=== PATIENT | male | born 1940 | race Caucasian/White ===

== ENCOUNTER → 2017-01-16 | Day surgery (SDC) | payer OTHER ==
[~2017-01-16] VITALS: Ht 165.1 cm; Wt 81.8 kg
[~2017-01-16] MED LIST: AMX500 PO; ATOR10TA82 PO; ATROPINE SULFATE 0.1 MG/ML 5ML SYR IV PRN; BELLADONNA/OPIUM SUPP 60 MG SUPP PR ONE; CIPROFLOXACIN 500 MG TAB PO SCH; DEXA1TAB16 PO; EpHEDrine SULFATE INJ 50 MG/ML AMP IV PRN; FENTANYL CITRATE INJ 50 MCG/1 ML 2 ML VIAL IV PRN; FENTANYL CITRATE INJ 50 MCG/1 ML 2 ML VIAL ONE; FINA5TAB PO; FRCT/ PO; GABA-113 PO; HYDROmorphone INJ 1 MG/ML SYR ONE; LACTATED RINGER'S 1000ML 1,000 ML IV SCH; LANS15CA6 PO; LEVO112T4 PO; LIDOCAINE HCL 2% 2 ML VIAL (20MG/ML) ONE; LORA-741 PO; METF500T5 PO; NTRGSL/4 UT; PHEN-775 PO; PHENYLEPHRINE 100MCG/ML 5ML SYR ONE; PROPOFOL IV EMULSION 10 MG/ML 20 ML VIAL IV ONE; TRAM-10 PO; TRAZ50TA35 PO; WARF5TAB90 PO
[2017-01-16 06:26] VITALS: BP 143/71; PULSE 64; TEMP 36.6; O2SAT 97; Ht 165.1 cm; Wt 81.8 kg
[2017-01-16 06:32] LABS: INR 1.1 (0.9-1.1); PARTIAL THROMBOPLASTIN RATIO 1.1; PROTHROMBIN TIME (PATIENT) 11.2 SECONDS (9.0-12.0)
--- NOTE | 2017-01-16 07:04 | History & Physical Bridge Note ---
H&P Re-Evaluation Bridge Note: I have examined the patient, reviewed the History & Physical and in the interval since the performance of the History & Physical I have noted the following changes of clinical significance: No changes noted
--- NOTE | 2017-01-16 08:23 | Anesthesiology Progress Note ---
Anesthesia Post Op Note Date & Time Jan 16, 2017 at 08:23 Vital Signs Pain Intensity: 0 Vital Signs Past 12 Hours Date Time Temp Pulse Resp B/P (MAP) Pulse Ox O2 Delivery O2 Flow Rate FiO2 01/16/17 06:26 36.6 64 18 143/71 (95) 97 Room Air Notes Mental Status: alert / awake / arousable, participated in evaluation Pt Amnestic to Procedure: Yes Nausea / Vomiting: adequately controlled Pain: adequately controlled Airway Patency, RR, SpO2: stable & adequate BP & HR: stable & adequate Hydration State: stable & adequate Anesthetic Complications: no major complications apparent
--- NOTE | 2017-01-16 08:27 | [facility] Operative Report ---
Operative Report Operative Date Jan 16, 2017. Pre-Operative Diagnosis Benign Prostatic Hyperplasia, Hematuria Post-Operative Diagnosis Benign Prostatic Hyperplasia, Hematuria Procedure(s) Performed Transurethral Resection Prostate Surgeon Dr. Rodriguez Inward Toll Operator Surgeon(s) none Estimated Blood Loss 100 ML Findings trilobar enlargement large middle lobe Fluids 750mL Specimens A:Prostate Chips Drains 20 fr coude greer Anesthesia LMA Complication(s) None Disposition Recovery Room / PACU Indications hematuria and urinary symptoms due to obstructive prostate Description of Procedure Patient was given general LMA anesthesia and placed in lithotomy position. His genitals were prepped and draped in sterile fashion. Time out held with team. I placed a 26 fr resectoscope to the bladder. The urethra is unremarkable. The prostate is trilobar hyperplasia with a large middle lobe. The UOs are well away from bladder neck. The bladder is moderately trabeculated but there are no diverticula. I used the band to resect middle lobe then lateral lobes and some anterior tissue falling down. I kept resection proximal to veru but did resect apical tips of lateral lobes as they were very large and met in the middle. I rinsed prostate chips out of bladder. I left bladder full and placed a 20 fr coude greer. I then concluded case. I placed a belladonna and opium suppository for post-op pain. He transferred to recovery under my escort, in stable condition. 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 Any exceptions are noted below.
--- NOTE | 2017-01-16 08:30 | Discharge Instructions ---
Discharge Instructions Date of Service Jan 16, 2017. Admission Reason for Admission: Benign Prostatic Hyperplasia, Gross Hematuria Discharge Discharge Diagnosis / Problem: BPH Discharge Goals Goal(s): Improve function, Improve disease control Activity Recommendations Activity Limitations: as noted below Lifting Limitations: no more than 25 pounds Exercise/Sports Limitations: until after follow-up appointment Shower/Bathe: no limitations Driving or Machine Use: resume 1 day after discharge . Instructions / Follow-Up Instructions / Follow-Up remove greer at home saturday morning when urine is bloody drink extra fluids Current Hospital Diet Patient's current hospital diet: Discharge Diet Recommended Diet: AHA Diet (Heart Healthy), Diabetes Type 2 Diet Procedures Procedures Performed: Transurethral Resection Prostate Pending Studies Studies pending at discharge: yes List of pending studies: pathology Medical Emergencies . Who to Call and When: Medical Emergencies: If at any time you feel your situation is an emergency, please call 911 immediately. . Non-Emergent Contact Non-Emergency issues call your: Urologist ([phone]) Call Non-Emergent contact if: temperature is above 100.5 . . "Provider Documentation" section prepared by Deborah Rodriguez. . VTE Core Measure Inpt VTE Proph given/why not?: SCD's
[2017-01-16 09:15] VITALS: BP 115/52; PULSE 59; TEMP 36.6; O2SAT 96
[2017-01-16 09:45] VITALS: BP 116/46; PULSE 58; TEMP 36.6; O2SAT 97
[2017-01-16 10:15] VITALS: BP 123/62; PULSE 56; TEMP 36.5; O2SAT 98
== END | disposition home or self-care (01) ==
LOC: C.ACU 05:47
PROVIDERS: ATTEND Urology
DX: N40.1 Benign prostatic hyperplasia with lower urinary tract symptoms (principal); N41.1 Chronic prostatitis; R31.9 Hematuria, unspecified; I10 Essential (primary) hypertension; Z79.01 Long term (current) use of anticoagulants; K21.0 Gastro-esophageal reflux disease with esophagitis; E78.5 Hyperlipidemia, unspecified; E03.8 Other specified hypothyroidism; Z96.619 Presence of unspecified artificial shoulder joint; I48.2 Chronic atrial fibrillation; Z86.73 Personal history of transient ischemic attack (TIA), and cerebral infarction without residual deficits; Z87.891 Personal history of nicotine dependence; E78.00 Pure hypercholesterolemia, unspecified; G47.30 Sleep apnea, unspecified; E11.9 Type 2 diabetes mellitus without complications; G62.9 Polyneuropathy, unspecified; Z92.241 Personal history of systemic steroid therapy; Z79.84 Long term (current) use of oral hypoglycemic drugs

== ENCOUNTER 2023-04-25 14:21 | Inpatient (IN) ==
--- NOTE | 2023-04-25 14:51 | ED Triage Note ---
Date of Service April 25, 2023 Provider in Triage Author: Jimbo Devlin History of Present Illness This patient was briefly evaluated while in triage. An abbreviated physical exam was performed. This patient is a 82-year-old Male who presents to the ED for evaluation of reported hypoxia at physical therapy. was noted to be in the low 80's, placed on O2. Was reportedly having a hard time at PT which is why his vitals were checked. Pt denies any CP or dyspnea. No new swelling in legs. Does not take any diuretics. Has ongoing R hip pain over past 2 days. Fell out of bed yesterday. Physical Exam CONSTITUTIONAL: in no acute pain or distress, resting comfortably SKIN: pink, warm, dry CARDIAC: tachycardic rate and regular rhythm RESPIRATORY: lungs clear ABDOMEN: normal MSK: R hip tender, severe pain on movement. B/l lower pitting edema Initial orders for labs and / or imaging were placed and patient was placed in the waiting area until a bed is available. Please see further documentation for the full ED course.
[2023-04-25 16:02] LABS: Basophils # (auto) 0.03 K/uL (0.00-0.20); Basophils % (auto) 0.4 %; Eosinophils # (auto) 0.12 K/uL (0.00-0.50); Eosinophils % (auto) 1.8 %; Hematocrit (blood only) 30.3 % (42.0-52.0); Immature Granulocytes # (auto) 0.02 K/uL (0.01-0.20); Immature Granulocytes % (auto) 0.3 %; Lymphocytes % (auto) 11.7 %; Mean Corpuscular Hemoglobin 33.8 pg (25.0-34.0); Mean Corpuscular Volume 102.4 fL (80.0-100.0); Mean Platelet Volume 10.1 fL (9.4-12.4); Monocytes # (auto) 0.59 K/uL (0.11-0.59); Monocytes % (auto) 8.6 %; Neutrophils # (auto) 5.29 K/uL (1.40-6.50); Neutrophils % (auto) 77.2 %; Platelet Count 137 K/uL (130-400); RDW Coefficient of Variation 14.5 % (11.5-14.5); Red Blood Count 2.96 M/uL (4.70-6.10); White Blood Count 6.85 K/ul (4.8-10.8)
[2023-04-25 16:23] LABS: Albumin Level 2.8 gm/dl (3.4-5.0); Anion Gap 9 (3-11); Bilirubin,Total 2.6 mg/dl (0.2-1.0); Carbon Dioxide 31 mmol/L (21-32); Chloride 98 mmol/L (98-107); Potassium 2.9 mmol/L (3.5-5.1); Sodium 138 mmol/L (136-145)
[2023-04-25 16:30] LABS: Alanine Aminotransferase 8 U/L (7-52); Albumin Globulin Ratio 0.8 (0.9-2); Alkaline Phosphatase 105 U/L (34-104); Aspartate Aminotransferase 19 U/L (13-39); BUN Creatinine Ratio 20.6 (10-20); Blood Urea Nitrogen 29 mg/dl (6-23); Est GFR (African American) 53.8 ml/min; Est GFR (Non-African American) 46.4 ml/min; Globulin 3.4 gm/dl (2.5-4.0); Glucose 126 mg/dl (70-99(Fasting)); Lipase 7 U/L (11-82); Total Protein 6.2 gm/dl (6.0-8.3)
[2023-04-25 16:33] LABS: Troponin I High Sensitivity 10.6 pg/ml (0-20)
--- NOTE | 2023-04-25 16:56 | XRay Report ---
XR hip RT 2V w pelvis CLINICAL HISTORY: 2 days R hip pain COMPARISON: None FINDINGS: Sacroiliac joints and symphysis pubis are intact. There is no acute fracture within the pe lvis or hips. No osseous lesions are present. There is no evidence for avascular necrosis of the femo ral heads. There is moderate joint space narrowing and osteophytosis of the right hip. There is mild left hip osteophytosis. Right lower quadrant surgical staple line is incidentally noted. There is a m oderate amount of stool within the rectum. IMPRESSION: 1. Moderate right hip osteoarthritis. 2. No fractures within the pelvis or hips. ACT 112: Negative or not required by law. Electronically signed by: Manuel Jefferson M.D. 04/25/2023 4:55 PM
--- NOTE | 2023-04-25 16:57 | XRay Report ---
XR chest 1V not portable HISTORY: 82 years-old Male hypoxia, history CHF acute hypoxia COMPARISON: None TECHNIQUE: AP view of the chest FINDINGS: Cardiac mediastinal and hilar silhouettes are within normal limits. Pulmonary vascular congestion. No nspecific interstitial coarsening of the lungs with linear left basilar and right midlung opacities. No pneumothorax, large pleural effusion or overt pulmonary edema. Degenerative changes of the spine a nd left shoulder. Right shoulder arthroplasty. IMPRESSION: 1. Cardiomegaly with pulmonary vascular congestion. 2. Mild nonspecific interstitial coarsening, possibly chronic. 3. Linear right midlung and left basilar densities favor atelectasis versus scarring. ACT 112: Negative or not required by law. The above report was generated using voice recognition software. It may contain grammatical, syntax o r spelling errors. Electronically signed by: Earl Oliveira M.D. 04/25/2023 4:55 PM
--- NOTE | 2023-04-25 18:24 | Emergency Department Note ---
Impression & Plan Right hip pain, Acute hyperkalemia, Anemia, Hypoxia, Fall ED Provider Note NAME: CARLOS WOOD AGE: 82 SEX: M : 1940 ARRIVES VIA: Ambulance INFORMANT: Patient, ED PROVIDER(S): Da Guzman DO CHIEF COMPLAINT: Hip pain HPI: The patient is an 82-year-old male who presented to the emergency department with multiple complaints. Mostly the patient is complaining of right hip pain. He states he cannot put any weight on his right hip. He feels that it is weak but also painful when he tries to ambulate. The patient did admit that he did fall and hit his anterior right hip. He did try to get out of bed and his leg gave way. He denies having any chest pain or difficulty breathing but he was found to be hypoxic when he [facility] He was sent to the emergency department for further evaluation. The patient states has been compliant with his outpatient medications. ROS: See above HPI for pertinent positives & negatives. A total of 10 systems reviewed and were otherwise negative. PAST MEDICAL HISTORY: See Below PAST SURGICAL HISTORY: See Below FAMILY HISTORY: See Below SOCIAL HISTORY: See Below HOME MEDICATIONS: See Below ALLERGIES: See Below VITALS: See Below PHYSICAL EXAMINATION: GENERAL: Patient is awake alert in no acute distress patient is resting comfortably and showing no signs of anxiety EYES: The conjunctivae are clear. The pupils are round and reactive. EARS, NOSE, MOUTH AND THROAT: The nose is without any evidence of any deformity. NECK: The neck is nontender and supple. RESPIRATORY: Diminished breath sounds are noted throughout. There is no tachypnea or conversational dyspnea. CARDIOVASCULAR: Regular rate and rhythm noted there no murmurs rubs or gallops normal S1 normal S2. GASTROINTESTINAL: The abdomen is soft. Abdomen is nontender. MUSCULOSKELETAL/EXTREMITIES: There is pain with range of motion testing of the right hip. There is no deformity or shortening. SKIN: Chronic venous stasis changes were noted. Skin is warm and dry. NEUROLOGIC: Patient is awake alert and oriented x3. The patient is unable to lift the right leg off the bed. There is no facial droop. Speech was clear MEDICAL DECISION MAKING: The patient is an 82-year-old male who presented to the emergency department for an evaluation of right leg pain. The patient states his leg was weak but also he had severe pain with any ambulation. The patient did have a fall but he did not consider very traumatic. Radiographic studies did not reveal any signs of fracture. I discussed the patient's laboratory and radiographic studies with him. He did have further testing such as a CAT scan of the brain as well as CAT scan of the hip to ensure this was no occult fracture but also to ensure there is no neurologic cause for his symptoms. He was found to have anemia as well as hypokalemia. He was treated with potassium replacement. The patient was treated with pain medication in the emergency department. I discussed the patient's condition with the on-call [facility]ist. They have agreed to evaluate the patient in the emergency department for further management and disposition. Triage Nursing notes reviewed. Prior medical records reviewed Vital Signs: reviewed and remarkable for no significant abnormalities Differential diagnosis: Infection, dehydration, metabolic abnormality, hypo/hyperglycemia, electrolyte disturbance, anemia, hypoxia, cardiac sources, intracerebral event, toxicologic, neurologic, as well as other pathologies. ER treatment provided: See below Diagnostics interpreted by me: ECG: EKG was obtained in the emergency department. My interpretation is normal sinus rhythm at 99 bpm. PVCs were noted. Right bundle-branch block pattern was noted. No previous tracing was available. Cardiac Monitoring: An order was placed for continuous cardiac monitoring. The monitor shows a rate of 82 bpm with sinus rhythm. Laboratory studies: As stated above and show below. Imaging studies: See below. Radiographic imaging was reviewed by myself Consultation(s): I discussed this case with Dr. Delgado who is on-call for the [facility] group. 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 Verified 04/25/23 21:04 cefuroxime Allergy Unknown FLUSHING, Verified 04/25/23 21:04 HIVES, ITCHING [id number] Reductase Allergy Unknown MUSCLE Verified 04/25/23 21:04 Inhibitor [Qundnlo-Lpc-Ryk Reductase Inhibitor] zolpidem Allergy Unknown "MADE ME A Verified 04/25/23 21:04 DIFFERENT PERSON" Home Meds Home Medications Medication Instructions Recorded Confirmed cholecalciferol (vitamin D3) 50 50 mcg PO DAILY 04/25/23 04/25/23 mcg (2,000 unit) tablet (Vitamin D3) docusate sodium 100 mg capsule 100 mg PO BID 04/25/23 04/25/23 fluticasone 250 mcg-salmeterol 50 1 inh inhalation Q12 04/25/23 04/25/23 mcg/dose blistr powdr for inhalation lansoprazole 15 mg capsule,delayed 15 mg PO QAM 04/25/23 04/25/23 release levothyroxine 112 mcg tablet 112 mcg PO DAILY 04/25/23 04/25/23 lorazepam 0.5 mg tablet 0.5 mg PO DAILY PRN Anxiety 04/25/23 04/25/23 meclizine 25 mg tablet 25 mg PO TID PRN .dizzyness 04/25/23 04/25/23 metoprolol succinate 25 mg 25 mg PO QAM 04/25/23 04/25/23 tablet,extended release 24 hr nitroglycerin 0.4 mg sublingual 0.4 mg sublingual DIRECTED PRN 04/25/23 04/25/23 tablet ..chest pain potassium chloride 20 mEq 20 meq PO TID 04/25/23 04/25/23 tablet,extended release tadalafil 20 mg tablet 20 mg PO DAILY PRN .erectile 04/25/23 04/25/23 dysfunction thiamine HCl (vitamin B1) 100 mg 100 mg PO QAM 04/25/23 04/25/23 tablet (Vitamin B-1) tramadol 50 mg tablet 50 mg PO TID 04/25/23 04/25/23 trazodone 50 mg tablet 50 mg PO HS 04/25/23 04/25/23 zinc sulfate 50 mg zinc (220 mg) 50 mg PO QAM 04/25/23 04/25/23 tablet Results & Data (ED) Vital Signs Vital Signs - 24 hr 04/25/23 14:48 04/25/23 18:22 04/25/23 18:29 Temperature 36.5 C Temperature Source Temporal Artery Scan Pulse Rate 105 H 81 83 Pulse Rate [Apical] Pulse Rate from SpO2 Sensor Pulse Rhythm Regular Respiratory Rate 18 Respiratory Effort / Characteristics Non-Labored Spontaneous Respiratory Depth Normal Respiratory Pattern Regular Blood Pressure 128/67 Blood Pressure [Left Arm] Blood Pressure Mean 87 Blood Pressure Mean [Left Arm] Blood Pressure Position Sitting Pulse Oximetry 97 100 Oxygen Delivery Method Room Air Nasal Cannula Oxygen Flow Rate 2 Sepsis Recent Fever Within 48 Hours No Sepsis New/Unexplained Change in Mental Status No Sepsis Action Taken by Nursing No Action Required 04/25/23 18:31 04/25/23 18:31 04/25/23 18:33 Temperature Temperature Source Pulse Rate Pulse Rate [Apical] 84 Pulse Rate from SpO2 Sensor Pulse Rhythm Respiratory Rate 16 Respiratory Effort / Characteristics Non-Labored Respiratory Depth Respiratory Pattern Regular Blood Pressure Blood Pressure [Left Arm] 135/61 Blood Pressure Mean Blood Pressure Mean [Left Arm] 85 Blood Pressure Position Pulse Oximetry 94 94 Oxygen Delivery Method Nasal Cannula Nasal Cannula Oxygen Flow Rate 2 2 Sepsis Recent Fever Within 48 Hours Sepsis New/Unexplained Change in Mental Status Sepsis Action Taken by Nursing 04/25/23 19:00 04/25/23 20:00 04/25/23 21:30 Temperature Temperature Source Pulse Rate 82 86 82 Pulse Rate [Apical] Pulse Rate from SpO2 Sensor 82 85 Pulse Rhythm Respiratory Rate 14 15 15 Respiratory Effort / Characteristics Respiratory Depth Respiratory Pattern Blood Pressure 130/75 141/67 H 122/46 L Blood Pressure [Left Arm] Blood Pressure Mean 93 91 71 Blood Pressure Mean [Left Arm] Blood Pressure Position Pulse Oximetry 99 99 98 Oxygen Delivery Method Nasal Cannula Nasal Cannula Nasal Cannula Oxygen Flow Rate 2 2 2 Sepsis Recent Fever Within 48 Hours Sepsis New/Unexplained Change in Mental Status Sepsis Action Taken by Retirement Medications Current Medication List: was personally reviewed by me Laboratory Data Attestation: I reviewed the patient's lab results. 04/25/23 15:23 04/25/23 15:23 Lab Results 04/25/23 04/25/23 04/25/23 Range/Units 15:23 15:27 18:35 WBC 6.85 (4.8-10.8) K/ul RBC 2.96 L (4.70-6.10) M/uL Hgb 10.0 L (14.0-18.0) g/dl Hct 30.3 L (42.0-52.0) % MCV 102.4 H (80.0-100.0) fL MCH 33.8 (25.0-34.0) pg MCHC 33.0 (32.0-36.0) g/dL RDW Std Deviation 54.0 H (36.4-46.3) fL RDW Coeff of Jennifer 14.5 (11.5-14.5) % Plt Count 137 (130-400) K/uL MPV 10.1 (9.4-12.4) fL Immature Gran % (Auto) 0.3 % Neut % (Auto) 77.2 % Lymph % (Auto) 11.7 % Greenlee % (Auto) 8.6 % Eos % (Auto) 1.8 % Baso % (Auto) 0.4 % Neut # (Auto) 5.29 (1.40-6.50) K/uL Lymph # (Auto) 0.80 L (1.20-3.40) K/uL Greenlee # (Auto) 0.59 (0.11-0.59) K/uL Eos # (Auto) 0.12 (0.00-0.50) K/uL Baso # (Auto) 0.03 (0.00-0.20) K/uL Immature Gran # (Auto) 0.02 (0.01-0.20) K/uL PT 12.4 H (9.0-12.0) Seconds INR 1.1 (0.9-1.1) APTT 30 (21-31) Seconds PTT Ratio 1.1 Sodium 138 (136-145) mmol/L Potassium 2.9 L (3.5-5.1) mmol/L Chloride 98 (98-107) mmol/L Carbon Dioxide 31 (21-32) mmol/L Anion Gap 9 (3-11) BUN 29 H (6-23) mg/dl Creatinine 1.41 H (0.6-1.4) mg/dl Est Cr Clr Drug Dosing Not Reportable Est GFR ( Amer) 53.8 ml/min Est GFR (Non-Af Amer) 46.4 ml/min BUN/Creatinine Ratio 20.6 H (10-20) Glucose 126 H (70-99(Fasting)) mg/dl Calcium 8.0 L (8.6-10.3) mg/dl Total Bilirubin 2.6 H (0.2-1.0) mg/dl AST 19 (13-39) U/L ALT 8 (7-52) U/L Alkaline Phosphatase 105 H (34-104) U/L Troponin I High Sens 10.6 (0-20) pg/ml Total Protein 6.2 (6.0-8.3) gm/dl Albumin 2.8 L (3.4-5.0) gm/dl Globulin 3.4 (2.5-4.0) gm/dl Albumin/Globulin Ratio 0.8 L (0.9-2) Lipase 7 L (11-82) U/L Adenovirus (PCR) Not Detected (NotDetected) B. pertussis DNA (PCR) Not Detected (NotDetected) B.parapertussis DNA PCR Not Detected (NotDetected) C. pneumoniae DNA (PCR) Not Detected (NotDetected) Coronavirus OC43 (PCR) Not Detected (NotDetected) Coronavirus HKU1 (PCR) Not Detected (NotDetected) Coronavirus 229E (PCR) Not Detected (NotDetected) SARS-CoV-2 (PCR) Not Detected (NotDetected) Coronavirus NL63 (PCR) Not Detected (NotDetected) Human Metapneumovir PCR Not Detected (NotDetected) Influenza Type A (PCR) Not Detected (NotDetected) Influenza Type B (PCR) Not Detected (NotDetected) M. pneumoniae (PCR) Not Detected (NotDetected) Parainfluenza 1 (PCR) Not Detected (NotDetected) Parainfluenza 2 (PCR) Not Detected (NotDetected) Parainfluenza 3 (PCR) Not Detected (NotDetected) Parainfluenza 4 (PCR) Not Detected (NotDetected) RSV (PCR) Not Detected (NotDetected) Entero/Rhino (PCR) Not Detected (NotDetected) Administered Medications Discontinued Medications Morphine Sulfate (Morphine Sulfate 4 Mg/Ml 1 Ml Carp\\Vial) 4 mg IV NOW STA Stop: 04/25/23 20:49 Last Admin: 04/25/23 20:54 Dose: 4 mg Documented By: [facility] Ondansetron HCl (Ondansetron Inj 2 Mg/Ml 2 Ml Vial) 4 mg IV NOW STA Stop: 04/25/23 20:49 Last Admin: 04/25/23 20:54 Dose: 4 mg Documented By: [facility] Potassium Chloride (Potassium Chloride 10 Meq Tabcr) 20 meq PO NOW STA Stop: 04/25/23 19:39 Last Admin: 04/25/23 20:42 Dose: 20 meq Documented By: [facility] Imaging Data My Impression: 1 view chest x-ray was obtained in the emergency department. My interpretation is cardiomegaly, final report below. X-ray of the right hip was obtained in the emergency department. My interpretation is no definite fracture, final report below. CT of the head was obtained in the emergency department. My interpretation is no intracranial hemorrhage or mass effect, final report below. Radiologist's Impression: Chest X-Ray 04/25/23 14:53 XR chest 1V not portable HISTORY: 82 years-old Male hypoxia, history CHF acute hypoxia COMPARISON: None TECHNIQUE: AP view of the chest FINDINGS: Cardiac mediastinal and hilar silhouettes are within normal limits. Pulmonary vascular congestion. Nonspecific interstitial coarsening of the lungs with linear left basilar and right midlung opacities. No pneumothorax, large pleural effusion or overt pulmonary edema. Degenerative changes of the spine and left shoulder. Right shoulder arthroplasty. IMPRESSION: 1. Cardiomegaly with pulmonary vascular congestion. 2. Mild nonspecific interstitial coarsening, possibly chronic. 3. Linear right midlung and left basilar densities favor atelectasis versus scarring. ACT 112: Negative or not required by law. The above report was generated using voice recognition software. It may contain grammatical, syntax or spelling errors. Electronically signed by: Earl Oliveira M.D. 04/25/2023 4:55 PM Hip/Pelvis X-Ray 04/25/23 14:53 XR hip RT 2V w pelvis CLINICAL HISTORY: 2 days R hip pain COMPARISON: None FINDINGS: Sacroiliac joints and symphysis pubis are intact. There is no acute fracture within the pelvis or hips. No osseous lesions are present. There is no evidence for avascular necrosis of the femoral heads. There is moderate joint space narrowing and osteophytosis of the right hip. There is mild left hip osteophytosis. Right lower quadrant surgical staple line is incidentally noted. There is a moderate amount of stool within the rectum. IMPRESSION: 1. Moderate right hip osteoarthritis. 2. No fractures within the pelvis or hips. ACT 112: Negative or not required by law. Electronically signed by: Manuel Jefferson M.D. 04/25/2023 4:[address] 04/25/23 18:22 Exam(s): CT HEAD Without Contrast EXAM: CT Head Without Intravenous Contrast CLINICAL HISTORY: Reason for exam: RLE weakness. TECHNIQUE: Axial computed tomography images of the head/brain without intravenous contrast. CTDI is 37.69 mGy and DLP is 546.36 mGy-cm. Automated exposure control was utilized for the study. A dose lowering technique was utilized adhering to the principles of ALARA. COMPARISON: 02/17/18 FINDINGS: Brain: Generalized parenchymal volume loss. Chronic small vessel ischemic changes. Champion-white matter differentiation maintained. No hemorrhage, mass-effect, or edema. Ventricles: Unremarkable. No hydrocephalus. Bones/joints: Unremarkable. No acute fracture. Soft tissues: Unremarkable. Vasculature: Intracranial atherosclerosis. Sinuses: Unremarkable as visualized. No acute sinusitis. Mastoid air cells: Unremarkable as visualized. No mastoid effusion. Orbits: Bilateral lens replacements. IMPRESSION: No acute intracranial process. Electronically signed by: Rupa Calixto M.D. 04/25/23 19:[address] 04/25/23 18:22 Exam(s): CT RIGHT HIP Without Contrast EXAM: CT Right Lower Extremity Without Intravenous Contrast, Hip CLINICAL HISTORY: Reason for exam: pain. TECHNIQUE: Axial computed tomography images of the right hip without intravenous contrast. CTDI is 32.59 mGy and DLP is 555.22 mGy-cm. Automated exposure control was utilized for the study. A dose lowering technique was utilized adhering to the principles of ALARA. COMPARISON: Right hip radiographs 04/25/23 FINDINGS: Bones are osteopenic. There is no acute fracture or dislocation. There is osteoarthritis of the right hip with superior joint space narrowing. Visualized portions of the bony right hemipelvis appear intact. There is subcutaneous edema lateral to the right hip. IMPRESSION: 1. No acute osseous findings. 2. Subcutaneous edema lateral to the right hip, possibly soft tissue contusion. Electronically signed by: Rupa Calixto M.D. 04/25/23 19:36 PM Discharge Plan Visit Data Chief Complaint: Shortness of Breath/Dyspnea Stated Complaint: SOB ED Provider: Da Guzman Discharge Problem: Right hip pain, Acute hyperkalemia, Anemia, Hypoxia, Fall Patient Disposition: Being Evaluated by Hospitalist Forms Stand Alone Forms: My [facility] Prescriptions Prescriptions: No Action fluticasone propion-salmeterol 250-50 mcg/dose blister with device 1 inh INHALATION Q12 trazodone 50 mg tablet 50 mg PO HS thiamine HCl (vitamin B1) [Vitamin B-1] 100 mg tablet 100 mg PO QAM tramadol 50 mg Tablet 50 mg PO TID Rx Instructions: Take with 650mg tylenol zinc sulfate 50 mg zinc (220 mg) tablet 50 mg PO QAM lorazepam 0.5 mg tablet 0.5 mg PO DAILY PRN (Reason: Anxiety) meclizine 25 mg Tablet 25 mg PO TID PRN (Reason: .dizzyness) lansoprazole 15 mg capsule,delayed release(DR/EC) 15 mg PO QAM nitroglycerin 0.4 mg tablet, sublingual 0.4 mg sublingual DIRECTED PRN (Reason: ..chest pain) docusate sodium 100 mg capsule 100 mg PO BID metoprolol succinate 25 mg Tablet Extended Release 24 Hr 25 mg PO QAM levothyroxine 112 mcg Tablet 112 mcg PO DAILY Rx Instructions: this was not seen on pharmacy list tadalafil 20 mg tablet 20 mg PO DAILY PRN (Reason: .erectile dysfunction) cholecalciferol (vitamin D3) [Vitamin D3] 50 mcg (2,000 unit) Tablet 50 mcg PO DAILY potassium chloride 20 mEq Tablet Extended Release 20 meq PO TID Rx Instructions: Take am,noon & hs Referrals Referrals: Juan Luis Hope MD [Primary Care Provider] - Discharge Problem: Anemia Qualifiers: Anemia type: unspecified type Qualified Code(s): D64.9 - Anemia, unspecified Fall Qualifiers: Encounter type: initial encounter Qualified Code(s): W19.XXXA - Unspecified fall, initial encounter
--- NOTE | 2023-04-25 19:33 | CT Scan Report ---
Exam(s): CT HEAD Without Contrast EXAM: CT Head Without Intravenous Contrast CLINICAL HISTORY: Reason for exam: RLE weakness. TECHNIQUE: Axial computed tomography images of the head/brain without intravenous contrast. CTDI is 37.69 mGy and DLP is 546.36 mGy-cm. Automated exposure control was utilized for the study. A dose lowering technique was utilized adhering to the principles of ALARA. COMPARISON: 02/17/18 FINDINGS: Brain: Generalized parenchymal volume loss. Chronic small vessel ischemic changes. Champion-white matter differentiation maintained. No hemorrhage, mass-effect, or edema. Ventricles: Unremarkable. No hydrocephalus. Bones/joints: Unremarkable. No acute fracture. Soft tissues: Unremarkable. Vasculature: Intracranial atherosclerosis. Sinuses: Unremarkable as visualized. No acute sinusitis. Mastoid air cells: Unremarkable as visualized. No mastoid effusion. Orbits: Bilateral lens replacements. IMPRESSION: No acute intracranial process. Electronically signed by: Rupa Calixto M.D. 04/25/23 19:33 PM
--- NOTE | 2023-04-25 19:36 | CT Scan Report ---
Exam(s): CT RIGHT HIP Without Contrast EXAM: CT Right Lower Extremity Without Intravenous Contrast, Hip CLINICAL HISTORY: Reason for exam: pain. TECHNIQUE: Axial computed tomography images of the right hip without intravenous contrast. CTDI is 32.59 mGy and DLP is 555.22 mGy-cm. Automated exposure control was utilized for the study. A dose lowering technique was utilized adhering to the principles of ALARA. COMPARISON: Right hip radiographs 04/25/23 FINDINGS: Bones are osteopenic. There is no acute fracture or dislocation. There is osteoarthritis of the right hip with superior joint space narrowing. Visualized portions of the bony right hemipelvis appear intact. There is subcutaneous edema lateral to the right hip. IMPRESSION: 1. No acute osseous findings. 2. Subcutaneous edema lateral to the right hip, possibly soft tissue contusion. Electronically signed by: Rupa Calixto M.D. 04/25/23 19:36 PM
[2023-04-25 19:38] LABS: Adenovirus PCR Not Detected (NotDetected); Bordetella parapertussis PCR Not Detected (NotDetected); Bordetella pertussis PCR Not Detected (NotDetected); Chlamydia pneumoniae PCR Not Detected (NotDetected); Coronavirus 229E PCR Not Detected (NotDetected); Coronavirus CoV-2 (COVID19)PCR Not Detected (NotDetected); Coronavirus HKU1 PCR Not Detected (NotDetected); Coronavirus NL63 PCR Not Detected (NotDetected); Coronavirus OC43PCR Not Detected (NotDetected); Human Metapneumovirus PCR Not Detected (NotDetected); Influenza A PCR Not Detected (NotDetected); Influenza B PCR Not Detected (NotDetected); Mycoplasma pneumoniae PCR Not Detected (NotDetected); Parainfluenza Virus 1 PCR Not Detected (NotDetected); Parainfluenza Virus 2 PCR Not Detected (NotDetected); Parainfluenza Virus 3 PCR Not Detected (NotDetected); Parainfluenza Virus 4 PCR Not Detected (NotDetected); Respiratory Syncytial VirusPCR Not Detected (NotDetected); Rhinovirus/Enterovirus PCR Not Detected (NotDetected)
[2023-04-25 19:45] LABS: INR 1.1 (0.9-1.1); Partial Thromboplastin Ratio 1.1; Partial Thromboplastin Time 30 Seconds (21-31); Prothrombin Time 12.4 Seconds (9.0-12.0)
[2023-04-25] MEDS: POTASSIUM CHLORIDE 10 MEQ TABCR PO STA (20:42)
[2023-04-25] MEDS: MoRPHine SULFATE 4 MG/ML 1 ML CARP\\VIAL IV STA (20:54)
[2023-04-25] MEDS: ONDANSETRON INJ 2 MG/ML 2 ML VIAL IV STA (20:54)
--- NOTE | 2023-04-25 22:08 | History & Physical Report ---
Date of Service April 25, 2023 Assessment & Plan (1) Right hip pain: Plan: 82-year-old male with past medical history significant for type 2 diabetes currently not on medications, hyperlipidemia, hypertension, hypothyroidism, COPD, history of CVA, Polyp of vocal cord, paroxysmal atrial fibrillation not on anticoagulation secondary to fall risk, peripheral vascular disease, irritable bowel syndrome, stage III chronic kidney disease, BPH ,normocytic anemia, history of alcoholism, comes because of fall and ambulatory dysfunction and also found to be hypoxic. Patient states he fell from his bed in the morning on the right side. Able to get up. But since then having difficulty ambulation. A lot of pain in the right hip region. [facility] because of pain in the hip and also his oxygen saturations in the 80s he was sent in here. Patient states usually short of breath in the nighttime and use oxygen 2 L nightly. Currently on 2 L saturating fine. Currently denies any shortness of breath. Denies any chest pain. No headache. Vision is okay. No runny nose or sore throat. No cough. No fevers. No nausea. No abdominal pain. Usually constipated. Denies any blood in the stools. Normal micturition. Has chronic swelling in the legs. Ambulates with rollator walker. Hemodynamically stable. Right hip pain S/p fall Ambulatory dysfunction CT scan showing possible contusion of the right hip Pain control Ortho consult in a.m. PT OT Hypoxia Chest x-ray possible congestion Will do a dose of IV Lasix 20 mg Will follow echo Possible CHF Consult cardiology in a.m. Lower EXTR edema Will check Dopplers Checking echo given dose of Lasix Will monitor History of COPD No obvious wheezing Continue home inhalers DuoNebs as needed Nocturnal hypoxia Uses 2 L oxygen at nighttime Alcoholism States drinks 2 mixed drinks daily Does not think will go through withdrawal Continue home thiamine Close monitor for withdrawal Hypokalemia Replacing potassium Continue home potassium supplements Close follow the labs History of A-fib Continue metoprolol succinate Not on anticoagulation secondary to fall risk Chronic anemia Hemoglobin 10 We will follow Hemoccults CKD stage 3 baseline cr around 1.3 cr 1.4 today close to baseline follow labs Hypothyroidism On Synthyroid History of CVA Diabetes Not on meds Sliding scale Follow HbA1c levels DVT prophylaxis heparin Disposition Med/tele Full code Addendum: Lower ext dopper showing bilateral lower extremity DVT. Starting on iv heparin.Will follow echo. Will order v/q scan. History of Present Illness Chief Complaint: Fall and right hip pain Primary Care Provider: Juan Luis Hope MD 82-year-old male with past medical history significant for type 2 diabetes currently not on medications, hyperlipidemia, hypertension, hypothyroidism, COPD, history of CVA, Polyp of vocal cord, paroxysmal atrial fibrillation not on anticoagulation secondary to fall risk, peripheral vascular disease, irritable bowel syndrome, stage III chronic kidney disease, BPH ,normocytic ane jake, history of alcoholism, comes because of fall and ambulatory dysfunction and also found to be hypoxic. Patient states he fell from his bed in the morning on the right side. Able to get up. But since then having difficulty ambulation. A lot of pain in the right hip region. [facility] When he went [facility] because of pain in the hip and also his oxygen saturations in the 80s he was sent in here. Patient states usually short of breath in the nighttime and use oxygen 2 L nightly. Currently on 2 L saturating fine. Currently denies any shortness of breath. Denies any chest pain. No headache. Vision is okay. No runny nose or sore throat. No cough. No fevers. No nausea. No abdominal pain. Usually constipated. Denies any blood in the stools. Normal micturition. Has chronic swelling in the legs. Ambulates with rollator walker. Hemodynamically stable. Past medical history. As mentioned above Past surgical history. Colonoscopy. Hemorrhoidectomy. Laparoscopic appendectomy. Cataracts. Revision of left ankle joint in 1982. Social history. Smoked 2 packs a day for 35 years quit smoking 1989. Alcohol 2 drinks daily. No drug use. Family history. Brother had cancer. Father had stroke. Mother had lung cancer. Sister has osteoporosis Allergies Allergy/AdvReac Type Severity Reaction Status Date / Time adhesive Allergy Unknown RASH Verified 04/25/23 21:04 ceftriaxone Allergy Unknown . Verified 04/25/23 21:04 cefuroxime Allergy Unknown FLUSHING, Verified 04/25/23 21:04 HIVES, ITCHING Ghjmrug-NPD-CxS Reductase Allergy Unknown MUSCLE Verified 04/25/23 21:04 Inhibitor [Hvfztsj-Tjt-Tit Reductase Inhibitor] zolpidem Allergy Unknown "MADE ME A Verified 04/25/23 21:04 DIFFERENT PERSON" Home Medications Medication Instructions Recorded Confirmed Type cholecalciferol (vitamin D3) 50 50 mcg PO DAILY 04/25/23 04/25/23 History mcg (2,000 unit) tablet (Vitamin D3) docusate sodium 100 mg capsule 100 mg PO BID 04/25/23 04/25/23 History fluticasone 250 mcg-salmeterol 50 1 inh inhalation Q12 04/25/23 04/25/23 History mcg/dose blistr powdr for inhalation lansoprazole 15 mg capsule,delayed 15 mg PO QAM 04/25/23 04/25/23 History release levothyroxine 112 mcg tablet 112 mcg PO DAILY 04/25/23 04/25/23 History lorazepam 0.5 mg tablet 0.5 mg PO DAILY PRN Anxiety 04/25/23 04/25/23 History meclizine 25 mg tablet 25 mg PO TID PRN .dizzyness 04/25/23 04/25/23 History metoprolol succinate 25 mg 25 mg PO QAM 04/25/23 04/25/23 History tablet,extended release 24 hr nitroglycerin 0.4 mg sublingual 0.4 mg sublingual DIRECTED PRN 04/25/23 04/25/23 History tablet ..chest pain potassium chloride 20 mEq 20 meq PO TID 04/25/23 04/25/23 History tablet,extended release tadalafil 20 mg tablet 20 mg PO DAILY PRN .erectile 04/25/23 04/25/23 History dysfunction thiamine HCl (vitamin B1) 100 mg 100 mg PO QAM 04/25/23 04/25/23 History tablet (Vitamin B-1) tramadol 50 mg tablet 50 mg PO TID 04/25/23 04/25/23 History trazodone 50 mg tablet 50 mg PO HS 04/25/23 04/25/23 History zinc sulfate 50 mg zinc (220 mg) 50 mg PO QAM 04/25/23 04/25/23 History tablet Past Med/Surg History Medical History Hx of fall A-fib GERD (gastroesophageal reflux disease) Hypertension Hypothyroidism Hyperlipidemia Diabetes CVA (cerebral vascular accident) Surgical History S/P shoulder surgery S/P appendectomy Social History Smoking Status: Never smoker Hx Alcohol Use: Yes Alcohol type: hard liquor Hx Substance Use: No Preferred Language: Indonesian Communication Ability: Effective Visual Impairment: Limited Hearing Ability: Normal 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 ENT- oropharynx clear Neck- supple, no JVD. Lungs- clear to auscultation no wheezing or crackles. Heart- regular rhythm; no murmur, no gallop. Abdomen- normal bowel sounds, soft, nontender, no distension. Extremities- b/l lower extremity edema. chronic skin changes seen.Painful right lower extremity movements. Neuro- alert, oriented PERRL, no facial palsy; no dysarthria Skin- warm & dry Results & Data Results & Data Vital Signs (Past 12 Hours) Vital Signs Temp Pulse Pulse Resp BP BP Pulse Ox 04/25/23 21:30 82 15 122/46 L 98 04/25/23 20:00 86 15 141/67 H 99 04/25/23 19:00 82 14 130/75 99 04/25/23 18:33 84 16 135/61 94 04/25/23 18:31 94 04/25/23 18:29 83 100 04/25/23 18:22 81 04/25/23 14:48 36.5 C 105 H 18 128/67 97 O2 Del Method O2 Flow Rate 04/25/23 21:30 Nasal Cannula 2 04/25/23 20:00 Nasal Cannula 2 04/25/23 19:00 Nasal Cannula 2 04/25/23 18:33 Nasal Cannula 2 04/25/23 18:31 Nasal Cannula 2 04/25/23 18:29 Nasal Cannula 2 04/25/23 18:22 04/25/23 14:48 Room Air Diagnostic Findings Laboratory Results WBC 6.85 K/ul (4.8-10.8) 04/25/23 15: RBC 2.96 M/uL (4.70-6.10) L 04/25/23 15: Hgb 10.0 g/dl (14.0-18.0) L 04/25/23 15: Hct 30.3 % (42.0-52.0) L 04/25/23 15: MCV 102.4 fL (80.0-100.0) H 04/25/23 15: MCH 33.8 pg (25.0-34.0) 04/25/23 15: MCHC 33.0 g/dL (32.0-36.0) 04/25/23 15: RDW Std Deviation 54.0 fL (36.4-46.3) H 04/25/23: RDW Coeff of Jennifer 14.5 % (11.5-14.5) 04/25/23 15: Plt Count 137 K/uL (130-400) 04/25/23: MPV 10.1 fL (9.4-12.4) 04/25/23 15: Immature Gran % (Auto) 0.3 % 04/25/23 15: Neut % (Auto) 77.2 % 04/25/23 15: Lymph % (Auto) 11.7 % 04/25/23 15: Dale % (Auto) 8.6 % 04/25/23 15: Eos % (Auto) 1.8 % 04/25/23: Baso % (Auto) 0.4 % 04/25/23 15: Neut # (Auto) 5.29 K/uL (1.40-6.50) 04/25/23 15: Lymph # (Auto) 0.80 K/uL (1.20-3.40) L 04/25/23 15: Dale # (Auto) 0.59 K/uL (0.11-0.59) 04/25/23 15: Eos # (Auto) 0.12 K/uL (0.00-0.50) 04/25/23 15:23 Baso # (Auto) 0.03 K/uL (0.00-0.20) 04/25/23 15:23 Immature Gran # (Auto) 0.02 K/uL (0.01-0.20) 04/25/23 15:23 PT 12.4 Seconds (9.0-12.0) H 04/25/23 15:27 INR 1.1 (0.9-1.1) 04/25/23 15:27 APTT 30 Seconds (21-31) 04/25/23 15: PTT Ratio 1.1 04/25/23 15:27 Sodium 138 mmol/L (136-145) 04/25/23 15:23 Potassium 2.9 mmol/L (3.5-5.1) L 04/25/23 15:23 Chloride 98 mmol/L (98-107) 04/25/23 15:23 Carbon Dioxide 31 mmol/L (21-32) 04/25/23 15:23 Anion Gap 9 (3-11) 04/25/23 15:23 BUN 29 mg/dl (6-23) H 04/25/23 15:23 Creatinine 1.41 mg/dl (0.6-1.4) H 04/25/23 15:23 Est Cr Clr Drug Dosing Not Reportable 04/25/23 15:23 Est GFR ( Amer) 53.8 ml/min 04/25/23 15:23 Est GFR (Non-Af Amer) 46.4 ml/min 04/25/23 15:23 BUN/Creatinine Ratio 20.6 (10-20) H 04/25/23 15:23 Glucose 126 mg/dl (70-99(Fasting)) H 04/25/23 15:23 Calcium 8.0 mg/dl (8.6-10.3) L 04/25/23 15:23 Total Bilirubin 2.6 mg/dl (0.2-1.0) H 04/25/23 15:23 AST 19 U/L (13-39) 04/25/23 15:23 ALT 8 U/L (7-52) 04/25/23 15:23 Alkaline Phosphatase 105 U/L (34-104) H 04/25/23 15:23 Troponin I High Sens 10.6 pg/ml (0-20) 04/25/23 15:23 Total Protein 6.2 gm/dl (6.0-8.3) 04/25/23 15:23 Albumin 2.8 gm/dl (3.4-5.0) L 04/25/23 15:23 Globulin 3.4 gm/dl (2.5-4.0) 04/25/23 15:23 Albumin/Globulin Ratio 0.8 (0.9-2) L 04/25/23 15:23 Lipase 7 U/L (11-82) L 04/25/23 15:23 Adenovirus (PCR) Not Detected (NotDetected) 04/25/23 18:35 B. pertussis DNA (PCR) Not Detected (NotDetected) 04/25/23 18:35 B.parapertussis DNA PCR Not Detected (NotDetected) 04/25/23 18:35 C. pneumoniae DNA (PCR) Not Detected (NotDetected) 04/25/23 18:35 Coronavirus OC43 (PCR) Not Detected (NotDetected) 04/25/23 18:35 Coronavirus HKU1 (PCR) Not Detected (NotDetected) 04/25/23 18:35 Coronavirus 229E (PCR) Not Detected (NotDetected) 04/25/23 18:35 SARS-CoV-2 (PCR) Not Detected (NotDetected) 04/25/23 18:35 Coronavirus NL63 (PCR) Not Detected (NotDetected) 04/25/23 18:35 Human Metapneumovir PCR Not Detected (NotDetected) 04/25/23 18:35 Influenza Type A (PCR) Not Detected (NotDetected) 04/25/23 18:35 Influenza Type B (PCR) Not Detected (NotDetected) 04/25/23 18:35 M. pneumoniae (PCR) Not Detected (NotDetected) 04/25/23 18:35 Parainfluenza 1 (PCR) Not Detected (NotDetected) 04/25/23 18:35 Parainfluenza 2 (PCR) Not Detected (NotDetected) 04/25/23 18:35 Parainfluenza 3 (PCR) Not Detected (NotDetected) 04/25/23 18:35 Parainfluenza 4 (PCR) Not Detected (NotDetected) 04/25/23 18:35 RSV (PCR) Not Detected (NotDetected) 04/25/23 18:35 Entero/Rhino (PCR) Not Detected (NotDetected) 04/25/23 18:35 Impressions Chest X-Ray 04/25/23 14:53 XR chest 1V not portable HISTORY: 82 years-old Male hypoxia, history CHF acute hypoxia COMPARISON: None TECHNIQUE: AP view of the chest FINDINGS: Cardiac mediastinal and hilar silhouettes are within normal limits. Pulmonary vascular congestion. Nonspecific interstitial coarsening of the lungs with linear left basilar and right midlung opacities. No pneumothorax, large pleural effusion or overt pulmonary edema. Degenerative changes of the spine and left shoulder. Right shoulder arthroplasty. IMPRESSION: 1. Cardiomegaly with pulmonary vascular congestion. 2. Mild nonspecific interstitial coarsening, possibly chronic. 3. Linear right midlung and left basilar densities favor atelectasis versus scarring. ACT 112: Negative or not required by law. The above report was generated using voice recognition software. It may contain grammatical, syntax or spelling errors. Electronically signed by: Earl Oliveira M.D. 04/25/2023 4:55 PM Hip/Pelvis X-Ray 04/25/23 14:53 XR hip RT 2V w pelvis CLINICAL HISTORY: 2 days R hip pain COMPARISON: None FINDINGS: Sacroiliac joints and symphysis pubis are intact. There is no acute fracture within the pelvis or hips. No osseous lesions are present. There is no evidence for avascular necrosis of the femoral heads. There is moderate joint space narrowing and osteophytosis of the right hip. There is mild left hip osteophytosis. Right lower quadrant surgical staple line is incidentally noted. There is a moderate amount of stool within the rectum. IMPRESSION: 1. Moderate right hip osteoarthritis. 2. No fractures within the pelvis or hips. ACT 112: Negative or not required by law. Electronically signed by: Manuel Jefferson M.D. 04/25/2023 4:[address] 04/25/23 18:22 Exam(s): CT HEAD Without Contrast EXAM: CT Head Without Intravenous Contrast CLINICAL HISTORY: Reason for exam: RLE weakness. TECHNIQUE: Axial computed tomography images of the head/brain without intravenous contrast. CTDI is 37.69 mGy and DLP is 546.36 mGy-cm. Automated exposure control was utilized for the study. A dose lowering technique was utilized adhering to the principles of ALARA. COMPARISON: 02/17/18 FINDINGS: Brain: Generalized parenchymal volume loss. Chronic small vessel ischemic changes. Champion-white matter differentiation maintained. No hemorrhage, mass-effect, or edema. Ventricles: Unremarkable. No hydrocephalus. Bones/joints: Unremarkable. No acute fracture. Soft tissues: Unremarkable. Vasculature: Intracranial atherosclerosis. Sinuses: Unremarkable as visualized. No acute sinusitis. Mastoid air cells: Unremarkable as visualized. No mastoid effusion. Orbits: Bilateral lens replacements. IMPRESSION: No acute intracranial process. Electronically signed by: Rupa Calixto M.D. 04/25/23 19:[address] 04/25/23 18:22 Exam(s): CT RIGHT HIP Without Contrast EXAM: CT Right Lower Extremity Without Intravenous Contrast, Hip CLINICAL HISTORY: Reason for exam: pain. TECHNIQUE: Axial computed tomography images of the right hip without intravenous contrast. CTDI is 32.59 mGy and DLP is 555.22 mGy-cm. Automated exposure control was utilized for the study. A dose lowering technique was utilized adhering to the principles of ALARA. COMPARISON: Right hip radiographs 04/25/23 FINDINGS: Bones are osteopenic. There is no acute fracture or dislocation. There is osteoarthritis of the right hip with superior joint space narrowing. Visualized portions of the bony right hemipelvis appear intact. There is subcutaneous edema lateral to the right hip. IMPRESSION: 1. No acute osseous findings. 2. Subcutaneous edema lateral to the right hip, possibly soft tissue contusion. Electronically signed by: Rupa Calixto M.D. 04/25/23 19:36 PM ECG Additional Comments: ECG. Sinus rhythm with PACs with aberration conduction at rate of 99. Left axis deviation. Right bundle branch block. Code Status & VTE Plan VTE Prophylaxis Plan VTE Prophylaxis will be ordered: Yes
[2023-04-25] MEDS ORDERED: NITROGLYCERIN SL 0.4 MG/TAB TAB SL PRN ×2 (23:45)
[2023-04-25] MEDS ORDERED: GLUCOSE 10 TAB/TUBE PO PRN (23:45)
[2023-04-25] MEDS ORDERED: GLUCOSE 40% GEL 15 GM TUBE PO PRN (23:45)
[2023-04-25] MEDS ORDERED: DEXTROSE 50% 50 ML SYRINGE IV PRN (23:45)
[2023-04-25] MEDS ORDERED: GLUCAGON FOR INJ 1 MG VIAL SQ PRN (23:45)
[2023-04-25] MEDS ORDERED: ACETAMINOPHEN 325 MG TAB PO PRN (23:45)
[2023-04-25] MEDS ORDERED: MECLIZINE HCL 25 MG TAB PO PRN (23:45)
[2023-04-25] MEDS ORDERED: POLYETHYLENE (MIRALAX) 17 GM PACK PO PRN (23:45)
[2023-04-25] MEDS ORDERED: CARBOHYDRATES FOR HYPOGLYCEMIA PO PRN (23:45)
[2023-04-26] MEDS: FUROSEMIDE INJ 20 MG/2 ML VIAL IV ONE (00:29)
[2023-04-26] MEDS: ENOXAPARIN INJ 40 MG/0.4 ML SYR SQ SCH (00:29)
[2023-04-26] MEDS: LORazepam 0.5 MG TAB PO PRN (00:29)
[2023-04-26] MEDS: POTASSIUM CHLORIDE CRTAB 20 MEQ TABCR PO STA ×2 (00:34→08:36)
[2023-04-26] MEDS: MoRPHine SULFATE 4 MG/ML 1 ML CARP\\VIAL IV PRN (03:04)
--- NOTE | 2023-04-26 05:49 | Ultrasound Report ---
Exam(s): US VENOUS BILATERAL LOWER EXTREMITIES EXAM: US Duplex Bilateral Lower Extremities Veins CLINICAL HISTORY: Reason for exam: b/l loweer ext edema. dvt?. TECHNIQUE: Real-time duplex ultrasound scan of the bilateral lower extremity veins integrating B-mode two-dimensional vascular structure, Doppler spectral analysis, color flow Doppler imaging and compression. COMPARISON: No relevant prior studies available. FINDINGS: Right deep veins: There is deep venous thrombosis extending from the common femoral vein to the the proximal superficial femoral vein. There is nonocclusive thrombus also identified in the mid superficial femoral vein. Right superficial veins: Unremarkable. No thrombus in the visualized right great saphenous vein. Left deep veins: There is nonocclusive thrombus identified mid to distal superficial femoral vein. The left common femoral vein is unremarkable. Left superficial veins: Unremarkable. No thrombus in the visualized left great saphenous vein. Soft tissues: There is soft tissue edema seen in the popliteal fossa and calf. No popliteal cyst. Lymph nodes: Right inguinal lymphadenopathy measuring 4.2 x 1 cm. IMPRESSION: Deep venous thrombosis in the right and left lower extremity Electronically signed by: Sanjiv Borja MD 04/26/23 05:47 AM
[2023-04-26] MEDS: LEVOTHYROXINE SODIUM 112 MCG TABLET PO SCH (06:29)
[2023-04-26] MEDS ORDERED: HEPARIN SOD (PORCINE) 1000 UNIT/ML IV ONE (07:31)
[2023-04-26] MEDS ORDERED: HEPARIN SODIUM/DEXTROSE 25,000 UNITS/500 ML BAG IV SCH (07:45)
[2023-04-26 07:59] LABS: Basophils # (auto) 0.03 K/uL (0.00-0.20); Basophils % (auto) 0.6 %; Eosinophils # (auto) 0.33 K/uL (0.00-0.50); Eosinophils % (auto) 7.1 %; Hematocrit (blood only) 24.7 % (42.0-52.0); Hemoglobin 8.2 g/dl (14.0-18.0); Immature Granulocytes # (auto) 0.01 K/uL (0.01-0.20); Immature Granulocytes % (auto) 0.2 %; Lymphocytes # (auto) 1.36 K/uL (1.20-3.40); Lymphocytes % (auto) 29.3 %; Mean Corpuscular Hemoglobin 33.6 pg (25.0-34.0); Mean Corpuscular Hgb Conc 33.2 g/dL (32.0-36.0); Mean Corpuscular Volume 101.2 fL (80.0-100.0); Mean Platelet Volume 9.8 fL (9.4-12.4); Monocytes # (auto) 0.53 K/uL (0.11-0.59); Monocytes % (auto) 11.4 %; Neutrophils # (auto) 2.38 K/uL (1.40-6.50); Neutrophils % (auto) 51.4 %; Platelet Count 114 K/uL (130-400); RDW Coefficient of Variation 14.5 % (11.5-14.5); RDW Standard Deviation 53.1 fL (36.4-46.3); Red Blood Count 2.44 M/uL (4.70-6.10); White Blood Count 4.64 K/ul (4.8-10.8)
[2023-04-26 08:07] LABS: Calcium 7.7 mg/dl (8.6-10.3); Magnesium 1.6 mg/dl (1.7-2.4); Potassium 3.2 mmol/L (3.5-5.1)
[2023-04-26 08:13] LABS: BUN Creatinine Ratio 21.3 (10-20); Creatinine Clr Calc Pharmacy 46.3 ml/min; Est GFR (Non-African American) 55.3 ml/min
[2023-04-26] MEDS: HEPARIN SODIUM/DEXTROSE 25,000 UNITS/500 ML BAG IV SCH (08:28)
[2023-04-26] MEDS: POTASSIUM CHLORIDE CRTAB 20 MEQ TABCR PO SCH (08:30)
[2023-04-26] MEDS: ZINC SULFATE 220 MG CAPSULE PO SCH (08:31)
[2023-04-26] MEDS: THIAMINE HCL 100 MG TAB PO SCH (08:31)
[2023-04-26] MEDS: METOPROLOL SUCC 25MG EXT REL TAB PO SCH (08:31)
[2023-04-26] MEDS: CHOLECALCIFEROL 25 MCG (1000 UNITS) TAB PO SCH (08:31)
[2023-04-26] MEDS: PANTOprazole 40 MG TAB PO SCH (08:31)
[2023-04-26] MEDS: DOCUSATE SODIUM 100 MG CAP PO SCH (08:31)
[2023-04-26] MEDS: FLUTICASONE/VILANTEROL 200/25MCG 14 PUFFS/INHALER INH SCH (08:31)
[2023-04-26] MEDS: Heparin IV Adult Wt-Based Standard *NO* INITIAL Bolus Protocol IV STA (08:32)
[2023-04-26] MEDS: INSULIN ASPART PER UNIT CHARGE SC SCH (08:32)
[2023-04-26] MEDS: traMADol HCL 50 MG TABLET PO SCH (08:33)
--- NOTE | 2023-04-26 08:35 | Hospitalist Progress Note ---
Date of Service April 26, 2023 Assessment & Plan (1) Right hip pain: Plan: 82-yo M with type 2 diabetes currently not on medications, hyperlipidemia, hypertension, hypothyroidism, COPD, history of CVA, Polyp of vocal cord, paroxysmal atrial fibrillation not on anticoagulation secondary to fall risk, peripheral vascular disease, irritable bowel syndrome, stage III chronic kidney disease, BPH ,normocytic anemia, history of alcoholism, comes because of fall a nd ambulatory dysfunction and also found to be hypoxic. Patient states he fell from his bed in the morning on the right side. Able to get up. But since then having difficulty ambulation. A lot of pain in the right hip region. [facility] he [facility] because of pain in the hip and also his oxygen saturations in the 80s he was sent in here. Patient states usually short of breath in the nighttime and use oxygen 2 L nightly. Currently on 2 L. Currently denies any shortness of breath. Denies any chest pain. Right hip pain S/p fall Ambulatory dysfunction CT scan showing possible contusion of the right hip Pain control Orthopedics consulted - 82-year-old male with right hip contusion/osteoarthritis -Weightbearing tolerated right lower extremity -PT/OT -Pain control -Medical management -Imaging demonstrates a severe osteoarthritis involving the right hip there is no evidence of fracture on plain paragraphs or CT scan. I suspect that he is most likely suffering from a osteoarthritis that was consistent with. He may follow-up as an outpatient upon discharge for as needed Hypoxia, ? PE , ? CHF , ? pna Chest x-ray possible congestion Received IV Lasix 20 mg Biofire - negative Echo -mild concentric LVH. No regional wall motion abnormalities noted. LV systolic function is normal. LVEF 60 to 65%. RV is normal in size and function. LA is mildly dilated. Grade 1 diastolic dysfunction. Possible CHF Consulted cardiology - appreciate their input Obtain CT PE if Cr stable Lower EXTR edema, LE DVT b/l Dopplers positive for DVT - IV heparin started Checking echo given dose of Lasix Will monitor History of COPD No obvious wheezing Continue home inhalers DuoNebs as needed Nocturnal hypoxia Uses 2 L oxygen at nighttime Alcoholism States drinks 2 mixed drinks daily Does not think will go through withdrawal Continue thiamine, folic acic gabapentin Close monitor for withdrawal Hypokalemia Replacing potassium Continue home potassium supplements Close follow the labs History of A-fib Continue metoprolol succinate Not on anticoagulation secondary to fall risk, now on iv heprin Chronic anemia Hemoglobin 10 -> 8 We will follow Hemoccults monitor H&H CKD stage 3 baseline cr around 1.3 cr 1.4 on admission close to baseline follow labs Hypothyroidism On Synthyroid History of CVA Diabetes Not on meds Sliding scale Current HbA1c 4.7% DVT prophylaxis heparin Disposition - Med/tele Full code Admission and Anticipated Discharge Date Admission Date: April 25, 2023 Subjective Pt seen in follow up of fall, hypoxia, b/l LE dvt, hip contusion - poss. PE? IV heparin started Pt is sitting up in bed in NAD No chest pain , shortness of breath, no abd. pain, n/v On suppl. O2 -> says he is using O2 only at night at home Review of Systems Review of Systems: All systems reviewed & are unremarkable except as noted in Subjective Physical Exam Physical Exam: General- WD/WN elderly M in NAD Head- atraumatic Eyes- PERRL. ENT- oropharynx clear Neck- supple, no JVD. Lungs- mild rhonchi, no wheezing Heart- regular rhythm; no murmur, no gallop. Abdomen- normal bowel sounds, soft, nontender, no distension. Extremities- b/l lower extremity edema. chronic skin changes seen. Neuro- alert, oriented PERRL, no facial palsy; no dysarthria Skin- warm & dry Results & Data Results & Data Vital Signs (Past 12 Hours) Vital Signs Temp Pulse Pulse Resp BP BP Pulse Ox 04/26/23 07:39 36.6 C 76 18 124/72 93 04/26/23 06:19 36.8 C 80 18 109/64 99 04/26/23 06:08 79 04/26/23 05:56 04/26/23 04:21 04/26/23 03:55 37.1 C 82 18 100/51 L 98 04/26/23 03:44 04/26/23 03:00 72 100/51 L 97 04/26/23 02:00 77 15 109/55 L 95 04/26/23 01:00 74 13 105/52 L 100 04/26/23 00:00 74 23 126/52 L 97 04/25/23 23:00 75 14 108/51 L 98 04/25/23 22:36 78 04/25/23 22:00 84 19 106/82 98 04/25/23 21:50 77 15 04/25/23 21:30 82 15 122/46 L 98 Pulse Ox O2 Del Method O2 Del Method O2 Flow Rate O2 Flow Rate 04/26/23 07:39 Nasal Cannula 5 04/26/23 06:19 High Flow Nasal Cannula 4 04/26/23 06:08 04/26/23 05:56 High Flow Nasal Cannula 4 04/26/23 04:21 Nasal Cannula 2 04/26/23 03:55 Nasal Cannula 2 04/26/23 03:44 98 Nasal Cannula 2 04/26/23 03:00 Nasal Cannula 2 04/26/23 02:00 Nasal Cannula 2 04/26/23 01:00 Nasal Cannula 2 04/26/23 00:00 Nasal Cannula 2 04/25/23 23:00 Nasal Cannula 2 04/25/23 22:36 04/25/23 22:00 Nasal Cannula 2 04/25/23 21:50 04/25/23 21:30 Nasal Cannula 2 Laboratory Results 04/26/23 04/26/23 04/26/23 Range/Units 08:09 07:18 07:10 WBC 4.64 L (4.8-10.8) K/ul RBC 2.44 L (4.70-6.10) M/uL Hgb 8.2 L (14.0-18.0) g/dl Hct 24.7 L (42.0-52.0) % MCV 101.2 H (80.0-100.0) fL MCH 33.6 (25.0-34.0) pg MCHC 33.2 (32.0-36.0) g/dL RDW Std Deviation 53.1 H (36.4-46.3) fL RDW Coeff of Jennifer 14.5 (11.5-14.5) % Plt Count 114 L (130-400) K/uL MPV 9.8 (9.4-12.4) fL Immature Gran % (Auto) 0.2 % Neut % (Auto) 51.4 % Lymph % (Auto) 29.3 % Tyrrell % (Auto) 11.4 % Eos % (Auto) 7.1 % Baso % (Auto) 0.6 % Neut # (Auto) 2.38 (1.40-6.50) K/uL Lymph # (Auto) 1.36 (1.20-3.40) K/uL Tyrrell # (Auto) 0.53 (0.11-0.59) K/uL Eos # (Auto) 0.33 (0.00-0.50) K/uL Baso # (Auto) 0.03 (0.00-0.20) K/uL Immature Gran # (Auto) 0.01 (0.01-0.20) K/uL PT (9.0-12.0) Seconds INR (0.9-1.1) APTT (21-31) Seconds PTT Ratio Heparin Anti-Xa, Unfract Pending Sodium 139 (136-145) mmol/L Potassium 3.2 L (3.5-5.1) mmol/L Chloride 100 (98-107) mmol/L Carbon Dioxide 35 H (21-32) mmol/L Anion Gap 4 (3-11) BUN 26 H (6-23) mg/dl Creatinine 1.22 (0.6-1.4) mg/dl Est Cr Clr Drug Dosing 46.3 Est GFR ( Amer) 64.0 ml/min Est GFR (Non-Af Amer) 55.3 ml/min BUN/Creatinine Ratio 21.3 H (10-20) Glucose 79 (70-99(Fasting)) mg/dl POC Glucose 72 (70-99) mg/dl Estimat Average Glucose Pending Hemoglobin A1c Pending Calcium 7.7 L (8.6-10.3) mg/dl Magnesium 1.6 L (1.7-2.4) mg/dl Total Bilirubin (0.2-1.0) mg/dl AST (13-39) U/L ALT (7-52) U/L Alkaline Phosphatase (34-104) U/L Troponin I High Sens (0-20) pg/ml Total Protein (6.0-8.3) gm/dl Albumin (3.4-5.0) gm/dl Globulin (2.5-4.0) gm/dl Albumin/Globulin Ratio (0.9-2) Lipase (11-82) U/L Adenovirus (PCR) (NotDetected) B. pertussis DNA (PCR) (NotDetected) B.parapertussis DNA PCR (NotDetected) C. pneumoniae DNA (PCR) (NotDetected) Coronavirus OC43 (PCR) (NotDetected) Coronavirus HKU1 (PCR) (NotDetected) Coronavirus 229E (PCR) (NotDetected) SARS-CoV-2 (PCR) (NotDetected) Coronavirus NL63 (PCR) (NotDetected) Human Metapneumovir PCR (NotDetected) Influenza Type A (PCR) (NotDetected) Influenza Type B (PCR) (NotDetected) M. pneumoniae (PCR) (NotDetected) Parainfluenza 1 (PCR) (NotDetected) Parainfluenza 2 (PCR) (NotDetected) Parainfluenza 3 (PCR) (NotDetected) Parainfluenza 4 (PCR) (NotDetected) RSV (PCR) (NotDetected) Entero/Rhino (PCR) (NotDetected) 04/25/23 04/25/23 04/25/23 Range/Units 18:35 15:27 15:23 WBC 6.85 (4.8-10.8) K/ul RBC 2.96 L (4.70-6.10) M/uL Hgb 10.0 L (14.0-18.0) g/dl Hct 30.3 L (42.0-52.0) % MCV 102.4 H (80.0-100.0) fL MCH 33.8 (25.0-34.0) pg MCHC 33.0 (32.0-36.0) g/dL RDW Std Deviation 54.0 H (36.4-46.3) fL RDW Coeff of Jennifer 14.5 (11.5-14.5) % Plt Count 137 (130-400) K/uL MPV 10.1 (9.4-12.4) fL Immature Gran % (Auto) 0.3 % Neut % (Auto) 77.2 % Lymph % (Auto) 11.7 % Tyrrell % (Auto) 8.6 % Eos % (Auto) 1.8 % Baso % (Auto) 0.4 % Neut # (Auto) 5.29 (1.40-6.50) K/uL Lymph # (Auto) 0.80 L (1.20-3.40) K/uL Tyrrell # (Auto) 0.59 (0.11-0.59) K/uL Eos # (Auto) 0.12 (0.00-0.50) K/uL Baso # (Auto) 0.03 (0.00-0.20) K/uL Immature Gran # (Auto) 0.02 (0.01-0.20) K/uL PT 12.4 H (9.0-12.0) Seconds INR 1.1 (0.9-1.1) APTT 30 (21-31) Seconds PTT Ratio 1.1 Heparin Anti-Xa, Unfract Sodium 138 (136-145) mmol/L Potassium 2.9 L (3.5-5.1) mmol/L Chloride 98 (98-107) mmol/L Carbon Dioxide 31 (21-32) mmol/L Anion Gap 9 (3-11) BUN 29 H (6-23) mg/dl Creatinine 1.41 H (0.6-1.4) mg/dl Est Cr Clr Drug Dosing Not Reportable Est GFR ( Amer) 53.8 ml/min Est GFR (Non-Af Amer) 46.4 ml/min BUN/Creatinine Ratio 20.6 H (10-20) Glucose 126 H (70-99(Fasting)) mg/dl POC Glucose (70-99) mg/dl Estimat Average Glucose Hemoglobin A1c Calcium 8.0 L (8.6-10.3) mg/dl Magnesium (1.7-2.4) mg/dl Total Bilirubin 2.6 H (0.2-1.0) mg/dl AST 19 (13-39) U/L ALT 8 (7-52) U/L Alkaline Phosphatase 105 H (34-104) U/L Troponin I High Sens 10.6 (0-20) pg/ml Total Protein 6.2 (6.0-8.3) gm/dl Albumin 2.8 L (3.4-5.0) gm/dl Globulin 3.4 (2.5-4.0) gm/dl Albumin/Globulin Ratio 0.8 L (0.9-2) Lipase 7 L (11-82) U/L Adenovirus (PCR) Not Detected (NotDetected) B. pertussis DNA (PCR) Not Detected (NotDetected) B.parapertussis DNA PCR Not Detected (NotDetected) C. pneumoniae DNA (PCR) Not Detected (NotDetected) Coronavirus OC43 (PCR) Not Detected (NotDetected) Coronavirus HKU1 (PCR) Not Detected (NotDetected) Coronavirus 229E (PCR) Not Detected (NotDetected) SARS-CoV-2 (PCR) Not Detected (NotDetected) Coronavirus NL63 (PCR) Not Detected (NotDetected) Human Metapneumovir PCR Not Detected (NotDetected) Influenza Type A (PCR) Not Detected (NotDetected) Influenza Type B (PCR) Not Detected (NotDetected) M. pneumoniae (PCR) Not Detected (NotDetected) Parainfluenza 1 (PCR) Not Detected (NotDetected) Parainfluenza 2 (PCR) Not Detected (NotDetected) Parainfluenza 3 (PCR) Not Detected (NotDetected) Parainfluenza 4 (PCR) Not Detected (NotDetected) RSV (PCR) Not Detected (NotDetected) Entero/Rhino (PCR) Not Detected (NotDetected) Medications Administered Current Inpatient Medications Acetaminophen (Acetaminophen 325 Mg Tab) 650 mg PO Q4H PRN PRN Reason: Pain or Fever Stop: 05/25/23 23:44 Albuterol (Albut/Ipratrop 3mg/0.5mg Neb 3 Ml Vial) 3 ml NEB Q4R PRN; Protocol PRN Reason: Shortness Of Breath Or Wheezing Stop: 05/25/23 23:44 Dextrose (Dextrose 50% 50 Ml Syringe) 25 - 50 ml IV UD PRN; Protocol PRN Reason: Hypoglycemia Protocol Stop: 05/25/23 23:44 Docusate Sodium (Docusate Sodium 100 Mg Cap) 100 mg PO BID [place]AL[place] Stop: 05/26/23 08:59 Last Admin: 04/26/23 08:31 Dose: 100 mg Fluticasone/Vilanterol (Fluticasone/Vilanterol 200/25mcg 14 Puffs/Inhaler) 1 puffs INH DAILY [place]ELAL[place] Stop: 05/26/23 08:59 Last Admin: 04/26/23 08:31 Dose: 1 puffs Glucagon (Glucagon For Inj 1 Mg Vial) 1 mg SQ UD PRN; Protocol PRN Reason: Hypoglycemia Protocol Stop: 05/25/23 23:44 Glucose (Glucose 40% Gel 15 Gm Tube) 15 - 30 gm PO UD PRN; Protocol PRN Reason: Hypoglycemia Protocol Stop: 05/25/23 23:44 Glucose (Glucose 10 Tab/Tube) 4 - 8 tab PO UD PRN; Protocol PRN Reason: Hypoglycemia Treatment Stop: 05/25/23 23:44 Heparin Sodium/Dextrose (Heparin Sodium/Dextrose) 25,000 units in 500 mls @ 25 mls/hr IV .Q20H [facility]; Protocol Stop: 05/26/23 07:44 Last Admin: 04/26/23 08:28 Dose: 1,250 units/hr, 25 mls/hr Insulin Aspart (Insulin Aspart Per Unit Charge) 0 units SC ACHS [facility] Stop: 05/26/23 07:29 Last Admin: 04/26/23 08:32 Dose: Not Given Levothyroxine Sodium (Levothyroxine Sodium 112 Mcg Tablet) 112 mcg PO DAILYBB [facility] Stop: 05/26/23 06:29 Last Admin: 04/26/23 06:29 Dose: 112 mcg Lorazepam (Lorazepam 0.5 Mg Tab) 0.5 mg PO DAILY PRN PRN Reason: Anxiety Stop: 05/25/23 23:44 Last Admin: 04/26/23 00:29 Dose: 0.5 mg Magnesium Oxide (Magnesium Oxide 400 Mg Tab) 400 mg PO BID [facility] Stop: 05/26/23 08:59 Meclizine HCl (Meclizine Hcl 25 Mg Tab) 25 mg PO TID PRN PRN Reason: .dizzyness Stop: 05/25/23 23:44 Metoprolol Succinate (Metoprolol Succ 25mg Ext Rel Tab) 25 mg PO QAM [facility] Stop: 05/26/23 08:59 Last Admin: 04/26/23 08:31 Dose: 25 mg Miscellaneous (Carbohydrates For Hypoglycemia ) 15 - 30 gm PO UD PRN PRN Reason: Hypoglycemia Protocol Stop: 05/25/23 23:44 Morphine Sulfate (Morphine Sulfate 4 Mg/Ml 1 Ml Carp\Vial) 3 mg IV Q4H PRN PRN Reason: Severe Pain (Scale 7, 8, 9,10) Stop: 05/09/23 23:44 Last Admin: 04/26/23 03:04 Dose: 3 mg Nitroglycerin (Nitroglycerin Sl 0.4 Mg/Tab Tab) 0.4 mg SL Q5M PRN PRN Reason: Chest Pain Stop: 05/25/23 23:44 Pantoprazole Sodium (Pantoprazole 40 Mg Tab) 40 mg PO QAM [place] Stop: 05/26/23 08:59 Last Admin: 04/26/23 08:31 Dose: 40 mg Polyethylene Glycol (Polyethylene (Miralax) 17 Gm Pack) 17 gm PO DAILY PRN PRN Reason: Constipation Stop: 05/25/23 23:44 Potassium Chloride (Potassium Chloride Crtab 20 Meq Tabcr) 20 meq PO TID@0900,1200,2100 [place] Stop: 05/26/23 08:59 Last Admin: 04/26/23 08:30 Dose: 20 meq Thiamine HCl (Thiamine Hcl 100 Mg Tab) 100 mg PO QAM [place] Stop: 05/26/23 08:59 Last Admin: 04/26/23 08:31 Dose: 100 mg Tramadol HCl (Tramadol Hcl 50 Mg Tablet) 50 mg PO TID [place] Stop: 05/26/23 08:59 Last Admin: 04/26/23 08:33 Dose: 50 mg Trazodone HCl (Trazodone Hcl 50 Mg Tab) 50 mg PO HS [facility] Stop: 05/26/23 20:59 Vitamin D (Cholecalciferol 25 Mcg (1000 Units) Tab) 50 mcg PO DAILY [place] Stop: 05/26/23 08:59 Last Admin: 04/26/23 08:31 Dose: 50 mcg Zinc Sulfate (Zinc Sulfate 220 Mg Capsule) 220 mg PO QAM [place] Stop: 05/26/23 08:59 Last Admin: 04/26/23 08:31 Dose: 220 mg
[2023-04-26] MEDS: Heparin IV Adult Wt-Based Standard w/ INITIAL Bolus Protocol IV STA (08:40)
[2023-04-26 08:47] LABS: ANTI-Xa, UFH(UnfractionatedHep 0.15 IU/ml (0.3-0.7)
[2023-04-26] MEDS: ALBUT/IPRATROP 3MG/0.5MG NEB 3 ML VIAL NEB PRN (09:34)
[2023-04-26 09:36] LABS: Hematocrit (blood only) 24.2 % (42.0-52.0)
[2023-04-26 09:43] LABS: Estimated Average Glucose 88 mg/dl; Hemoglobin A1C 4.7 % (4.5-5.6)
[2023-04-26] MEDS: MAGNESIUM OXIDE 400 MG TAB PO SCH (11:02)
[2023-04-26 14:48] LABS: ANTI-Xa, UFH(UnfractionatedHep 0.37 IU/ml (0.3-0.7)
--- NOTE | 2023-04-26 14:54 | Cardiology Consultation ---
Date of Consultation April 26, 2023 Assessment & Plan (1) Hypoxia: EKG performed 04/25/2023 at 1525 and interpreted independently: Sinus rhythm at 99 bpm with right bundle branch block and occasional PACs. Telemetry revealing ongoing sinus rhythm. Echocardiogram performed today and interpreted personally: Mild concentric left ventricular hypertrophy, no regional wall motion abnormalities observed,, LVEF normal 60-65%, the right ventricular chamber size and systolic function are normal. Left atrium is mildly dilated, grade 1 diastolic dysfunction noted. No evidence of right ventricular strain. The patient has a longstanding history of cigarette smoking but quit many years ago. He utilizes supplemental oxygen, 2 L/min at baseline. The patient describes most significant subjective complaint of debilitating right hip pain. Although he has been found to have low pulse oximetry, he does not endorse subjective complaints of worsening shortness of breath, although his nurse certainly notes that with minimal movement he seems to have clear shortness of breath. He had undergone a lower extremity venous duplex that reveals right greater than left DVT. Extensive imaging of his pelvis and hip reveals right hip osteoarthritis and a superficial contusion adjacent to the right hip was noted on a CT without fracture. Hold the radiology interpretation of his chest x-ray suggests CHF, my personal interpretation is that the x-rays not overwhelmingly impressive with regards to CHF. He did receive a single dose of 20 mg of furosemide overnight. I question if his dyspnea may be related to pulmonary embolism. CT angiogram not performed on presentation due to increased creatinine which was 1.41 on admission and is down to 1.22 mg/dL today. Ventilation/perfusion scan not performed as the ventilation portion is not being completed due to COVID protocol and was felt that the test would not be helpful. Patient warrants anticoagulation related to the DVT. Per review of chart, it is noted that his hemorrhagic stroke was documented to have taken place prior to 2016 and he was on ongoing Coumadin therapy for a number of years after that with Coumadin ultimately having been discontinued in 2019 in the setting of recurrent falls. He is not on unfractioned heparin infusion. Is noted that his hemoglobin had declined from his usual baseline of 10 g/dL to 8 g/dL overnight, and will need to be monitored closely. At this time, benefits of anticoagulation seem to outweigh the risks especially if administered in a supervised setting. If creatinine remains stable, would have low threshold for CT angiogram of the chest for further assessment of hypoxia with clinical suspicion of underlying pulmonary embolism. Echocardiogram does not reveal any evidence of right heart strain which is reassuring. Would hold off on further doses of diuretic at present. Patient was hypokalemic on arrival and again this morning and has received multiple doses of potassium supplementation with plans for repeat chemistry panel in the morning of 04/27/2023. Case discussed by phone with Dr. Camarena. History of Present Illness Attending Physician: Martinez Camraena MD History of Present Illness Mr Ramos is an 82 year old male seen in cardiology consultation per the request of Dr Delgado and Dr Camarena for the evaluation of hypoxia with concern for congestive heart failure. Patient presented to the emergency department due to worsening right hip pain and inability to walk. He describes having two recent falls to ut. He grimaces with minimal movement in the bed due to hip pain. He had a routine visit with the [facility] yesterday was apparently noted to be hypoxic with pulse oximetry in the 80s and was referred to the emergency department. Pulse oximetry currently 92% on 2 L/min nasal cannula oxygen. Patient denies any subjective chest discomfort. Lower extremity venous duplex has revealed bilateral DVTs as outlined below. Most recent outpatient cardiology visit with our group in 2021 was in December,. Patient has a history of chronic right bundle branch block. Zio patch monitor in 2019 revealed frequent brief episodes of supraventricular tachycardia. Nuclear stress test performed September, revealed normal perfusion and LVEF of 66% at that time. Progress note in 2019 describes history of paroxysmal atrial fibrillation. He was not on anticoagulation due to concerns of recurrent falls, past concern of alcohol dependence, with prior hemorrhagic brainstem stroke and prior extensive right thigh/leg hematoma. Allergies Allergy/AdvReac Type Severity Reaction Status Date / Time adhesive Allergy Unknown RASH Verified 04/25/23 21:04 ceftriaxone Allergy Unknown . Verified 04/25/23 21:04 cefuroxime Allergy Unknown FLUSHING, Verified 04/25/23 21:04 HIVES, ITCHING Nhtquqo-XEU-CqO Reductase Allergy Unknown MUSCLE Verified 04/25/23 21:04 Inhibitor [Ojxjrnm-Bpo-Vns Reductase Inhibitor] zolpidem Allergy Unknown "MADE ME A Verified 04/25/23 21:04 DIFFERENT PERSON" Home Medications Medication Instructions Recorded Confirmed Type cholecalciferol (vitamin D3) 50 50 mcg PO DAILY 04/25/23 04/25/23 History mcg (2,000 unit) tablet (Vitamin D3) docusate sodium 100 mg capsule 100 mg PO BID 04/25/23 04/25/23 History fluticasone 250 mcg-salmeterol 50 1 inh inhalation Q12 04/25/23 04/25/23 History mcg/dose blistr powdr for inhalation lansoprazole 15 mg capsule,delayed 15 mg PO QAM 04/25/23 04/25/23 History release levothyroxine 112 mcg tablet 112 mcg PO DAILY 04/25/23 04/25/23 History lorazepam 0.5 mg tablet 0.5 mg PO DAILY PRN Anxiety 04/25/23 04/25/23 History meclizine 25 mg tablet 25 mg PO TID PRN .dizzyness 04/25/23 04/25/23 History metoprolol succinate 25 mg 25 mg PO QAM 04/25/23 04/25/23 History tablet,extended release 24 hr nitroglycerin 0.4 mg sublingual 0.4 mg sublingual DIRECTED PRN 04/25/23 04/25/23 History tablet ..chest pain potassium chloride 20 mEq 20 meq PO TID 04/25/23 04/25/23 History tablet,extended release tadalafil 20 mg tablet 20 mg PO DAILY PRN .erectile 04/25/23 04/25/23 History dysfunction thiamine HCl (vitamin B1) 100 mg 100 mg PO QAM 04/25/23 04/25/23 History tablet (Vitamin B-1) tramadol 50 mg tablet 50 mg PO TID 04/25/23 04/25/23 History trazodone 50 mg tablet 50 mg PO HS 04/25/23 04/25/23 History zinc sulfate 50 mg zinc (220 mg) 50 mg PO QAM 04/25/23 04/25/23 History tablet Patient History Medical History Hx of fall A-fib GERD (gastroesophageal reflux disease) Hypertension Hypothyroidism Hyperlipidemia Diabetes CVA (cerebral vascular accident) Surgical History S/P shoulder surgery S/P appendectomy Social History Smoking Status: Never smoker Hx Alcohol Use: Yes Alcohol type: hard liquor Hx Substance Use: No Preferred Language: [place] Communication Ability: Effective Visual Impairment: Limited Hearing Ability: Normal [place] Required: No Beliefs That Will Affect Care: None marital status: seperated Current Living Situation: Alone current occupational status: employed current 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: home Feels Safe at Home: Yes Safety Concerns: Feels Safe At This Time Assistive Devices: Walker Review of Systems Review of Systems: All systems reviewed & are unremarkable except as noted in HPI & below Physical Exam Constitutional: + ill appearing Respiratory: normal respiratory effort, lungs clear to auscultation Cardiovascular: RRR, no murmur, no edema Gastrointestinal (Abdomen): normal bowel sounds, soft, nontender, no hepatosplenomegaly Neurologic: PERRL, EOMI, accommodation nl, no face palsy, no dysarthria Results & Data Vital Signs (Past 12 Hours) Vital Signs Temp Pulse Pulse Pulse Resp BP BP 04/26/23 10:59 36.5 C 77 18 102/58 L 04/26/23 09:34 71 14 04/26/23 08:00 73 04/26/23 08:00 04/26/23 07:39 36.6 C 76 18 124/72 04/26/23 06:19 36.8 C 80 18 109/64 04/26/23 06:08 79 04/26/23 05:56 04/26/23 04:21 04/26/23 03:55 37.1 C 82 18 100/51 L 04/26/23 03:44 04/26/23 03:00 72 100/51 L Pulse Ox Pulse Ox O2 Del Method O2 Del Method O2 Flow Rate O2 Flow Rate 04/26/23 10:59 92 Nasal Cannula 2 04/26/23 09:34 91 Nasal Cannula 2 04/26/23 08:00 04/26/23 08:00 Nasal Cannula 3 04/26/23 07:39 93 Nasal Cannula 5 04/26/23 06:19 99 High Flow Nasal Cannula 4 04/26/23 06:08 04/26/23 05:56 High Flow Nasal Cannula 4 04/26/23 04:21 Nasal Cannula 2 04/26/23 03:55 98 Nasal Cannula 2 04/26/23 03:44 98 Nasal Cannula 2 04/26/23 03:00 97 Nasal Cannula 2 Diagnostic Findings Lower extremity venous duplex 04/26/2023: Right deep veins: There is deep venous thrombosis extending from the common femoral vein to the the proximal superficial femoral vein. There is nonocclusive thrombus also identified in the mid superficial femoral vein. Right superficial veins: Unremarkable. No thrombus in the visualized right great saphenous vein. Left deep veins: There is nonocclusive thrombus identified mid to distal superficial femoral vein. The left common femoral vein is unremarkable. Left superficial veins: Unremarkable. No thrombus in the visualized left great saphenous vein. Soft tissues: There is soft tissue edema seen in the popliteal fossa and calf. No popliteal cyst. Lymph nodes: Right inguinal lymphadenopathy measuring 4.2 x 1 cm. IMPRESSION: Deep venous thrombosis in the right and left lower extremity
[2023-04-26 17:17] LABS: Hematocrit (blood only) 25.5 % (42.0-52.0); Hemoglobin 8.5 g/dl (14.0-18.0)
[2023-04-26 17:46] LABS: INR 1.2 (0.9-1.1); Prothrombin Time 13.2 Seconds (9.0-12.0)
--- NOTE | 2023-04-26 18:46 | Orthopedic Consultation ---
Date of Consultation April 26, 2023 Assessment & Plan (1) Primary osteoarthritis of right hip: 82-year-old male with right hip contusion/osteoarthritis -Weightbearing tolerated right lower extremity -PT/OT -Pain control -Medical management -Imaging demonstrates a severe osteoarthritis involving the right hip there is no evidence of fracture on plain paragraphs or CT scan. I suspect that he is most likely suffering from a osteoarthritis that was consistent with. He may follow-up as an outpatient upon discharge for as needed History of Present Illness Reason for Consultation: Right hip pain Attending Physician: Martinez Camarena MD History of Present Illness 82-year-old male presenting with chief complaint of right hip pain after bed. Notes history of multiple falls. Denies any previous treatments for his hip. Radiographs as well as CT scan were obtained which demonstrate no evidence of fracture. Patient was admitted to medical service orthopedics was consulted. Allergies Allergy/AdvReac Type Severity Reaction Status Date / Time adhesive Allergy Unknown RASH Verified 04/25/23 21:04 ceftriaxone Allergy Unknown . Verified 04/25/23 21:04 cefuroxime Allergy Unknown FLUSHING, Verified 04/25/23 21:04 HIVES, ITCHING Wvnhuof-OKA-WeP Reductase Allergy Unknown MUSCLE Verified 04/25/23 21:04 Inhibitor [Roslhsr-Dee-Vvf Reductase Inhibitor] zolpidem Allergy Unknown "MADE ME A Verified 04/25/23 21:04 DIFFERENT PERSON" Home Medications Medication Instructions Recorded Confirmed Type cholecalciferol (vitamin D3) 50 50 mcg PO DAILY 04/25/23 04/25/23 History mcg (2,000 unit) tablet (Vitamin D3) docusate sodium 100 mg capsule 100 mg PO BID 04/25/23 04/25/23 History fluticasone 250 mcg-salmeterol 50 1 inh inhalation Q12 04/25/23 04/25/23 History mcg/dose blistr powdr for inhalation lansoprazole 15 mg capsule,delayed 15 mg PO QAM 04/25/23 04/25/23 History release levothyroxine 112 mcg tablet 112 mcg PO DAILY 04/25/23 04/25/23 History lorazepam 0.5 mg tablet 0.5 mg PO DAILY PRN Anxiety 04/25/23 04/25/23 History meclizine 25 mg tablet 25 mg PO TID PRN .dizzyness 04/25/23 04/25/23 History metoprolol succinate 25 mg 25 mg PO QAM 04/25/23 04/25/23 History tablet,extended release 24 hr nitroglycerin 0.4 mg sublingual 0.4 mg sublingual DIRECTED PRN 04/25/23 04/25/23 History tablet ..chest pain potassium chloride 20 mEq 20 meq PO TID 04/25/23 04/25/23 History tablet,extended release tadalafil 20 mg tablet 20 mg PO DAILY PRN .erectile 04/25/23 04/25/23 History dysfunction thiamine HCl (vitamin B1) 100 mg 100 mg PO QAM 04/25/23 04/25/23 History tablet (Vitamin B-1) tramadol 50 mg tablet 50 mg PO TID 04/25/23 04/25/23 History trazodone 50 mg tablet 50 mg PO HS 04/25/23 04/25/23 History zinc sulfate 50 mg zinc (220 mg) 50 mg PO QAM 04/25/23 04/25/23 History tablet Patient History Medical History Hx of fall A-fib GERD (gastroesophageal reflux disease) Hypertension Hypothyroidism Hyperlipidemia Diabetes CVA (cerebral vascular accident) Surgical History S/P shoulder surgery S/P appendectomy Social History Smoking Status: Never smoker Hx Alcohol Use: Yes Alcohol type: hard liquor Hx Substance Use: No Preferred Language: [place]olese Communication Ability: Effective Visual Impairment: Limited Hearing Ability: Normal 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 Assistant Required: No Beliefs That Will Affect Care: None marital status: seperated Current Living Situation: Alone current occupational status: employed current occupation: home Feels Safe at Home: Yes Safety Concerns: Feels Safe At This Time Assistive Devices: Walker Physical Exam Constitutional: No acute distress, resting in bed Musculoskeletal: Right lower extremity -No pain with gentle logroll -There is crepitation with hip flexion a nd rotation - silt s/spn/dpn/t/s - fires ta/ehl/gsc + dp/pt Results & Data Vital Signs (Past 12 Hours) Vital Signs Temp Pulse Pulse Pulse Resp BP Pulse Ox 04/26/23 15:00 36.7 C 70 18 94/50 L 98 03/15/24 10:59 36.5 C 77 18 102/58 L 92 04/26/23 09:34 71 14 91 04/26/23 08:00 73 04/26/23 08:00 04/26/23 07:39 36.6 C 76 18 124/72 93 O2 Del Method O2 Flow Rate 04/26/23 15:00 Nasal Cannula 2 04/26/23 10:59 Nasal Cannula 2 04/26/23 09:34 Nasal Cannula 2 04/26/23 08:00 04/26/23 08:00 Nasal Cannula 3 04/26/23 07:39 Nasal Cannula 5
[2023-04-26] MEDS ORDERED: LORazepam 3 MG in SYRINGE 1.5 ML IV PRN (19:22)
[2023-04-26] MEDS ORDERED: Ativan IV Alcohol Withdrawal--Active Protocol IV PRN (19:22)
[2023-04-26] MEDS ORDERED: GABAPENTIN 1200MG ALCOHOL WITHDRAWAL LOAD PO STA (19:22)
[2023-04-26] MEDS ORDERED: LORazepam 2 MG in SYRINGE 1 ML IV PRN (19:22)
[2023-04-26] MEDS ORDERED: LORazepam 1 MG in SYRINGE 0.5 ML IV PRN (19:22)
--- OUTSIDE RECORDS SUMMARY | 2023-04-26 20:38 | External Medical Summary | Summary of Care ---
Author Name Unknown Organization [facility] Address [address] [facility] [place] [address] Phone [phone] Care Team Providers Care Manager Front Name Role Phone Juan Luis Lewis DO Primary Care Provid er Reason for Visit * Reason Onset Date Comments Medication Refill 04/12/2023 Encounter Details Date Type Department Care Team ([facility] st Contact Info) Description 04/12/2023 Refill [facility] [address] [place] [address] Juan Luis Lewis DO [address] [place] [id number] Anxiety state Allergies Active Allergy Reactions Criticality Noted Date Comments Adhesive Tape Rash 09/12/2000 Cefuroxime Axetil Flushing,Hives,Itching 2011 Ceftriaxone Sodium In Dextrose 01/08/2015 Hives Statins Muscle pain Low 09/01/2013 Zolpidem Neuro complications (Please comment) Low 05/18/2010 ambien documented as of this encounter (statuses as of 04/15/2023) Medications Medication Sig Dispensed Refills Start Date End Date Status gabapentin (NEURONTIN) 300 MG Capsule Take 1 Capsule by mouth in the morning and 1 Capsule before bedtime. 0 Active levothyroxine sodium (LEVOXYL) 112 MCG Tablet Take 1 Tablet by mouth daily first thing in the morning. (at least 30 min prior to breakfast or other meds) 30 Tab 5 09/10/2018 Active Vitamin D 50 MCG (2000 UT) Oral Tablet Take 2,000 Units by mouth daily. 0 Active Metoprolol Succinate ER 25 MG Oral Tablet Extended Release 24 Hour (toPROL XL) Take 1 Tablet by mouth in the morning. 0 Active Nitroglycerin 0.4 MG Sublingual Tablet Sublingual (Nitrostat)Indicati ons:Other chest pain DISSOLVE 1 TAB UNDER TONGUE EVERY 5 MINUTES NEEDED FOR CHEST PAIN. MAX 3 DOSES. NO RELIEF CALL 911 25 Tablet 5 06/11/2022 Active Tadalafil 20 MG Oral TabletIndications:E rectile dysfunction due to diseases classified elsewhere TAKE 1 TABLET BY MOUTH ONCE DAILY NEEDED FOR ERECTILE DYSFUNCTION 10 Tablet 3 06/18/2022 Active Meclizine HCl 25 MG Oral Tablet (Antivert) Take 1 Tablet by mouth 3 times a day as needed for Dizziness. 30 Tablet 1 08/05/2022 Active traZODone HCl 50 MG Oral Tablet (Desyrel)Indication s:Persistent insomnia TAKE 1 TABLET BY MOUTH ONCE DAILY AT BEDTIME 90 Tablet 2 09/12/2022 Active Lansoprazole 15 MG Oral Capsule Delayed Release (Prevacid)Indicatio ns:Gastroesophageal reflux disease with esophagitis without hemorrhage Take 1 Capsule by mouth in the morning. 90 Capsule 3 11/02/2022 Active Thiamine HCl 100 MG Oral Tablet (vitamin B-1)Indications:Mac rocytic anemia,Personal history of alcoholism (HCC) Take 1 Tablet by mouth in the morning. 90 Tablet 1 01/04/2023 Active Zinc 50 MG Oral TabletIndications:M acrocytic anemia,Personal history of alcoholism (HCC) Take 1 Tablet by mouth in the morning. 90 Tablet 1 01/04/2023 Active traMADol HCl 50 MG Oral Tablet (Ultram)Indications :Spondylosis of lumbosacral region without myelopathy or radiculopathy Take 1 Tablet by mouth every 6 hours as needed for Pain, Moderate. 30 Tablet 0 02/18/2023 Active traMADol HCl 50 MG Oral Tablet (Ultram) Take 1 tablet by mouth 3 times a day with tylenol 650mg for pain. 10 Tablet 0 03/25/2023 Active Potassium Chloride ER 20 MEQ Oral Tablet Extended ReleaseIndications: Hypokalemia,Stage 3b chronic kidney disease (HCC) Take 1 Tablet by mouth in the morning and 1 Tablet at noon and 1 Tablet before bedtime. 0 03/26/2023 Active Fluticasone-Salmete rol 250-50 MCG/ACT Inhalation Aerosol Powder Breath Activated (Advair Diskus)Indications: Hyperlipidemia associated with type 2 diabetes mellitus (HCC),Hypertension associated with type 2 diabetes mellitus (HCC),Type 2 diabetes mellitus with diabetic neuropathy, without long-term current use of insulin (HCC),Other specified hypothyroidism,Cent rilobular emphysema (HCC),COPD, group B, by GOLD 2017 classification (HCC) INHALE 1 PUFF BY MOUTH EVERY 12 HOURS. RINSE MOUTH AFTER USING 60 Each 5 04/04/2023 Active LORazepam 0.5 MG Oral Tablet (Ativan)Indications :Anxiety state Take 1 Tablet by mouth 2 times a day as needed for Anxiety. 60 Tablet 0 04/15/2023 Active LORazepam 0.5 MG Oral Tablet (Ativan)Indications :Anxiety state Take 1 Tablet by mouth 2 times a day as needed for Anxiety. 60 Tablet 0 02/07/2023 4 Discontinu ed(Refill) documented as of this encounter (statuses as of 04/15/2023) Active Problems Problem Noted Date Diagnosed Date Normocytic anemia 11/02/2022 Stage 3b chronic kidney disease 11/02/2022 Centrilobular emphysema 05/02/2022 COPD, group B, by GOLD 2017 classification 01/23 Overview: Per COPD GOLD Classification MEDICATION USE AGREEMENT 05/19/2020 PVD (peripheral vascular disease) 03/24/2019 Hypertension associated with type 2 diabetes iván litus 06/30/2018 Polyp of vocal cord 06/24/2018 Type 2 diabetes mellitus wit h diabetic neuropathy, without long-term current use of insulin 12/26/2017 BPH without obstruction/lower urinary tract symp toms 08/05/2017 Personal history of alcoholism 08/05/2017 Other specified hypothyroidism 09/01/2014 Hyperlipidemia associated with type 2 diabetes m kvng 01/26/2009 Overview: Per Lipid Taxonomy. PAF (paroxysmal atrial fibrillation) 05/11/2003 Irritable bowel syndrome documented as of this encounter (statuses as of 04/15/2023) Resolved Problems Problem Noted Date Diagnosed Date Resolved Date Benign paroxysmal positional vertigo 06/30/2018 04/25/2021 Positive D dimer 06/24/2018 06/30/2018 Syncope and collapse 06/24/2018 019 Fall at home 06/24/2018 06/30/2018 Vertigo 06/24/2018 06/30/2018 Cellulitis of left lower extremity 06/24/2018 04/25/2021 Tinnitus of both ears 06/24/20182021 Diabetes mellitus without complication 12/26/2017 06/29/2018 Edema of right lower extremity 08/06/2017 04/25/2021 Achilles tendon sprain, righ t, subsequent encounter 08/06/2017 04/25/2021 Venous stasis dermatitis of right lower extremity 08/06/2017 04/25/2021 Hematoma of right thigh 08/05/201706/12 Iron deficiency anemia due t o chronic blood loss 08/05/2017 04/25/2021 Supratherapeutic INR 08/05/2017 018 Generalized weakness 08/05/2017 018 Gait abnormality 08/05/2017 09/17/2019 Impaired mobility and ADLs 08/05/2017 0 08/15/2017 RBBB (right bundle branch block) 08/05/2017 04/25/2021 Gastroesophageal reflux disease 08/05/2017 06/29/2018 Sciatica 08/05/2017 08/13/2017 Diverticulosis of large inte madeleine without hemorrhage 08/05/2017 08/13/2017 Internal hemorrhoids 08/05/2017 018 Anxiety state 08/05/2017 09/17/2019 Mild emphysema 08/05/2017 05/02/2022 Chronic multifocal demyelinating neuropathy 08/05/2017 04/25/2021 Varicose vein of leg 08/05/2017 018 History of vertebral compression fracture 08/05/2017 04/25/2021 Ankle joint replacement status, left 08/05/2017 04/25/2021 History of appendectomy 08/05/2017 0704/2017 History of bilateral cataract extraction 08/05/2017 08/13/2017 Personal history of tobacco use 08/05/2017 08/13/2017 History of transurethral res ection of prostate 08/05/2017 06/30/2018 long-term resident 08/05/20172017 DNR (do not resuscitate) 08/05/201706/2017 Thigh hematoma, right, initial encounter 07/26/2017 08/05/2017 Impaired fasting blood sugar 05/30/2016 08/13/2017 S/p reverse total shoulder arthroplasty 04/06/2015 04/25/2021 Sinus bradycardia 08/05/2014 04/25/2021 Brainstem stroke 12/11/2013 03/06/2017 Right hemiparesis 12/10/2013 11/14/2016 Intracranial hemorrhage 08/22/201002/12 Cerebrovascular event, ill-d efined, within last 8 weeks 03/29/2010 01/24/2015 INTRACEREBRAL HEMORRHAGE - o n left basal ganglia/internal capsule 03/29/2010 08/13/2017 Obesity, Class II, BMI 35-39 .9, isolated (see actual BMI) 07/25/2009 11/15/2016 Overview: Per Obesity Protocol, #19 ADVANCE DIRECTIVE INFORMATION 12/06/2004 08/13/2017 Overview: pt states received one on prior visit. 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 Acute appendicitis 8 documented as of this encounter (statuses as of 04/15/2023) Immunizations Name Administration Dates Next Due COVID-19, mRNA, LNP-s, PF, B ooster, 100mcg/0.5mg (Moderna) 02/08/2021 Covid-19 Ad26, Single Dose (Kelton/J&J) 08/01/2020 HEP A - Hepatitis A (Adult > 18 yrs) 10/18/2016 Pneumococcal Conjugate Vacc, 13 Valent (Prevnar) 01/30/2017 Pneumococcal Polysaccharide PPV23 (Pneumovax) 02/10/2018 Season Influenza, Quad, PF, Adjuvanted, 65+ Yrs, IM (FLUAD) 03/04/2020 Seasonal Influenza, PF, 6 M & above, IM , (FluLaval or Fluzone) 10/17/2017 Seasonal Influenza, Quadriva lent Hd (Fluzone Hd) 10/23/2022,04/26/2021 Seasonal Influenza, Quadriva lent, No Preserve, IM 12/06/2015,11/11/2014 Seasonal Influenza, Split, I IV3, With Preserve, Inj 01/30/2017,11/27/2013,11/07/2011,11/25,12/23/2009 TD, Preservative Free 04/19/2011 Typhoid VICPs Parenteral, 2 years and above (Typhim ) 10/18/2016 documented as of this encounter Social History Tobacco Use Types Packs/Day Years Used Date Smoking Tobacco: Former Cigarettes 2 35 0 02/11/1954 - 02/11/1989 Cigars Smokeless Tobacco: Never Alcohol Use Standard Drinks/Week Comments Yes 0 (1 standard drink = 0.6 oz pur e alcohol) 1-2 Mix drinks daily PHQ-2 Answer Date Recorded PHQ Adult Total Score 0 11/02/2022 Hunger Vital Sign Answer Date Recorded Within the past 12 months, y ou worried that your food would run out before you got the money to buy more. Never true 10/04/19 23 Within the past 12 months, t he food you bought just didn't last and you didn't have money to get more. Never true 10/03/2022 Sex and Gender Information Value Date Recorded Sex Assigned at Male 07/21/2018 5:02 PM EDT Gender Identity Male 07/21/2018 5:02 PM EDT Sexual Orientation Straight 10/03/2022 9: 11 AM EDT Job Start Date Occupation Industry Not on file Not on file Not on file documented as of this encounter Functional Status Functional Status Response Date of Assess ment Are you deaf or do you have serious difficulty h earing? No 06/24/2018 Are you blind or do you have serious difficulty seeing, even when wearing glasses? No 06/24/2018 Do you have serious difficul ty walking or climbing stairs? (5 years old or older) No 06/24/2018 Do you have difficulty dress ing or bathing? (5 years old or older) No 06/24/2018 Because of a physical, menta l, or emotional condition, do you have difficulty doing errands alone such as visiting a doctor s office or shopping? (15 years old or older) No 06/25/19 19 Cognitive Status Response Date of Assessm ent Because of a physical, menta l, or emotional condition, do you have serious difficulty concentrating, remembering, or making decisions? (5 years old or older) No 06/24/2018 documented as of this encounter Miscellaneous Notes * Telephone Encounter - Juan Luis Lewis DO - 04/15/2023 1:05 PM EST Signed Prescriptions: Disp Refills LORazepam 0.5 MG Oral Tablet (Ativan) 60 Tab*0 Sig: Take 1 Tablet by mouth 2 times a day as needed for Anxiety. Authorizing Provider: JUAN LUIS LEWIS * Telephone Encounter - Rebecca Bella commercial credit reviewer - 04/15/2023 10:36 AM EST pt calling to check on status of rx.advised in process . Thank you, [facility] Professor Of Physical Education II [facility] ([facility]) (formerly Telepharmacy) 04/15/2023,10:36 AM * Telephone Encounter - Liza Jorge [facility] - 04/14/2023 9:37 AM ESTPending Prescriptions: Disp Refills LORazepam 0.5 MG Oral Tablet (Ativan) 60 Tab*0 Sig: Take 1 Tablet by mouth 2 times a day as needed for Anxiety. * Telephone Encounter - Liza Jorge RPh - 04/14/2023 9:35 AM EST I have reviewed the patients controlled substance dispensing history in the Prescription Drug Monitoring Program in compliance with the [facility] regulations before prescribing a controlled substance. PDMP checked on 04/14/2023. Pending Prescriptions: Disp Refills LORazepam 0.5 MG Oral Tablet (Ativan) 60 Tab*0 Sig: Take 1 Tablet by mouth 2 times a day as needed for Anxiety. Last Visit: 02/20/2023 (in office), Visit date not found (telemedicine) Next Visit: Visit date not found Date medication was last filled: 02/12/2023 Date medication is due for refill: 03/13/2023 Pharmacy: [facility] [address] Is this request for a controlled substance? Yes and Urine Drug Screen Not completed Toxicology results: No results found. However, due to the size of the patient record, not all encounters were searched.Please check Results Review for a complete set of results. Please approve if appropriate. Thank you, Liza Jorge [facility] Clinical Pharmacist Centralized Clinical Pharmacy Services ([facility]PS) (formerly Telepharmacy) 04/14/23 9:36 AM [phone] * Telephone Encounter - Swati Jordan PHARM Tech - 04/12/2023 3:21 PM EST Did you pend patient's preferred pharmacy and medication before forwarding?yes Pharmacy: [facility] [address] Pending Prescriptions: Disp Refills LORazepam 0.5 MG Oral Tablet (Ativan) 60 Tab*0 Sig: Take 1 Tablet by mouth 2 times a day as needed for Anxiety. Last Visit: 02/20/2023 (in office), Visit date not found (telemedicine) Next Visit: Visit date not found If no future appointments scheduled, and last appointment is greater than a year ago, please schedule patient for a follow-up appointment Last date the medication was ordered: 02/07/2023 Is this request for a controlled substance?Yes, What was the last refill date 02/07/2023 w/ quantity 60 and dosage 0.5mg and Urine Drug Screen Not completed Urine Drug Screen:No results found. However, due to the size of the patient record, not all encounters were searched. Please check Results Review for a complete set of results. Patient Phone Numbers Labs: Lab Results Component Value Date/Time CREAT 1.3 (H) 03/25/2023 11:22 AM CREAT 0.8 12/29/2019 09:19 AM POTASSIUM 2.7 (L) 03/25/2023 11:22 AM POTASSIUM 4.1 12/29/2019 09:19 AM TSH 0.39 07/30/2022 10:10 AM TSH 2.95 12/29/2019 09:19 AM LDLCALC 56 07/30/2022 10:10 AM LDLCALC 66 12/29/2019 09:19 AM LDLCALC 128. 04/15/1996 08:00 AM LDLDIRECT NOT APPLICABLE 12/29/2019 09:19 AM LDLDIRECT 98 05/05/2015 01:54 PM ALT 14 02/18/2023 10:39 AM ALT 14 04/20/2022 09:51 AM ALT 16 12/29/2019 09:19 AM HGBA1C 4.6 02/18/2023 10:39 AM HGBA1C 5.0 07/01/2021 07:19 AM HGBA1C 5.2 12/29/2019 09:19 AM documented in this encounter Plan of Treatment Upcoming Encounters Date Type Department Care Team (Late st Contact Info) Description 04/16/2023 11:30 AM EST Laboratory Laboratory Patient Service [address] [phone] [place] [address] [place] [address] 05/03/2023 2:30 PM EDT Office Visit Hematology/Oncology [facility] [address] [place] [phone] Noemi Donaldson CRNP [address] [place] [address] Health Maintenance Due Date Last Done Comments Zoster Vaccines (1 of 2) 11/30/1991 DTaP,Tdap,and Td Vaccines (1 - Tdap) 04/20/2011 04/19/2011, 06/07/1999 *COPD SEVERITY VERIFIED BY PFT 08/24/2017 COLONOSCOPY-EVERY 2 YRS AGES 18-100 02/13/2018 02/14/2016, 02/14/2016, 11/16/2005 Albumin/Creatinine Ratio 09/03/2019 09/02/2018, 11/11 COVID-19 Vaccine ( - 2022- season) 2022 02/08/2021, 08/01/2020 Diabetic Eye Exam 03/19/2023 03/19/2022, , 03/19/2022, Additional history exists TSH 07/31/2023 07/30/2022, 01/11, 07/31/2021, Additional history exists HbA1c 08/19/2023 02/18/2023, 07/12, 01/24/2022, Additional history exists GFR 09/23/2023 03/25/2023, 02/11, 02/18/2023, Additional history exists Depression Screening 11/03/2023 11/02/2022 Diabetic Foot Exam 12/28/2023 12/27/2022, 0 07/14/2021, 08/19/2019, Additional history exists O2 ASSESSMENT COMPLETED IN PAST YEAR FOR COPD 02/21/2024 02/20/2023 CKD HGB USE SMARTSET 97465 03/25/202403/25, 03/25/2023, 02/20/2023, Additional history exists CKD PHOS USE SMARTSET 27267 03/25/202403/14, 02/18/2023, 01/09/2023, Additional history exists Pneumococcal Vaccine: 65+ Years Completed 02/10/2018, 01/30/2017 Alpha-1 Antitrypsin Completed 07/30/2022 Influenza Vaccine (FLU shot) Completed 01/2023, 04/26/2021, 03/04/2020, Additional history exists GARDASIL-HPV IMMUNIZATION SERIES Aged Out No longer eligible based on patient's age to complete this topic Hepatitis B Aged Out No longer eligi ble based on patient's age to complete this topic MENINGOCOCCAL (MENACTRA/MENVEO) Aged Out No longer eligible based on patient's age to complete this topic documented as of this encounter Medical Devices Implanted Type Area Materials Manager Device Identifier Shelf Expiration Date Model / Serial / Lot Rsp Glenoid Baseplate 30mm Screw Length P2 Porous Coated Implanted:Qty: 1 on 02/24/2015 by Aníbal Frankel MD [place] [facility] [place]: Shoulder [employer] 01/13/2021 [id number] / / [id number] Screw Bone Nonlck 3.5x14mm - [id number] Implanted:Qty: 1 on 02/24/2015 by Aníbal Frankel MD at [place] [facility] [place]: Shoulder [employer] 01/22/2021 506-02-114 / / [id number] Screw Bone Nonlck 3.5x26mm - [id number] Implanted:Qty: 1 on 02/24/2015 by Aníbal Frankel MD at [place] [facility] [place]: Shoulder [employer] 10/10/2020 [id number] / / [id number] Screw Bone Nonlck 3.5x14mm - [id number] Implanted:Qty: 1 on 02/24/2015 by Aníbal Frankel MD at [place] [facility] [place]: Shoulder [employer] 01/13/2021 506-02-114 / / [id number] Head Glenoid/Screw5 08-006 - [id number] Implanted:Qty: 1 on 02/24/2015 by Aníbal Frankel MD at [place] [facility] [place]: Shoulder [employer] 01/05/2021 [id number] / / [id number] Rsp Humeral Socket Insert Sz 32 Mm Standard Implanted:Qty: 1 on 02/24/2015 by Aníbal Frankel MD at [place] [facility] [place]: Shoulder [employer] 01/13/2020 [id number] / / [id number] Humeral Stem, Reverse Size 10mm X 108mm Reverse P2 Porous Coated Implanted:Qty: 1 on 02/24/2015 by Aníbal Frankel MD at [place] [facility] [place]: Shoulder [employer] 12/04/2020 530-10-108 / / [id number] Rsp Bone Screw-Locking Sz 5.0 Mm 26mm Long Implanted:Qty: 1 on 02/24/2015 by Aníbal Frankel MD at [place] [facility] [place]: Shoulder [employer] 01/22/2021 [id number] / / [id number] documented as of this encounter Visit Diagnoses Diagnosis Anxiety state Anxiety state, unspecified documented in this encounter Advance Directives Latest Code Status on File Code Status Date Activated Date Inactivated Comments No Code 06/24/2018 3:07 PM 06/26/2018 3:54 PM This order reflects the patients wishes and were consensually agreed upon. Question Answer Comments Discussion of Advance Directives occurred with: Patient Does the patient have a Living Will? Yes, not currently available Does the patient have Health Care Power of Inserting Press Operator? Yes, not currently available Code Status History Code Status Date Activated Date Inactivated Comments Full Code 06/24/2018 1:38 PM 06/24/2018 3:07 PM This order reflects the patients wishes and were consensually agreed upon. Question Answer Comments Discussion of Advance Directives occurred with: Patient Does the patient have a Living Will? No Does the patient have Health Care Power of Inserting Press Operator? No Full Code 07/26/2017 7:36 PM 08/01/2017 4:46 PM This order reflects the patients wishes and were consensually agreed upon. Question Answer Comments Discussion of Advance Directives occurred with: Patient Does the patient have a Living Will? No Does the patient have Health Care Power of Inserting Press Operator? No Full Code 02/24/2015 10:33 AM 02/25/2015 6:10 PM . Question Answer Comments Discussion of Advance Directives occurred with: Not Discussed Full Code 01/07/2015 4:20 PM 01/08/2015 5:32 PM Question Answer Comments Discussion of Advance Directives occurred with: Not Discussed Does the patient have a Living Will? No Does the patient have Health Care Power of Inserting Press Operator? No Care Teams Manager Front Relationship Specialty Start Date End Date Juan Luis Lewis DO [address] [place] [id number] PCP - General Internal Medicine 05/15/21 documented as of this encounter
--- OUTSIDE RECORDS SUMMARY | 2023-04-26 20:39 | External Medical Summary | Summary of Care ---
Author Name Unknown Organization [facility] Address [address] [facility] [place] [address] Phone [phone] Care Team Providers Care Bulk Sausage Casing Tier Off Name Role Phone Juan Luis Hope DO Primary Care Provid er Reason for Visit * Reason Onset Date Comments Medication Refill 04/04/2023 Encounter Details Date Type Department Care Team ([facility] st Contact Info) Description 04/04/2023 Refill [facility] [address] [place] [address] Juan Luis Hope DO [address] [place] [phone] Allergies Active Allergy Reactions Criticality Noted Date Comments Adhesive Tape Rash 09/12/2000 Cefuroxime Axetil Flushing,Hives,Itching 2011 Ceftriaxone Sodium In Dextrose 01/08/2015 Hives Statins Muscle pain Low 09/01/2013 Zolpidem Neuro complications (Please comment) Low 05/18/2010 ambien documented as of this encounter (statuses as of 04/04/2023) Medications Medication Sig Dispensed Refills Start Date [...] Active Nitroglycerin 0.4 MG Sublingual Tablet Sublingual (Nitrostat)Indicatio ns:Other chest pain DISSOLVE 1 TAB UNDER TONGUE EVERY 5 MINUTES NEEDED FOR CHEST PAIN. MAX 3 DOSES. 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 30 Tablet 1 08/05/2022 Active traZODone HCl 50 MG Oral Tablet (Desyrel)Indications :Persistent insomnia TAKE 1 TABLET BY MOUTH ONCE DAILY AT BEDTIME 90 Tablet 2 09/12/2022 Active Lansoprazole 15 MG Oral Capsule Delayed Release (Prevacid)Indication s:Gastroesophageal reflux disease with esophagitis without hemorrhage Take 1 Capsule by mouth in the morning. 90 Capsule 3 11/02/2022 Active Thiamine HCl 100 MG Oral Tablet (vitamin B-1)Indications:Macr ocytic anemia,Personal history of alcoholism (HCC) Take 1 Tablet by mouth in the morning. 90 Tablet 1 01/04/2023 Active Zinc 50 MG Oral TabletIndications:Ma crocytic anemia,Personal history of alcoholism (HCC) Take 1 Tablet by mouth in the morning. 90 Tablet 1 01/04/2023 Active LORazepam 0.5 MG Oral Tablet (Ativan)Indications: Anxiety state Take 1 Tablet by mouth 2 times a day as needed for Anxiety. 60 Tablet 0 02/07/2023 Active traMADol HCl 50 MG Oral Tablet (Ultram)Indications: Spondylosis of lumbosacral region without myelopathy or radiculopathy Take 1 Tablet by mouth every 6 hours as needed for Pain, Moderate. 30 Tablet 0 02/18/2023 Active traMADol HCl 50 MG Oral Tablet (Ultram) Take 1 tablet by mouth 3 times a day with tylenol 650mg for pain. 10 Tablet 0 03/25/2023 Active Potassium Chloride ER 20 MEQ Oral Tablet Extended ReleaseIndications:H ypokalemia,Stage 3b chronic kidney disease (HCC) Take 1 Tablet by mouth in the morning and 1 Tablet at noon and 1 Tablet before bedtime. 0 03/26/2023 Active Fluticasone-Salmeter ol 250-50 MCG/ACT Inhalation Aerosol Powder Breath Activated (Advair Diskus)Indications:H yperlipidemia associated with type 2 diabetes mellitus (HCC),Hypertension associated with type 2 diabetes mellitus (HCC),Type 2 diabetes mellitus with diabetic neuropathy, without long-term current use of insulin (HCC),Other specified hypothyroidism,Centr ilobular emphysema ([facility]),COPD, group B, by GOLD 2017 classification ([facility]) INHALE 1 PUFF BY MOUTH EVERY 12 HOURS. RINSE MOUTH AFTER USING 60 Each 5 04/04/2023 Active documented as of this encounter (statuses as of 04/04/2023) Active Problems Problem Noted Date Diagnosed Date [...] Hyperlipidemia associated with type 2 diabetes m jenifferitus 01/26/2009 Overview: Per Lipid Taxonomy. PAF (paroxysmal atrial fibrillation) 05/11/2003 Irritable bowel syndrome documented as of this encounter (statuses as of 04/04/2023) Resolved Problems Problem Noted Date Diagnosed Date [...] left 08/05/2017 04/25/2021 History of appendectomy 08/05/2017 07/04/2017 History of bilateral cataract extraction 08/05/2017 08/13/2017 Personal history of tobacco use 08/05/2017 08/13/2017 History of transurethral res ection of prostate 08/05/2017 06/30/2018 custodial resident 08/05/20172017 DNR (do not resuscitate) 08/05/201706/2017 [...] pt states received one on prior visit. 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 Acute appendicitis 8 documented as of this encounter (statuses as of 04/04/2023) Immunizations Name Administration Dates Next Due COVID-19, [...] encounter Miscellaneous Notes * Telephone Encounter - Ashley Boyd CPhT - 04/04/2023 3:55 PM EST Pt calling to request traZODone HCl 50 MG Oral Tablet (Desyrel) . Informed pt that RX is available at their pharmacy. Pt verbalized understanding and stated they will check with their pharmacy regarding this medication. Thank you, Mayelin Boyd CPhT Controller Mechanic II [facility] ([facility] (Formerly [facility]) 04/04/2023,3:55 PM documented in this encounter Plan of Treatment Upcoming Encounters Date Type Department Care Team (Late st Contact Info) Description 04/18/2023 2:30 PM EST Laboratory Laboratory Patient Service [address] [phone] [address] 05/03/2023 2:30 PM EDT Office Visit Hematology/Oncology [facility] [address] [place] [address] Noemi Donaldson CRNP [address] [place] [address] Health Maintenance Due Date Last Done Comments Zoster Vaccines (1 of 2) 11/30/1991 DTaP,Tdap,and Td Vaccines (1 - Tdap) 04/20/2011 04/19/2011, 06/07/1999 *COPD SEVERITY VERIFIED BY PFT 08/24/2017 COLONOSCOPY-EVERY 2 YRS AGES 18-100 02/13/2018 02/14/2016, 02/14/2016, 11/16/2005 Albumin/Creatinine Ratio 09/03/2019 09/02/2018, 11/11 COVID-19 Vaccine (2022- season) 2022 02/08/2021, 08/01/2020 Diabetic Eye Exam [...] COPD 02/21/2024 02/20/2023 CKD HGB USE SMARTSET 66911 03/25/202403/25, 03/25/2023, 02/20/2023, Additional history exists CKD PHOS USE SMARTSET 51502 03/25/202403/14, 02/18/2023, 01/09/2023, Additional history exists Pneumococcal [...] this encounter Medical Devices Implanted Type Area Viticulture Teacher Device Identifier Shelf Expiration Date Model / Serial / Lot Rsp Glenoid Baseplate 30mm Screw Length P2 Porous Coated Implanted:Qty: 1 on 02/24/2015 [place] Aníbal [place] [facility] [place] Shoulder [employer] 01/13/2021 [id number] / / [id number] Screw Bone Nonlck 3.5x14mm - [id number] Implanted:Qty: 1 on 02/24/2015 by Aníbal Frankel [place] [facility] [place]: Shoulder [employer] 01/22/2021 506-02-114 / / [id number] Screw Bone Nonlck 3.5x26mm - [id number] Implanted:Qty: 1 on 02/24/2015 by Aníbal Frankel [place] [facility] [place]: Shoulder [employer] 10/10/2020 506-02-126 / / [id number] Screw Bone Nonlck 3.5x14mm - [id number] Implanted:Qty: 1 on 02/24/2015 by Aníbal Frank[place] [facility] [place]: Shoulder [employer] 01/13/2021 506-02-114 / / [id number] Head Glenoid/Screw5 08-00-006 - [id number] Implanted:Qty: 1 on 02/24/2015 by Aníbal Frankel [place] [facility] [place]: Shoulder [employer] 01/05/2021 [id number] / / [id number] Rsp Humeral Socket Insert Sz 32 Mm Standard Implanted:Qty: 1 on 02/24/2015 by Aníbal Frankel [place] [facility] [place]: Shoulder [employer] 01/13/2020 [id number] / / [id number] Humeral Stem, Reverse Size 10mm X 108mm Reverse P2 Porous Coated Implanted:Qty: 1 on 02/24/2015 by Aníbal Frankel [place] [facility] [place]: Shoulder [employer] 12/04/2020 530-10-108 / / [id number] Rsp Bone Screw-Locking Sz 5.0 Mm 26mm Long Implanted:Qty: 1 on 02/24/2015 by Aníbal Frankel [place] [facility] [place]: Shoulder [employer] 01/22/2021 [id number] / / [id number] documented as of this encounter Advance Directives Latest Code Status [...] the patient have Health Care Power of Proof Inspector? Yes, not currently available Code Status History Code Status Date Activated Date Inactivated Comments Full Code 06/24/2018 1:38 PM 06/24/2018 3:07 PM This order reflects the patients wishes and were consensually agreed upon. Question Answer Comments Discussion of Advance Directives occurred with: Patient Does the patient have a Living Will? No Does the patient have Health Care Power of Proof Inspector? No Full Code 07/26/2017 7:36 PM 08/01/2017 4:46 PM This order reflects the patients wishes and were consensually agreed upon. Question Answer Comments Discussion of Advance Directives occurred with: Patient Does the patient have a Living Will? No Does the patient have Health Care Power of Proof Inspector? No Full Code 02/24/2015 10:33 AM 02/25/2015 6:10 PM . Question Answer Comments Discussion of Advance Directives occurred with: Not Discussed Full Code 01/07/2015 4:20 PM 01/08/2015 5:32 PM Question Answer Comments Discussion of Advance Directives occurred with: Not Discussed Does the patient have a Living Will? No Does the patient have Health Care Power of Proof Inspector? No Care Teams Bulk Sausage Casing Tier Off Relationship Specialty Start Date End Date Juan Luis Hope DO [address] [place] [id number] PCP - General Internal Medicine 05/15/21 documented as of this encounter
--- OUTSIDE RECORDS SUMMARY | 2023-04-26 20:39 | External Medical Summary | Summary of Care ---
Author Name Unknown Organization [facility] Address [address] [facility] [place] [address] Phone [phone] Care Team Providers Care Spanish Translator Name Role Phone [place] Juan Luis Mejias Primary Care Provid er Reason for Visit * Reason Onset Date Comments Test Results 03/26/2023 Encounter Details Date Type Department Care Team (Late st Contact Info) Description 03/26/2023 Telephone NephrologyMic [address] [facility] [place] [address] Horacio Hernandez MD [address] [facility] [place] [address] Test Results Allergies Active Allergy Reactions Criticality Noted Date Comments Adhesive Tape Rash 09/12/2000 Cefuroxime Axetil Flushing,Hives,Itching 2011 Ceftriaxone Sodium In Dextrose 01/08/2015 Hives Statins Muscle pain Low 09/01/2013 Zolpidem Neuro complications (Please comment) Low 05/18/2010 ambien documented as of this encounter (statuses as of 03/26/2023) Medications Medication Sig Dispensed Refills Start Date [...] 2,000 Units by mouth daily. 0 Active Fluticasone-Salmete rol 250-50 MCG/ACT Inhalation Aerosol Powder Breath Activated (Advair Diskus)Indications: Hyperlipidemia associated with type 2 diabetes mellitus ([facility]),Hypertension associated with type 2 diabetes mellitus ([facility]),Type 2 diabetes mellitus with diabetic neuropathy, without long-term current use of insulin ([facility]),Other specified hypothyroidism,Cent rilobular emphysema ([facility]),COPD, group B, by GOLD 2017 classification ([facility]) Inhale 1 Puff by mouth in the morning and 1 Puff before bedtime. 60 Each 5 05/02/2022 Active Metoprolol Succinate ER 25 MG Oral [...] (vitamin B-1)Indications:Mac rocytic anemia,Personal history of alcoholism ([facility]) Take 1 Tablet by mouth in the morning. 90 Tablet 1 01/04/2023 Active Zinc 50 MG Oral TabletIndications:M acrocytic anemia,Personal history of alcoholism ([facility]) Take 1 Tablet by mouth in the morning. 90 Tablet 1 01/04/2023 Active LORazepam 0.5 MG Oral Tablet (Ativan)Indications [...] 1 Tablet before bedtime. 0 03/26/2023 Active Potassium Chloride ER 20 MEQ Oral Tablet Extended ReleaseIndications: Stage 3b chronic kidney disease (HCC),Hypokalemia Take 1 Tablet by mouth in the morning. 02/19/2023-Take 100meq (5 tablets) today-Then 1 daily after this.. 90 Tablet 3 02/19/2023 4 Discontinu ed(Refill) documented as of this encounter (statuses as of 03/26/2023) Active Problems Problem Noted Date Diagnosed Date [...] as of this encounter (statuses as of 03/26/2023) Resolved Problems Problem Noted Date Diagnosed Date [...] left 08/05/2017 04/25/2021 History of appendectomy 08/05/2017 07/0 04/2017 History of bilateral cataract extraction 08/05/2017 08/13/2017 Personal history of tobacco use 08/05/2017 08/13/2017 History of transurethral res ection of prostate 08/05/2017 06/30/2018 penitentiary resident 08/05/20172017 DNR (do not resuscitate) 08/05/201706/2017 [...] pt states received one on prior visit. prison current use of ant icoagulant therapy 05/17/2003 01/19/2019 Anticoagulation management encounter 05/11/2003 08/13/2017 HTN, goal below 140/90 06/30 Hypothyroidism 09/01/2014 Reflux esophagitis 0 Mixed dyslipidemia 9 Overview: Per Lipid Taxonomy. 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 (5 years old or older) No 06/24/2018 documented as of this encounter Miscellaneous Notes * Addendum Note - Lucy Daniel RN - 03/26/2023 12:19 PM ESTAddended by: LUCY DANIEL on: 03/26/2023 12:19 PM Modules accepted: Orders * Telephone Encounter - Lucy Daniel RN - 03/26/2023 12:14 PM EST Pt instructed to take 5 additional tablets today for additional 100meq. He states he is eating and drinking well and has had no diarrhea. He is not on any diuretic medications. Med list updated and labs ordered. * Telephone Encounter - Horacio Hernandez MD - 03/26/2023 11:17 AM EST Take 100 meq extra potassium today. Raise the daily dose to 20 meq tid. Is he having Diarrhea/PO intake ? Does not look like he is on any diuretics ? Repeat renal panel, urine creat and urine Potassium in about 1 week. * Telephone Encounter - Lucy Daniel RN - 03/26/2023 11:12 AM EST TE with pt regarding lab results. He states that he is taking 20meq of potassium daily. Please advise. * Telephone Encounter - Lucy Daniel RN - 03/26/2023 11:12 AM EST ----- Message from Horacio Hernandez MD sent at 03/26/2023 11:06 AM EST ----- Potassium very low. Did he take Potassium as Advised last time ? Is she taking Some Potassium now--how much ? Further advice after that * Telephone Encounter - Lucy Daniel RN - 03/26/2023 11:10 AM EST ----- Message from Horacio Hernandez MD sent at 03/26/2023 11:06 AM EST ----- Potassium very low. Did he take Potassium as Advised last time ? Is she taking Some Potassium now--how much ? Further advice after that documented in this encounter Plan of Treatment Upcoming Encounters Date Type Department Care Team (Late st Contact Info) Description 04/18/2023 2:30 PM EST Laboratory Laboratory Patient Service [address] [phone] [address] 05/03/2023 2:30 PM EDT Office Visit Hematology/Oncology [facility] [address] [place] [address] Noemi Donaldson CRNP [address] [place] [address] [place] [address] Scheduled Orders Name Type Priority Associated Diagnoses Orde r Schedule RENAL FUNCTION PANEL Lab Routine Hypokalemia Expected: 04/01/2023 (Approximate), Expires: 03/26/2024 CREATININE, RANDOM URINE Lab Routine Hypokalemia Expected: 04/01/2023 (Approximate), Expires: 03/26/2024 POTASSIUM, RANDOM URINE Lab Routine Hypokalemia Expected: 04/01/2023 (Approximate), Expires: 03/26/2024 Health Maintenance Due Date Last Done Comments Zoster Vaccines (1 of 2) 11/30/1991 Hepatitis B (1 of 3 - Risk 3-dose series) 2001 DTaP,Tdap,and Td Vaccines (1 - Tdap) 04/20/2011 04/19/2011, 06/07/1999 *COPD SEVERITY VERIFIED BY PFT 08/24/2017 COLONOSCOPY-EVERY 2 YRS AGES 18-100 02/13/2018 02/14/2016, 02/14/2016, 11/16/2005 Albumin/Creatinine Ratio 09/03/2019 09/02/2018, 11/11 COVID-19 Vaccine (3 - 2022- season) 2022 02/08/2021, 08/01/2020 Diabetic [...] COPD 02/21/2024 02/20/2023 CKD HGB USE SMARTSET 83747 03/25/202403/25, 03/25/2023, 02/20/2023, Additional history exists CKD PHOS USE SMARTSET 29582 03/25/202403/14, 02/18/2023, 01/09/2023, Additional history exists Pneumococcal [...] this encounter Medical Devices Implanted Type Area Hand Endband Cutter Device Identifier Shelf Expiration Date Model / Serial / Lot Rsp Bone Screw-Locking Sz 5.0 Mm 26mm Long Implanted:Qty: 1 on 02/24/2015 by Aníbal Frankel MD at [facility] Right: Shoulder [employer] 01/22/2021 506-03-126 / / [id number] documented as of this encounter Visit Diagnoses Diagnosis Hypokalemia- Primary Hypopotassemia Stage 3b chronic kidney disease (HCC) documented in this encounter Advance Directives Latest [...] the patient have Health Care Power of Investigation Officer? Yes, not currently available Code Status History Code Status Date Activated Date Inactivated Comments Full Code 06/24/2018 1:38 PM 06/24/2018 3:07 PM This order reflects the patients wishes and were consensually agreed upon. Question Answer Comments Discussion of Advance Directives occurred with: Patient Does the patient have a Living Will? No Does the patient have Health Care Power of Investigation Officer? No Full Code 07/26/2017 7:36 PM 08/01/2017 4:46 PM This order reflects the patients wishes and were consensually agreed upon. Question Answer Comments Discussion of Advance Directives occurred with: Patient Does the patient have a Living Will? No Does the patient have Health Care Power of Investigation Officer? No Full Code 02/24/2015 10:33 AM 02/25/2015 6:10 PM . Question Answer Comments Discussion of Advance Directives occurred with: Not Discussed Full Code 01/07/2015 4:20 PM 01/08/2015 5:32 PM Question Answer Comments Discussion of Advance Directives occurred with: Not Discussed Does the patient have a Living Will? No Does the patient have Health Care Power of Investigation Officer? No Care Teams Spanish Translator Relationship Specialty Start Date End Date Juan Luis Hope DO [address] [place] [phone] PCP - General Internal Medicine 05/15/21 documented as of this encounter
--- OUTSIDE RECORDS SUMMARY | 2023-04-26 20:39 | External Medical Summary | Summary of Care ---
Author Name Unknown Organization [facility] Address [address] [facility] [place] [address] Phone [phone] Care Team Providers Care Clipper Machine Operator Name Role Phone [place] Juan Luis Mejias Primary Care Provid er Reason for Visit * Reason Onset Date Comments Test Results 03/26/2023 Encounter Details Date Type Department Care Team (Late st Contact Info) Description 03/26/2023 Telephone [facility] [place] [address] Horacio Hernandez MD [facility] [place] [address] Test Results Allergies Active Allergy Reactions Criticality [...] 2,000 Units by mouth daily. 0 Active Fluticasone-Salmeter ol 250-50 MCG/ACT Inhalation Aerosol Powder Breath Activated (Advair Diskus)Indications:H yperlipidemia associated with type 2 diabetes mellitus ([facility]),Hypertension associated with type 2 diabetes mellitus ([facility]),Type 2 diabetes mellitus with diabetic neuropathy, without long-term current use of insulin ([facility]),Other specified hypothyroidism,Centr ilobular emphysema ([facility]),COPD, group B, by GOLD 2017 classification ([facility]) Inhale 1 Puff by mouth in the [...] (vitamin B-1)Indications:Macr ocytic anemia,Personal history of alcoholism ([facility]) Take 1 Tablet by mouth in the morning. 90 Tablet 1 01/04/2023 Active Zinc 50 MG Oral TabletIndications:Ma crocytic anemia,Personal history of alcoholism ([facility]) Take 1 Tablet by mouth in the [...] Pain, Moderate. 30 Tablet 0 02/18/2023 Active Potassium Chloride ER 20 MEQ Oral Tablet Extended ReleaseIndications:S tage 3b chronic kidney disease (HCC),Hypokalemia Take 1 Tablet by mouth in the morning. 02/19/2023-Take 100meq (5 tablets) today-Then 1 daily after this.. 90 Tablet 3 02/19/2023 Active traMADol HCl 50 MG Oral Tablet (Ultram) Take 1 tablet by mouth 3 times a day with tylenol 650mg for pain. 10 Tablet 0 03/25/2023 Active documented as of this encounter (statuses [...] transurethral res ection of prostate 08/05/2017 06/30/2018 longterm resident 08/05/20172017 DNR (do not resuscitate) 08/05/201706/2017 [...] received one on prior visit. 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 Raise the daily dose to 20 meq tid. Is he having Diarrhea/PO intake ? Does not look like he is on any diuretics ? Repeat renal panel, urine creat and urine Potassium in about 1 week. * Telephone Encounter - Lucy Fraire RN - 03/26/2023 11:12 AM EST TE with pt regarding lab results. He states that he is taking 20meq of potassium daily. Please advise. * Telephone Encounter - Lucy Fraire RN - 03/26/2023 11:12 AM EST ----- Message from Horacio Hernandez MD sent at 03/26/2023 11:06 AM EST ----- Potassium very low. Did he take Potassium as Advised last time ? Is she taking Some Potassium now--how much ? Further advice after that * Telephone Encounter - Lucy Fraire RN - 03/26/2023 11:10 AM EST ----- [...] 2:30 PM EST Laboratory Laboratory Patient Service [address] [place] [address] [place] [address] [place] [address] 05/03/2023 2:30 PM EDT [facility] [place] [facility] [address] Noemi Donaldson CRNP 400 [facility] [place] [address] Health Maintenance Due Date Last Done [...] COPD 02/21/2024 02/20/2023 CKD HGB USE SMARTSET 74210 03/25/202403/25, 03/25/2023, 02/20/2023, Additional history exists CKD PHOS USE SMARTSET 56585 03/25/202403/14, 02/18/2023, 01/09/2023, Additional history exists Pneumococcal [...] this encounter Medical Devices Implanted Type Area Lead Engineer Device Identifier Shelf Expiration Date Model / Serial / Lot Rsp Bone Screw-Locking Sz 5.0 Mm 26mm Long Implanted:Qty: 1 on 02/24/2015 by Aníbal Frankel MD at [facility] Right: Shoulder [employer] 01/22/2021 [id number] / / [id number] documented as of this encounter Advance Directives [...] the patient have Health Care Power of Concrete Buildings Assembler? Yes, not currently available Code Status History Code Status Date Activated Date Inactivated Comments Full Code 06/24/2018 1:38 PM 06/24/2018 3:07 PM This order reflects the patients wishes and were consensually agreed upon. Question Answer Comments Discussion of Advance Directives occurred with: Patient Does the patient have a Living Will? No Does the patient have Health Care Power of Concrete Buildings Assembler? No Full Code 07/26/2017 7:36 PM 08/01/2017 4:46 PM This order reflects the patients wishes and were consensually agreed upon. Question Answer Comments Discussion of Advance Directives occurred with: Patient Does the patient have a Living Will? No Does the patient have Health Care Power of Concrete Buildings Assembler? No Full Code 02/24/2015 10:33 AM 02/25/2015 6:10 PM . Question Answer Comments Discussion of Advance Directives occurred with: Not Discussed Full Code 01/07/2015 4:20 PM 01/08/2015 5:32 PM Question Answer Comments Discussion of Advance Directives occurred with: Not Discussed Does the patient have a Living Will? No Does the patient have Health Care Power of Concrete Buildings Assembler? No Care Teams Clipper Machine Operator Relationship Specialty Start Date End Date Juan Luis Hope DO [address] [place] [id number] PCP - General Internal Medicine 05/15/21 documented as of this encounter
--- OUTSIDE RECORDS SUMMARY | 2023-04-26 20:39 | External Medical Summary | Summary of Care ---
Author Name Unknown Organization [facility] Address [address] [place] [address] Phone [phone] Care Team Providers Care Fig Washer Name Role Phone LuhgloriaJuan Luis Randell Primary Care Provid er Reason for Visit * Reason Comments Outpatient Testing Encounter Details Date Type Department Care Team (Late st Contact Info) Description 03/25/2023 11:30 AM [facility] Laboratory Laboratory [facility] Service [address] [phone] [address] Wound of left lower extremity, initial encounter; Lower extremity edema; Macrocytic anemia; Personal history of alcoholism (HCC); Stage 3b chronic kidney disease (HCC); Thrombocytopenia ([facility]); Hypokalemia; Screening for nephropathy Allergies Active Allergy Reactions Criticality Noted Date Comments Adhesive Tape Rash 09/12/2000 Cefuroxime Axetil Flushing,Hives,Itching 2011 Ceftriaxone Sodium In Dextrose 01/08/2015 Hives Statins Muscle pain Low 09/01/2013 Zolpidem Neuro complications (Please comment) Low 05/18/2010 ambien documented as of this encounter (statuses as of 03/25/2023) Medications Medication Sig Dispensed Refills Start Date [...] yperlipidemia associated with type 2 diabetes mellitus ([facility]),Hypertension associated with type 2 diabetes mellitus ([facility]),Type 2 diabetes mellitus with diabetic neuropathy, without long-term current use of insulin ([facility]),Other specified hypothyroidism,Centr ilobular emphysema ([facility]),COPD, group B, by GOLD 2017 classification ([facility]) Inhale 1 Puff by mouth in the [...] (vitamin B-1)Indications:Macr ocytic anemia,Personal history of alcoholism ([facility]) Take 1 Tablet by mouth in the [...] after this.. 90 Tablet 3 02/19/2023 Active documented as of this encounter (statuses as of 03/25/2023) Active Problems Problem Noted Date Diagnosed Date [...] Hyperlipidemia associated with type 2 diabetes m ellitus 01/26/2009 Overview: Per Lipid Taxonomy. PAF (paroxysmal atrial fibrillation) 05/11/2003 Irritable bowel syndrome documented as of this encounter (statuses as of 03/25/2023) Resolved Problems Problem Noted Date Diagnosed Date [...] pt states received one on prior visit. 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 Acute appendicitis 8 documented as of this encounter (statuses as of 03/25/2023) Immunizations Name Administration Dates Next Due COVID-19, [...] No 06/24/2018 documented as of this encounter Plan of Treatment Upcoming Encounters Date Type Department Care Team (Late st Contact Info) Description 04/18/2023 2:30 PM EST Laboratory Laboratory Patient Service [facility] [address] [place] [phone] [place], Lab [address] [address] 05/03/2023 2:30 PM EDT Office Visit Hematology/Oncology [facility] [place] [address] [place] [address] Noemi Donaldson CRNP 400 [facility] [place] [address] Pending Results Name Type Priority Associated Diagnoses Date /Time CBC WITH WBC DIFFERENTIAL Lab STAT Macrocytic anemia Personal history of alcoholism (HCC) Stage 3b chronic kidney disease (HCC) Thrombocytopenia (HCC) 03/25/2023 11:22 AM EST RENAL FUNCTION PANEL Lab Routine Stage 3b chronic kidney disease (HCC) Hypokalemia 03/25/2023 11:22 AM EST MAGNESIUM Lab Routine Stage 3b chronic kidney disease (HCC) Hypokalemia 03/25/2023 11:22 AM EST CBC Lab STAT Macrocytic anemia Personal history of alcoholism (HCC) Stage 3b chronic kidney disease (HCC) Thrombocytopenia (HCC) 03/25/2023 11:22 AM EST DIFFERENTIAL, AUTOMATED Lab STAT Macrocytic anemia Personal history of alcoholism (HCC) Stage 3b chronic kidney disease (HCC) Thrombocytopenia (HCC) 03/25/2023 11:22 AM EST Health Maintenance Due Date Last Done Comments Zoster Vaccines (1 of 2) 11/30/1991 Hepatitis B (1 of 3 - Risk 3-dose series) 2001 DTaP,Tdap,and Td Vaccines (1 - Tdap) 04/20/2011 04/19/2011, 06/07/1999 *COPD SEVERITY VERIFIED BY PFT 08/24/2017 COLONOSCOPY-EVERY 2 YRS AGES 18-100 02/13/2018 02/14/2016, 02/14/2016, 11/16/2005 Albumin/Creatinine Ratio 09/03/2019 09/02/2018, 11/11 COVID-19 Vaccine ( season) 2022 02/08/2021, 08/01/2020 Diabetic Eye Exam 03/19/2023 03/19/2022, , 03/19/2022, Additional history exists TSH 07/31/2023 07/30/2022, 01/11, 07/31/2021, Additional history exists HbA1c 08/19/2023 02/18/2023, 07/12, 01/24/2022, Additional history exists GFR 08/21/2023 02/20/2023, 09/2023, 01/09/2023, Additional history exists Depression Screening 11/03/2023 11/02/2022 Diabetic Foot Exam 12/28/2023 12/27/2022, 0 07/14/2021, 08/19/2019, Additional history exists CKD PHOS USE SMARTSET 49455 02/19/202409/2023, 01/09/2023, 06/28/2021, Additional history exists CKD HGB USE SMARTSET 53277 02/21/202402/20, 02/18/2023, 02/18/2023, Additional history exists O2 ASSESSMENT COMPLETED IN PAST YEAR FOR COPD 02/21/2024 02/20/2023 Pneumococcal Vaccine: 65+ Years Completed 02/10/2018, 01/30/2017 Alpha-1 Antitrypsin Completed 07/30/2022 Influenza Vaccine (FLU shot) Completed 01/2023, 04/26/2021, 03/04/2020, Additional history exists GARDASIL-HPV IMMUNIZATION SERIES Aged Out No longer eligible based on patient's age to complete this topic MENINGOCOCCAL (MENACTRA/MENVEO) Aged Out No longer eligible based on patient's age to complete this topic documented as of this encounter Medical Devices Implanted Type Area Laundry Machine Mechanic Device Identifier Shelf Expiration Date Model / Serial / Lot Rsp Bone Screw-Locking Sz 5.0 Mm 26mm Long Implanted:Qty: 1 on 02/24/2015 by Aníbal Frankel MD at [facility] Right: Shoulder [employer] 01/22/2021 [id number] / / [id number] documented as of this encounter Visit Diagnoses Diagnosis Wound of left lower extremity, initial encounter Lower extremity edema Edema Macrocytic anemia Unspecified deficiency anemia Personal history of alcoholism (HCC) Personal history of alcoholism Stage 3b chronic kidney disease (HCC) Thrombocytopenia (HCC) Thrombocytopenia, unspecified Hypokalemia Hypopotassemia Screening for nephropathy documented in this encounter Advance Directives Latest [...] the patient have Health Care Power of Washcoat Wiper? Yes, not currently available Code Status History Code Status Date Activated Date Inactivated Comments Full Code 06/24/2018 1:38 PM 06/24/2018 3:07 PM This order reflects the patients wishes and were consensually agreed upon. Question Answer Comments Discussion of Advance Directives occurred with: Patient Does the patient have a Living Will? No Does the patient have Health Care Power of Washcoat Wiper? No Full Code 07/26/2017 7:36 PM 08/01/2017 4:46 PM This order reflects the patients wishes and were consensually agreed upon. Question Answer Comments Discussion of Advance Directives occurred with: Patient Does the patient have a Living Will? No Does the patient have Health Care Power of Washcoat Wiper? No Full Code 02/24/2015 10:33 AM 02/25/2015 6:10 PM . Question Answer Comments Discussion of Advance Directives occurred with: Not Discussed Full Code 01/07/2015 4:20 PM 01/08/2015 5:32 PM Question Answer Comments Discussion of Advance Directives occurred with: Not Discussed Does the patient have a Living Will? No Does the patient have Health Care Power of Washcoat Wiper? No Care Teams Fig Washer Relationship Specialty Start Date End Date Juan Luis Hope DO [address] [place] [address] PCP - General Internal Medicine 05/15/21 documented as of this encounter
--- OUTSIDE RECORDS SUMMARY | 2023-04-26 20:39 | External Medical Summary | Summary of Care ---
Author Name Unknown Organization [facility] Address [address] [facility] [place] [address] Phone [phone] Care Team Providers Care Reel Blade Bender Furnace Tender Name Role Phone [place] Juan Luis Mejias Primary Care Provid er Reason for Visit * Reason Onset Date Comments Test Results 03/26/2023 Encounter Details Date Type Department Care Team (Late st Contact Info) Description 03/26/2023 Telephone NephrologyMic 200 [facility] [place] [address] Horacio Hernandez MD 200 [facility] [place] [address] Test Results Allergies Active Allergy Reactions Criticality [...] yperlipidemia associated with type 2 diabetes mellitus ([facility]),Hypertension associated with type 2 diabetes mellitus ([facility]),Type 2 diabetes mellitus with diabetic neuropathy, without long-term current use of insulin ([facility]),Other specified hypothyroidism,Centr ilobular emphysema ([facility]),COPD, group B, by GOLD 2017 classification ([facility]) Inhale 1 Puff by mouth in the [...] (vitamin B-1)Indications:Macr ocytic anemia,Personal history of alcoholism ([facility]) Take 1 Tablet by mouth in the morning. 90 Tablet 1 01/04/2023 Active Zinc 50 MG Oral TabletIndications:Ma crocytic anemia,Personal history of alcoholism ([facility]) Take 1 Tablet by mouth in the [...] transurethral res ection of prostate 08/05/2017 06/30/2018 jail resident 08/05/20172017 DNR (do not resuscitate) 08/05/201706/2017 [...] pt states received one on prior visit. 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 [address] Noemi Donaldson CRNP 400 [facility] [place] [address] Health Maintenance Due [...] COPD 02/21/2024 02/20/2023 CKD HGB USE SMARTSET 27677 03/25/202403/25, 03/25/2023, 02/20/2023, Additional history exists CKD PHOS USE SMARTSET 68697 03/25/202403/14, 02/18/2023, 01/09/2023, Additional history exists Pneumococcal [...] this encounter Medical Devices Implanted Type Area Manager Technology Device Identifier Shelf Expiration Date Model / Serial / Lot Rsp Bone Screw-Locking Sz 5.0 Mm 26mm Long Implanted:Qty: 1 on 02/24/2015 by Aníbal Frankel MD at [facility] Right: Shoulder [employer] 01/22/2021 [id number] / / [id number] documented as of this encounter Advance Directives [...] the patient have Health Care Power of Toy Painter? Yes, not currently available Code Status History Code Status Date Activated Date Inactivated Comments Full Code 06/24/2018 1:38 PM 06/24/2018 3:07 PM This order reflects the patients wishes and were consensually agreed upon. Question Answer Comments Discussion of Advance Directives occurred with: Patient Does the patient have a Living Will? No Does the patient have Health Care Power of Toy Painter? No Full Code 07/26/2017 7:36 PM 08/01/2017 4:46 PM This order reflects the patients wishes and were consensually agreed upon. Question Answer Comments Discussion of Advance Directives occurred with: Patient Does the patient have a Living Will? No Does the patient have Health Care Power of Toy Painter? No Full Code 02/24/2015 10:33 AM 02/25/2015 6:10 PM . Question Answer Comments Discussion of Advance Directives occurred with: Not Discussed Full Code 01/07/2015 4:20 PM 01/08/2015 5:32 PM Question Answer Comments Discussion of Advance Directives occurred with: Not Discussed Does the patient have a Living Will? No Does the patient have Health Care Power of Toy Painter? No Care Teams Reel Blade Bender Furnace Tender Relationship Specialty Start Date End Date Juan Luis Hope DO [address] [place] [id number] PCP - General Internal Medicine 05/15/21 documented as of this encounter
--- OUTSIDE RECORDS SUMMARY | 2023-04-26 20:39 | External Medical Summary | Summary of Care ---
Author Name Unknown Organization [facility] Address [address] [facility] [place] [address] Phone [phone] Care Team Providers Care Television Installer Helper Name Role Phone Juan Luis Lewis DO Primary Care Provid er Reason for Visit * Reason Comments eRx-Medication Refill Encounter Details Date Type Department Care Team ([facility] st Contact Info) Description 04/04/2023 Refill [facility] [address] [place] [address] Juan Luis Lewis DO [address] [place] [address] Hyperlipidemia associated with type 2 diabetes mellitus ([facility]); Hypertension associated with type 2 diabetes mellitus ([facility]); Type 2 diabetes mellitus with diabetic neuropathy, without long-term current use of insulin ([facility]); Other specified hypothyroidism; Centrilobular emphysema ([facility]); COPD, group B, by GOLD 2017 classification ([facility]) Allergies Active Allergy Reactions Criticality Noted Date [...] breakfast or other meds) 30 Tab 5 9 Active Vitamin D 50 MCG (1999 UT) Oral Tablet Take 2,000 Units by [...] NO RELIEF CALL 911 25 Tablet 5 3 Active Tadalafil 20 MG Oral TabletIndications: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 30 Tablet 1 3 Active traZODone HCl 50 MG Oral Tablet (Desyrel)Indication s:Persistent insomnia TAKE 1 TABLET BY MOUTH ONCE DAILY AT BEDTIME 90 Tablet 2 3 Active Lansoprazole 15 MG Oral Capsule Delayed Release (Prevacid)Indicatio ns:Gastroesophageal reflux disease with esophagitis without hemorrhage Take 1 Capsule by mouth in the morning. 90 Capsule 3 3 Active Thiamine HCl 100 MG Oral Tablet (vitamin B-1)Indications:Mac rocytic anemia,Personal history of alcoholism (HCC) Take 1 Tablet by mouth in the morning. 90 Tablet 1 3 Active Zinc 50 MG Oral TabletIndications:M acrocytic anemia,Personal history of alcoholism (HCC) Take 1 Tablet by mouth in the morning. 90 Tablet 1 3 Active LORazepam 0.5 MG Oral Tablet (Ativan)Indications :Anxiety state Take 1 Tablet by mouth 2 times a day as needed for Anxiety. 60 Tablet 0 3 Active traMADol HCl 50 MG Oral Tablet (Ultram)Indications :Spondylosis of lumbosacral region without myelopathy or radiculopathy Take 1 Tablet by mouth every 6 hours as needed for Pain, Moderate. 30 Tablet 0 4 Active traMADol HCl 50 MG Oral Tablet (Ultram) Take 1 tablet by mouth 3 times a day with tylenol 650mg for pain. 10 Tablet 0 4 Active Potassium Chloride ER 20 MEQ Oral Tablet Extended ReleaseIndications: Hypokalemia,Stage 3b chronic kidney disease (HCC) Take 1 Tablet by mouth in the morning and 1 Tablet at noon and 1 Tablet before bedtime. 0 4 Active Fluticasone-Salmete rol 250-50 MCG/ACT Inhalation Aerosol Powder Breath Activated (Advair Diskus)Indications: Hyperlipidemia associated with type 2 diabetes mellitus (HCC),Hypertension associated with type 2 diabetes mellitus (HCC),Type 2 diabetes mellitus with diabetic neuropathy, without long-term current use of insulin (HCC),Other specified hypothyroidism,Cent rilobular emphysema (HCC),COPD, group B, by GOLD 2017 classification ([facility]) INHALE 1 PUFF BY MOUTH EVERY 12 HOURS. RINSE MOUTH AFTER USING 60 Each 5 4 Active Fluticasone-Salmete rol 250-50 MCG/ACT Inhalation Aerosol Powder Breath Activated (Advair Diskus)Indications: Hyperlipidemia associated with type 2 diabetes mellitus (HCC),Hypertension associated with type 2 diabetes mellitus (HCC),Type 2 diabetes mellitus with diabetic neuropathy, without long-term current use of insulin (HCC),Other specified hypothyroidism,Cent rilobular emphysema (HCC),COPD, group B, by GOLD 2017 classification ([facility]) Inhale 1 Puff by mouth in the morning and 1 Puff before bedtime. 60 Each 5 3 04/04/19 24 Discontinued documented as of this encounter (statuses as [...] blood loss 08/05/2017 04/25/2021 Supratherapeutic INR 08/05/2017 0705 018 Generalized weakness 08/05/2017 018 Gait abnormality [...] transurethral res ection of prostate 08/05/2017 06/30/2018 [facility] resident 08/05/20172017 DNR (do not resuscitate) 08/05/201706/2017 [...] pt states received one on prior visit. 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 RINSE MOUTH AFTER USINGAuthorizing Provider: JUAN LUIS LEWIS User: GAGAN KIMBALL ------ documented in this encounter Plan of Treatment Upcoming Encounters Date Type Department Care Team (Late st Contact Info) Description 04/18/2023 2:30 PM EST Laboratory Laboratory Patient Service [address] [id number] [address] [address] 05/03/2023 2:30 PM EDT Office Visit Hematology/Oncology [facility] [place] [address] [facility] [place], [place] [address] Noemi Donaldson CRNP [address] [place] [address] Health Maintenance Due Date Last Done Comments [...] COPD 02/21/2024 02/20/2023 CKD HGB USE SMARTSET 08282 03/25/202403/25, 03/25/2023, 02/20/2023, Additional history exists CKD PHOS USE SMARTSET 34399 03/25/202403/14, 02/18/2023, 01/09/2023, Additional history exists Pneumococcal [...] this encounter Medical Devices Implanted Type Area Plunger Shovel Operator Device Identifier Shelf Expiration Date Model / Serial / Lot Rsp Glenoid Baseplate 30mm Screw Length P2 Porous Coated Implanted:Qty: 1 on 02/24/2015 by Aníbal Frankel MD [place] [facility] Right: Shoulder [employer] 01/13/2021 [id number] / / [id number] Screw Bone Nonlck 3.5x14mm - [id number] Implanted:Qty: 1 on 02/24/2015 by Aníbal Frankel MD at [place] [facility] Right: Shoulder [employer] 01/22/2021 [id number] / / [id number] Screw Bone Nonlck 3.5x26mm - [id number] Implanted:Qty: 1 on 02/24/2015 by Aníbal Frankel MD at [place] [facility] Right: Shoulder [employer] 10/10/2020 [id number] / / [id number] Screw Bone Nonlck 3.5x14mm - [id number] Implanted:Qty: 1 on 02/24/2015 by Aníbal Frankel MD at [place] [facility] Right: Shoulder [employer] 01/13/2021 506-02-114 / / [id number] Head Glenoid/Screw5 - [id number] Implanted:Qty: 1 on 02/24/2015 by Aníbal Frankel MD at [place] [facility] Right: Shoulder [employer] 01/05/2021 [id number] / / [id number] Rsp Humeral Socket Insert Sz 32 Mm Standard Implanted:Qty: 1 on 02/24/2015 by Aníbal Frankel MD at [place] [facility] Right: Shoulder [employer] 01/13/2020 [id number] / / [id number] Humeral Stem, Reverse Size 10mm X 108mm Reverse P2 Porous Coated Implanted:Qty: 1 on 02/24/2015 by Aníbal Frankel MD at [place] [facility] Right: Shoulder [employer] 12/04/2020 [id number] / / [id number] Rsp Bone Screw-Locking Sz 5.0 Mm 26mm Long Implanted:Qty: 1 on 02/24/2015 by Aníbal Frankel MD at [place] [facility] Right: Shoulder [employer] 01/22/2021 [id number] / / [id number] documented as of this encounter Visit Diagnoses Diagnosis Hyperlipidemia associated with type 2 diabetes mellitus (HCC) Hypertension associated with type 2 diabetes mellitus (HCC) Type 2 diabetes mellitus with diabetic neuropathy, without long-term current use of insulin (HCC) Other specified hypothyroidism Centrilobular emphysema (HCC) Other emphysema COPD, group B, by GOLD 2017 classification (HCC) documented in this encounter Advance Directives [...] the patient have Health Care Power of School Age Program Associate? Yes, not currently available Code Status History Code Status Date Activated Date Inactivated Comments Full Code 06/24/2018 1:38 PM 06/24/2018 3:07 PM This order reflects the patients wishes and were consensually agreed upon. Question Answer Comments Discussion of Advance Directives occurred with: Patient Does the patient have a Living Will? No Does the patient have Health Care Power of School Age Program Associate? No Full Code 07/26/2017 7:36 PM 08/01/2017 4:46 PM This order reflects the patients wishes and were consensually agreed upon. Question Answer Comments Discussion of Advance Directives occurred with: Patient Does the patient have a Living Will? No Does the patient have Health Care Power of School Age Program Associate? No Full Code 02/24/2015 10:33 AM 02/25/2015 6:10 PM . Question Answer Comments Discussion of Advance Directives occurred with: Not Discussed Full Code 01/07/2015 4:20 PM 01/08/2015 5:32 PM Question Answer Comments Discussion of Advance Directives occurred with: Not Discussed Does the patient have a Living Will? No Does the patient have Health Care Power of School Age Program Associate? No Care Teams Television Installer Helper Relationship Specialty Start Date End Date Juan Luis Lewis DO [address] [place] [address] PCP - General Internal Medicine 05/15/21 documented as of this encounter
--- OUTSIDE RECORDS SUMMARY | 2023-04-26 20:40 | External Medical Summary | Summary of Care ---
Author Name Unknown Organization [facility] Address [address] [place] [address] Phone [phone] Care Team Providers Care Citrus Peeler Name Role Phone Juan Luis Hope DO Primary Care Provid er Reason for Visit * Reason Onset Date Comments Advice 12/06/2022 [place] lab results Encounter Details Date Type Department Care Team ([facility] st Contact Info) Description 12/06/2022 Telephone Family [facility] [address] [place] [address] Juan Luis Hope DO [address] [place] [address] Advice ([place] lab results) Allergies Active Allergy Reactions Criticality Noted Date Comments Adhesive Tape Rash 09/12/2000 Cefuroxime Axetil Flushing,Hives,Itching 2011 Ceftriaxone Sodium In Dextrose 01/08/2015 Hives Statins Muscle pain Low 09/01/2013 Zolpidem Neuro complications (Please comment) Low 05/18/2010 ambien documented as of this encounter (statuses as of 03/07/2023) Medications Medication Sig Dispensed Refills Start Date [...] 5 9 Active Vitamin D 50 MCG (2000 UT) Oral Tablet Take 2,000 Units by mouth daily. 0 Active Fluticasone-Salmet john 250-50 MCG/ACT Inhalation Aerosol Powder Breath Activated (Advair Diskus)Indications :Hyperlipidemia associated with type 2 diabetes mellitus ([facility]),Hypertension associated with type 2 diabetes mellitus ([facility]),Type 2 diabetes mellitus with diabetic neuropathy, without long-term current use of insulin ([facility]),Other specified hypothyroidism,Osman trilobular emphysema ([facility]),COPD, group B, by GOLD 2017 classification ([facility]) Inhale 1 Puff by mouth in the morning and 1 Puff before bedtime. 60 Each 5 3 Active Metoprolol Succinate ER 25 MG Oral Tablet Extended Release 24 Hour (toPROL XL) Take 1 Tablet by mouth in the morning. 0 Active Nitroglycerin 0.4 MG Sublingual Tablet Sublingual (Nitrostat)Indicat ions:Other chest pain DISSOLVE 1 TAB UNDER TONGUE EVERY 5 MINUTES NEEDED FOR CHEST PAIN. MAX 3 DOSES. NO RELIEF CALL 911 25 Tablet 5 3 Active Tadalafil 20 MG Oral TabletIndications: Erectile dysfunction due to diseases classified elsewhere TAKE 1 TABLET BY MOUTH ONCE DAILY NEEDED FOR ERECTILE DYSFUNCTION 10 Tablet 3 3 Active Meclizine HCl 25 MG Oral Tablet (Antivert) Take 1 Tablet by mouth 3 times a day as needed for Dizziness. 30 Tablet 1 3 Active traZODone HCl 50 MG Oral Tablet (Desyrel)Indicatio ns:Persistent insomnia TAKE 1 TABLET BY MOUTH ONCE DAILY AT BEDTIME 90 Tablet 2 3 Active Lansoprazole 15 MG Oral Capsule Delayed Release (Prevacid)Indicati ons:Gastroesophage al reflux disease with esophagitis without hemorrhage Take 1 Capsule by mouth in the morning. 90 Capsule 3 3 Active Folic Acid 1 MG Oral Tablet Take 1 Tablet by mouth in the morning. 0 024 Discontinued Vitamin B-1 50 MG Oral Tablet (vitamin B-1) 1 Tablet. 0 2 023 Discontinued(Me dication/Dose Changed) Losartan Potassium 50 MG Oral Tablet (Cozaar)Indication s:Hypertension associated with type 2 diabetes mellitus ([facility]) Take 1 Tablet by mouth in the morning. 90 Tablet 1 3 023 Discontinued traMADol HCl 50 MG Oral Tablet (Ultram)Indication s:Spondylosis of lumbosacral region without myelopathy or radiculopathy Take 1 Tablet by mouth every 6 hours as needed for Pain, Moderate. 30 Tablet 0 3 023 Discontinued(Re fill) Furosemide 20 MG Oral Tablet (Lasix)Indications :Lower extremity edema Take 1 Tablet by mouth in the morning. 30 Tablet 11 3 023 Discontinued(Di scharged) Potassium Chloride Kary ER 20 MEQ Oral Tablet Extended ReleaseIndications :Lower extremity edema Take 1 Tablet by mouth in the morning and 1 Tablet before bedtime. 60 Tablet 11 3 023 Discontinued(Di scharged) Docusate Sodium 100 MG Oral Capsule (Colace)Indication s:Constipation, unspecified constipation type Take 1 Capsule by mouth in the morning and 1 Capsule before bedtime. 60 Capsule 5 3 024 Discontinued LORazepam 0.5 MG Oral Tablet (Ativan)Indication s:Anxiety state Take 1 Tablet by mouth 2 times a day as needed for Anxiety. 60 Tablet 0 3 023 Discontinued(Re fill) documented as of this encounter (statuses as of 03/07/2023) Active Problems Problem Noted Date Diagnosed Date [...] 09/01/2014 Hyperlipidemia associated with type 2 diabetes allen calderon 01/26/2009 Overview: Per Lipid Taxonomy. PAF (paroxysmal atrial fibrillation) 05/11/2003 Irritable bowel syndrome documented as of this encounter (statuses as of 03/07/2023) Resolved Problems Problem Noted Date Diagnosed Date [...] chronic blood loss 08/05/2017 04/25/2021 Supratherapeutic INR 08/05/201705 018 Generalized weakness 08/05/2017 018 Gait abnormality [...] transurethral res ection of prostate 08/05/2017 06/30/2018 [facility] resident 08/05/20172017 DNR (do not resuscitate) 08/05/201706/2017 [...] pt states received one on prior visit. senior living current use of ant icoagulant therapy 05/17/2003 01/19/2019 Anticoagulation management encounter 05/11/2003 08/13/2017 HTN, goal below 140/90 06/30 Hypothyroidism 09/01/2014 Reflux esophagitis 0 Mixed dyslipidemia 9 Overview: Per Lipid Taxonomy. Acute appendicitis 8 documented as of this encounter (statuses as of 03/07/2023) Immunizations Name Administration Dates Next Due COVID-19, [...] drink = 0.6 oz pur e alcohol) occ PHQ-2 Answer Date Recorded PHQ Adult Total [...] Notes * Telephone Encounter - Juan Luis Hope DO - 12/07/2022 10:35 AM EDT [facility] on [facility] 10 * Telephone Encounter - Juan Luis Hope DO - 12/07/2022 7:08 AM EDT I do agree with evaluation for any GI blood loss. Hemoglobin of 9.2 is decreased from previous. Hislast known hemoglobin in our system was 10.3 in July * Telephone Encounter - Antoinette Olvera LPN - 12/06/2022 4:38 PM EDT Pt is calling to reports that the [facility] told him he had a lab level of 9.2 and that it needs addressedurgently. Pt does not know what the lab is. States that the [facility]: BP Hayley told him this. Pt also states that he is half afraid to go to sleep tonight. Pt provided # [phone]. Called number and received a busy signal. Called [phone]- [facility]- phone call continuously rang. Called [phone]- [facility], spoke with Mara whom states that the pt's hematoglobin is 9.2 and that the pt would be reevaluated at his next [facility] appt next week 12/10/22. Referrals for FIT testing and hematology were placed by Curtis Orellana NP. Pt was agreed to go ER for black tarry stools, leanne blood, confusion, chest pain, SOB or other sx of anemia other than tiredness. Called pt and made him aware. NORMAI. * Telephone Encounter - Idalia Jolley OSA - 12/06/2022 4:36 PM EDT Reason for patient's call: pt calling to speak to a nurse regarding lab results of blood level of 9.2 provided by [facility] Caller was transferred to Antoinette at the nurse line. documented in this encounter Plan of Treatment Upcoming Encounters Date Type Department Care Team (Late st Contact Info) Description 03/21/2023 10:30 AM EST Laboratory Laboratory Patient Service [address] [address] [place], [facility] [address] [place] [address] 04/18/2023 2:30 PM EST Laboratory Laboratory Patient Service [address] [phone] [place], [facility] [address] [place] [address] 05/03/2023 2:30 PM EDT Office Visit Hematology/Oncology Mic Cates [place] [address] [place] [address] Noemi Donaldson CRNP [address] [place] [address] Health Maintenance Due Date Last Done Comments Zoster Vaccines (1 of 2) 11/30/1991 Hepatitis B (1 of 3 - Risk 3-dose series) 2001 DTaP,Tdap,and Td Vaccines (1 - Tdap) 04/20/2011 04/19/2011, 06/07/1999 *COPD SEVERITY VERIFIED BY PFT 08/24/2017 COLONOSCOPY-EVERY 2 YRS AGES 18-100 02/13/2018 02/14/2016, 02/14/2016, 11/16/2005 Albumin/Creatinine Ratio 09/03/2019 09/02/2018, 11/11 COVID-19 Vaccine ( - season) 2022 02/08/2021, 08/01/2020 Diabetic Eye Exam 03/19/2023 03/19/2022, , 03/19/2022, Additional history exists TSH 07/31/2023 07/30/2022, 01/11, 07/31/2021, Additional history exists GFR 08/19/2023 02/18/2023, 12/13, 12/18/2022, Additional history exists HbA1c 08/19/2023 02/18/2023, 07/12, 01/24/2022, Additional history exists Depression Screening 11/03/2023 11/02/2022 Diabetic Foot Exam 12/28/2023 12/27/2022, 0 07/14/2021, 08/19/2019, Additional history exists CKD HGB USE SMARTSET 40659 02/19/202402/18, 02/18/2023, 01/09/2023, Additional history exists CKD PHOS USE SMARTSET 60472 02/19/202409/2023, 01/09/2023, 06/28/2021, Additional history exists O2 ASSESSMENT COMPLETED IN [...] this encounter Medical Devices Implanted Type Area Leveler Device Identifier Shelf Expiration Date Model / Serial / Lot Rsp Bone Screw-Locking Sz 5.0 Mm 26mm Long Implanted:Qty: 1 on 02/24/2015 by Aníbal Frankel MD at [facility] Right: Shoulder [employer] 01/22/2021 [id number] / / [id number] documented as of this encounter Advance Directives [...] the patient have Health Care Power of Dental Professional? Yes, not currently available Code Status History Code Status Date Activated Date Inactivated Comments Full Code 06/24/2018 1:38 PM 06/24/2018 3:07 PM This order reflects the patients wishes and were consensually agreed upon. Question Answer Comments Discussion of Advance Directives occurred with: Patient Does the patient have a Living Will? No Does the patient have Health Care Power of Dental Professional? No Full Code 07/26/2017 7:36 PM 08/01/2017 4:46 PM This order reflects the patients wishes and were consensually agreed upon. Question Answer Comments Discussion of Advance Directives occurred with: Patient Does the patient have a Living Will? No Does the patient have Health Care Power of Dental Professional? No Full Code 02/24/2015 10:33 AM 02/25/2015 6:10 PM . Question Answer Comments Discussion of Advance Directives occurred with: Not Discussed Full Code 01/07/2015 4:20 PM 01/08/2015 5:32 PM Question Answer Comments Discussion of Advance Directives occurred with: Not Discussed Does the patient have a Living Will? No Does the patient have Health Care Power of Dental Professional? No Care Teams Citrus Peeler Relationship Specialty Start Date End Date Juan Luis Hope DO [address] [place] [address] PCP - General Internal Medicine 05/15/21 documented as of this encounter
--- OUTSIDE RECORDS SUMMARY | 2023-04-26 20:40 | External Medical Summary ---
Author Name Unknown Address Unknown Organization K01:LABORATORY [facility] - [address] [place] [address] Laboratory Report Ordering Provider Test Date Status ZHOU GRECO 03/25/2023 11:22:42 Final Observation Date Value Abnormality Reference (Units ) Status SYNC LEUKOCYTES IN BLOOD BY AUTOMATED COUNT 03/25/2023 11:22:42 4.85 4.00-10.80 (K/uL) Final Segs 03/25/2023 11:22:42 63.4 40.0-75.0 (%) Final Lymphs % 03/25/2023 11:22:42 21.2 18.0-42.0 (%) Final Monos 03/25/2023 11:22:42 10.7 1.0-11.0 (%) Final Eosinophils 03/25/2023 11:22:42 3.3 0.0-6.0 (%) Final Basos 03/25/2023 11:22:42 1.0 0.0-2.0 (%) Final Immature Granulocyte, Percent 03/25/2023 11:22:42 0.4 0.0-2.0 (%) Final Absolute Segs 03/25/2023 11:22:42 3.07 1.80-7.70 (K/uL) Final Lymphs, absolute 03/25/2023 11:22:42 1.03 1.00-4.80 (K/ul) Final Monos, Abs 03/25/2023 11:22:42 0.52 0.00-1.10 (K/uL) Final Eos, Abs 03/25/2023 11:22:42 0.16 0.00-0.70 (K/uL) Final Basos, Abs 03/25/2023 11:22:42 0.05 0.00-0.20 (K/uL) Final Immature Granulocytes, Number 03/25/2023 11:22:42 0.02 0.00-0.20 (K/uL) Final Performing Location [facility]ORY [facility] [place] - [address] [facility] [address]
--- OUTSIDE RECORDS SUMMARY | 2023-04-26 20:40 | External Medical Summary | Summary of Care ---
Author Name Unknown Organization [facility] Address [address] [facility] [place] [address] Phone [phone] Care Team Providers Care Cafeteria Director Name Role Phone Juan Luis Lewis DO Primary Care Provid er Reason for Visit * Reason Onset Date Comments Medication Refill 02/18/2023 Encounter Details Date Type Department Care Team ([facility] st Contact Info) Description 02/18/2023 Refill [facility] [address] [place] [address] Juan Luis Lewis DO [address] [place] [id number] Spondylosis of lumbosacral region without myelopathy or radiculopathy Allergies Active Allergy Reactions Criticality Noted Date Comments Adhesive Tape Rash 09/12/2000 Cefuroxime Axetil Flushing,Hives,Itching 2011 Ceftriaxone Sodium In Dextrose 01/08/2015 Hives Statins Muscle pain Low 09/01/2013 Zolpidem Neuro complications (Please comment) Low 05/18/2010 ambien documented as of this encounter (statuses as of 02/18/2023) Medications Medication Sig Dispensed Refills Start Date [...] 2,000 Units by mouth daily. 0 Active Folic Acid 1 MG Oral Tablet Take 1 Tablet by mouth in the morning. 0 Active Fluticasone-Salmete rol 250-50 MCG/ACT Inhalation Aerosol Powder Breath Activated (Advair Diskus)Indications: Hyperlipidemia associated with type 2 diabetes mellitus,Hypertensi on associated with type 2 diabetes mellitus,Type 2 diabetes mellitus with diabetic neuropathy, without long-term current use of insulin (HCC),Other specified hypothyroidism,Cent rilobular emphysema ([facility]),COPD, group B, by GOLD 2017 classification ([facility]) Inhale 1 Puff by mouth in the [...] the morning. 90 Capsule 3 11/02/2022 Active Docusate Sodium 100 MG Oral Capsule (Colace)Indications :Constipation, unspecified constipation type Take 1 Capsule by mouth in the morning and 1 Capsule before bedtime. 60 Capsule 5 11/21/2022 Active Additional Information Patient not taking.Reported on 12/27/2022 Thiamine HCl 100 MG Oral Tablet (vitamin [...] needed for Pain, Moderate. 30 Tablet 0 12/21/2022 Discontinu ed(Refill) documented as of this encounter (statuses as of 02/18/2023) Active Problems Problem Noted Date Diagnosed Date [...] as of this encounter (statuses as of 02/18/2023) Resolved Problems Problem Noted Date Diagnosed Date [...] transurethral res ection of prostate 08/05/2017 06/30/2018 shelter resident 08/05/20172017 DNR (do not resuscitate) 08/05/201706/2017 [...] pt states received one on prior visit. [facility] current use of ant icoagulant therapy 05/17/2003 01/19/2019 Anticoagulation management encounter 05/11/2003 08/13/2017 HTN, goal below 140/90 06/30 Hypothyroidism 09/01/2014 Reflux esophagitis 0 Mixed dyslipidemia 9 Overview: Per Lipid Taxonomy. Acute appendicitis 8 documented as of this encounter (statuses as of 02/18/2023) Immunizations Name Administration Dates Next Due COVID-19, [...] Encounter - Juan Luis Lewis DO - 02/18/2023 4:48 PM EST Signed Prescriptions: Disp Refills traMADol HCl 50 MG Oral Tablet (Ultram) 30 Tab*0 Sig: Take 1 Tablet by mouth every 6 hours as needed for Pain, Moderate. Authorizing Provider: JUAN LUIS LEWIS * Telephone Encounter - Arabella Small [facility] - 02/18/2023 4:20 PM EST Pending Prescriptions: Disp Refills traMADol HCl 50 MG Oral Tablet (Ultram) 30 Tab*0 Sig: Take 1 Tablet by mouth every 6 hours as needed for Pain, Moderate. * Telephone Encounter - Arabella Small [facility] - 02/18/2023 4:20 PM EST I have reviewed the patients controlled substance dispensing history in the Prescription Drug Monitoring Program in compliance with the [facility] regulations before prescribing a controlled substance. PDMP checked on 02/18/2023. Pending Prescriptions: Disp Refills traMADol HCl 50 MG Oral Tablet (Ultram) 30 Tab*0 Sig: Take 1 Tablet by mouth every 6 hours as needed for Pain, Moderate. Last Visit: 12/27/2022 (in office), Visit date not found (telemedicine) Next Visit: Visit date not found Date medication was last filled: 12/21/22 Date medication is due for refill: 12/27/22 Pharmacy: [facility] Is this request for a controlled substance? Yes and Urine Drug Screen Not completed Toxicology results: No results found. However, due to the size of the patient record, not all encounters were searched.Please check Results Review for a complete set of results. Please approve if appropriate. Thanks, Arabella Small [facility] Clinical Pharmacist [facility] (Formerly [facility]) [phone] * Telephone Encounter - Nuha Lerma CPhT - 02/18/2023 4:15 PM EST Patient needs ordered today Did you pend patient's preferred pharmacy and medication before forwarding?yes Pharmacy: [facility] Pending Prescriptions: Disp Refills traMADol HCl 50 MG Oral Tablet (Ultram) 30 Tab*0 Sig: Take 1 Tablet by mouth every 6 hours as needed for Pain, Moderate. Last Visit: 12/27/2022 (in office), Visit date not found (telemedicine) Next Visit: Visit date not found If no future appointments scheduled, and last appointment is greater than a year ago, please schedule patient for a follow-up appointment Last date the medication was ordered: Is this request for a controlled substance?Yes, What was the last refill date w/ quantity 30 and dosage 50mg and Urine Drug Screen Not completed Urine Drug Screen:No results found. However, due to the size of the patient record, not all encounters were searched. Please check Results Review for a complete set of results. Patient Phone Numbers Labs: Lab Results Component Value Date/Time CREAT 1.3 (H) 01/09/2023 01:46 PM CREAT 0.8 12/29/2019 09:19 AM POTASSIUM 3.1 (L) 01/09/2023 01:46 PM POTASSIUM 4.1 12/29/2019 09:19 AM TSH 0.39 07/30/2022 10:10 AM TSH 2.95 12/29/2019 09:19 AM LDLCALC 56 07/30/2022 10:10 AM LDLCALC 66 12/29/2019 09:19 AM LDLCALC 128. 04/15/1996 08:00 AM LDLDIRECT NOT APPLICABLE 12/29/2019 09:19 AM LDLDIRECT 98 05/05/2015 01:54 PM ALT 8 (L) 01/09/2023 01:46 PM ALT 14 04/20/2022 09:51 AM ALT 16 12/29/2019 09:19 AM HGBA1C 5.0 07/30/2022 10:10 AM HGBA1C 5.0 07/01/2021 07:19 AM HGBA1C 5.2 12/29/2019 09:19 AM documented in this encounter Plan of Treatment Upcoming Encounters Date Type Department Care Team (Late st Contact Info) Description 03/21/2023 10:30 AM EST Laboratory Laboratory Patient Service [address] [phone] [address] 04/18/2023 2:30 PM EST Laboratory Laboratory Patient Service [address] [address] [address] 04/25/2023 2:30 PM EDT Office Visit Hematology/Oncology [facility] [place] [address] [facility] [phone] Noemi Donaldson CRNP [address] [place] [id number] Health Maintenance Due Date Last Done Comments Zoster Vaccines (1 of 2) 11/30/1991 Hepatitis B (1 of 3 - Risk 3-dose series) 2001 DTaP,Tdap,and Td Vaccines (1 - Tdap) 04/20/2011 04/19/2011, 06/07/1999 *COPD SEVERITY VERIFIED BY PFT 08/24/2017 COLONOSCOPY-EVERY 2 YRS AGES 18-100 02/13/2018 02/14/2016, 02/14/2016, 11/16/2005 Albumin/Creatinine Ratio 09/03/2019 09/02/2018, 11/11 COVID-19 Vaccine (3 - 2022- season) 2022 02/08/2021, 08/01/2020 HbA1c 01/29/2023 07/30/2022, 01/11, 07/31/2021, Additional history exists Diabetic Eye Exam 03/19/2023 03/19/2022, , 03/19/2022, Additional history exists GFR 07/10/2023 01/09/2023, 1108/2022, 11/09/2022, Additional history exists TSH 07/31/2023 07/30/2022, 01/11, 07/31/2021, Additional history exists Depression Screening 11/03/2023 11/02/2022 Diabetic Foot Exam 12/28/2023 12/27/2022, 0 07/14/2021, 08/19/2019, Additional history exists O2 ASSESSMENT COMPLETED IN PAST YEAR FOR COPD 12/28/2023 12/27/2022 CKD HGB USE SMARTSET 42456 01/10/202401/09, 01/09/2023, 12/18/2022, Additional history exists CKD PHOS USE SMARTSET 30345 01/10/202412/13, 06/28/2021, 06/24/2021, Additional history exists Pneumococcal Vaccine: 65+ Years [...] this encounter Medical Devices Implanted Type Area Mill Roll Rewinder Device Identifier Shelf Expiration Date Model / Serial / Lot Rsp Bone Screw-Locking Sz 5.0 Mm 26mm Long Implanted:Qty: 1 on 02/24/2015 by Aníbal Frankel MD at [facility] Right: Shoulder [employer] 01/22/2021 [id number] / / [id number] documented as of this encounter Visit Diagnoses Diagnosis Spondylosis of lumbosacral region without myelopathy or radiculopathy Lumbosacral spondylosis without myelopathy documented in this encounter Advance Directives Latest [...] the patient have Health Care Power of Structural Draftsman? Yes, not currently available Code Status History Code Status Date Activated Date Inactivated Comments Full Code 06/24/2018 1:38 PM 06/24/2018 3:07 PM This order reflects the patients wishes and were consensually agreed upon. Question Answer Comments Discussion of Advance Directives occurred with: Patient Does the patient have a Living Will? No Does the patient have Health Care Power of Structural Draftsman? No Full Code 07/26/2017 7:36 PM 08/01/2017 4:46 PM This order reflects the patients wishes and were consensually agreed upon. Question Answer Comments Discussion of Advance Directives occurred with: Patient Does the patient have a Living Will? No Does the patient have Health Care Power of Structural Draftsman? No Full Code 02/24/2015 10:33 AM 02/25/2015 6:10 PM . Question Answer Comments Discussion of Advance Directives occurred with: Not Discussed Full Code 01/07/2015 4:20 PM 01/08/2015 5:32 PM Question Answer Comments Discussion of Advance Directives occurred with: Not Discussed Does the patient have a Living Will? No Does the patient have Health Care Power of Structural Draftsman? No Care Teams Cafeteria Director Relationship Specialty Start Date End Date Juan Luis Lewis DO [address] [place] [phone] PCP - General Internal Medicine 05/15/21 documented as of this encounter
--- OUTSIDE RECORDS SUMMARY | 2023-04-26 20:40 | External Medical Summary | Summary of Care ---
Author Name Unknown Organization [facility] Address [address] [place] [facility] [place] [address] Phone [phone] Care Team Providers Care Garbage Person Name Role Phone Juan Luis Hopeothy Primary Care Provid er Reason for Visit * Reason Comments Acute C/o dysuria and incr ease in urgency but unable to empty bladder since yesterdayNo fever or chills Encounter Details Date Type Department Care Team ([facility] st Contact Info) Description 02/20/2023 11:40 AM EST Office Visit [address] [phone] Yaneth Higginbotham PA-C [address] [place] [id number] Urinary retention*; Constipation, unspecified constipation type Allergies Active Allergy Reactions Criticality Noted Date Comments Adhesive Tape Rash 09/12/2000 Cefuroxime Axetil Flushing,Hives,Itching 2011 Ceftriaxone Sodium In Dextrose 01/08/2015 Hives Statins Muscle pain Low 09/01/2013 Zolpidem Neuro complications (Please comment) Low 05/18/2010 ambien documented as of this encounter (statuses as of 02/20/2023) Medications Medication Sig Dispensed Refills Start Date [...] neuropathy, without long-term current use of insulin ([facility]),Other specified hypothyroidism,Cent rilobular emphysema ([facility]),COPD, group B, by GOLD 2017 classification ([facility]) Inhale 1 Puff by mouth [...] (vitamin B-1)Indications:Mac rocytic anemia,Personal history of alcoholism ([facility]) Take 1 Tablet by mouth in the morning. 90 Tablet 1 3 Active Zinc 50 MG Oral TabletIndications:M acrocytic anemia,Personal history of alcoholism ([facility]) Take 1 Tablet by mouth [...] Pain, Moderate. 30 Tablet 0 4 Active Potassium Chloride ER 20 MEQ Oral Tablet Extended ReleaseIndications: Stage 3b chronic kidney disease (HCC),Hypokalemia Take 1 Tablet by mouth in the morning. 02/19/2023-Take 100meq (5 tablets) today-Then 1 daily after this.. 90 Tablet 3 4 Active Folic Acid 1 MG Oral Tablet Take 1 Tablet by mouth in the morning. 0 02/20/19 24 Discontinued Docusate Sodium 100 MG Oral Capsule (Colace)Indications :Constipation, unspecified constipation type Take 1 Capsule by mouth in the morning and 1 Capsule before bedtime. 60 Capsule 5 3 02/20/19 24 Discontinued documented as of this encounter (statuses as of 02/20/2023) Active Problems Problem Noted Date Diagnosed Date [...] as of this encounter (statuses as of 02/20/2023) Resolved Problems Problem Noted Date Diagnosed Date [...] transurethral res ection of prostate 08/05/2017 06/30/2018 [facility] resident 08/05/20172017 DNR (do not resuscitate) 08/05/201706/2017 [...] pt states received one on prior visit. detention current use of ant icoagulant therapy 05/17/2003 01/19/2019 Anticoagulation management encounter 05/11/2003 08/13/2017 HTN, goal below 140/90 06/30 Hypothyroidism 09/01/2014 Reflux esophagitis 0 Mixed dyslipidemia 9 Overview: Per Lipid Taxonomy. Acute appendicitis 8 documented as of this encounter (statuses as of 02/20/2023) Immunizations Name Administration Dates Next Due COVID-19, [...] on file documented as of this encounter Last Filed Vital Signs Vital Sign Reading Time Taken Comments Blood Pressure 102/62 02/20/2023 12:12 PM EST Pulse 74 02/20/2023 12:12 PM EST Temperature 36.3 C (97.4 F) 02/20/2023 12:[address] Respiratory Rate 18 02/20/2023 12:12 PM EST Oxygen Saturation 98% 02/20/2023 12:12 PM EST Inhaled Oxygen Concentration - - Weight - - Height - - Body Mass Index - - documented in this encounter Functional Status Functional Status Response [...] No 06/24/2018 documented as of this encounter Progress Notes * Yaneth Higginbotham PA-C - 02/20/2023 12:23 PM EST Images from the original note were not included. History of Present Illness Neil Ramos Jr. is a 82 year old male that presents for Acute (C/o dysuria and increase in urgency but unable to empty bladder since yesterday/No fever or chills/) Pt states that he started with dysuria and frequency yesterday. Pt states that he was unable to urinate prior to coming to the appointment. Pt also states that he has had some constipation. He statesthat he has been unable to have a bowel movement in 3-4 days. He states that he is very uncomfortable. He has had no changes in medication and has not tried anything OTC. Potassium Chloride ER 20 MEQ Oral Tablet Extended Release Thiamine HCl 100 MG Oral Tablet (vitamin B-1) Zinc 50 MG Oral Tablet Lansoprazole 15 MG Oral Capsule Delayed Release (Prevacid) traZODone HCl 50 MG Oral Tablet (Desyrel) Fluticasone-Salmeterol 250-50 MCG/ACT Inhalation Aerosol Powder Breath Activated (Advair Diskus) Metoprolol Succinate ER 25 MG Oral Tablet Extended Release 24 Hour (toPROL XL) Vitamin D 50 MCG (2000 UT) Oral Tablet levothyroxine sodium (LEVOXYL) 112 MCG Tablet gabapentin (NEURONTIN) 300 MG Capsule traMADol HCl 50 MG Oral Tablet (Ultram) LORazepam 0.5 MG Oral Tablet (Ativan) Meclizine HCl 25 MG Oral Tablet (Antivert) Tadalafil 20 MG Oral Tablet Nitroglycerin 0.4 MG Sublingual Tablet Sublingual (Nitrostat) Review of patient's allergies indicates: Allergen Reactions Adhesive Tape Rash Cefuroxime Axetil Flushing, Hives and Itching Rocephin [Ceftriaxone Sodium In Dextrose] Hives Statins Muscle pain Zolpidem Neuro complications (Please comment) mary joien Patient Active Problem List Diagnosis Date Noted Normocytic anemia [D64.9] 11/02/2022 Stage 3b chronic kidney disease (HCC) [N18.32] 11/02/2022 Centrilobular emphysema ([facility]) [J43.2] 05/02/2022 COPD, group B, by GOLD 2017 classification ([facility]) [J44.9] 01/23/2021 Per COPD GOLD Classification MEDICATION USE AGREEMENT [RN7461] 05/19/2020 PVD (peripheral vascular disease) ([facility]) [I73.9] 03/24/2019 Hypertension associated with type 2 diabetes mellitus [E11.59, I15.2] 06/30/2018 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 PAF (paroxysmal atrial fibrillation) ([facility]) [I48.0] 05/11/2003 Irritable bowel syndrome [K58.9] Social History Socioeconomic History Marital status: Spouse name: Not on file Number of children: Not on file Years of education: Not on file Highest education level: Not on file Occupational History Not on file Tobacco Use Smoking status: Former Packs/day: 2.00 Years: 35.00 Additional pack years: 0.00 Total pack years: 70.00 Types: Cigarettes, Cigars Quit date: 02/11/1989 Years since quittin.0 Smokeless tobacco: Never Vaping Use Vaping Use: Never used Substance and Sexual Activity Alcohol use: Yes Comment: 1-2 Mix drinks daily Drug use: No Sexual activity: Not on file Other Topics Concern Not on file Social History Narrative Not on file Social Determinants of Health Financial Resource Strain: Not on file Food Insecurity: No Food Insecurity (10/03/2022) Hunger Vital Sign Worried About Running Out of Food in the Last Year: Never true Ran Out of Food in the Last Year: Never true Transportation Needs: Not on file Physical Activity: Not on file Stress: Not on file Social Connections: Not on file Intimate Partner Violence: Not on file Housing Stability: Not on file Past Surgical History: Procedure Laterality Date COLONOSCOPY 11/16/05 DR. CRESPO - INTERNAL HEMORRHOIDS , DIVERTICULOSIS, COLONOSCOPY, DIAGNOSTIC (RECTUM) 02/14/2016 adenomatous polyps, diverticulosis, fair prep, repeat 2 yrs/COLONOSCOPY FLEXIBLE PROXIMAL DIAGNOSTIC performed by Luis Khanna MD at [facility] HEMORRHOIDECTOMY,EXTERNAL, 2 + COLUMNS 1996 Hemorrhoidectomy,External LAPAROSCOPY;APPENDECTOMY N/A 01/07/2015 LAPAROSCOPIC APPENDECTOMY performed by Juan Luis Trinidad MD at [facility] REMOVE CATARACT, INSERT LENS PROSTH 09/11/05 10/09/05 Cataract Removal, Blateral REVERSE TOTAL SHOULDER ARTHROPLASTY Right 02/24/2015 REVERSE TOTAL SHOULDER ARTHROPLASTY performed by Aníbal Frankel MD at [facility] REVISION OF ANKLE JOINT 1982 Left Ankle Family History Problem Relation Age of Onset Other (lung cancer) Mother Stroke Father Osteoporosis Sister Cancer Brother cancer within colon polyp No Known Problems Brother No Known Problems Son No Known Problems Daughter Review of Systems Constitutional: Negative. Respiratory: Negative. Cardiovascular: Negative. Gastrointestinal: Positive for abdominal pain and constipation. Genitourinary: Positive for decreased urine volume, dysuria, frequency and urgency. Physical Exam BP 102/62 | Pulse 74 | Temp 36.3 C (97.4 F) (Tympanic) | Resp 18 | SpO2 98% Physical Exam Constitutional: Appearance: Normal appearance. Cardiovascular: Rate and Rhythm: Normal rate and regular rhythm. Pulmonary: Effort: Pulmonary effort is normal. Breath sounds: Normal breath sounds. Abdominal: General: There is distension. Tenderness: There is abdominal tenderness. Neurological: Mental Status: He is alert. I have reviewed most recent labs CMP Assessment and Plan Urinary retention Constipation, unspecified constipation type Due to the urinary retention, constipation and abdominal discomfort I have suggested that he go to the ER for evaluation. I discussed his case with Dr. Hope and he agreed with plan. Pt arranged taxi to pick him up here at office and take him to ER. Wrap-Up Time: I spent a total of 30-39 minutes (exact time 30 mins) on the date of service in preparation, delivery, and documentation of the care provided to Neil Elliott Frankolianne Rubio excluding any time spent in the performance of separately billed services. documented in this encounter Nursing Notes * Carlene Ayala LPN - 02/20/2023 12:14 PM EST The patient has been properly identified by confirmation of name and date of . Chief Complaint Patient presents with Acute C/o dysuria and increase in urgency but unable to empty bladder since yesterday No fever or chills Patient has been verbally educated on the need or importance of Diabetic Eye Exam and Immunizations: monse bedoya documented in this encounter Plan of Treatment Upcoming Encounters Date Type Department Care Team (Late st Contact Info) Description 03/21/2023 10:30 AM EST Laboratory Laboratory Patient Service [address] [address] [place] [address] [address] 04/18/2023 2:30 PM EST Laboratory Laboratory Patient Service [address] [address] [place] [address] [address] 04/25/2023 2:30 PM EDT Office Visit Hematology/Oncology [facility] [address] [facility] [place] [address] Noemi Donaldson CRNP [address] [place] [address] Health Maintenance Due Date [...] COMPLETED IN PAST YEAR FOR COPD 12/28/2023 02/20/2023 CKD HGB USE SMARTSET 44329 02/19/202402/18, 02/18/2023, 01/09/2023, Additional history exists CKD PHOS USE SMARTSET 22190 02/19/2024/09/2023, 01/09/2023, 06/28/2021, Additional history exists Pneumococcal Vaccine: 65+ Years [...] this encounter Medical Devices Implanted Type Area Injection Molding Operator Device Identifier Shelf Expiration Date Model / Serial / Lot Rsp Bone Screw-Locking Sz 5.0 Mm 26mm Long Implanted:Qty: 1 on 02/24/2015 by Aníbal Frankel MD at [facility] Right: Shoulder [employer] 01/22/2021 [id number] / / [id number] documented as of this encounter Visit Diagnoses Diagnosis Urinary retention- Primary Retention of urine, unspecified Constipation, unspecified constipation type documented in this encounter Advance Directives Latest [...] the patient have Health Care Power of Big Data Analytics Lead? Yes, not currently available Code Status History Code Status Date Activated Date Inactivated Comments Full Code 06/24/2018 1:38 PM 06/24/2018 3:07 PM This order reflects the patients wishes and were consensually agreed upon. Question Answer Comments Discussion of Advance Directives occurred with: Patient Does the patient have a Living Will? No Does the patient have Health Care Power of Big Data Analytics Lead? No Full Code 07/26/2017 7:36 PM 08/01/2017 4:46 PM This order reflects the patients wishes and were consensually agreed upon. Question Answer Comments Discussion of Advance Directives occurred with: Patient Does the patient have a Living Will? No Does the patient have Health Care Power of Big Data Analytics Lead? No Full Code 02/24/2015 10:33 AM 02/25/2015 6:10 PM . Question Answer Comments Discussion of Advance Directives occurred with: Not Discussed Full Code 01/07/2015 4:20 PM 01/08/2015 5:32 PM Question Answer Comments Discussion of Advance Directives occurred with: Not Discussed Does the patient have a Living Will? No Does the patient have Health Care Power of Big Data Analytics Lead? No Care Teams Garbage Person Relationship Specialty Start Date End Date Juan Luis Hope DO [address] [place] [id number] PCP - General Internal Medicine 05/15/21 documented as of this encounter"
--- OUTSIDE RECORDS SUMMARY | 2023-04-26 20:40 | External Medical Summary | Summary of Care ---
Author Name Unknown Organization [facility] Address [address] [place] [address] Phone [phone] Care Team Providers Care Blow Molding Machine Tender Name Role Phone LuhgloriaJuan Luis Randell Primary Care Provid er Reason for Visit * Reason Comments Outpatient Testing Encounter Details Date Type Department Care Team (Late st Contact Info) Description 03/25/2023 11:30 AM [facility] Laboratory [facility] [phone] [address] Wound of left lower extremity, initial encounter; Lower extremity edema; Macrocytic anemia; Personal history of alcoholism (HCC); Stage 3b chronic kidney disease (HCC); Thrombocytopenia ([facility]); Hypokalemia; Screening for nephropathy Allergies Active Allergy [...] yperlipidemia associated with type 2 diabetes mellitus ([facility]),Hypertension associated with type 2 diabetes mellitus ([facility]),Type 2 diabetes mellitus with diabetic neuropathy, without long-term current use of insulin ([facility]),Other specified hypothyroidism,Centr ilobular emphysema ([facility]),COPD, group B, by GOLD 2017 classification ([facility]) Inhale 1 Puff by mouth [...] (vitamin B-1)Indications:Macr ocytic anemia,Personal history of alcoholism ([facility]) Take 1 Tablet by mouth [...] pt states received one on prior visit. 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 05/17/2003 [...] 2:30 PM EST Laboratory Laboratory Patient Service [facility] [address] [place] [phone] [place], Lab [address] [address] 05/03/2023 2:30 PM EDT Office Visit Hematology/Oncology [facility] [place] [address] [place] [address] Noemi Donaldson CRNP [address] [facility] [place] [address] Pending Results Name Type Priority Associated Diagnoses [...] Additional history exists CKD PHOS USE SMARTSET 12166 02/19/202409/2023, 01/09/2023, 06/28/2021, Additional history exists CKD HGB USE SMARTSET 85486 02/21/202402/20, 02/18/2023, 02/18/2023, Additional history exists O2 [...] this encounter Medical Devices Implanted Type Area Wire Weaving Loom Setter Device Identifier Shelf Expiration Date Model / Serial / Lot Rsp Bone Screw-Locking Sz 5.0 Mm 26mm Long Implanted:Qty: 1 on 02/24/2015 by Aníbal Frankel MD at [facility] Right: Shoulder [employer]O SURGICAL 01/22/2021 506-03-126 / / [id number] documented as of this encounter Visit Diagnoses [...] the patient have Health Care Power of Heater Worker? Yes, not currently available Code Status History Code Status Date Activated Date Inactivated Comments Full Code 06/24/2018 1:38 PM 06/24/2018 3:07 PM This order reflects the patients wishes and were consensually agreed upon. Question Answer Comments Discussion of Advance Directives occurred with: Patient Does the patient have a Living Will? No Does the patient have Health Care Power of Heater Worker? No Full Code 07/26/2017 7:36 PM 08/01/2017 4:46 PM This order reflects the patients wishes and were consensually agreed upon. Question Answer Comments Discussion of Advance Directives occurred with: Patient Does the patient have a Living Will? No Does the patient have Health Care Power of Heater Worker? No Full Code 02/24/2015 10:33 AM 02/25/2015 6:10 PM . Question Answer Comments Discussion of Advance Directives occurred with: Not Discussed Full Code 01/07/2015 4:20 PM 01/08/2015 5:32 PM Question Answer Comments Discussion of Advance Directives occurred with: Not Discussed Does the patient have a Living Will? No Does the patient have Health Care Power of Heater Worker? No Care Teams Blow Molding Machine Tender Relationship Specialty Start Date End Date Juan Luis Hope DO [address] [place] [id number] PCP - General Internal Medicine 05/15/21 documented as of this encounter
--- OUTSIDE RECORDS SUMMARY | 2023-04-26 20:40 | External Medical Summary | Summary of Care ---
Author Name Unknown Organization [facility] Address [address] [facility] [place] [address] Phone [phone] Care Team Providers Care Truck Engine Technician Name Role Phone Luhgloria Juan Luis Mejias Primary Care Provid er Reason for Visit * Reason Onset Date Comments Test Results 02/19/2023 Encounter Details Date Type Department Care Team (Late st Contact Info) Description 02/19/2023 Refill [facility] [place] [address] Horacio Hernandez MD [address] [facility] [place] [address] Stage 3b chronic kidney disease (HCC)*; Hypokalemia Allergies Active Allergy Reactions Criticality Noted Date Comments Adhesive Tape Rash 09/12/2000 Cefuroxime Axetil Flushing,Hives,Itching 2011 Ceftriaxone Sodium In Dextrose 01/08/2015 Hives Statins Muscle pain Low 09/01/2013 Zolpidem Neuro complications (Please comment) Low 05/18/2010 ambien documented as of this encounter (statuses as of 02/19/2023) Medications Medication Sig Dispensed Refills Start Date [...] by mouth in the morning. 0 Active Fluticasone-Salmeter ol 250-50 MCG/ACT Inhalation Aerosol Powder Breath Activated (Advair Diskus)Indications:H yperlipidemia associated with type 2 diabetes mellitus,Hypertensio n associated with type 2 diabetes mellitus,Type 2 diabetes mellitus with diabetic neuropathy, without long-term current use of insulin ([facility]),Other specified hypothyroidism,Centr ilobular emphysema ([facility]),COPD, group B, by GOLD 2017 classification ([facility]) Inhale 1 Puff by [...] Active Docusate Sodium 100 MG Oral Capsule (Colace)Indications: Constipation, unspecified constipation type Take 1 Capsule by [...] Pain, Moderate. 30 Tablet 0 02/18/2023 Active documented as of this encounter (statuses as of 02/19/2023) Active Problems Problem Noted Date Diagnosed Date [...] as of this encounter (statuses as of 02/19/2023) Resolved Problems Problem Noted Date Diagnosed Date [...] transurethral res ection of prostate 08/05/2017 06/30/2018 half-way resident 08/05/20172017 DNR (do not resuscitate) 08/05/201706/2017 [...] pt states received one on prior visit. long-term current use of ant icoagulant therapy 05/17/2003 01/19/2019 Anticoagulation management encounter 05/11/2003 08/13/2017 HTN, goal below 140/90 06/30 Hypothyroidism 09/01/2014 Reflux esophagitis 0 Mixed dyslipidemia 9 Overview: Per Lipid Taxonomy. Acute appendicitis 8 documented as of this encounter (statuses as of 02/19/2023) Immunizations Name Administration Dates Next Due COVID-19, [...] Addendum Note - Lucy Daniel RN - 02/19/2023 1:57 PM ESTAddended by: LUCY DANIEL on: 02/19/2023 01:57 PM Modules accepted: Orders * Telephone Encounter - Lucy Daniel RN - 02/19/2023 1:53 PM EST TE with pt regarding medication needed to start today. He reports that he is unsure if he can get this medication today. We discussed the importance of this due to his low potassium level. He will call back to assure that he will be able to get medication today. * Telephone Encounter - Horacio Hernandez MD - 02/19/2023 1:30 PM EST Take 20 meq daily of Potassium but take 100 meq today to get the K up from super low and then 20 daily to keep it there. Repeat renal panel and Mag on Saturday to see if he needs more K. Also do ask about Po intake and any diarrhea. Also suggest food /drinks high in k. Also Add mag to the current sample. * Telephone Encounter - Lucy Daniel RN - 02/19/2023 1:07 PM EST TE with pt. No recent illness. No diuretics and no potassium supplements. Please advise. * Telephone Encounter - Lucy Daniel RN - 02/19/2023 1:06 PM EST ----- Message from Horacio Hernandez MD sent at 02/19/2023 1:01 PM EST ----- K is very low . Is he on any diuretics that is not being seen in Med list ? Also is he taking any Potassium ? Urgent update needed and will address after that documented in this encounter Plan of Treatment Upcoming Encounters Date Type Department Care Team (Late st Contact Info) Description 03/21/2023 10:30 AM EST Laboratory Laboratory Patient Service [place] [place] [address] [place] [phone] [place], [facility] [place] [address] [place] [address] 04/18/2023 2:30 PM EST Laboratory Laboratory Patient Service [place] [place] [address] [place] [phone] [place], [facility] [place] [address] [place] [address] 04/25/2023 2:30 PM EDT Office Visit Hematology/Oncology [facility] [address] [place] [address] Noemi Donaldson CRNP [address] [place] [address] Scheduled Orders Name Type Priority Associated Diagnoses Orde r Schedule RENAL FUNCTION PANEL Lab Routine Stage 3b chronic kidney disease (HCC) Hypokalemia Expected: 02/25/2023 (Approximate), Expires: 02/20/2024 MAGNESIUM Lab Routine Stage 3b chronic kidney disease (HCC) Hypokalemia Expected: 02/25/2023 (Approximate), Expires: 02/20/2024 Health Maintenance Due Date Last Done Comments Zoster Vaccines (1 of 2) 11/30/1991 Hepatitis B (1 of 3 - Risk 3-dose series) 2001 DTaP,Tdap,and Td Vaccines (1 - Tdap) 04/20/2011 04/19/2011, 06/07/1999 *COPD SEVERITY VERIFIED BY PFT 08/24/2017 COLONOSCOPY-EVERY 2 YRS AGES 18-100 02/13/2018 02/14/2016, 02/14/2016, 11/16/2005 Albumin/Creatinine Ratio 09/03/2019 09/02/2018, 11/11 COVID-19 Vaccine ( season) 2022 02/08/2021, 08/01/2020 HbA1c 01/29/2023 07/30/2022, 01/11, 07/31/2021, Additional history exists Diabetic Eye Exam 03/19/2023 03/19/2022, , 03/19/2022, Additional history exists TSH 07/31/2023 07/30/2022, 01/11, 07/31/2021, Additional history exists GFR 08/19/2023 02/18/2023, 12/13, 12/18/2022, Additional history exists Depression Screening 11/03/2023 11/02/2022 Diabetic Foot Exam 12/28/2023 12/27/2022, 0 07/14/2021, 08/19/2019, Additional history exists O2 ASSESSMENT COMPLETED IN PAST YEAR FOR COPD 12/28/2023 12/27/2022 CKD HGB USE SMARTSET 05392 02/19/202402/18, 02/18/2023, 01/09/2023, Additional history exists CKD PHOS USE SMARTSET 03200 02/19/202409/2023, 01/09/2023, 06/28/2021, Additional history exists Pneumococcal Vaccine: [...] this encounter Medical Devices Implanted Type Area Acid Tank Cleaner Device Identifier Shelf Expiration Date Model / Serial / Lot Rsp Bone Screw-Locking Sz 5.0 Mm 26mm Long Implanted:Qty: 1 on 02/24/2015 by Aníbal Frankel MD at [facility] Right: Shoulder [employer] SURGICAL 01/22/2021 [id number] / / [id number] documented as of this encounter Visit Diagnoses Diagnosis Stage 3b chronic kidney disease (HCC)- Primary Hypokalemia Hypopotassemia documented in this encounter Advance Directives Latest [...] the patient have Health Care Power of Cardiac Cath Lab Manager? Yes, not currently available Code Status History Code Status Date Activated Date Inactivated Comments Full Code 06/24/2018 1:38 PM 06/24/2018 3:07 PM This order reflects the patients wishes and were consensually agreed upon. Question Answer Comments Discussion of Advance Directives occurred with: Patient Does the patient have a Living Will? No Does the patient have Health Care Power of Cardiac Cath Lab Manager? No Full Code 07/26/2017 7:36 PM 08/01/2017 4:46 PM This order reflects the patients wishes and were consensually agreed upon. Question Answer Comments Discussion of Advance Directives occurred with: Patient Does the patient have a Living Will? No Does the patient have Health Care Power of Cardiac Cath Lab Manager? No Full Code 02/24/2015 10:33 AM 02/25/2015 6:10 PM . Question Answer Comments Discussion of Advance Directives occurred with: Not Discussed Full Code 01/07/2015 4:20 PM 01/08/2015 5:32 PM Question Answer Comments Discussion of Advance Directives occurred with: Not Discussed Does the patient have a Living Will? No Does the patient have Health Care Power of Cardiac Cath Lab Manager? No Care Teams Truck Engine Technician Relationship Specialty Start Date End Date Juan Luis Hope DO [address] [place] [address] PCP - General Internal Medicine 05/15/21 documented as of this encounter
--- OUTSIDE RECORDS SUMMARY | 2023-04-26 20:40 | External Medical Summary | Summary of Care ---
Author Name Unknown Organization [facility] Address [address] [facility] [address] Phone [phone] Care Team Providers Care Manager Organizational Name Role Phone Juan Luis Hope Randell Primary Care Provid er Encounter Details Date Type Department Care Team (Late st Contact Info) Description 02/19/2023 Telephone [facility] [address] Horacio Hernandez MD [address] [place] [address] Allergies Active Allergy Reactions Criticality Noted Date Comments Adhesive Tape Rash 09/12/2000 Cefuroxime Axetil Flushing,Hives,Itching 2011 Ceftriaxone Sodium In Dextrose 01/08/2015 Hives Statins Muscle pain Low 09/01/2013 Zolpidem Neuro complications (Please comment) Low 05/18/2010 mary joien documented as of this encounter (statuses as [...] 5 09/10/2018 Active Vitamin D 50 MCG (1999 [place]) [...] neuropathy, without long-term current use of insulin ([facility]),Other specified hypothyroidism,Centr ilobular emphysema ([facility]),COPD, group B, by GOLD 2017 classification ([facility]) Inhale 1 Puff by mouth in the [...] (vitamin B-1)Indications:Macr ocytic anemia,Personal history of alcoholism ([facility]) Take 1 Tablet by mouth in the [...] transurethral res ection of prostate 08/05/2017 06/30/2018 retirement resident 08/05/20172017 DNR (do not resuscitate) 08/05/201706/2017 [...] pt states received one on prior visit. care home current use of ant icoagulant therapy 05/17/2003 [...] current sample. * Telephone Encounter - Lucy Fraire RN - 02/19/2023 1:07 PM EST TE with pt. No recent illness. No diuretics and no potassium supplements. Please advise. * Telephone Encounter - Lucy Fraire RN - 02/19/2023 1:06 PM EST ----- [...] 10:30 AM EST Laboratory Laboratory Patient Service [address] [phone] [facility] [address] [address] 04/18/2023 2:30 PM EST Laboratory Laboratory Patient Service [address] [phone] [facility] [address] [address] 04/25/2023 2:30 PM EDT Office Visit Hematology/Oncology [place] [facility] [address] Noemi Donaldson CRNP [address] [place] [address] [place] [address] Health Maintenance Due Date Last Done Comments Zoster Vaccines (1 of 2) 11/30/1991 Hepatitis B (1 of 3 - Risk 3-dose series) 2001 DTaP,Tdap,and Td Vaccines (1 - Tdap) 04/20/2011 04/19/2011, 06/07/1999 *COPD SEVERITY VERIFIED BY PFT 08/24/2017 COLONOSCOPY-EVERY 2 YRS AGES 18-100 02/13/2018 02/14/2016, 02/14/2016, 11/16/2005 Albumin/Creatinine Ratio 09/03/2019 09/02/2018, 11/11 COVID-19 Vaccine (3 - season) 2022 02/08/2021, 08/01/2020 HbA1c 01/29/2023 07/30/2022, [...] COPD 12/28/2023 12/27/2022 CKD HGB USE SMARTSET 48633 02/19/202402/18, 02/18/2023, 01/09/2023, Additional history exists CKD PHOS USE SMARTSET 03914 02/19/2024/09/2023, 01/09/2023, 06/28/2021, Additional history exists Pneumococcal [...] this encounter Medical Devices Implanted Type Area Callisthenics Instructor Device Identifier Shelf Expiration Date Model / Serial / Lot Rsp Bone Screw-Locking Sz 5.0 Mm 26mm Long Implanted:Qty: 1 on 02/24/2015 by Aníbal Frankel MD at [facility] Right: Shoulder DJO SURGICAL 01/22/2021 [id number] / / [id number] documented as of this encounter Advance Directives [...] the patient have Health Care Power of Life Care Planner? Yes, not currently available Code Status History Code Status Date Activated Date Inactivated Comments Full Code 06/24/2018 1:38 PM 06/24/2018 3:07 PM This order reflects the patients wishes and were consensually agreed upon. Question Answer Comments Discussion of Advance Directives occurred with: Patient Does the patient have a Living Will? No Does the patient have Health Care Power of Life Care Planner? No Full Code 07/26/2017 7:36 PM 08/01/2017 4:46 PM This order reflects the patients wishes and were consensually agreed upon. Question Answer Comments Discussion of Advance Directives occurred with: Patient Does the patient have a Living Will? No Does the patient have Health Care Power of Life Care Planner? No Full Code 02/24/2015 10:33 AM 02/25/2015 6:10 PM . Question Answer Comments Discussion of Advance Directives occurred with: Not Discussed Full Code 01/07/2015 4:20 PM 01/08/2015 5:32 PM Question Answer Comments Discussion of Advance Directives occurred with: Not Discussed Does the patient have a Living Will? No Does the patient have Health Care Power of Life Care Planner? No Care Teams Manager Organizational Relationship Specialty Start Date End Date Juan Luis Hope DO [address] [place] [phone] PCP - General Internal Medicine 05/15/21 documented as of this encounter
--- OUTSIDE RECORDS SUMMARY | 2023-04-26 20:40 | External Medical Summary | Summary of Care ---
Author Name Unknown Organization [facility] Address [address] [place] [address] Phone [phone] Care Team Providers Care It Administrator Name Role Phone StephanieJuan Luis kingsley Primary Care Provid er Reason for Visit * Reason Onset Date Comments FYI 02/19/2023 Encounter Details Date Type Department Care Team (Late st Contact Info) Description 02/19/2023 Telephone Nephrology, [place] [address] [place] [address] Services, [facility] [address] [place] [address] Allergies Active Allergy Reactions Criticality Noted Date [...] 5 09/10/2018 Active Vitamin D 50 MCG (1999) Oral Tablet Take 2,000 Units by mouth [...] long-term current use of insulin ([facility]),Other specified hypothyroidism,Centr ilobular emphysema ([facility]),COPD, group B, by GOLD 2017 classification ([facility]) Inhale 1 Puff by mouth in the [...] ocytic anemia,Personal history of alcoholism ([facility]) Take 1 Tablet by mouth in the [...] transurethral res ection of prostate 08/05/2017 06/30/2018 assisted resident 08/05/20172017 DNR (do not resuscitate) 08/05/201706/2017 [...] pt states received one on prior visit. 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 * Telephone Encounter - Janeen Horvath OSA - 02/19/2023 1:57 PM EST LUCY Trejo called for you to call him back [phone] documented in this encounter Plan of Treatment Upcoming Encounters Date Type Department Care Team (Late st Contact Info) Description 03/21/2023 10:30 AM EST Laboratory Laboratory Patient Service [address] [phone] [address] [address] 04/18/2023 2:30 PM EST Laboratory Laboratory Patient Service [place], [address] [phone] [place], [facility] [place] [address] [place] [address] 04/25/2023 2:30 PM EDT Office Visit Hematology/Oncology [facility] [address] [place] [address] Noemi Donaldson CRNP 400 [facility] [place] [address] Health Maintenance Due Date [...] COPD 12/28/2023 12/27/2022 CKD HGB USE SMARTSET 86358 02/19/202402/18, 02/18/2023, 01/09/2023, Additional history exists CKD PHOS USE SMARTSET 90939 02/19/202409/2023, 01/09/2023, 06/28/2021, Additional history exists Pneumococcal [...] this encounter Medical Devices Implanted Type Area Cnc Technician Device Identifier Shelf Expiration Date Model / Serial / Lot Rsp Bone Screw-Locking Sz 5.0 Mm 26mm Long Implanted:Qty: 1 on 02/24/2015 [place] Aníbal Frankel [place] [facility]: Shoulder [employer]O SURGICAL 01/22/2021 [id number] / / [id number] documented as of this encounter Advance Directives [...] the patient have Health Care Power of Park Police? Yes, not currently available Code Status History Code Status Date Activated Date Inactivated Comments Full Code 06/24/2018 1:38 PM 06/24/2018 3:07 PM This order reflects the patients wishes and were consensually agreed upon. Question Answer Comments Discussion of Advance Directives occurred with: Patient Does the patient have a Living Will? No Does the patient have Health Care Power of Park Police? No Full Code 07/26/2017 7:36 PM 08/01/2017 4:46 PM This order reflects the patients wishes and were consensually agreed upon. Question Answer Comments Discussion of Advance Directives occurred with: Patient Does the patient have a Living Will? No Does the patient have Health Care Power of Park Police? No Full Code 02/24/2015 10:33 AM 02/25/2015 6:10 PM . Question Answer Comments Discussion of Advance Directives occurred with: Not Discussed Full Code 01/07/2015 4:20 PM 01/08/2015 5:32 PM Question Answer Comments Discussion of Advance Directives occurred with: Not Discussed Does the patient have a Living Will? No Does the patient have Health Care Power of Park Police? No Care Teams It Administrator Relationship Specialty Start Date End Date Juan Luis Hope DO [address] [place] [address] PCP - General Internal Medicine 05/15/21 documented as of this encounter
--- OUTSIDE RECORDS SUMMARY | 2023-04-26 20:40 | External Medical Summary | Summary of Care ---
Author Name Unknown Organization [facility] Address [address] [place] [address] Phone [phone] Care Team Providers Care Boat Rigger Name Role Phone StephanieJuan Luis kingsley Primary Care Provid er Reason for Visit * Reason Onset Date Comments FYI 02/19/2023 Encounter Details Date Type Department Care Team (Late st Contact Info) Description 02/19/2023 Telephone Nephrology, [place] [address] [place] [address] Services, [facility] [address] [place] [address] Allergies Active Allergy Reactions Criticality Noted Date [...] pt states received one on prior visit. 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 * Telephone Encounter - Janeen Horvath OSA - 02/19/2023 1:57 PM EST LUCY Trejo called for you to call him back [phone] documented in this encounter Plan of Treatment Upcoming Encounters Date Type Department Care Team (Late st Contact Info) Description 03/21/2023 10:30 AM EST Laboratory Laboratory Patient Service [address] [phone] [address] [address] 04/18/2023 2:30 PM EST Laboratory Laboratory Patient Service [place], [address] [phone] [place], [facility] [place] [address] [place] [address] 04/25/2023 2:30 PM EDT Office Visit Hematology/Oncology [facility] [address] [place] [address] Noemi Donaldson CRNP [address] [facility] [place] [address] Health Maintenance [...] COPD 12/28/2023 12/27/2022 CKD HGB USE SMARTSET 24099 02/19/202402/18, 02/18/2023, 01/09/2023, Additional history exists CKD PHOS USE SMARTSET 18497 02/19/202409/2023, 01/09/2023, 06/28/2021, Additional history exists Pneumococcal [...] this encounter Medical Devices Implanted Type Area Flour Broker Device Identifier Shelf Expiration Date Model / Serial / Lot Rsp Bone Screw-Locking Sz 5.0 Mm 26mm Long Implanted:Qty: 1 on 02/24/2015 by Aníbal Frankel [place] [facility] [place] Shoulder [employer]O SURGICAL 01/22/2021 506-03-126 / / [id number] documented as of this encounter Advance Directives [...] the patient have Health Care Power of Overlock Elastic Attacher? Yes, not currently available Code Status History Code Status Date Activated Date Inactivated Comments Full Code 06/24/2018 1:38 PM 06/24/2018 3:07 PM This order reflects the patients wishes and were consensually agreed upon. Question Answer Comments Discussion of Advance Directives occurred with: Patient Does the patient have a Living Will? No Does the patient have Health Care Power of Overlock Elastic Attacher? No Full Code 07/26/2017 7:36 PM 08/01/2017 4:46 PM This order reflects the patients wishes and were consensually agreed upon. Question Answer Comments Discussion of Advance Directives occurred with: Patient Does the patient have a Living Will? No Does the patient have Health Care Power of Overlock Elastic Attacher? No Full Code 02/24/2015 10:33 AM 02/25/2015 6:10 PM . Question Answer Comments Discussion of Advance Directives occurred with: Not Discussed Full Code 01/07/2015 4:20 PM 01/08/2015 5:32 PM Question Answer Comments Discussion of Advance Directives occurred with: Not Discussed Does the patient have a Living Will? No Does the patient have Health Care Power of Overlock Elastic Attacher? No Care Teams Boat Rigger Relationship Specialty Start Date End Date Juan Luis Hope DO [address] [place] [address] PCP - General Internal Medicine 05/15/21 documented as of this encounter
--- OUTSIDE RECORDS SUMMARY | 2023-04-26 20:40 | External Medical Summary | Summary of Care ---
Author Name Unknown Organization [facility] Address [address] [facility] [place] [address] Phone [phone] Care Team Providers Care Coconut Boiler Name Role Phone [place] Juan Luis Mejias Primary Care Provid er Reason for Visit * Reason Onset Date Comments Test Results 02/19/2023 Encounter Details Date Type Department Care Team (Late st Contact Info) Description 02/19/[address] [facility] [address] Horacio [facility] [address] Stage 3b chronic kidney disease (HCC)*; Hypokalemia [...] of insulin ([facility]),Other specified hypothyroidism,Centr ilobular emphysema ([facility]),COPD, group B, by GOLD 2017 classification ([facility] [...] pt states received one on prior visit. assisted current use of ant icoagulant therapy 05/17/2003 [...] 10:30 AM EST Laboratory Laboratory Patient Service [place], [place] [address] [place] [phone] [place], [facility] [place] [address] [place] [address] 04/18/2023 2:30 PM EST Laboratory Laboratory Patient Service [place], [place] [address] [place] [phone] [place], [facility] [address] [place] [address] 04/25/2023 2:30 PM EDT Office Visit Hematology/Oncology [facility] [address] [place] [address] Noemi Donaldson CRNP [address] [place] [address] Scheduled Orders Name Type Priority [...] COPD 12/28/2023 12/27/2022 CKD HGB USE SMARTSET 28309 02/19/202402/18, 02/18/2023, 01/09/2023, Additional history exists CKD PHOS USE SMARTSET 51703 02/19/202409/2023, 01/09/2023, 06/28/2021, Additional history exists Pneumococcal [...] this encounter Medical Devices Implanted Type Area Group Work Program Aide Device Identifier Shelf Expiration Date Model / Serial / Lot Rsp Bone Screw-Locking Sz 5.0 Mm 26mm Long Implanted:Qty: 1 on 02/24/2015 by Aníbal Frankel MD at [facility] Right: Shoulder DJO SURGICAL 01/22/2021 506-03-126 / / [id number] documented as of this encounter Visit Diagnoses [...] the patient have Health Care Power of Lawn Maintenance Worker? Yes, not currently available Code Status History Code Status Date Activated Date Inactivated Comments Full Code 06/24/2018 1:38 PM 06/24/2018 3:07 PM This order reflects the patients wishes and were consensually agreed upon. Question Answer Comments Discussion of Advance Directives occurred with: Patient Does the patient have a Living Will? No Does the patient have Health Care Power of Lawn Maintenance Worker? No Full Code 07/26/2017 7:36 PM 08/01/2017 4:46 PM This order reflects the patients wishes and were consensually agreed upon. Question Answer Comments Discussion of Advance Directives occurred with: Patient Does the patient have a Living Will? No Does the patient have Health Care Power of Lawn Maintenance Worker? No Full Code 02/24/2015 10:33 AM 02/25/2015 6:10 PM . Question Answer Comments Discussion of Advance Directives occurred with: Not Discussed Full Code 01/07/2015 4:20 PM 01/08/2015 5:32 PM Question Answer Comments Discussion of Advance Directives occurred with: Not Discussed Does the patient have a Living Will? No Does the patient have Health Care Power of Lawn Maintenance Worker? No Care Teams Coconut Boiler Relationship Specialty Start Date End Date Juan Luis Hope DO [address] [place] [address] PCP - General Internal Medicine 05/15/21 documented as of this encounter
--- OUTSIDE RECORDS SUMMARY | 2023-04-26 20:40 | External Medical Summary ---
Author Name Unknown Address Unknown Organization K01:LABORATORY C - [address] [place] [address] Laboratory Report Ordering Provider Test Date Status NOLVIA MENDIETA 03/25/2023 11:22:42 Final Observation Date Value Abnormality Reference (Units ) Status Magnesium 03/25/2023 11:22:42 1.8 1.5-2.6 (m g/dL) Final Performing Location [facility] - [address] [place] [address]
--- OUTSIDE RECORDS SUMMARY | 2023-04-26 20:40 | External Medical Summary ---
Author Name Unknown Address Unknown Organization K01[place] [facility] [place] [facility] [address] [facility] [address] [facility] [address] Laboratory Report Ordering Provider Test Date Status ZHOU GRECO 03/25/2023 11:22:42 Final Observation Date Value Abnormality Reference (Units ) Status WBC, Total 03/25/2023 11:22:42 4.85 4.00-10.80 (K/uL) Final RBC 03/25/2023 11:22:42 2.77 4.50-5.25 (M/uL) Final Hemoglobin 03/25/2023 11:22:42 9.5 Below low normal 14.0-16.8 (g/dL) Final HCT 03/25/2023 11:22:42 30.2 Below low normal 40.0-48.4 (%) Final MCV 03/25/2023 11:22:42 109.0 82.0-99.5 (fL) Final MCH 03/25/2023 11:22:42 34.3 27.0-34.0 (pg) Final MCHC 03/25/2023 11:22:42 31.5 32.0-36.0 (g/dL) Final RDW 03/25/2023 11:22:42 14.6 11.5-15.5 (%) Final Platelets 03/25/2023 11:22:42 150 140-400 (K/uL) Final MPV 03/25/2023 11:22:42 11.0 6.6-11.1 (fL) Final Nucleated erythrocytes/100 leukocytes [Ratio] in Blood by Automated count 03/25/2023 11:22:42 0 <=0 (/100 WBCs) Final Performing Location [place] [facility] [place] [address] [place] [address]
--- OUTSIDE RECORDS SUMMARY | 2023-04-26 20:40 | External Medical Summary | Summary of Care ---
Author Name Unknown Organization [facility] Address [address] [place] [address] Phone [phone] Care Team Providers Care Mangle Press Catcher Name Role Phone [place] Juan Luis Mejias Primary Care Provid er Reason for Visit * Reason Comments Outpatient Testing Encounter Details Date Type Department Care Team (Late st Contact Info) Description 02/18/2023 10:30 AM [facility] Laboratory Laboratory Patient Service [facility] [phone] [address] Stage 3b chronic kidney disease (HCC); Macrocytic anemia; Personal history of alcoholism (HCC); Thrombocytopenia (HCC) Allergies Active Allergy Reactions Criticality Noted Date [...] without long-term current use of insulin ([facility]),Other specified hypothyroidism,Centr ilobular emphysema ([facility]),COPD, group B, by GOLD 2017 classification ([facility]) Inhale 1 Puff by [...] Additional Information Patient not taking.Reported on 12/27/2022 traMADol HCl 50 MG Oral Tablet (Ultram)Indications: Spondylosis of lumbosacral region without myelopathy or radiculopathy Take 1 Tablet by mouth every 6 hours as needed for Pain, Moderate. 30 Tablet 0 12/21/2022 Active Thiamine HCl 100 MG Oral Tablet [...] for Anxiety. 60 Tablet 0 02/07/2023 Active documented as of this encounter (statuses [...] pt states received one on prior visit. halfway current use of ant icoagulant therapy 05/17/2003 [...] 10:30 AM EST Laboratory Laboratory [facility] Service [facility], [place] [address] [place] [phone] [place], [facility] [place] [address] [place] [address] 04/18/2023 2:30 PM EST Laboratory Laboratory Patient Service [facility], [place] [address] [place] [phone] [place], [facility] [place] [address] [place] [address] 04/25/2023 2:30 PM EDT Office Visit Hematology/Oncology [facility] [address] [place] [address] Noemi Donaldson CRNP [address] [place] [address] Pending Results Name Type Priority Associated Diagnoses Date /Time CBC WITH WBC DIFFERENTIAL Lab STAT Macrocytic anemia Personal history of alcoholism (HCC) Stage 3b chronic kidney disease (HCC) Thrombocytopenia (HCC) 02/18/2023 10:39 AM EST COMPREHENSIVE METABOLIC PANEL Lab STAT Macrocytic anemia Personal history of alcoholism (HCC) Stage 3b chronic kidney disease (HCC) Thrombocytopenia (HCC) 02/18/2023 10:39 AM EST VITAMIN B1 (THIAMINE), BLOOD, LC/MS/MS Lab STAT Macrocytic anemia Personal history of alcoholism (HCC) Stage 3b chronic kidney disease (HCC) Thrombocytopenia (HCC) 02/18/2023 10:39 AM EST ZINC Lab STAT Macrocytic anemia Personal history of alcoholism (HCC) Stage 3b chronic kidney disease (HCC) Thrombocytopenia (HCC) 02/18/2023 10:39 AM EST CBC Lab STAT Macrocytic anemia Personal history of alcoholism (HCC) Stage 3b chronic kidney disease (HCC) Thrombocytopenia (HCC) 02/18/2023 10:39 AM EST DIFFERENTIAL, AUTOMATED Lab STAT Macrocytic anemia Personal history of alcoholism (HCC) Stage 3b chronic kidney disease (HCC) Thrombocytopenia (HCC) 02/18/2023 10:39 AM EST PHOSPHORUS Lab Routine Stage 3b chronic kidney disease (HCC) 02/18/2023 10:39 AM EST Health Maintenance Due Date Last [...] COPD 12/28/2023 12/27/2022 CKD HGB USE SMARTSET 51626 01/10/202401/09, 01/09/2023, 12/18/2022, Additional history exists CKD PHOS USE SMARTSET 15343 01/10/202412/13, 06/28/2021, 06/24/2021, Additional history exists Pneumococcal [...] this encounter Medical Devices Implanted Type Area P D Driver Device Identifier Shelf Expiration Date Model / Serial / Lot Rsp Bone Screw-Locking Sz 5.0 Mm 26mm Long Implanted:Qty: 1 on 02/24/2015 by Aníbal Frankel MD [place] [facility] [place] Shoulder DJO SURGICAL 01/22/2021 506-03-126 / / [id number] documented as of this encounter Visit Diagnoses Diagnosis Stage 3b chronic kidney disease (HCC) Macrocytic anemia Unspecified deficiency anemia Personal history of alcoholism (HCC) Personal history of alcoholism Thrombocytopenia (HCC) Thrombocytopenia, unspecified documented in this encounter Advance Directives [...] the patient have Health Care Power of Rn Bsn? Yes, not currently available Code Status History Code Status Date Activated Date Inactivated Comments Full Code 06/24/2018 1:38 PM 06/24/2018 3:07 PM This order reflects the patients wishes and were consensually agreed upon. Question Answer Comments Discussion of Advance Directives occurred with: Patient Does the patient have a Living Will? No Does the patient have Health Care Power of Rn Bsn? No Full Code 07/26/2017 7:36 PM 08/01/2017 4:46 PM This order reflects the patients wishes and were consensually agreed upon. Question Answer Comments Discussion of Advance Directives occurred with: Patient Does the patient have a Living Will? No Does the patient have Health Care Power of Rn Bsn? No Full Code 02/24/2015 10:33 AM 02/25/2015 6:10 PM . Question Answer Comments Discussion of Advance Directives occurred with: Not Discussed Full Code 01/07/2015 4:20 PM 01/08/2015 5:32 PM Question Answer Comments Discussion of Advance Directives occurred with: Not Discussed Does the patient have a Living Will? No Does the patient have Health Care Power of Rn Bsn? No Care Teams Mangle Press Catcher Relationship Specialty Start Date End Date Juan Luis Hope DO [address] [place] [address] PCP - General Internal Medicine 05/15/21 documented as of this encounter
--- OUTSIDE RECORDS SUMMARY | 2023-04-26 20:40 | External Medical Summary | Summary of Care ---
Author Name Unknown Organization [facility] Address [address] [facility] [address] Phone [phone] Care Team Providers Care Senior Grant Writer Name Role Phone Juan Luis Hope DO Primary Care Provid er Reason for Visit * Reason Onset Date Comments Health Maintenance 02/19/2023 Encounter Details Date Type Department Care Team ([facility] st Contact Info) Description 02/19/2023 Telephone [facility] [address] [place] [address] Juan Luis Hope DO [address] [place] [address] Health Maintenance Allergies Active Allergy Reactions Criticality Noted Date [...] long-term current use of insulin ([facility]),Other specified hypothyroidism,Centr ilobular emphysema ([facility]),COPD, group B, by GOLD 2017 classification ([facility]) Inhale 1 Puff by mouth in [...] transurethral res ection of prostate 08/05/2017 06/30/2018 [facility] resident 08/05/20172017 DNR (do not resuscitate) 08/05/201706/2017 [...] pt states received one on prior visit. 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 05/17/2003 [...] encounter Miscellaneous Notes * Telephone Encounter - Lexy Adams LPN - 02/19/2023 3:40 PM EST Care Gaps Comprehensive Care Outreach Last Office/Telemedicine Visit: 12/27/2022 (in office), Visit date not found (telemedicine) Next Office Visit: Visit date not found Hemoglobin AIC Results: Lab Results Component Value Date/Time HEMOGLOBIN A1C - [facility] 5.0 07/30/2022 10:10 AM HEMOGLOBIN A1C - [facility] 4.9 01/24/2022 09:08 AM HEMOGLOBIN A1C - [facility] 5.0 07/31/2021 10:42 AM HEMOGLOBIN A1C - [facility] 5.2 12/29/2019 09:19 AM HEMOGLOBIN A1C - [facility] 6.4 (H) 09/09/2018 10:59 AM HEMOGLOBIN A1C - [facility] 5.5 02/27/2018 04:48 PM Reviewed Health Maintenance below: *COPD SEVERITY VERIFIED BY PFT Never done COLONOSCOPY-EVERY 2 YRS AGES 18-100 02/13/2018 Albumin/Creatinine Ratio 09/03/2019 HbA1c 01/29/2023 Diabetic Eye Exam 03/19/2023 Care Gap Outreach Action Taken: Spoke to patient Labs added. documented in this encounter Plan of Treatment Upcoming Encounters Date Type Department Care Team (Late st Contact Info) Description 03/21/2023 10:30 AM EST Laboratory Laboratory Patient Service [address] [phone] [facility] [address] [place] [address] 04/18/2023 2:30 PM EST Laboratory Laboratory Patient Service [address] [place] [address] [place] [address] [facility] [place] [address] 04/25/2023 2:30 PM EDT Office Visit Hematology/Oncology [employer] [address] [facility] [place] [address] Noemi Donaldson CRNP [address] [place] [address] Pending Results Name Type Priority Associated Diagnoses Date /Time HEMOGLOBIN A1C Lab Routine Type 2 diabetes mellitus with diabetic neuropathy, without long-term current use of insulin (HCC) 02/18/2023 10:39 AM EST Scheduled Orders Name Type Priority Associated Diagnoses Orde r Schedule HEMOGLOBIN A1C Lab Routine Type 2 diabetes mellitus with diabetic neuropathy, without long-term current use of insulin (HCC) Expected: 02/19/2023, Expires: 02/20/2024 ALBUMIN / CREATININE RATIO, URINE Lab Routine Screening for nephropathy Expected: 02/19/2023, Expires: 02/20/2024 Health Maintenance Due Date Last [...] COPD 12/28/2023 12/27/2022 CKD HGB USE SMARTSET 31688 02/19/202402/18, 02/18/2023, 01/09/2023, Additional history exists CKD PHOS USE SMARTSET 06293 02/19/2024/09/2023, 01/09/2023, 06/28/2021, Additional history exists Pneumococcal [...] this encounter Medical Devices Implanted Type Area School Psychology Professor Device Identifier Shelf Expiration Date Model / Serial / Lot Rsp Bone Screw-Locking Sz 5.0 Mm 26mm Long Implanted:Qty: 1 on 02/24/2015 by Aníbal Frankel MD at [facility] Right: Shoulder DJO SURGICAL 01/22/2021 [id number] / / [id number] documented as of this encounter Visit Diagnoses Diagnosis Type 2 diabetes mellitus with diabetic neuropathy, without long-term current use of insulin (HCC)- Primary Screening for nephropathy documented in this encounter [...] the patient have Health Care Power of Press Service Reader? Yes, not currently available Code Status History Code Status Date Activated Date Inactivated Comments Full Code 06/24/2018 1:38 PM 06/24/2018 3:07 PM This order reflects the patients wishes and were consensually agreed upon. Question Answer Comments Discussion of Advance Directives occurred with: Patient Does the patient have a Living Will? No Does the patient have Health Care Power of Press Service Reader? No Full Code 07/26/2017 7:36 PM 08/01/2017 4:46 PM This order reflects the patients wishes and were consensually agreed upon. Question Answer Comments Discussion of Advance Directives occurred with: Patient Does the patient have a Living Will? No Does the patient have Health Care Power of Press Service Reader? No Full Code 02/24/2015 10:33 AM 02/25/2015 6:10 PM . Question Answer Comments Discussion of Advance Directives occurred with: Not Discussed Full Code 01/07/2015 4:20 PM 01/08/2015 5:32 PM Question Answer Comments Discussion of Advance Directives occurred with: Not Discussed Does the patient have a Living Will? No Does the patient have Health Care Power of Press Service Reader? No Care Teams Senior Grant Writer Relationship Specialty Start Date End Date Juan Luis Hope DO [address] [place] [address] PCP - General Internal Medicine 05/15/21 documented as of this encounter
--- OUTSIDE RECORDS SUMMARY | 2023-04-26 20:40 | External Medical Summary ---
Author Name Unknown Address Unknown Organization K01:LABORATORY [facility] [place] - [facility] [address] [place] [address] Laboratory Report Ordering Provider Test Date Status NOLVIA MENDIETA 03/25/2023 11:22:42 Final Observation Date Value Abnormality Reference (Units ) Status BUN 03/25/2023 11:22:42 14 6-20 (mg/dL) Final Creatinine 03/25/2023 11:22:42 1.3 Above high normal 0.6-1.2 (mg/dL) Final Glomerular filtration rate/1.73 sq M.predicted [Volume Rate/Area] in Serum, Plasma or Blood by Creatinine-based formula (CKD-EPI) 03/25/2023 11:22:42 56 Below low normal >=60 (mL/min) Final eGFR is calculated based on the CKD-EPI 2020 equation SODIUM 03/25/2023 11:22:42 138 135-146 (m mol/L) Final Potassium 03/25/2023 11:22:42 2.7 Below low normal 3.5 -5.1 (mmol/L) Final Cl 03/25/2023 11:22:42 97 Below low normal 98- 107 (mmol/L) Final CO2 03/25/2023 11:22:42 28 22-32 (mmo l/L) Final Anion gap 03/25/2023 11:22:42 13 7-15 (mmol /L) Final Glucose 03/25/2023 11:22:42 92 70-120 (mg /dL) Final Calcium 03/25/2023 11:22:42 8.5 8.4-10.2 ( mg/dL) Final Albumin 03/25/2023 11:22:42 3.0 Below low normal 3.8 -5.0 (g/dL) Final Phosphate 03/25/2023 11:22:42 2.6 2.5-4.8 (m g/dL) Final Performing Location LABORATORY C - [address] [place] [address]
--- OUTSIDE RECORDS SUMMARY | 2023-04-26 20:41 | External Medical Summary | Summary of Care ---
Author Name Unknown Organization [facility] Address [address] [facility] [place] [address] Phone [phone] Care Team Providers Care Gear Technician Name Role Phone Juan Luis Lewis DO Primary Care Provid er Reason for Visit * Reason Onset Date Comments Medication Refill 02/07/2023 Encounter Details Date Type Department Care Team ([facility] st Contact Info) Description 02/07/2023 Refill [facility] [address] [place] [address] Juan Luis Lewis DO [address] [place] [address] Anxiety state Allergies Active Allergy Reactions Criticality Noted Date Comments Adhesive Tape Rash 09/12/2000 Cefuroxime Axetil Flushing,Hives,Itching 2011 Ceftriaxone Sodium In Dextrose 01/08/2015 Hives Statins Muscle pain Low 09/01/2013 Zolpidem Neuro complications (Please comment) Low 05/18/2010 ambien documented as of this encounter (statuses as of 02/07/2023) Medications Medication Sig Dispensed Refills Start Date [...] neuropathy, without long-term current use of insulin ([facility]),Other specified hypothyroidism,Cent rilobular emphysema ([facility]),COPD, group B, by GOLD 2017 classification ([facility]) Inhale 1 Puff by mouth in the [...] 12/27/2022 traMADol HCl 50 MG Oral Tablet (Ultram)Indications [...] for Anxiety. 60 Tablet 0 02/07/2023 Active LORazepam 0.5 MG Oral Tablet (Ativan)Indications :Anxiety state Take 1 Tablet by mouth 2 times a day as needed for Anxiety. 60 Tablet 0 12/04/2022 Discontinu ed(Refill) documented as of this encounter (statuses as of 02/07/2023) Active Problems Problem Noted Date Diagnosed Date [...] as of this encounter (statuses as of 02/07/2023) Resolved Problems Problem Noted Date Diagnosed Date [...] transurethral res ection of prostate 08/05/2017 06/30/2018 [facility] resident 08/05/20172017 DNR (do not resuscitate) 08/05/201706/2017 [...] states received one on prior visit. 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 Acute appendicitis 8 documented as of this encounter (statuses as of 02/07/2023) Immunizations Name Administration Dates Next Due COVID-19, [...] Encounter - Juan Luis Lewis DO - 02/07/2023 8:00 PM EST Signed Prescriptions: Disp Refills LORazepam 0.5 MG Oral Tablet (Ativan) 60 Tab*0 Sig: Take 1 Tablet by mouth 2 times a day as needed for Anxiety. Authorizing Provider: JUAN LUIS LEWIS * Telephone Encounter - Jd Hayes [facility] - 02/07/2023 2:34 PM ESTPending Prescriptions: Disp Refills LORazepam 0.5 MG Oral Tablet (Ativan) 60 Tab*0 Sig: Take 1 Tablet by mouth 2 times a day as needed for Anxiety. * Telephone Encounter - Jd Hayes [facility] - 02/07/2023 2:34 PM EST I have reviewed the patients controlled substance dispensing history in the Prescription Drug Monitoring Program in compliance with the [facility] regulations before prescribing a controlled substance. PDMP checked on 02/07/2023. Pending Prescriptions: Disp Refills LORazepam 0.5 MG Oral Tablet (Ativan) 60 Tab*0 Sig: Take 1 Tablet by mouth 2 times a day as needed for Anxiety. Last Visit: 12/27/2022 (in office), Visit date not found (telemedicine) Next Visit: Visit date not found Date medication was last filled: 12-04-22 Date medication is due for refill: 01-02-23 [address]acy: [facility] [address] Is this request for a controlled substance? and Urine Drug Screen Not completed Toxicology results: No results found. However, due to the size of the patient record, not all encounters were searched.Please check Results Review for a complete set of results. Please approve if appropriate. Thanks, Jd Hayes, Jenny.Ph. Clinical Pharmacist [facility] [phone] 02/07/2023,2:34 PM * Telephone Encounter - Eunice Jean-Baptiste, asw specialist - 02/07/2023 9:26 AM EST Did you pend patient's preferred pharmacy and medication before forwarding?yes Pharmacy: [facility] [address] Pending Prescriptions: Disp Refills LORazepam 0.5 MG Oral Tablet (Ativan) 60 Tab*0 Sig: Take 1 Tablet by mouth 2 times a day as needed for Anxiety. Last Visit: 12/27/2022 (in office), Visit date not found (telemedicine) Next Visit: Visit date not found If no future appointments scheduled, and last appointment is greater than a year ago, please schedule patient for a follow-up appointment Last date the medication was ordered: 12/04/2022 Is this request for a controlled substance?Yes, What was the last refill date 12/04/2022 w/ quantity 60 and dosage 0.5 mg and Urine Drug Screen Not completed Urine [...] PM EST Laboratory [facility], [address] [phone] [address] [address] 04/25/2023 2:30 PM EDT Office Visit Hematology/Oncology [facility] [address] [place] [address] Noemi Donaldson CRNP [address] [place] [address] [place] [address] Health Maintenance Due Date Last Done Comments [...] COPD 12/28/2023 12/27/2022 CKD HGB USE SMARTSET 93664 01/10/202401/09, 01/09/2023, 12/18/2022, Additional history exists CKD PHOS USE SMARTSET 63871 01/10/202412/13, 06/28/2021, 06/24/2021, Additional history exists Pneumococcal [...] this encounter Medical Devices Implanted Type Area Welfare Interviewer Device Identifier Shelf Expiration Date Model / Serial / Lot Rsp Bone Screw-Locking Sz 5.0 Mm 26mm Long Implanted:Qty: 1 on 02/24/2015 by Aníbal Frankel MD at [facility] Right: Shoulder [employer] 01/22/2021 506-03-126 / / [id number] documented as of this encounter Visit Diagnoses [...] the patient have Health Care Power of Plodding Machine Operator? Yes, not currently available Code Status History Code Status Date Activated Date Inactivated Comments Full Code 06/24/2018 1:38 PM 06/24/2018 3:07 PM This order reflects the patients wishes and were consensually agreed upon. Question Answer Comments Discussion of Advance Directives occurred with: Patient Does the patient have a Living Will? No Does the patient have Health Care Power of Plodding Machine Operator? No Full Code 07/26/2017 7:36 PM 08/01/2017 4:46 PM This order reflects the patients wishes and were consensually agreed upon. Question Answer Comments Discussion of Advance Directives occurred with: Patient Does the patient have a Living Will? No Does the patient have Health Care Power of Plodding Machine Operator? No Full Code 02/24/2015 10:33 AM 02/25/2015 6:10 PM . Question Answer Comments Discussion of Advance Directives occurred with: Not Discussed Full Code 01/07/2015 4:20 PM 01/08/2015 5:32 PM Question Answer Comments Discussion of Advance Directives occurred with: Not Discussed Does the patient have a Living Will? No Does the patient have Health Care Power of Plodding Machine Operator? No Care Teams Gear Technician Relationship Specialty Start Date End Date Juan Luis Lewis DO [address] [place] [address] PCP - General Internal Medicine 05/15/21 documented as of this encounter
--- OUTSIDE RECORDS SUMMARY | 2023-04-26 20:41 | External Medical Summary | Summary of Care ---
Author Name Unknown Organization [facility] Address [address] [place] [place] [facility] [place] [address] Phone [phone] Care Team Providers Care Suture Winder Hand Name Role Phone Juan Luis Lewis DO Primary Care Provid er Reason for Visit * Reason Onset Date Comments Medication Refill 02/07/2023 Encounter Details Date Type Department Care Team ([facility] st Contact Info) Description 02/07/2023 Refill [facility] [address] [place] [address] Juan Luis Lewis DO [address] [place] [address] Anxiety state Allergies Active Allergy Reactions Criticality Noted Date Comments Adhesive Tape Rash 09/12/2000 Cefuroxime Axetil Flushing,Hives,Itching 2011 Ceftriaxone Sodium In Dextrose 01/08/2015 Hives Statins Muscle pain Low 09/01/2013 Zolpidem Neuro complications (Please comment) Low 05/18/2010 ambien documented as of this encounter (statuses as of 02/12/2023) Medications Medication Sig Dispensed Refills Start Date [...] use of insulin ([facility]),Other specified hypothyroidism,Cent rilobular emphysema ([facility]),COPD, group B, by [...] needed for Anxiety. 60 Tablet 0 12/04/2022 3 Discontinu ed(Refill) documented as of this encounter (statuses as of 02/12/2023) Active Problems Problem Noted Date Diagnosed Date [...] as of this encounter (statuses as of 02/12/2023) Resolved Problems Problem Noted Date Diagnosed Date [...] pt states received one on prior visit. intermediate current use of ant icoagulant therapy 05/17/2003 01/19/2019 Anticoagulation management encounter 05/11/2003 08/13/2017 HTN, goal below 140/90 06/30 Hypothyroidism 09/01/2014 Reflux esophagitis 0 Mixed dyslipidemia 9 Overview: Per Lipid Taxonomy. Acute appendicitis 8 documented as of this encounter (statuses as of 02/12/2023) Immunizations Name Administration Dates Next Due COVID-19, [...] encounter Miscellaneous Notes * Telephone Encounter - Alesha Mack CPhT - 02/12/2023 9:46 AM EST Pt calling to request LORazepam 0.5 MG Oral Tablet (Ativan) . Informed pt that RX is available at their pharmacy. Pt verbalized understanding and stated they will check with their pharmacy regarding this medication. Thank you, Alesha Mack CPht Warehouse Supervisor 3Rd Shift II [facility] (formerly Telepharmacy) 02/12/2023, 9:46 AM * Telephone Encounter - Juan Luis Lewis DO - 02/07/2023 8:00 PM EST Signed Prescriptions: Disp Refills LORazepam 0.5 MG Oral Tablet (Ativan) 60 Tab*0 Sig: Take 1 Tablet by mouth 2 times a day as needed for Anxiety. Authorizing Provider: JUAN LUIS LEWIS * Telephone Encounter - Jd Hayes [facility] - 02/07/2023 2:34 PM ESTPending Prescriptions: Disp Refills LORazepam 0.5 MG Oral Tablet (Ativan) 60 Tab*0 Sig: Take 1 Tablet by mouth 2 times a day as needed for Anxiety. * Telephone Encounter - Jd Hayes [facility] - 02/07/2023 2:34 PM EST I have reviewed the patients controlled substance dispensing history in the Prescription Drug Monitoring Program in compliance with the [facility] regulations before prescribing a controlled substance. PDMP [...] medication is due for refill: 01-02-23 Pharmacy: [facility] [address] Is this request for a controlled substance? and Urine Drug Screen Not completed Toxicology results: No results found. However, due to the size of the patient record, not all encounters were searched.Please check Results Review for a complete set of results. Please approve if appropriate. Thanks, Jd Hayes, Jenny.Ph. Clinical Pharmacist [facility] [phone] 02/07/2023,2:34 PM * Telephone Encounter - Eunice Jean-Baptiste crowning inspector - 02/07/2023 9:26 AM EST Did you pend patient's preferred pharmacy and medication before forwarding?yes Pharmacy: [facility] [address] Pending Prescriptions: Disp Refills LORazepam 0.5 [...] 2:30 PM EST Laboratory Laboratory Patient [facility] [place], [address] [phone] [place], Lab Lock [address] [place] [address] 04/25/2023 2:30 PM EDT Office Visit Hematology/Oncology [facility] [place] [address] [facility] [place] [address] Noemi Donaldson CRNP [address] [place] [address] Health Maintenance Due Date Last Done Comments Zoster Vaccines (1 of 2) 11/30/1991 Hepatitis B (1 of 3 - Risk 3-dose series) 2001 DTaP,Tdap,and Td Vaccines (1 - Tdap) 04/20/2011 04/19/2011, 06/07/1999 *COPD SEVERITY VERIFIED BY PFT 08/24/2017 COLONOSCOPY-EVERY 2 YRS AGES 18-100 02/13/2018 02/14/2016, 02/14/2016, 11/16/2005 Albumin/Creatinine Ratio 09/03/2019 09/02/2018, 11/11 COVID-19 Vaccine ( - season) 2022 02/08/2021, 08/01/2020 HbA1c 01/29/2023 [...] COPD 12/28/2023 12/27/2022 CKD HGB USE SMARTSET 45088 01/10/202401/09, 01/09/2023, 12/18/2022, Additional history exists CKD PHOS USE SMARTSET 58229 01/10/2024 11/2 10/2022, 06/28/2021, 06/24/2021, Additional history exists Pneumococcal Vaccine: [...] this encounter Medical Devices Implanted Type Area Automobile Seat Cover Installer Device Identifier Shelf Expiration Date Model / Serial / Lot Rsp Bone Screw-Locking Sz 5.0 Mm 26mm Long Implanted:Qty: 1 on 02/24/2015 by Aníbal Frankel MD at [facility] Right: Shoulder [employer] 01/22/2021 [id number] / / [id number] documented as of this encounter Visit Diagnoses [...] the patient have Health Care Power of Sales Promotion Coordinator? Yes, not currently available Code Status History Code Status Date Activated Date Inactivated Comments Full Code 06/24/2018 1:38 PM 06/24/2018 3:07 PM This order reflects the patients wishes and were consensually agreed upon. Question Answer Comments Discussion of Advance Directives occurred with: Patient Does the patient have a Living Will? No Does the patient have Health Care Power of Sales Promotion Coordinator? No Full Code 07/26/2017 7:36 PM 08/01/2017 4:46 PM This order reflects the patients wishes and were consensually agreed upon. Question Answer Comments Discussion of Advance Directives occurred with: Patient Does the patient have a Living Will? No Does the patient have Health Care Power of Sales Promotion Coordinator? No Full Code 02/24/2015 10:33 AM 02/25/2015 6:10 PM . Question Answer Comments Discussion of Advance Directives occurred with: Not Discussed Full Code 01/07/2015 4:20 PM 01/08/2015 5:32 PM Question Answer Comments Discussion of Advance Directives occurred with: Not Discussed Does the patient have a Living Will? No Does the patient have Health Care Power of Sales Promotion Coordinator? No Care Teams Suture Winder Hand Relationship Specialty Start Date End Date Juan Luis Lewis DO [address] [place] [phone] PCP - General Internal Medicine 05/15/21 documented as of this encounter
--- OUTSIDE RECORDS SUMMARY | 2023-04-26 20:41 | External Medical Summary | Summary of Care ---
Author Name Unknown Organization [facility] [address] [facility] [address] Phone [phone] Care Team Providers Care School Occupational Therapist Name Role Phone [place] Juan Luis Mejias Primary Care Provid er Encounter Details Date Type Department Care Team (Late st Contact Info) Description 01/25/2023 Telephone Hematology/Oncology [facility] [place] [address] [facility] [phone] Noemi Donaldson CRNP [address] [facility] [place] [address] Allergies Active Allergy Reactions Criticality Noted Date [...] neuropathy, without long-term current use of insulin ([facility]),Other specified hypothyroidism,Cent rilobular emphysema ([facility]),COPD, [...] encounter Miscellaneous Notes * Telephone Encounter - Cata Denson OSA - 02/12/2023 3:21 PM EST Spoke to patient, scheduled labs as requested. * Telephone Encounter - Evangelist Dee RN - 02/12/2023 12:11 PM EST Called patient, he wasn't aware but willing to have the labs done. Scheduling- Please assist scheduling patient at [facility], "CBCd". He prefers anytime after 10am. He will need 2 apts a month apart- he has a 3rd apt already scheduled prior to his follow up. Thank you! * Telephone Encounter - Evangelist Dee RN - 01/25/2023 2:45 PM EST Pt to have labs done monthly, encounter created to check/follow. documented in this encounter Plan of Treatment Upcoming Encounters Date Type Department Care Team (Late st Contact Info) Description 02/18/2023 10:30 AM EST Laboratory Laboratory Patient Service [place], [address] [phone] [address] [address] 03/21/2023 10:30 AM EST Laboratory Laboratory Patient [facility] [place], [address] [phone] [address] [address] 04/18/2023 2:30 PM EST Laboratory Laboratory Patient [facility] [place], [address] [phone] [place] [address] [facility] [place] [address] 04/25/2023 2:30 PM EDT Office Visit Hematology/Oncology [facility] [place] [address] [facility] [place] [address] Noemi Donaldson CRNP [address] [place] [address] Health Maintenance Due Date Last Done Comments [...] COPD 12/28/2023 12/27/2022 CKD HGB USE SMARTSET 50812 01/10/202401/09, 01/09/2023, 12/18/2022, Additional history exists CKD PHOS USE SMARTSET 70750 01/10/202412/13, 06/28/2021, 06/24/2021, Additional history exists Pneumococcal [...] this encounter Medical Devices Implanted Type Area Funeral Sales Manager Device Identifier Shelf Expiration Date Model / Serial / Lot Rsp Bone Screw-Locking Sz 5.0 Mm 26mm Long Implanted:Qty: 1 on 02/24/2015 by Aníbal Frankel MD at [facility] Right: Shoulder [employer] 01/22/2021 [id number] / / [id number] documented as of this encounter Advance Directives [...] the patient have Health Care Power of Job Forwarder? Yes, not currently available Code Status History Code Status Date Activated Date Inactivated Comments Full Code 06/24/2018 1:38 PM 06/24/2018 3:07 PM This order reflects the patients wishes and were consensually agreed upon. Question Answer Comments Discussion of Advance Directives occurred with: Patient Does the patient have a Living Will? No Does the patient have Health Care Power of Job Forwarder? No Full Code 07/26/2017 7:36 PM 08/01/2017 4:46 PM This order reflects the patients wishes and were consensually agreed upon. Question Answer Comments Discussion of Advance Directives occurred with: Patient Does the patient have a Living Will? No Does the patient have Health Care Power of Job Forwarder? No Full Code 02/24/2015 10:33 AM 02/25/2015 6:10 PM . Question Answer Comments Discussion of Advance Directives occurred with: Not Discussed Full Code 01/07/2015 4:20 PM 01/08/2015 5:32 PM Question Answer Comments Discussion of Advance Directives occurred with: Not Discussed Does the patient have a Living Will? No Does the patient have Health Care Power of Job Forwarder? No Care Teams School Occupational Therapist Relationship Specialty Start Date End Date Juan Luis Hope DO [address] [place] [address] PCP - General Internal Medicine 05/15/21 documented as of this encounter
--- OUTSIDE RECORDS SUMMARY | 2023-04-26 20:41 | External Medical Summary ---
Author Name Unknown Address Unknown Organization K01:LABORATORY C - [address] [place] [address] Laboratory Report Ordering Provider Test Date Status VONNIE MENDIETACAIT 02/18/2023 10:39:22 Final Observation Date Value Abnormality Reference (Units ) Status Phosphate 02/18/2023 10:39:22 2.6 2.5-4.8 (m g/dL) Final Performing Location LABORATORY [facility] - [address] [place] [address]
--- OUTSIDE RECORDS SUMMARY | 2023-04-26 20:41 | External Medical Summary ---
Author Name Unknown Address Unknown Organization K01:LABORATORY [facility] - [address] [facility] [address] [facility] [address] Laboratory Report Ordering Provider Test Date Status DEBBIE JOHNSON 02/18/2023 10:39:22 Final Observation Date Value Abnormality Reference (Units ) Status HbA1C 02/18/2023 10:39:22 4.6 4.0-5.6 (% ) Final The use of HbA1c to monitor glycemic status is based on normal hemoglobin and HbA composition. This test should not be used in patients with abnormal hemoglobin that affects the half life of the red blood cell or the in vivo glycation rates. Glucose, estimated average 02/18/2023 10:39:22 85 <126 (mg/dL) Final Performing Location LABORATORY [facility] [address] [facility] [address]
--- OUTSIDE RECORDS SUMMARY | 2023-04-26 20:41 | External Medical Summary | Summary of Care ---
Author Name Unknown Organization [facility] Address [address] [facility] [place] [address] Phone [phone] Care Team Providers Care Automobile Mechanic Motor Name Role Phone [place] Juan Luis Mejias Primary Care Provid er Encounter Details Date Type Department Care Team (Late st Contact Info) Description 01/25/2023 Telephone Hematology/Oncology [facility] [place] [address] [facility] [phone] Noemi Donaldson CRNP [address] [facility] [place] [address] Allergies Active [...] neuropathy, without long-term current use of insulin ([facility]),Other specified hypothyroidism,Cent rilobular emphysema ([facility]),COPD, group B, by GOLD 2017 classification ([facility]) Inhale 1 Puff by mouth in the [...] encounter Miscellaneous Notes * Telephone Encounter - Evangelist Dee RN - 02/12/2023 12:11 PM EST Called patient, he wasn't aware but willing to have the labs done. Scheduling- Please assist scheduling patient at [facility], "CBCd". He prefers anytime after 10am. He [...] 2:30 PM EST Laboratory Laboratory Patient Service [address] [phone] [address] 04/25/2023 2:30 PM EDT Office Visit Hematology/Oncology [facility] [place] [address] [place] [address] Noemi [facility]onal[facility]on CR[facility] [address] [facility] [phone] Health Maintenance Due Date Last Done Comments [...] COPD 12/28/2023 12/27/2022 CKD HGB USE SMARTSET 54717 01/10/202401/09, 01/09/2023, 12/18/2022, Additional history exists CKD PHOS USE SMARTSET 93715 01/10/202412/13, 06/28/2021, 06/24/2021, Additional history exists Pneumococcal [...] this encounter Medical Devices Implanted Type Area Horticultural Specialty Grower Field Device Identifier Shelf Expiration Date Model / Serial / Lot Rsp Bone Screw-Locking Sz 5.0 Mm 26mm Long Implanted:Qty: 1 on 02/24/2015 by Aníbal Frankel MD at [facility] Right: Shoulder [employer] SURG[employer] 01/22/2021 [id number] / / [id number] documented as of this encounter Advance Directives [...] the patient have Health Care Power of Fiberglass Boat Maker? Yes, not currently available Code Status History Code Status Date Activated Date Inactivated Comments Full Code 06/24/2018 1:38 PM 06/24/2018 3:07 PM This order reflects the patients wishes and were consensually agreed upon. Question Answer Comments Discussion of Advance Directives occurred with: Patient Does the patient have a Living Will? No Does the patient have Health Care Power of Fiberglass Boat Maker? No Full Code 07/26/2017 7:36 PM 08/01/2017 4:46 PM This order reflects the patients wishes and were consensually agreed upon. Question Answer Comments Discussion of Advance Directives occurred with: Patient Does the patient have a Living Will? No Does the patient have Health Care Power of Fiberglass Boat Maker? No Full Code 02/24/2015 10:33 AM 02/25/2015 6:10 PM . Question Answer Comments Discussion of Advance Directives occurred with: Not Discussed Full Code 01/07/2015 4:20 PM 01/08/2015 5:32 PM Question Answer Comments Discussion of Advance Directives occurred with: Not Discussed Does the patient have a Living Will? No Does the patient have Health Care Power of Fiberglass Boat Maker? No Care Teams Automobile Mechanic Motor Relationship Specialty Start Date End Date Juan Luis Hope DO [address] [place] [address] PCP - General Internal Medicine 05/15/21 documented as of this encounter
--- OUTSIDE RECORDS SUMMARY | 2023-04-26 20:41 | External Medical Summary ---
Author Name Unknown Address Unknown Organization : Laboratory Report Ordering Provider Test Date Status ZHOU GRECO 02/18/2023 10:39:22 Final Observation Date Value Abnormality Reference (Units ) Status Zinc, level 02/18/2023 10:39:22 95 60-130 ( mcg/dL) Final This test was developed and its analytical performance
characteristics have been determined by [employer] [facility]
[place] It has
not been cleared or approved by the U.S. Food and Drug
Administration. This assay has been validated pursuant
to the CLIA regulations and is used for clinical
purposes.

Test Performed at:
[facility]
[address]
[place] [address]
Evangelist Lee M.D., Ph.D.,Director of Laboratories Performing Location
--- OUTSIDE RECORDS SUMMARY | 2023-04-26 20:41 | External Medical Summary ---
Author Name Unknown Address Unknown Organization : Laboratory Report Ordering Provider Test Date Status ZHOU GRECO 02/18/2023 10:39:22 Final Observation Date Value Abnormality Reference (Units ) Status Thiamine [Moles/volume] in Blood 02/18/2023 10:39:22 581 Above high normal 78-185 (nmol/L) Final Vitamin supplementation with in 24 hours prior to
blood draw may affect the accuracy of the results.
This test was developed and its analytical performance
characteristics have been determined by [facility] [place], [place]. It has
not been cleared or approved by the U.S. Food and Drug
Administration. This assay has been validated pursuant
to the CLIA regulations and is used for clinical
purposes.

Test Performed at:
[facility]
[address] [facility]
[place] [address]
Evangelist Lee M.D., Ph.D.,Director of Laboratories Performing Location
--- OUTSIDE RECORDS SUMMARY | 2023-04-26 20:41 | External Medical Summary ---
Author Name Unknown Address Unknown Organization K01:LABORATORY [facility] - [facility] [address] [facility] [address] Laboratory Report Ordering Provider Test Date Status ZHOU GRECO 02/18/2023 10:39:22 Final Observation Date Value Abnormality Reference (Units ) Status WBC, Total 02/18/2023 10:39:22 6.14 4.00-10.80 (K/uL) Final RBC 02/18/2023 10:39:22 2.60 4.50-5.25 (M/uL) Final Hemoglobin 02/18/2023 10:39:22 9.0 Below low normal 14.0-16.8 (g/dL) Final HCT 02/18/2023 10:39:22 28.7 Below low normal 40.0-48.4 (%) Final MCV 02/18/2023 10:39:22 110.4 82.0-99.5 (fL) Final MCH 02/18/2023 10:39:22 34.6 27.0-34.0 (pg) Final MCHC 02/18/2023 10:39:22 31.4 32.0-36.0 (g/dL) Final RDW 02/18/2023 10:39:22 15.3 11.5-15.5 (%) Final Platelets 02/18/2023 10:39:22 172 140-400 (K/uL) Final MPV 02/18/2023 10:39:22 11.0 6.6-11.1 (fL) Final Nucleated erythrocytes/100 leukocytes [Ratio] in Blood by Automated count 02/18/2023 10:39:22 0 <=0 (/100 WBCs) Final Performing Location LABORATORY [facility] - [address] [facility] [address]
--- OUTSIDE RECORDS SUMMARY | 2023-04-26 20:42 | External Medical Summary | Summary of Care ---
Author Name Unknown Organization [facility] Address [address] [place] [address] Phone [phone] Care Team Providers Care Case Management Manager Name Role Phone Juan Luis Hope DO Primary Care Provid er Reason for Visit * Reason Comments Outpatient Testing Encounter Details Date Type Department Care Team (Late st Contact Info) Description 01/09/2023 1:50 PM EST Laboratory [facility] [phone] [address] Hyperlipidemia associated with type 2 diabetes mellitus ; Hypertension associated with type 2 diabetes mellitus ; Type 2 diabetes mellitus with diabetic neuropathy, without long-term current use of insulin ([facility]); Other specified hypothyroidism; Centrilobular emphysema ([facility]); COPD, group B, by GOLD 2017 classification ([facility]); Wound of left lower extremity, initial encounter; Lower extremity edema; Spondylosis of lumbosacral region without myelopathy or radiculopathy; Mixed anxiety and depressive disorder; Stage 3b chronic kidney disease ([facility]); Hereditary and idiopathic neuropathy, unspecified; BANG (acute kidney injury) ([facility]); Other congestive heart failure ([facility]) Allergies Active Allergy Reactions Criticality Noted Date Comments Adhesive Tape Rash 09/12/2000 Cefuroxime Axetil Flushing,Hives,Itching 2011 Ceftriaxone Sodium In Dextrose 01/08/2015 Hives Statins Muscle pain Low 09/01/2013 Zolpidem Neuro complications (Please comment) Low 05/18/2010 harish documented as of this encounter (statuses as of 01/09/2023) Medications Medication Sig Dispensed Refills Start Date [...] of insulin (HCC),Other specified hypothyroidism,Centr ilobular emphysema ([facility]),COPD, group B, by GOLD 2017 classification ([facility]) Inhale 1 Puff by mouth in [...] Additional Information Patient not taking.Reported on 12/27/2022 LORazepam 0.5 MG Oral Tablet (Ativan)Indications: Anxiety state Take 1 Tablet by mouth 2 times a day as needed for Anxiety. 60 Tablet 0 12/04/2022 Active traMADol HCl 50 MG Oral Tablet [...] the morning. 90 Tablet 1 01/04/2023 Active documented as of this encounter (statuses as of 01/09/2023) Active Problems Problem Noted Date Diagnosed Date [...] as of this encounter (statuses as of 01/09/2023) Resolved Problems Problem Noted Date Diagnosed Date [...] pt states received one on prior visit. shelter current use of ant icoagulant therapy 05/17/2003 01/19/2019 Anticoagulation management encounter 05/11/2003 08/13/2017 HTN, goal below 140/90 06/30 Hypothyroidism 09/01/2014 Reflux esophagitis 0 Mixed dyslipidemia 9 Overview: Per Lipid Taxonomy. Acute appendicitis 8 documented as of this encounter (statuses as of 01/09/2023) Immunizations Name Administration Dates Next Due COVID-19, mRNA, LNP-s, PF, B ooster, 100mcg/0.5mg (Moderna) 02/08/2021 Covid-19 Ad26, Single Dose (Kelton/J&J) 08/01/2020 HEP A - Hepatitis A (Adult > 18 yrs) 10/18/2016 Pneumococcal Conjugate Vacc, 13 Valent (Prevnar) 01/30/2017 Pneumococcal Polysaccharide PPV23 (Pneumovax) 02/10/2018 SEASONAL INFLUENZA, PF, 6 M & Above, IM , (FLULAVAL or FLUZONE) 10/17/2017 Season Influenza, Quad, PF, Adjuvanted, 65+ Yrs, IM (FLUAD) 03/04/2020 Seasonal Influenza, Quadriva lent Hd (Fluzone Hd) [...] Upcoming Encounters Date Type Department Care Team ([facility] st Contact Info) Description 02/08/2023 10:30 AM EST Laboratory Laboratory Patient Service [address] [phone] [address] 02/13/2023 11:00 AM EST Office Visit [address] [phone] Juan Luis Hope, [address] [address] Pending Results Name Type Priority Associated Diagnoses Date /Time COMPREHENSIVE METABOLIC PANEL Lab Routine Stage 3b chronic kidney disease (HCC) 01/09/2023 1:46 PM EST CBC WITH WBC DIFFERENTIAL Lab Routine Stage 3b chronic kidney disease (HCC) 01/09/2023 1:46 PM EST IRON SCREEN, INCLUDING TIBC Lab Routine Stage 3b chronic kidney disease (HCC) 01/09/2023 1:46 PM EST VITAMIN B12 Lab Routine Stage 3b chronic kidney disease (HCC) Hereditary and idiopathic neuropathy, unspecified 01/09/2023 1:46 PM EST FERRITIN Lab Routine Stage 3b chronic kidney disease (HCC) 01/09/2023 1:46 PM EST PHOSPHORUS Lab Routine Type 2 diabetes mellitus with diabetic neuropathy, without long-term current use of insulin (HCC) 01/09/2023 1:46 PM EST DOUBLE STRANDED DNA (DSDNA) ANTIBODY, IFA Lab Routine BANG (acute kidney injury) (HCC) Stage 3b chronic kidney disease (HCC) 01/09/2023 1:46 PM EST ANCA REFLEX PANEL Lab Routine BANG (acute kidney injury) (HCC) Stage 3b chronic kidney disease (HCC) 01/09/2023 1:46 PM EST ANTINUCLEAR ANTIBODY (ANA ROSA) EIA SCREEN WITH REFLEX AB QUANT Lab Routine BANG (acute kidney injury) (HCC) Stage 3b chronic kidney disease (HCC) 01/09/2023 1:46 PM EST CRYOGLOBULIN REFLEX PROFILE Lab Routine BANG (acute kidney injury) (HCC) Stage 3b chronic kidney disease (HCC) 01/09/2023 1:46 PM EST COMPLEMENT C4 Lab Routine BANG (acute kidney injury) (HCC) Stage 3b chronic kidney disease (HCC) 01/09/2023 1:46 PM EST COMPLEMENT C3 Lab Routine BANG (acute kidney injury) (HCC) Stage 3b chronic kidney disease (HCC) 01/09/2023 1:46 PM EST BNP, NT-PRO Lab Routine Other congestive heart failure (HCC) 01/09/2023 1:46 PM EST SERUM IMMUNOFIXATION Lab Routine BANG (acute kidney injury) (HCC) Stage 3b chronic kidney disease (HCC) 01/09/2023 1:46 PM EST PTH Lab Routine BANG (acute kidney injury) (HCC) Stage 3b chronic kidney disease (HCC) 01/09/2023 1:46 PM EST 25-HYDROXY VITAMIN D Lab Routine BANG (acute kidney injury) (HCC) Stage 3b chronic kidney disease (HCC) 01/09/2023 1:46 PM EST GLOMERULAR BASEMENT MEMBRANE ANTIBODY (IGG) Lab Routine BANG (acute kidney injury) (HCC) Stage 3b chronic kidney disease (HCC) 01/09/2023 1:46 PM EST CBC Lab Routine Stage 3b chronic kidney disease (HCC) 01/09/2023 1:46 PM EST DIFFERENTIAL, AUTOMATED Lab Routine Stage 3b chronic kidney disease (HCC) 01/09/2023 1:46 PM EST ANCA, IFA Lab Routine BANG (acute kidney injury) (HCC) Stage 3b chronic kidney disease (HCC) 01/09/2023 1:46 PM EST ANTINUCLEAR ANTIBODY (ANA ROSA) SCREEN, SUSAN Lab Routine BANG (acute kidney injury) (HCC) Stage 3b chronic kidney disease (HCC) 01/09/2023 1:46 PM EST BILIRUBIN, DIRECT Lab Routine BANG (acute kidney injury) (HCC) Stage 3b chronic kidney disease (HCC) 01/09/2023 1:46 PM EST Health Maintenance Due Date Last Done Comments Zoster Vaccines (1 of 2) 11/30/1991 Hepatitis B (1 of 3 - Risk 3-dose series) 2001 DTaP,Tdap,and Td Vaccines (1 - Tdap) 04/20/2011 04/19/2011, 06/07/1999 *COPD SEVERITY VERIFIED BY PFT 08/24/2017 COLONOSCOPY-EVERY 2 YRS AGES 18-100 02/13/2018 02/14/2016, 02/14/2016, 11/16/2005 Albumin/Creatinine Ratio 09/03/2019 09/02/2018, 11/11 CKD PHOS USE SMARTSET 76102 06/28/202206/11, 06/24/2021, 06/23/2021, Additional history exists COVID-19 Vaccine ( - 2022- season) 2022 02/08/2021, 08/01/2020 HbA1c 01/29/2023 07/30/2022, 01/11, 07/31/2021, Additional history exists Diabetic Eye Exam 03/19/2023 03/19/2022, , 03/19/2022, Additional history exists GFR 06/18/2023 12/18/2022, 10/13, 10/23/2022, Additional history exists TSH 07/31/2023 07/30/2022, 01/11, 07/31/2021, Additional history exists Depression Screening 11/03/2023 11/02/2022 CKD HGB USE SMARTSET 99972 12/19/202312/18, 12/18/2022, 11/09/2022, Additional history exists Diabetic Foot Exam 12/28/2023 12/27/2022, 0 07/14/2021, 08/19/2019, Additional history exists O2 ASSESSMENT COMPLETED IN PAST YEAR FOR COPD 12/28/2023 12/27/2022 Pneumococcal Vaccine: 65+ Years Completed 02/10/2018, 01/30/2017 Alpha-1 Antitrypsin Completed 07/30/2022 Influenza Vaccine (FLU shot) Completed 01/2023, 04/26/2021, 03/04/2020, Additional history exists GARDASIL-HPV IMMUNIZATION SERIES Aged Out No longer eligible based on patient's age to complete this topic MENINGOCOCCAL (MENACTRA/MENVEO) Aged Out No longer eligible based on patient's age to complete this topic documented as of this encounter Medical Devices Implanted Type Area Trimmer Machine Operator Device Identifier Shelf Expiration Date Model / Serial / Lot Rsp Bone Screw-Locking Sz 5.0 Mm 26mm Long Implanted:Qty: 1 on 02/24/2015 by Aníbal Frankel MD at [facility] Right: Shoulder [employer] 01/22/2021 506-03-126 / / [id number] documented as of this encounter Visit Diagnoses Diagnosis Hyperlipidemia associated with type 2 diabetes mellitus Hypertension associated with type 2 diabetes mellitus Type 2 diabetes mellitus with diabetic neuropathy, without long-term current use of insulin (HCC) Other specified hypothyroidism Centrilobular emphysema (HCC) Other emphysema COPD, group B, by GOLD 2017 classification (HCC) Wound of left lower extremity, initial encounter Lower extremity edema Edema Spondylosis of lumbosacral region without myelopathy or radiculopathy Lumbosacral spondylosis without myelopathy Mixed anxiety and depressive disorder Dysthymic disorder Stage 3b chronic kidney disease (HCC) Hereditary and idiopathic neuropathy, unspecified BANG (acute kidney injury) (HCC) Acute kidney failure, unspecified Other congestive heart failure (HCC) Congestive heart failure, unspecified documented in this encounter Advance Directives [...] the patient have Health Care Power of Business System Consultant? Yes, not currently available Code Status History Code Status Date Activated Date Inactivated Comments Full Code 06/24/2018 1:38 PM 06/24/2018 3:07 PM This order reflects the patients wishes and were consensually agreed upon. Question Answer Comments Discussion of Advance Directives occurred with: Patient Does the patient have a Living Will? No Does the patient have Health Care Power of Business System Consultant? No Full Code 07/26/2017 7:36 PM 08/01/2017 4:46 PM This order reflects the patients wishes and were consensually agreed upon. Question Answer Comments Discussion of Advance Directives occurred with: Patient Does the patient have a Living Will? No Does the patient have Health Care Power of Business System Consultant? No Full Code 02/24/2015 10:33 AM 02/25/2015 6:10 PM . Question Answer Comments Discussion of Advance Directives occurred with: Not Discussed Full Code 01/07/2015 4:20 PM 01/08/2015 5:32 PM Question Answer Comments Discussion of Advance Directives occurred with: Not Discussed Does the patient have a Living Will? No Does the patient have Health Care Power of Business System Consultant? No Care Teams Case Management Manager Relationship Specialty Start Date End Date Juan Luis Hope DO [address] [place] [id number] PCP - General Internal Medicine 05/15/21 documented as of this encounter
--- OUTSIDE RECORDS SUMMARY | 2023-04-26 20:42 | External Medical Summary | Summary of Care ---
Author Name Unknown Organization [facility] Address [address] [place] [address] Phone [phone] Care Team Providers Care Product Advisor Name Role Phone Juan Luis Hope DO Primary Care Provid er Reason for Visit * Reason Comments Outpatient Testing Encounter Details Date Type Department Care Team (Late st Contact Info) Description 01/09/2023 1:50 PM EST Laboratory [facility] [phone] [address] Hyperlipidemia associated with type 2 diabetes mellitus ; Hypertension associated with type 2 diabetes mellitus ; Type 2 diabetes mellitus with diabetic neuropathy, without long-term current use of insulin ([facility]); Other specified hypothyroidism; Centrilobular emphysema ([facility]); COPD, group B, by GOLD 2017 classification ([facility]); Wound of left lower extremity, initial encounter; Lower extremity edema; Spondylosis of lumbosacral region without myelopathy or radiculopathy; Mixed anxiety and depressive disorder; Stage 3b chronic kidney disease ([facility]); Hereditary and idiopathic neuropathy, unspecified; BANG (acute kidney injury) ([facility]); Other congestive heart failure ([facility]) Allergies Active Allergy Reactions Criticality Noted Date [...] of insulin (HCC),Other specified hypothyroidism,Centr ilobular emphysema ([facility]),COPD, group B, by [...] Upcoming Encounters Date Type Department Care Team ([facility] st Contact Info) Description 02/08/2023 10:30 AM EST Laboratory Laboratory Patient Service [address] [phone] [address] 02/13/2023 11:00 AM EST Office Visit [address] [phone] Juan Luis Hope, [address] [address] Pending Results Name Type Priority Associated Diagnoses [...] 09/03/2019 09/02/2018, 11/11 CKD PHOS USE SMARTSET 24304 06/28/202206/11, 06/24/2021, 06/23/2021, Additional history exists COVID-19 Vaccine ( - 2022- season) 2022 02/08/2021, 08/01/2020 HbA1c 01/29/2023 07/30/2022, 01/11, 07/31/2021, Additional history exists Diabetic Eye Exam 03/19/2023 03/19/2022, , 03/19/2022, Additional history exists GFR 06/18/2023 12/18/2022, 10/13, 10/23/2022, Additional history exists TSH 07/31/2023 07/30/2022, 01/11, 07/31/2021, Additional history exists Depression Screening 11/03/2023 11/02/2022 CKD HGB USE SMARTSET 75181 12/19/202312/18, 12/18/2022, 11/09/2022, Additional history exists Diabetic [...] encounter Medical Devices Implanted Type Area Wire Spooler Device Identifier Shelf Expiration Date Model / Serial / Lot Rsp Bone Screw-Locking Sz 5.0 Mm 26mm Long Implanted:Qty: 1 on 02/24/2015 by Aníbal Frankel MD at [facility] Right: Shoulder [employer] 01/22/2021 [id number] / / [id number] documented as of this encounter Visit Diagnoses [...] the patient have Health Care Power of Wool Hat Hydraulicker? Yes, not currently available Code Status History Code Status Date Activated Date Inactivated Comments Full Code 06/24/2018 1:38 PM 06/24/2018 3:07 PM This order reflects the patients wishes and were consensually agreed upon. Question Answer Comments Discussion of Advance Directives occurred with: Patient Does the patient have a Living Will? No Does the patient have Health Care Power of Wool Hat Hydraulicker? No Full Code 07/26/2017 7:36 PM 08/01/2017 4:46 PM This order reflects the patients wishes and were consensually agreed upon. Question Answer Comments Discussion of Advance Directives occurred with: Patient Does the patient have a Living Will? No Does the patient have Health Care Power of Wool Hat Hydraulicker? No Full Code 02/24/2015 10:33 AM 02/25/2015 6:10 PM . Question Answer Comments Discussion of Advance Directives occurred with: Not Discussed Full Code 01/07/2015 4:20 PM 01/08/2015 5:32 PM Question Answer Comments Discussion of Advance Directives occurred with: Not Discussed Does the patient have a Living Will? No Does the patient have Health Care Power of Wool Hat Hydraulicker? No Care Teams Product Advisor Relationship Specialty Start Date End Date Juan Luis Hope DO [address] [place] [id number] PCP - General Internal Medicine 05/15/21 documented as of this encounter
--- OUTSIDE RECORDS SUMMARY | 2023-04-26 20:42 | External Medical Summary | Summary of Care ---
Author Name Unknown Organization [facility] Address [address] [place] [address] Phone [phone] Care Team Providers Care Type Proof Reproducer Name Role Phone Juan Luis Hope DO Primary Care Provid er Reason for Visit * Reason Comments Outpatient Testing Encounter Details Date Type Department Care Team (Late st Contact Info) Description 01/09/2023 1:50 PM EST Laboratory [facility] [phone] [address] Hyperlipidemia associated with type 2 diabetes mellitus ; Hypertension associated with type 2 diabetes mellitus ; Type 2 diabetes mellitus with diabetic neuropathy, without long-term current use of insulin ([facility]); Other specified hypothyroidism; Centrilobular emphysema ([facility]); COPD, group B, by GOLD 2017 classification ([facility]); Wound of left lower extremity, initial encounter; Lower extremity edema; Spondylosis of lumbosacral region without myelopathy or radiculopathy; Mixed anxiety and depressive disorder; Stage 3b chronic kidney disease ([facility]); Hereditary and idiopathic neuropathy, unspecified; BANG (acute kidney injury) ([facility]); Other congestive heart failure ([facility]) Allergies Active Allergy Reactions Criticality Noted [...] (HCC),Other specified hypothyroidism,Centr ilobular emphysema ([facility] [...] transurethral res ection of prostate 08/05/2017 06/30/2018 detention resident 08/05/20172017 DNR (do not resuscitate) 08/05/201706/2017 [...] Upcoming Encounters Date Type Department Care Team ([facility] st Contact Info) Description 02/08/2023 10:30 AM EST Laboratory Laboratory Patient Service [address] [phone] [address] 02/13/2023 11:00 AM EST Office Visit [address] [phone] Juan Luis Hope, [address] [address] Pending Results Name Type Priority Associated Diagnoses Date /Time ALBUMIN / CREATININE RATIO, URINE Lab Routine Hyperlipidemia associated with type 2 diabetes mellitus Hypertension associated with type 2 diabetes mellitus Type 2 diabetes mellitus with diabetic neuropathy, without long-term current use of insulin (HCC) Other specified hypothyroidism Centrilobular emphysema (HCC) COPD, group B, by GOLD 2017 classification ([facility]) 01/09/2023 1:46 PM EST PAIN MANAGEMENT DRUG PANEL, URINE Lab Routine Spondylosis of lumbosacral region without myelopathy or radiculopathy Mixed anxiety and depressive disorder 01/09/2023 1:46 PM EST COMPREHENSIVE METABOLIC PANEL Lab Routine Stage 3b [...] 09/03/2019 09/02/2018, 11/11 CKD PHOS USE SMARTSET 76044 06/28/202206/11, 06/24/2021, 06/23/2021, Additional history exists COVID-19 Vaccine ( season) 2022 02/08/2021, 08/01/2020 HbA1c 01/29/2023 07/30/2022, 01/11, 07/31/2021, Additional history exists Diabetic Eye Exam 03/19/2023 03/19/2022, , 03/19/2022, Additional history exists GFR 06/18/2023 12/18/2022, 10/13, 10/23/2022, Additional history exists TSH 07/31/2023 07/30/2022, 01/11, 07/31/2021, Additional history exists Depression Screening 11/03/2023 11/02/2022 CKD HGB USE SMARTSET 58577 12/19/202312/18, 12/18/2022, 11/09/2022, Additional history exists Diabetic [...] this encounter Medical Devices Implanted Type Area Printed Circuit Photographer Device Identifier Shelf Expiration Date Model / Serial / Lot Rsp Bone Screw-Locking Sz 5.0 Mm 26mm Long Implanted:Qty: 1 on 02/24/2015 by Aníbal Frankel MD at [facility] Right: Shoulder [employer] 01/22/2021 506-03-126 / / [id number] documented as of this encounter Visit Diagnoses [...] the patient have Health Care Power of Instructional Design Specialist? Yes, not currently available Code Status History Code Status Date Activated Date Inactivated Comments Full Code 06/24/2018 1:38 PM 06/24/2018 3:07 PM This order reflects the patients wishes and were consensually agreed upon. Question Answer Comments Discussion of Advance Directives occurred with: Patient Does the patient have a Living Will? No Does the patient have Health Care Power of Instructional Design Specialist? No Full Code 07/26/2017 7:36 PM 08/01/2017 4:46 PM This order reflects the patients wishes and were consensually agreed upon. Question Answer Comments Discussion of Advance Directives occurred with: Patient Does the patient have a Living Will? No Does the patient have Health Care Power of Instructional Design Specialist? No Full Code 02/24/2015 10:33 AM 02/25/2015 6:10 PM . Question Answer Comments Discussion of Advance Directives occurred with: Not Discussed Full Code 01/07/2015 4:20 PM 01/08/2015 5:32 PM Question Answer Comments Discussion of Advance Directives occurred with: Not Discussed Does the patient have a Living Will? No Does the patient have Health Care Power of Instructional Design Specialist? No Care Teams Type Proof Reproducer Relationship Specialty Start Date End Date Juan Luis Hope DO [address] [place] [address] PCP - General Internal Medicine 05/15/21 documented as of this encounter
--- OUTSIDE RECORDS SUMMARY | 2023-04-26 20:42 | External Medical Summary | Summary of Care ---
Author Name Unknown Organization [facility] Address [address] [place] [address] Phone [phone] Care Team Providers Care Pool Hand Name Role Phone Juan Luis Hopeothy Primary Care Provid er Reason for Visit * Reason Comments Chronic Kidney Disease (CKD) * Evaluate & Treat - Unlimited Visits (Within 10 days (routine)) - Authorized Specialty Diagnoses / Procedures Referred By Contanatoliy t Referred To Contact Nephrology Diagnoses Stage 3b chronic kidney disease (HCC) BANG (acute kidney injury) (HCC) Jaclyn Bucio PA-C [address] [place] [id number] Referral ID Status Reason Start Date Expiration Date Visits Requested Visits Authorized [id number] Authorized Specialty Services Required [phone] Encounter Details Date Type Department Care Team ([facility] Contact Info) Description 01/09/2023 1:00 PM EST Office Visit Nephrology [facility] [address] [facility] [address] [place] [phone] Horacio Hernandez MD [address] [place] [address] BANG (acute kidney injury) (HCC)*; Stage 3b chronic kidney disease (HCC); Other congestive heart failure (HCC) Allergies Active Allergy Reactions Criticality Noted [...] (HCC),COPD, group B, by GOLD 2017 classification ([place] [...] on 12/27/2022 LORazepam 0.5 MG Oral Tablet (Ativan)Indications :Anxiety [...] the morning. 90 Tablet 1 01/04/2023 Active Furosemide 20 MG Oral Tablet (Lasix)Indications: Lower extremity edema Take 1 Tablet by mouth in the morning. 30 Tablet 11 10/23/2022 3 Discontinu ed(Dischar ged) Potassium Chloride Kary ER 20 MEQ Oral Tablet Extended ReleaseIndications: Lower extremity edema Take 1 Tablet by mouth in the morning and 1 Tablet before bedtime. 60 Tablet 11 10/23/2022 3 Discontinu ed(Dischar ged) Losartan Potassium 25 MG Oral Tablet (Cozaar)Indications :HTN, goal below 140/90 Take 1 Tablet by mouth in the morning. 90 Tablet 3 12/27/2022 3 Discontinu ed(Dischar ged) documented as of this encounter (statuses as [...] status, left 08/05/2017 04/25/2021 History of appendectomy 08/05/201704/2017 History of bilateral cataract extraction 08/05/2017 08/13/2017 Personal history of tobacco use 08/05/2017 08/13/2017 History of transurethral res ection of prostate 08/05/2017 06/30/2018 alf resident 08/05/20172017 DNR (do not resuscitate) 08/05/201706/2017 [...] pt states received one on prior visit. manager intermediate current use of ant icoagulant therapy [...] Q uit: 02/11/1989 Cigars Smokeless Tobacco: Never Tobacco Cessation:Counseling Given: Not Answered Alcohol Use Standard Drinks/Week Comments Yes 0 [...] Sign Reading Time Taken Comments Blood Pressure 116/54 01/09/2023 1:04 PM EST Pulse 66 01/09/2023 1:04 PM EST Temperature 35.6 C (96.1 F) 01/09/2023 1:04 PM ES T Respiratory Rate - - Oxygen Saturation - - Inhaled Oxygen Concentration - - Weight 84.4 kg (186 lb) 01/09/2023 1:04 PM EST Height 158.8 cm (5' 2.5") 01/09/2023 1:04 PM EST Body Mass Index 33.48 01/09/2023 1:04 PM EST documented in this encounter Functional Status Functional [...] as of this encounter Progress Notes * Horacio Hernandez MD - 01/09/2023 1:40 PM EST Subjective: Neil Ramos Jr. is a 82 year old male. Chief Complaint Patient presents with Chronic Kidney Disease (CKD) HPI: 82/M here for Evaluation of worsening renal function. --Creat 0.7 GFR 90 Admitted In Hospital April 2022 for bronchitis/SOB--Started on Lasix and Losartan. takes lasix onlyonce every few weeks and same with Potassium. Takes losartan daily. --Creat 1.7 GFR 42 --Creat 1.8 GFR 37 Had fall and head laceration but not admission --Creat 2.3 GFR 27. ECHO done 2021 was fine. I did not see in 2022. NO urine test during this time. -Renal US ---The right kidney measures 9.7 x 4.9 x 5.3 cm. The left kidney measures 8.4 x 3.6 x 4.6 cm. No evidence of hydronephrosis or stones either kidney. Other medical problems are : COPD, h/o Afibb and CHF, Alcoholism, memory issues,Anxiety, Hypothyroidsim and BPH. Currently has Poor appetite. Does have lot of Swelling with Chronic Skin changes b/l. Not active. USes walker at home and wheelchair for Distance. Has severe b/l neuropathy. Does drink every day ( few shots of Vodka mixed drink). 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 His female four h agent is a RN NSAID No Renal Stone No Herbal Medication No Urinary Complaints Yes, BPH symptoms Current Outpatient Medications Medication Sig Dispense Refill gabapentin (NEURONTIN) 300 MG Capsule Take 1 Capsule by mouth in the morning and 1 Capsule before bedtime. levothyroxine sodium (LEVOXYL) 112 MCG Tablet Take 1 Tablet by mouth daily first thing in the morning. (at least 30 min prior to breakfast or other meds) 30 Tab 5 Vitamin D 50 MCG (2000 UT) Oral Tablet Take 2,000 Units by mouth daily. Fluticasone-Salmeterol 250-50 MCG/ACT Inhalation Aerosol Powder Breath Activated (Advair Diskus) Inhale 1 Puff by mouth in the morning and 1 Puff before bedtime. 60 Each 5 Metoprolol Succinate ER 25 MG Oral Tablet Extended Release 24 Hour (toPROL XL) Take 1 Tablet by mouth in the morning. Nitroglycerin 0.4 MG Sublingual Tablet Sublingual (Nitrostat) DISSOLVE 1 TAB UNDER TONGUE EVERY 5 MINUTES NEEDED FOR CHEST PAIN. MAX 3 DOSES. NO RELIEF CALL 911 25 Tablet 5 Tadalafil 20 MG Oral Tablet TAKE 1 TABLET BY MOUTH ONCE DAILY NEEDED FOR ERECTILE DYSFUNCTION 10Tablet 3 traZODone HCl 50 MG Oral Tablet (Desyrel) TAKE 1 TABLET BY MOUTH ONCE DAILY AT BEDTIME 90 Tablet 2 Lansoprazole 15 MG Oral Capsule Delayed Release (Prevacid) Take 1 Capsule by mouth in the morning. 90 Capsule 3 LORazepam 0.5 MG Oral Tablet (Ativan) Take 1 Tablet by mouth 2 times a day as needed for Anxiety. 60 Tablet 0 Thiamine HCl 100 MG Oral Tablet (vitamin B-1) Take 1 Tablet by mouth in the morning. 90 Tablet 1 Zinc 50 MG Oral Tablet Take 1 Tablet by mouth in the morning. 90 Tablet 1 Folic Acid 1 MG Oral Tablet Take 1 Tablet by mouth in the morning. (Patient not taking: Reported on01/09/2023) Meclizine HCl 25 MG Oral Tablet (Antivert) Take 1 Tablet by mouth 3 times a day as needed for Dizziness. 30 Tablet 1 Docusate Sodium 100 MG Oral Capsule (Colace) Take 1 Capsule by mouth in the morning and 1 Capsule before bedtime. (Patient not taking: Reported on 12/27/2022) 60 Capsule 5 traMADol HCl 50 MG Oral Tablet (Ultram) Take 1 Tablet by mouth every 6 hours as needed for Pain, Moderate. 30 Tablet 0 No current facility-administered medications for this visit. Past Medical History: Diagnosis Date ADVANCE DIRECTIVE INFORMATION 12/06/2004 pt states received one on prior visit. 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 CRESPO - INTERNAL HEMORRHOIDS , DIVERTICULOSIS, COLONOSCOPY, DIAGNOSTIC (RECTUM) 02/14/2016 adenomatous polyps, diverticulosis, fair prep, repeat 2 yrs/COLONOSCOPY FLEXIBLE PROXIMAL DIAGNOSTIC performed by Luis Khanna MD at [facility]COPY [facility] HEMORRHOIDECTOMY,EXTERNAL, 2 + COLUMNS 1996 Hemorrhoidectomy,External LAPAROSCOPY;APPENDECTOMY N/A 01/07/2015 LAPAROSCOPIC APPENDECTOMY performed by Juan Luis Trinidad MD at [facility] REMOVE CATARACT, INSERT LENS PROSTH 09/11/05 10/09/05 Cataract Removal, Blateral REVERSE TOTAL SHOULDER ARTHROPLASTY Right 02/24/2015 REVERSE TOTAL SHOULDER ARTHROPLASTY performed by Aníbal Frankel MD at OR [facility] REVISION OF ANKLE JOINT 1982 Left Ankle Review of patient's allergies indicates: Allergen Reactions Adhesive Tape Rash Cefuroxime Axetil Flushing, Hives and Itching Rocephin [Ceftriaxone Sodium In Dextrose] Hives Statins Muscle pain Zolpidem Neuro complications (Please comment) ambien Family History Problem Relation Age of Onset Other (lung cancer) Mother Stroke Father Osteoporosis Sister Cancer Brother cancer within colon polyp No Known Problems Brother No Known Problems Son No Known Problems Daughter Family History of Renal Disease No Social History Socioeconomic History Marital status: Spouse name: Not on file Number of children: Not on file Years of education: Not on file Highest education level: Not on file Occupational History Not on file Tobacco Use Smoking status: Former Packs/day: 2.00 Years: 35.00 Additional pack years: 0.00 Total pack years: 70.00 Types: Cigarettes, Cigars Quit date: 02/11/1989 Years since quittin.9 Smokeless tobacco: Never Vaping Use Vaping Use: [...] on file Housing Stability: Not on file Ambulation: Wheel Chair and Walker Review of Systems: See Above. 12 systems reviewed and negative OBJECTIVE: PHYSICAL EXAM: BP 116/54 (BP Site: Left Arm, BP Position: Sitting, BP Cuff Size: Regular) | Pulse 66 | Temp 35.6 C (96.1 F) (Tympanic) | Ht 1.588 m (5' 2.5") | Wt 84.4 kg (186 lb) | BMI 33.48 kg/m | BSA 1.93 m General: alert and no distress. Seems alert but had Serious memory issue and could not remember lotof recent health issues like Fall/head Injury/ED visits etc. Head: No masses, lesions, tenderness or abnormalities Neck: supple, no JVD Heart: regular rate & rhythm and no murmur Lungs: normal respiratory rate and rhythm, positive findings: none, prolonged expiration Abdomen: abdomen soft and non-tender Back: no costovertebral angle tenderness Extremities: edema b/l with Chronic Skin changes BP Readings from Last 4 Encounters: 01/09/23 116/54 12/27/22 108/56 12/18/22 107/67 11/21/22 104/60 Wt Readings from Last 4 Encounters: 01/09/23 84.4 kg (186 lb) 12/18/22 84.4 kg (186 lb 1.6 oz) 11/02/22 87.5 kg (193 lb) 08/22/22 87.5 kg (193 lb) Estimated body mass index is 33.48 kg/m as calculated from the following: Height as of this encounter: 1.588 m (5' 2.5"). Weight as of this encounter: 84.4 kg (186 lb). Recent Labs Units 12/18/22 1414 10/23/22 1146 07/30/22 1010 SODIUM - [facility] mmol/L 138 137 133* POTASSIUM - [facility] mmol/L 4.3 3.8 4.3 CHLORIDE - [facility] mmol/L 96* 98 96* CO2 - [facility] mmol/L 29 24 22 BUN - [facility] mg/dL 39* 18 23* CREATININE - [facility] mg/dL 2.3* 1.8* 1.7* ESTIMATED GLOMERULAR FILTRATION RATE - [facility] mL/min 27* 37* 42* Recent Labs Units 12/18/22 1414 11/09/22 1145 07/30/22 1010 HGB - [facility] g/dL 8.8* -- 10.8* HEMOGLOBIN-OUTSIDE LAB g/dL -- 8.9* -- FERRITIN - [facility] ng/mL 585* -- -- TRANSFERRIN SATURATION PERCENT - [facility] % 41 -- -- Recent Labs Units 12/18/22 1414 10/23/22 1146 07/30/22 1010 CALCIUM - [facility] mg/dL 9.0 8.5 9.0 Recent Labs Units 07/30/22 1010 01/24/22 0908 07/31/21 1042 HEMOGLOBIN A1C - [facility] % 5.0 4.9 5.0 No results for input(s): "ALBCREHIDE", "ALBCREURN", "MICROALBUMIN", "PROTCREATRAT" in the last [id number] hours. ASSESSMENT: BANG (acute kidney injury) (HCC) (Primary) Stage 3b chronic kidney disease (HCC) Given GFR dropped from 90 to 27 in less than a year. Especially Big drop in GFR from to noted. Reviewed Admission for Bronchitis/CHF . Started on Lasix and Losartan. takes lasix only once every few weeks and same with Potassium. Takes losartan daily. BP is running lowish which given his multiple recent falls means will stop Losartan as well as Lasix. Will evaluate as a case of BANG vs Sub acute renal failure. Explained how GFR has dropped a lot in 1 year. Has been on PPI for many years so not sure we can blame this. Memory is lot worse than it appears on general. Cannot remember any detailed health issues. Depending on lab results may need to see him again within weeks. Will also do serial renal panel to follow the renal function. - CBC WITH WBC DIFFERENTIAL; Future; Expected date: 01/09/2023 - HEPATIC FUNCTION PANEL; Future; Expected date: 01/09/2023 - URINE IMMUNOFIXATION, BENCE WARD PROTEIN, RANDOM URINE; Future; Expected date: 01/09/2023 - DOUBLE STRANDED DNA (DSDNA) ANTIBODY, IFA; Future; Expected date: 01/09/2023 - ANCA REFLEX PANEL; Future; Expected date: 01/09/2023 - ANTINUCLEAR ANTIBODY (ANA ROSA) EIA SCREEN WITH REFLEX AB QUANT; Future; Expected date: 01/09/2023 - CRYOGLOBULIN REFLEX PROFILE; Future; Expected date: 01/09/2023 - COMPLEMENT C4; Future; Expected date: 01/09/2023 - COMPLEMENT C3; Future; Expected date: 01/09/2023 - SERUM IMMUNOFIXATION; Future; Expected date: 01/09/2023 - PTH; Future; Expected date: 01/09/2023 - RENAL FUNCTION PANEL; Future; Expected date: 01/09/2023 - PROTEIN/ CREATININE RATIO, URINE; Future; Expected date: 01/09/2023 - URINALYSIS WITH MICROSCOPIC EXAM; Future; Expected date: 01/09/2023 - 25-HYDROXY VITAMIN D; Future; Expected date: 01/09/2023 - GLOMERULAR BASEMENT MEMBRANE ANTIBODY (IGG); Future; Expected date: 01/09/2023 Other congestive heart failure (HCC) H/o this needing Hospital admission in . May need another ECHO if renal function worse. - BNP, NT-PRO; Future; Expected date: 01/09/20[address] Thanks [address] the consult [address] Juan Luis Hope DO and Jaclyn Bucio PA-C Follow Up: Return for Clinic Visit. | For: Clinic Visit Horacio Hernandez MD documented in this encounter Plan of Treatment Upcoming Encounters Date Type Department Care Team ([facility] st Contact Info) Description 02/08/2023 10:30 AM EST Laboratory Laboratory Patient Service [address] [phone] Have, Lab Lock [address] [place] [address] 02/13/2023 11:00 AM EST Office Visit [address] [phone] Juan Luis Hope DO [address] [place] [address] [place] [address] (work) Pending Results Name Type Priority Associated Diagnoses Date /Time DOUBLE STRANDED DNA (DSDNA) ANTIBODY, IFA Lab [...] kidney disease (HCC) 01/09/2023 1:46 PM EST Scheduled Orders Name Type Priority Associated Diagnoses Orde r Schedule URINE IMMUNOFIXATION, BENCE WARD PROTEIN, RANDOM URINE Lab Routine BANG (acute kidney injury) (HCC) Stage 3b chronic kidney disease (HCC) Expected: 01/09/2023 (Approximate), Expires: 07/08/2023 DOUBLE STRANDED DNA (DSDNA) ANTIBODY, IFA Lab Routine BANG (acute kidney injury) (HCC) Stage 3b chronic kidney disease (HCC) Expected: 01/09/2023 (Approximate), Expires: 07/08/2023 ANCA REFLEX PANEL Lab Routine BANG (acute kidney injury) (HCC) Stage 3b chronic kidney disease (HCC) Expected: 01/09/2023 (Approximate), Expires: 07/08/2023 ANTINUCLEAR ANTIBODY (ANA ROSA) EIA SCREEN WITH REFLEX AB QUANT Lab Routine BANG (acute kidney injury) (HCC) Stage 3b chronic kidney disease (HCC) Expected: 01/09/2023 (Approximate), Expires: 07/08/2023 CRYOGLOBULIN REFLEX PROFILE Lab Routine BANG (acute kidney injury) (HCC) Stage 3b chronic kidney disease (HCC) Expected: 01/09/2023 (Approximate), Expires: 07/08/2023 COMPLEMENT C4 Lab Routine BANG (acute kidney injury) (HCC) Stage 3b chronic kidney disease (HCC) Expected: 01/09/2023 (Approximate), Expires: 07/08/2023 COMPLEMENT C3 Lab Routine BANG (acute kidney injury) (HCC) Stage 3b chronic kidney disease (HCC) Expected: 01/09/2023 (Approximate), Expires: 07/08/2023 BNP, NT-PRO Lab Routine Other congestive heart failure (HCC) Expected: 01/09/2023 (Approximate), Expires: 07/08/2023 SERUM IMMUNOFIXATION Lab Routine BANG (acute kidney injury) (HCC) Stage 3b chronic kidney disease (HCC) Expected: 01/09/2023 (Approximate), Expires: 07/08/2023 PTH Lab Routine BANG (acute kidney injury) (HCC) Stage 3b chronic kidney disease (HCC) Expected: 01/09/2023 (Approximate), Expires: 07/08/2023 PROTEIN/ CREATININE RATIO, URINE Lab Routine BANG (acute kidney injury) (HCC) Stage 3b chronic kidney disease (HCC) Expected: 01/09/2023 (Approximate), Expires: 07/08/2023 URINALYSIS WITH MICROSCOPIC EXAM Lab Routine BANG (acute kidney injury) (HCC) Stage 3b chronic kidney disease (HCC) Expected: 01/09/2023 (Approximate), Expires: 07/08/2023 25-HYDROXY VITAMIN D Lab Routine BANG (acute kidney injury) (HCC) Stage 3b chronic kidney disease (HCC) Expected: 01/09/2023 (Approximate), Expires: 07/08/2023 GLOMERULAR BASEMENT MEMBRANE ANTIBODY (IGG) Lab Routine BANG (acute kidney injury) (HCC) Stage 3b chronic kidney disease (HCC) Expected: 01/09/2023 (Approximate), Expires: 07/08/2023 Health Maintenance Due Date Last Done Comments Zoster Vaccines (1 of 2) 11/30/1991 Hepatitis B (1 of 3 - Risk 3-dose series) 2001 DTaP,Tdap,and Td Vaccines (1 - Tdap) 04/20/2011 04/19/2011, 06/07/1999 *COPD SEVERITY VERIFIED BY PFT 08/24/2017 COLONOSCOPY-EVERY 2 YRS AGES 18-100 02/13/2018 02/14/2016, 02/14/2016, 11/16/2005 Albumin/Creatinine Ratio 09/03/2019 09/02/2018, 11/11 CKD PHOS USE SMARTSET 57196 06/28/202206/11, 06/24/2021, 06/23/2021, Additional history exists COVID-19 Vaccine (3 - 2022- season) 2022 02/08/2021, 08/01/2020 HbA1c 01/29/2023 07/30/2022, 01/11, 07/31/2021, Additional history exists Diabetic Eye Exam 03/19/2023 03/19/2022, , 03/19/2022, Additional history exists GFR 06/18/2023 12/18/2022, 10/13, 10/23/2022, Additional history exists TSH 07/31/2023 07/30/2022, 01/11, 07/31/2021, Additional history exists Depression Screening 11/03/2023 11/02/2022 CKD HGB USE SMARTSET 56809 12/19/202312/18, 12/18/2022, 11/09/2022, Additional history exists Diabetic [...] this encounter Medical Devices Implanted Type Area Ammunition And Explosives Handler Device Identifier Shelf Expiration Date Model / Serial / Lot Rsp Bone Screw-Locking Sz 5.0 Mm 26mm Long Implanted:Qty: 1 on 02/24/2015 by Aníbal Frankel MD at OR [facility] Right: Shoulder [employer] 01/22/2021 [id number] / / [id number] documented as of this encounter Visit Diagnoses Diagnosis BANG (acute kidney injury) (HCC)- Primary Acute kidney failure, unspecified Stage 3b chronic kidney disease (HCC) Other congestive heart failure (HCC) Congestive heart [...] the patient have Health Care Power of Cranberry Grower? Yes, not currently available Code Status History Code Status Date Activated Date Inactivated Comments Full Code 06/24/2018 1:38 PM 06/24/2018 3:07 PM This order reflects the patients wishes and were consensually agreed upon. Question Answer Comments Discussion of Advance Directives occurred with: Patient Does the patient have a Living Will? No Does the patient have Health Care Power of Cranberry Grower? No Full Code 07/26/2017 7:36 PM 08/01/2017 4:46 PM This order reflects the patients wishes and were consensually agreed upon. Question Answer Comments Discussion of Advance Directives occurred with: Patient Does the patient have a Living Will? No Does the patient have Health Care Power of Cranberry Grower? No Full Code 02/24/2015 10:33 AM 02/25/2015 6:10 PM . Question Answer Comments Discussion of Advance Directives occurred with: Not Discussed Full Code 01/07/2015 4:20 PM 01/08/2015 5:32 PM Question Answer Comments Discussion of Advance Directives occurred with: Not Discussed Does the patient have a Living Will? No Does the patient have Health Care Power of Cranberry Grower? No Care Teams Pool Hand Relationship Specialty Start Date End Date Juan Luis Hope DO [address] [place] [address] PCP - General Internal Medicine 05/15/21 documented as of this encounter
--- OUTSIDE RECORDS SUMMARY | 2023-04-26 20:42 | External Medical Summary | Summary of Care ---
Author Name Unknown Organization [facility] Address [address] [facility] [address] Phone [phone] Care Team Providers Care Mechanical Research Engineer Name Role Phone [place] Juan Luis Mejias Primary Care Provid er Encounter Details Date Type Department Care Team (Late st Contact Info) Description 01/25/2023 Telephone Hematology/Oncology [facility] [place] [address] [facility] [place] [phone] Noemi Donaldson CRNP [address] [facility] [place] [address] Allergies Active Allergy Reactions Criticality Noted [...] long-term current use of insulin ([facility]),Other specified hypothyroidism,Centr ilobular emphysema ([facility]),COPD, group B, by GOLD 2017 classification ([facility]) Inhale 1 Puff by mouth in [...] transurethral res ection of prostate 08/05/2017 06/30/2018 intermediate resident 08/05/20172017 DNR (do not resuscitate) 08/05/201706/2017 [...] pt states received one on prior visit. alf current use of ant icoagulant therapy 05/17/2003 [...] 04/18/2023 2:30 PM EST Laboratory Laboratory Patient [address] [place] [phone] Have, Lab Lock [address] [place] [address] [place] [address] 04/25/2023 2:30 PM EDT Office Visit Hematology/Oncology [facility] [place] [address] [facility] [address] Noemi Donaldson CRNP [address] [facility] [place] [phone] Health Maintenance Due Date Last Done Comments [...] COPD 12/28/2023 12/27/2022 CKD HGB USE SMARTSET 93337 01/10/202401/09, 01/09/2023, 12/18/2022, Additional history exists CKD PHOS USE SMARTSET 55529 01/10/202412/13, 06/28/2021, 06/24/2021, Additional history exists Pneumococcal [...] this encounter Medical Devices Implanted Type Area Home Health Occupational Therapist Device Identifier Shelf Expiration Date Model / Serial / Lot Rsp Bone Screw-Locking Sz 5.0 Mm 26mm Long Implanted:Qty: 1 on 02/24/2015 by Aníbal Frankel MD at [facility] Right: Shoulder [employer] 01/22/2021 [id number] / / [id number] documented as of this encounter Advance Directives [...] the patient have Health Care Power of Director Of Enterprise Applications? Yes, not currently available Code Status History Code Status Date Activated Date Inactivated Comments Full Code 06/24/2018 1:38 PM 06/24/2018 3:07 PM This order reflects the patients wishes and were consensually agreed upon. Question Answer Comments Discussion of Advance Directives occurred with: Patient Does the patient have a Living Will? No Does the patient have Health Care Power of Director Of Enterprise Applications? No Full Code 07/26/2017 7:36 PM 08/01/2017 4:46 PM This order reflects the patients wishes and were consensually agreed upon. Question Answer Comments Discussion of Advance Directives occurred with: Patient Does the patient have a Living Will? No Does the patient have Health Care Power of Director Of Enterprise Applications? No Full Code 02/24/2015 10:33 AM 02/25/2015 6:10 PM . Question Answer Comments Discussion of Advance Directives occurred with: Not Discussed Full Code 01/07/2015 4:20 PM 01/08/2015 5:32 PM Question Answer Comments Discussion of Advance Directives occurred with: Not Discussed Does the patient have a Living Will? No Does the patient have Health Care Power of Director Of Enterprise Applications? No Care Teams Mechanical Research Engineer Relationship Specialty Start Date End Date Juan Luis Hope DO [address] [place] [address] PCP - General Internal Medicine 05/15/21 documented as of this encounter
--- OUTSIDE RECORDS SUMMARY | 2023-04-26 20:42 | External Medical Summary ---
Author Name Unknown Address Unknown Organization K01:[facility] [place] [address] [place] [id number] Laboratory Report Ordering Provider Test Date Status DEBBIE JOHNSON 01/09/2023 13:46:25 Final Observation Date Value Abnormality Reference (Units ) Status Iron 01/09/2023 13:46:25 45 45-176 (ug/dL) Final Iron-binding capacity 01/09/2023 13:46:25 142 Below low normal 250-425 (ug/dL) Final Transferrin Sat % 01/09/2023 13:46:25 32 15-55 (%) Final Performing Location [facility] [address] [place] [id number]
--- OUTSIDE RECORDS SUMMARY | 2023-04-26 20:42 | External Medical Summary ---
Author Name Unknown Address Unknown Organization K01:LABORATORY [address] [place] [address] Laboratory Report Ordering Provider Test Date Status DEBBIE JOHNSON 01/09/2023 13:46:25 Final Observation Date Value Abnormality Reference (Units ) Status WBC, Total 01/09/2023 13:46:25 3.72 Below low normal 4.00-10.80 (K/uL) Final RBC 01/09/2023 13:46:25 2.58 4.50-5.25 (M/uL) Final Hemoglobin 01/09/2023 13:46:25 8.7 Below low normal 14.0-16.8 (g/dL) Final HCT 01/09/2023 13:46:25 27.6 Below low normal 40.0-48.4 (%) Final MCV 01/09/2023 13:46:25 107.0 82.0-99.5 (fL) Final MCH 01/09/2023 13:46:25 33.7 27.0-34.0 (pg) Final MCHC 01/09/2023 13:46:25 31.5 32.0-36.0 (g/dL) Final RDW 01/09/2023 13:46:25 13.5 11.5-15.5 (%) Final Platelets 01/09/2023 13:46:25 85 Below low normal 140-400 (K/uL) Final MPV 01/09/2023 13:46:25 11.1 6.6-11.1 (fL) Final Nucleated erythrocytes/100 leukocytes [Ratio] in Blood by Automated count 01/09/2023 13:46:25 0 <=0 (/100 WBCs) Final Performing Location LAB[facility] [place] [facility] [place] [address] [address]
--- OUTSIDE RECORDS SUMMARY | 2023-04-26 20:42 | External Medical Summary ---
Author Name Unknown Address Unknown Organization K01:LABORATORY C - [address] [place] [address] Laboratory Report Ordering Provider Test Date Status ANAMVONNIECAIT 01/09/2023 13:46:25 Final Observation Date Value Abnormality Reference (Units ) Status C4 01/09/2023 13:46:25 32 10-40 (mg/ dL) Final Performing Location LABORATORY [facility] - [address] [place] [address]
--- OUTSIDE RECORDS SUMMARY | 2023-04-26 20:42 | External Medical Summary | Summary of Care ---
Author Name Unknown Organization [facility] Address [address] [facility] [place] [address] Phone [phone] Care Team Providers Care General Cargo Clerk Name Role Phone StephanieJuan Luis kingsley Primary Care Provid er Reason for Visit * Reason Comments Follow Up Encounter Details Date Type Department Care Team (Late st Contact Info) Description 01/04/2023 4:30 PM EST Telemedicine Hematology/Oncology [facility] [address] [place] [address] Noemi Donaldson CRNP [address] [facility] [place] [address] Macrocytic anemia*; Thrombocytopenia (HCC); Personal history of alcoholism (HCC); Stage 3b chronic kidney disease (HCC) Allergies Active Allergy Reactions Criticality Noted Date Comments Adhesive Tape Rash 09/12/2000 Cefuroxime Axetil Flushing,Hives,Itching 2011 Ceftriaxone Sodium In Dextrose 01/08/2015 Hives Statins Muscle pain Low 09/01/2013 Zolpidem Neuro complications (Please comment) Low 05/18/2010 ambien documented as of this encounter (statuses as of 01/22/2023) Medications Medication Sig Dispensed Refills Start Date [...] of insulin (HCC),Other specified hypothyroidism,Cent rilobular emphysema ([facility]),COPD, group B, [...] the morning. 90 Tablet 1 01/04/2023 Active Vitamin B-1 50 MG Oral Tablet (vitamin B-1) 1 Tablet. 0 07/07/2021 3 Discontinu ed(Medicat ion/Dose Changed) Furosemide 20 MG Oral Tablet (Lasix)Indications: Lower [...] as of this encounter (statuses as of 01/22/2023) Active Problems Problem Noted Date Diagnosed Date [...] as of this encounter (statuses as of 01/22/2023) Resolved Problems Problem Noted Date Diagnosed Date [...] states received one on prior visit. 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 Acute appendicitis 8 documented as of this encounter (statuses as of 01/22/2023) Immunizations Name Administration Dates Next Due COVID-19, [...] as of this encounter Progress Notes * Noemi Donaldson CRNP - 01/04/2023 4:30 PM EST Hematology/Oncology Telephone Note [facility] Name: Neil Elliott Terri Rubio Date: 01/04/2023 CHIEF COMPLAINT: Neil Ramos Jr. is a 82 year old male patient of Dr. Staples completing a telephone visit in lieu of scheduled follow-up visit due to Covid-19 pandemic. Oncology history from patient chart, confirmed with patient. HEMATOLOGY/ONCOLOGY DIAGNOSIS: Macrocytic anemia and Thrombocytopenia BANG CURRENT TREATMENT: Pending HISTORY OF PRESENT ILLNESS: PMH COPD, CHF, DM type II, fatty liver disease, HLD, atrial fibrillation, hypothyroidism on Synthroid, GERD on PPI and alcoholism. [facility] 12/05/22 Hgb 9.2 and platelet count 109K (12.6 and 174K on 06/04/22). Chronic macrocytosis noted. Decline in renal function noted over the last six months. 12/05/22 creatinine 1.8 (1.1 on 06/04/22). LFTs WNL. TSH 12/05/22 WNL. 12/05/22 Vitamin B12 and folic acid levels WNL; TSAT 48% and ferritin 606.8. Currently taking Folic acid 1 mg daily and Vitamin B12 1,000 mcg daily Declined hepatology evaluation previously for fatty liver disease. Patient denies melena or hematochezia. Sent in stool card on Saturday. Has noticed increased weakness over last few months. Generally ambulates with a walker, in wheelchair today. Having more trouble getting up from seated position. Denies dizziness or SOB. Denies increased fatigue. Uses oxygen at night. Patient has poor diet. Only eats approximately one meal a day at lunch. Generally consists of scrambled eggs, hamburgers or fish with rice. Does not eat fruit or vegetables. Was constipated for 8 days recently. Resolved itself this morning, did not take anything for this Otherwise GI ROS negative. [facility]. Unclear why. Does not take lasix at all though he is prescribed. Continues to drink alcohol daily, 2-3 glasses of Vodka. Former smoker, quit in 1989. Interval History: Abdominal U/S 12/24/22: IMPRESSION: Shadowing gallstones are present. No ultrasound evidence of acute cholecystitis. Coarsened liver echotexture suggestive of fatty infiltration/parenchymal liver disease. Nephrology consult pending. IMPRESSION/PLAN: Macrocytic anemia and Thrombocytopenia BANG Cause of macrocytosis and cytopenias likely multifactorial with possible etiologies including alcohol causing bone marrow suppression, nutritional deficiencies, liver disease, and/or renal insufficiency. Cannot rule out underlying bone marrow pathology. Lab results reviewed with patient: H/H has declined slightly further at 8.8/27.8, continues with macrocytic indices with MCV of 108.2 Platelet count stable at 119K Renal function continues to decline with creatinine of 2.3 LFTs WNL Ferritin elevated at 585, TSAT WNL at 41 - likely related to fatty liver disease Abs retic is not appropriately elevated. No signs of hemolysis No paraprotein detected. Vitamin B12 and folic acid WNL Zinc low at 47 Vitamin B1 low at 55 No splenomegaly noted on abdominal ultrasound Prescription sent for patient to start Thiamine 100 mg daily and Zinc 50 mg daily Continue supplementation with oral vitamin b12 and folic acid as currently taking. Recommending starting a nutritional supplement such as boost or ensure. Again recommended patient to abstain from alcohol Worsening of anemia likely at least partially related to renal insufficiency. Nephrology consult pending. Will continue to observe closely. Repeat cbc/diff monthly. After connecting to the patient via telephone, the patient was identified by name and date of . Patient was then informed that this was a telephone call only visit. The patient agreed to participate. Visit Disposition: Routine follow-up in three months with provider with cbc/diff, cmp, thiamine andzinc Total call duration was 8 minutes. INTERVAL HISTORY: Niel Gallagher Maria Estheryo is a 82 year old male with a history as outlined above. Being contacted for a telephone follow-up visit today. Patient denies taking an iron supplement. Is not currently taking a Vitamin B1 supplement either. Review of patient's allergies indicates: Allergen Reactions Adhesive Tape Rash Cefuroxime Axetil Flushing, Hives and Itching Rocephin [Ceftriaxone Sodium In Dextrose] Hives Statins Muscle pain Zolpidem Neuro complications (Please comment) ambien Current Outpatient Medications Medication Sig Dispense Refill [...] Tablet Take 2,000 Units by mouth daily. Folic Acid 1 MG Oral Tablet Take 1 Tablet by mouth in the morning. (Patient not taking: Reported on12/18/2022) Vitamin B-1 50 MG Oral Tablet (vitamin B-1) 1 Tablet. Fluticasone-Salmeterol 250-50 MCG/ACT Inhalation Aerosol Powder Breath [...] MAX 3 DOSES. NO RELIEF CALL 911 (Patient not taking: Reported on 12/27/2022) 25 Tablet 5 Tadalafil 20 MG Oral Tablet TAKE 1 TABLET BY MOUTH ONCE DAILY NEEDED FOR ERECTILE DYSFUNCTION 10Tablet 3 Meclizine HCl 25 MG Oral Tablet (Antivert) Take 1 Tablet by mouth 3 times a day as needed for Dizziness. 30 Tablet 1 traZODone HCl 50 MG Oral Tablet (Desyrel) TAKE 1 TABLET BY MOUTH ONCE DAILY AT BEDTIME 90 Tablet 2 Furosemide 20 MG Oral Tablet (Lasix) Take 1 Tablet by mouth in the morning. 30 Tablet 11 Potassium Chloride Kary ER 20 MEQ Oral Tablet Extended Release Take 1 Tablet by mouth in the morning and 1 Tablet before bedtime. 60 Tablet 11 Lansoprazole 15 MG Oral Capsule Delayed Release (Prevacid) Take 1 Capsule by mouth in the morning. 90 Capsule 3 Docusate Sodium 100 MG Oral Capsule (Colace) Take 1 Capsule by mouth in the morning and 1 Capsule before bedtime. (Patient not taking: Reported on 12/27/2022) 60 Capsule 5 LORazepam 0.5 MG Oral Tablet (Ativan) Take 1 Tablet by mouth 2 times a day as needed for Anxiety. 60 Tablet 0 traMADol HCl 50 MG Oral Tablet (Ultram) Take 1 Tablet by mouth every 6 hours as needed for Pain, Moderate. 30 Tablet 0 Losartan Potassium 25 MG Oral Tablet (Cozaar) Take 1 Tablet by mouth in the morning. 90 Tablet 3 No current facility-administered medications for this visit. 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 dimer 06/24/2018 RBBB Reflux esophagitis 1992 Sciatica 1999 >06/12:ED Block 09/08/01 Sinus bradycardia Tinnitus of both ears 06/24/2018 Varicose vein of leg Right leg REVIEW OF SYSTEMS: see interval history; otherwise WNL OBJECTIVE: Vital signs not available for review at time of call Wt Readings from Last 5 Encounters: 12/18/22 84.4 kg (186 lb 1.6 oz) 11/02/22 87.5 kg (193 lb) 08/22/22 87.5 kg (193 lb) 05/02/22 89.7 kg (197 lb 12.8 oz) 04/26/22 88.4 kg (194 lb 12.8 oz) PHYSICAL EXAM: N/A, telephone visit LABS: Results for orders placed or performed in visit on 12/18/22 COMPREHENSIVE METABOLIC PANEL Result Value Ref Range BUN 39 (H) 6 - 20 mg/dL Creatinine 2.3 (H) 0.6 - 1.2 mg/dL Estimated Glomerular Filtration Rate 27 (L) >=60 mL/min Sodium 138 135 - 146 mmol/L Potassium 4.3 3.5 - 5.1 mmol/L Chloride 96 (L) 98 - 107 mmol/L CO2 29 22 - 32 mmol/L Anion Gap 13 7 - 15 mmol/L Glucose 95 70 - 120 mg/dL Albumin 3.6 (L) 3.8 - 5.0 g/dL AST 18 10 - 50 U/L Alkaline Phosphatase 116 35 - 130 U/L Bilirubin, Total 1.0 <=1.2 mg/dL Calcium 9.0 8.4 - 10.2 mg/dL Protein 6.0 6.0 - 8.3 g/dL ALT 7 (L) 10 - 50 U/L IRON SCREEN, INCLUDING TIBC Result Value Ref Range Iron 68 45 - 176 ug/dL Iron Binding Capacity 164 (L) 250 - 425 ug/dL Transferrin Saturation Percent 41 15 - 55 % FERRITIN Result Value Ref Range Ferritin 585 (H) 30 - 400 ng/mL SOLUBLE TRANSFERRIN RECEPTOR Result Value Ref Range Soluble Tranferrin Receptor 0.54 (L) 0.76 - 1.76 mg/L RETICULOCYTE PANEL Result Value Ref Range Reticulocyte Percent 2.94 (H) 0.80 - 1.90 % Absolute Reticulocyte 75.6 31.3 - 100.1 K/uL Immature Reticuloctye Fraction 24.9 (H) 2.5 - 20.6 % Reticulocyte Hemoglobin 36.4 29.7 - 37.4 pg LD Result Value Ref Range LD 152 <=250 U/L SERUM PROTEIN ELECTROPHORESIS REFLEX PROFILE Result Value Ref Range Protein 6.0 6.0 - 8.3 g/dL Albumin 2.96 (L) 3.30 - 4.40 g/dL Alpha-1 Globulin 0.26 0.10 - 0.30 g/dL Alpha-2 Globulin 0.82 0.60 - 1.00 g/dL Beta-Globulin 0.65 (L) 0.80 - 1.30 g/dL Gamma-Globulin 1.31 0.70 - 1.70 g/dL Electrophoresis Interpretation No paraprotein detected. SERUM FREE LIGHT CHAINS Result Value Ref Range [place] Free Light Chains, Serum 53.30 (H) 3.30 - 19.40 mg/L Lambda Free Light Chains, Serum 83.09 (H) 5.71 - 26.30 mg/L [place] Lambda Free Light Chains Ratio 0.64 0.26 - 1.65 IMMUNOGLOBULIN QUANTITATIVE Result Value Ref Range IgG 1,083 700 - 1,600 mg/dL IgA 365 70 - 400 mg/dL IgM 174 40 - 230 mg/dL VITAMIN B12 Result Value Ref Range Vitamin B12 1,405 (H) 232 - 1,245 pg/mL FOLIC ACID Result Value Ref Range Folic Acid 19.7 >4.5 ng/mL COPPER, SERUM OR PLASMA Result Value Ref Range Copper 121 70 - 175 mcg/dL ZINC Result Value Ref Range Zinc 47 (L) 60 - 130 mcg/dL VITAMIN B1 (THIAMINE), BLOOD, LC/MS/MS Result Value Ref Range Vitamin B1 (Thiamine),B 55 (L) 78 - 185 nmol/L HAPTOGLOBIN Result Value Ref Range Haptoglobin 136 30 - 200 mg/dL CBC Result Value Ref Range WBC 4.38 4.00 - 10.80 K/uL RBC 2.57 4.50 - 5.25 M/uL HGB 8.8 (L) 14.0 - 16.8 g/dL HCT 27.8 (L) 40.0 - 48.4 % MCV 108.2 82.0 - 99.5 fL MCH 34.2 27.0 - 34.0 pg MCHC 31.7 32.0 - 36.0 g/dL RDW 14.4 11.5 - 15.5 % PLT 119 (L) 140 - 400 K/uL MPV 11.0 6.6 - 11.1 fL nRBCs 0 <=0 /100 WBCs DIFFERENTIAL, AUTOMATED Result Value Ref Range WBC 4.38 4.00 - 10.80 K/uL Neutrophils % 58.9 40.0 - 75.0 % Lymphocytes % 26.9 18.0 - 42.0 % Monocytes % 8.7 1.0 - 11.0 % Eosinophils % 4.8 0.0 - 6.0 % Basophils % 0.5 0.0 - 2.0 % Immature Granulocytes % 0.2 0.0 - 2.0 % Absolute Neutrophils 2.58 1.80 - 7.70 K/uL Absolute Lymphocytes 1.18 1.00 - 4.80 K/ul Absolute Monocytes 0.38 0.00 - 1.10 K/uL Absolute Eosinophils 0.21 0.00 - 0.70 K/uL Absolute Basophils 0.02 0.00 - 0.20 K/uL Absolute Immature Granulocytes 0.01 0.00 - 0.20 K/uL *Note: Due to a large number of results and/or encounters for the requested time period, some results have not been displayed. A complete set of results can be found in Results Review. Please, see top of note for IMPRESSION and PLAN. SUNITHA Zimmerman documented in this encounter Plan of Treatment Upcoming Encounters Date Type Department Care Team (Late st Contact Info) Description 02/08/2023 10:30 AM EST Laboratory Laboratory Patient Service [address] [address] [place], Lab [facility] [address] [facility] [place] [address] 02/13/2023 11:00 AM EST [facility] [address] [facility] [place] [phone] Herminia Juan Luis Mejias, DO [address] [facility] [place] [address] Scheduled Orders Name Type Priority Associated Diagnoses Orde r Schedule CBC WITH WBC DIFFERENTIAL Lab STAT Macrocytic anemia Personal history of alcoholism (HCC) Stage 3b chronic kidney disease (HCC) Thrombocytopenia (HCC) Every Month for 3 Occurrences starting 01/22/2023 until 07/24/2023 COMPREHENSIVE METABOLIC PANEL Lab STAT Macrocytic anemia Personal history of alcoholism (HCC) Stage 3b chronic kidney disease (HCC) Thrombocytopenia (HCC) Expected: 04/05/2023 (Approximate), Expires: 07/05/2023 VITAMIN B1 (THIAMINE), BLOOD, LC/MS/MS Lab STAT Macrocytic anemia Personal history of alcoholism (HCC) Stage 3b chronic kidney disease (HCC) Thrombocytopenia (HCC) Expected: 04/05/2023 (Approximate), Expires: 07/05/2023 ZINC Lab STAT Macrocytic anemia Personal history of alcoholism (HCC) Stage 3b chronic kidney disease (HCC) Thrombocytopenia (HCC) Expected: 04/05/2023 (Approximate), Expires: 07/05/2023 Health Maintenance Due Date Last Done Comments [...] COPD 12/28/2023 12/27/2022 CKD HGB USE SMARTSET 20897 01/10/202401/09, 01/09/2023, 12/18/2022, Additional history exists CKD PHOS USE SMARTSET 76936 01/10/202412/13, 06/28/2021, 06/24/2021, Additional history exists Pneumococcal [...] this encounter Medical Devices Implanted Type Area Anesthesiologist Attending Device Identifier Shelf Expiration Date Model / Serial / Lot Rsp Bone Screw-Locking Sz 5.0 Mm 26mm Long Implanted:Qty: 1 on 02/24/2015 by Aníbal Frankel MD at [facility] Right: Shoulder [employer] 01/22/2021 506-03-126 / / [id number] documented as of this encounter Visit Diagnoses Diagnosis Macrocytic anemia- Primary Unspecified deficiency anemia Thrombocytopenia (HCC) Thrombocytopenia, unspecified Personal history of alcoholism (HCC) Personal history of alcoholism Stage 3b chronic kidney disease (HCC) documented [...] the patient have Health Care Power of Entry Writer? Yes, not currently available Code Status History Code Status Date Activated Date Inactivated Comments Full Code 06/24/2018 1:38 PM 06/24/2018 3:07 PM This order reflects the patients wishes and were consensually agreed upon. Question Answer Comments Discussion of Advance Directives occurred with: Patient Does the patient have a Living Will? No Does the patient have Health Care Power of Entry Writer? No Full Code 07/26/2017 7:36 PM 08/01/2017 4:46 PM This order reflects the patients wishes and were consensually agreed upon. Question Answer Comments Discussion of Advance Directives occurred with: Patient Does the patient have a Living Will? No Does the patient have Health Care Power of Entry Writer? No Full Code 02/24/2015 10:33 AM 02/25/2015 6:10 PM . Question Answer Comments Discussion of Advance Directives occurred with: Not Discussed Full Code 01/07/2015 4:20 PM 01/08/2015 5:32 PM Question Answer Comments Discussion of Advance Directives occurred with: Not Discussed Does the patient have a Living Will? No Does the patient have Health Care Power of Entry Writer? No Care Teams General Cargo Clerk Relationship Specialty Start Date End Date Juan Luis Hope DO [address] [place] [id number] PCP - General Internal Medicine 05/15/21 documented as of this encounter
--- OUTSIDE RECORDS SUMMARY | 2023-04-26 20:42 | External Medical Summary | Summary of Care ---
Author Name Unknown Organization [facility] Address [address] [place] [address] Phone [phone] Care Team Providers Care Barbecue Cook Name Role Phone Juan Luis Hope DO Primary Care Provid er Reason for Visit * Reason Comments Outpatient Testing Encounter Details Date Type Department Care Team (Late st Contact Info) Description 01/09/2023 1:50 PM EST Laboratory Laboratory [facility] [phone] [address] Hyperlipidemia associated with type 2 diabetes mellitus ; Hypertension associated with type 2 diabetes mellitus ; Type 2 diabetes mellitus with diabetic neuropathy, without long-term current use of insulin ([facility]); Other specified hypothyroidism; Centrilobular emphysema ([facility]); COPD, group B, by GOLD 2017 classification ([facility]); Wound of left lower extremity, initial encounter; Lower extremity edema; Spondylosis of lumbosacral region without myelopathy or radiculopathy; Mixed anxiety and depressive disorder; Stage 3b chronic kidney disease ([facility]); Hereditary and idiopathic neuropathy, unspecified; BANG (acute kidney injury) ([facility]); Other congestive heart failure ([facility]) Allergies Active Allergy Reactions Criticality Noted Date [...] of insulin (HCC),Other specified hypothyroidism,Centr ilobular emphysema ([facility]),COPD, group B, by GOLD 2017 classification ([facility]) Inhale 1 Puff by mouth in the [...] pt states received one on prior visit. half-way current use of ant icoagulant therapy 05/17/2003 [...] Upcoming Encounters Date Type Department Care Team ([facility] st Contact Info) Description 02/08/2023 10:30 AM EST Laboratory Laboratory Patient Service [address] [phone] [address] 02/13/2023 11:00 AM EST Office Visit [address] [phone] Juan Luis Hope, [address] [address] Pending Results Name Type Priority Associated Diagnoses [...] 09/03/2019 09/02/2018, 11/11 CKD PHOS USE SMARTSET 63137 06/28/202206/11, 06/24/2021, 06/23/2021, Additional history exists COVID-19 Vaccine ( - 2022- season) 2022 02/08/2021, 08/01/2020 HbA1c 01/29/2023 07/30/2022, 01/11, 07/31/2021, Additional history exists Diabetic Eye Exam 03/19/2023 03/19/2022, , 03/19/2022, Additional history exists GFR 06/18/2023 12/18/2022, 10/13, 10/23/2022, Additional history exists TSH 07/31/2023 07/30/2022, 01/11, 07/31/2021, Additional history exists Depression Screening 11/03/2023 11/02/2022 CKD HGB USE SMARTSET 44053 12/19/202312/18, 12/18/2022, 11/09/2022, Additional history exists Diabetic [...] this encounter Medical Devices Implanted Type Area Practical Nursing Faculty Device Identifier Shelf Expiration Date Model / Serial / Lot Rsp Bone Screw-Locking Sz 5.0 Mm 26mm Long Implanted:Qty: 1 on 02/24/2015 by Aníbal Frankel MD at [facility] Right: Shoulder [employer] 01/22/2021 [id number] / / [id number] documented as of this encounter Visit Diagnoses [...] the patient have Health Care Power of Cleaning Staff Supervisor? Yes, not currently available Code Status History Code Status Date Activated Date Inactivated Comments Full Code 06/24/2018 1:38 PM 06/24/2018 3:07 PM This order reflects the patients wishes and were consensually agreed upon. Question Answer Comments Discussion of Advance Directives occurred with: Patient Does the patient have a Living Will? No Does the patient have Health Care Power of Cleaning Staff Supervisor? No Full Code 07/26/2017 7:36 PM 08/01/2017 4:46 PM This order reflects the patients wishes and were consensually agreed upon. Question Answer Comments Discussion of Advance Directives occurred with: Patient Does the patient have a Living Will? No Does the patient have Health Care Power of Cleaning Staff Supervisor? No Full Code 02/24/2015 10:33 AM 02/25/2015 6:10 PM . Question Answer Comments Discussion of Advance Directives occurred with: Not Discussed Full Code 01/07/2015 4:20 PM 01/08/2015 5:32 PM Question Answer Comments Discussion of Advance Directives occurred with: Not Discussed Does the patient have a Living Will? No Does the patient have Health Care Power of Cleaning Staff Supervisor? No Care Teams Barbecue Cook Relationship Specialty Start Date End Date Juan Luis Hope DO [address] [place] [phone] PCP - General Internal Medicine 05/15/21 documented as of this encounter
--- OUTSIDE RECORDS SUMMARY | 2023-04-26 20:42 | External Medical Summary ---
Author Name Unknown Address Unknown Organization K01:LABORATORY [facility] [place] [facility] [address] [address] Laboratory Report Ordering Provider Test Date Status NOLVIA MENDIETA 01/09/2023 13:46:25 Final Observation Date Value Abnormality Reference (Units ) Status Bilirubin, Direct 01/09/2023 13:46:25 1.0 Above high normal 0.0-0.3 (mg/dL) Final Performing Location LABORATORY [facility] [place] - [address] [place] [address]
--- OUTSIDE RECORDS SUMMARY | 2023-04-26 20:42 | External Medical Summary | Summary of Care ---
Author Name Unknown Organization [facility] Address [address] [facility] [address] Phone [phone] Care Team Providers Care Bag Sealer Name Role Phone [place]oria Juan Luis Mejias Primary Care Provid er Encounter Details Date Type Department Care Team (Late st Contact Info) Description 01/25/2023 Telephone Hematology/Oncology [facility] [place] [address] [id number] Noemi Donaldson CRNP [address] [facility] [place] [address] Allergies Active Allergy Reactions Criticality Noted Date Comments Adhesive Tape Rash 09/12/2000 Cefuroxime Axetil Flushing,Hives,Itching 2011 Ceftriaxone Sodium In Dextrose 01/08/2015 Hives Statins Muscle pain Low 09/01/2013 Zolpidem Neuro complications (Please comment) Low 05/18/2010 ambien documented as of this encounter (statuses as of 01/25/2023) Medications Medication Sig Dispensed Refills Start Date [...] neuropathy, without long-term current use of insulin ([facility]),Other specified hypothyroidism,Centr ilobular emphysema ([facility]),COPD, group B, by GOLD 2017 classification ([facility]) Inhale 1 Puff by mouth in [...] as of this encounter (statuses as of 01/25/2023) Active Problems Problem Noted Date Diagnosed Date [...] as of this encounter (statuses as of 01/25/2023) Resolved Problems Problem Noted Date Diagnosed Date [...] pt states received one on prior visit. skilled nursing current use of ant icoagulant therapy 05/17/2003 01/19/2019 Anticoagulation management encounter 05/11/2003 08/13/2017 HTN, goal below 140/90 06/30 Hypothyroidism 09/01/2014 Reflux esophagitis 0 Mixed dyslipidemia 9 Overview: Per Lipid Taxonomy. Acute appendicitis 8 documented as of this encounter (statuses as of 01/25/2023) Immunizations Name Administration Dates Next Due COVID-19, [...] Upcoming Encounters Date Type Department Care Team ([facility] st Contact Info) Description 02/08/2023 10:30 AM EST Laboratory [facility], [place] [address] [place] [address] [place], [facility] [place] [address] [place] [address] 02/13/2023 11:00 AM EST Office Visit [facility] [address] [place] [address] Juan Luis Hope DO [address] [place] [address] 04/18/2023 2:30 PM EST Laboratory Laboratory Patient Service [place], [place] [address] [place] [address] [place], [facility] [place] [address] [place] [address] 04/25/2023 2:30 PM EDT Office Visit Hematology/Oncology [facility] [address] [place] [address] Noemi Donaldson CRNP [address] [place] [address] Health Maintenance Due Date Last [...] COPD 12/28/2023 12/27/2022 CKD HGB USE SMARTSET 99497 01/10/202401/09, 01/09/2023, 12/18/2022, Additional history exists CKD PHOS USE SMARTSET 65198 01/10/202412/13, 06/28/2021, 06/24/2021, Additional history exists Pneumococcal [...] this encounter Medical Devices Implanted Type Area Rfid Analyst Device Identifier Shelf Expiration Date Model / Serial / Lot Rsp Bone Screw-Locking Sz 5.0 Mm 26mm Long Implanted:Qty: 1 on 02/24/2015 by Aníbal Frankel [place] [facility] [place]: Shoulder [employer] 01/22/2021 506-03-126 / / [id number] documented as of this encounter Advance Directives [...] the patient have Health Care Power of Wood Buffer? Yes, not currently available Code Status History Code Status Date Activated Date Inactivated Comments Full Code 06/24/2018 1:38 PM 06/24/2018 3:07 PM This order reflects the patients wishes and were consensually agreed upon. Question Answer Comments Discussion of Advance Directives occurred with: Patient Does the patient have a Living Will? No Does the patient have Health Care Power of Wood Buffer? No Full Code 07/26/2017 7:36 PM 08/01/2017 4:46 PM This order reflects the patients wishes and were consensually agreed upon. Question Answer Comments Discussion of Advance Directives occurred with: Patient Does the patient have a Living Will? No Does the patient have Health Care Power of Wood Buffer? No Full Code 02/24/2015 10:33 AM 02/25/2015 6:10 PM . Question Answer Comments Discussion of Advance Directives occurred with: Not Discussed Full Code 01/07/2015 4:20 PM 01/08/2015 5:32 PM Question Answer Comments Discussion of Advance Directives occurred with: Not Discussed Does the patient have a Living Will? No Does the patient have Health Care Power of Wood Buffer? No Care Teams Bag Sealer Relationship Specialty Start Date End Date Juan Luis Hope DO [address] [place] [phone] PCP - General Internal Medicine 05/15/21 documented as of this encounter
--- OUTSIDE RECORDS SUMMARY | 2023-04-26 20:42 | External Medical Summary | Summary of Care ---
Author Name Unknown Organization [facility] Address [address] [facility] [place] [address] Phone [phone] Care Team Providers Care Trawl Net Maker Name Role Phone Herminia Juan Luis Mejias Primary Care Provid er Encounter Details Date Type Department Care Team (Late st Contact Info) Description 01/14/2023 Orders Only Nephrology, [place] [address] [facility] [place] [address] Horacio Hernandez MD [address] [place] [address] Stage 3b chronic kidney disease (HCC)* Allergies Active Allergy Reactions Criticality Noted Date Comments Adhesive Tape Rash 09/12/2000 Cefuroxime Axetil Flushing,Hives,Itching 2011 Ceftriaxone Sodium In Dextrose 01/08/2015 Hives Statins Muscle pain Low 09/01/2013 Zolpidem Neuro complications (Please comment) Low 05/18/2010 ambien documented as of this encounter (statuses as of 01/14/2023) Medications Medication Sig Dispensed Refills Start Date [...] long-term current use of insulin ([facility]),Other specified hypothyroidism,Centr ilobular emphysema ([facility]),COPD, group B, by GOLD 2017 classification ([facility]) Inhale 1 Puff by mouth in the [...] as of this encounter (statuses as of 01/14/2023) Active Problems Problem Noted Date Diagnosed Date [...] as of this encounter (statuses as of 01/14/2023) Resolved Problems Problem Noted Date Diagnosed Date [...] transurethral res ection of prostate 08/05/2017 06/30/2018 skilled nursing resident 08/05/20172017 DNR (do not resuscitate) 08/05/201706/2017 [...] states received one on prior visit. senior care current use of ant icoagulant therapy 05/17/2003 01/19/2019 Anticoagulation management encounter 05/11/2003 08/13/2017 HTN, goal below 140/90 06/30 Hypothyroidism 09/01/2014 Reflux esophagitis 0 Mixed dyslipidemia 9 Overview: Per Lipid Taxonomy. Acute appendicitis 8 documented as of this encounter (statuses as of 01/14/2023) Immunizations Name Administration Dates Next Due COVID-19, [...] as of this encounter Progress Notes * Birgit Collier, FOLDING MACHINE OPERATOR - 01/14/2023 11:48 AM EST Pt aware of lab order. documented in this encounter Plan of Treatment Upcoming Encounters Date Type Department Care Team ([facility] st Contact Info) Description 02/08/2023 10:30 AM EST Laboratory Laboratory Patient Service [place], [place] [address] [place] [address] [place], [facility] [place] [address] [place], [place] [id number] 02/13/2023 11:00 AM EST Office Visit [facility] [address] [place] [address] Juan Luis Hope, [address] [place] [address] Scheduled Orders Name Type Priority Associated Diagnoses Orde r Schedule RENAL FUNCTION PANEL Lab Routine Stage 3b chronic kidney disease (HCC) Expected: 01/14/2023 (Approximate), Expires: 01/15/2024 Health Maintenance Due Date Last Done Comments [...] 03/19/2022, Additional history exists GFR 07/10/2023 01/09/2023, 08/2022, 11/09/2022, Additional history exists TSH 07/31/2023 07/30/2022, 01/11, 07/31/2021, Additional history exists Depression Screening 11/03/2023 11/02/2022 Diabetic Foot Exam 12/28/2023 12/27/2022, 0 07/14/2021, 08/19/2019, Additional history exists O2 ASSESSMENT COMPLETED IN PAST YEAR FOR COPD 12/28/2023 12/27/2022 CKD HGB USE SMARTSET 58070 01/10/202401/09, 01/09/2023, 12/18/2022, Additional history exists CKD PHOS USE SMARTSET 41107 01/10/202412/13, 06/28/2021, 06/24/2021, Additional history exists Pneumococcal [...] this encounter Medical Devices Implanted Type Area Natural Gas Trader Device Identifier Shelf Expiration Date Model / Serial / Lot Rsp Bone Screw-Locking Sz 5.0 Mm 26mm Long Implanted:Qty: 1 on 02/24/2015 by Aníbal Frankel MD at [facility] Right: Shoulder [employer] 01/22/2021 [id number] / / [id number] documented as of this encounter Visit Diagnoses Diagnosis Stage 3b chronic kidney disease (HCC)- Primary documented in this encounter Advance Directives Latest [...] the patient have Health Care Power of Chiller Operator? Yes, not currently available Code Status History Code Status Date Activated Date Inactivated Comments Full Code 06/24/2018 1:38 PM 06/24/2018 3:07 PM This order reflects the patients wishes and were consensually agreed upon. Question Answer Comments Discussion of Advance Directives occurred with: Patient Does the patient have a Living Will? No Does the patient have Health Care Power of Chiller Operator? No Full Code 07/26/2017 7:36 PM 08/01/2017 4:46 PM This order reflects the patients wishes and were consensually agreed upon. Question Answer Comments Discussion of Advance Directives occurred with: Patient Does the patient have a Living Will? No Does the patient have Health Care Power of Chiller Operator? No Full Code 02/24/2015 10:33 AM 02/25/2015 6:10 PM . Question Answer Comments Discussion of Advance Directives occurred with: Not Discussed Full Code 01/07/2015 4:20 PM 01/08/2015 5:32 PM Question Answer Comments Discussion of Advance Directives occurred with: Not Discussed Does the patient have a Living Will? No Does the patient have Health Care Power of Chiller Operator? No Care Teams Trawl Net Maker Relationship Specialty Start Date End Date Juan Luis Hope DO [address] [place] [address] PCP - General Internal Medicine 05/15/21 documented as of this encounter
--- OUTSIDE RECORDS SUMMARY | 2023-04-26 20:42 | External Medical Summary | Summary of Care ---
Author Name Unknown Organization [facility] Address [address] [facility] [place] [address] Phone [phone] Care Team Providers Care Range Conservationist Name Role Phone StephanieJuan Luis kingsley Primary Care Provid er Reason for Visit * Reason Comments Follow Up Encounter Details Date Type Department Care Team (Late st Contact Info) Description 01/04/2023 4:30 PM EST Telemedicine Hematology/Oncology [facility] [address] [place] [address] Noemi Donaldson CRNP [address] [facility] [place] [address] Macrocytic anemia*; Thrombocytopenia [...] of insulin (HCC),Other specified hypothyroidism,Cent rilobular emphysema ([facility]),COPD, [...] transurethral res ection of prostate 08/05/2017 06/30/2018 group home resident 08/05/20172017 DNR (do not resuscitate) 08/05/201706/2017 [...] received one on prior visit. 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 05/17/2003 Mixed [...] FREE LIGHT CHAINS Result Value Ref Range [place] Free Light Chains, Serum 53.30 (H) 3.30 - 19.40 mg/L Lambda Free Light Chains, Serum 83.09 (H) 5.71 - 26.30 mg/L [place] Lambda Free Light Chains Ratio 0.64 0.26 [...] 10:30 AM EST Laboratory Laboratory Patient Service [address] [address] [place], [facility] [place] [address] [facility] [place] [address] 02/13/2023 11:00 AM EST [facility] [place] [address] [place] Juan Luis Mejias, DO [address] [facility] [place] [address] Scheduled Orders Name Type Priority Associated Diagnoses [...] COPD 12/28/2023 12/27/2022 CKD HGB USE SMARTSET 73010 01/10/202401/09, 01/09/2023, 12/18/2022, Additional history exists CKD PHOS USE SMARTSET 62050 01/10/202412/13, 06/28/2021, 06/24/2021, Additional history exists Pneumococcal [...] this encounter Medical Devices Implanted Type Area Crew Clerk Device Identifier Shelf Expiration Date Model / Serial / Lot Rsp Bone Screw-Locking Sz 5.0 Mm 26mm Long Implanted:Qty: 1 on 02/24/2015 by Aníbal Frankel MD at [facility] Right: Shoulder [employer] 01/22/2021 [id number] / / [id number] documented as of this encounter Visit Diagnoses [...] the patient have Health Care Power of Correspondence Analyst? Yes, not currently available Code Status History Code Status Date Activated Date Inactivated Comments Full Code 06/24/2018 1:38 PM 06/24/2018 3:07 PM This order reflects the patients wishes and were consensually agreed upon. Question Answer Comments Discussion of Advance Directives occurred with: Patient Does the patient have a Living Will? No Does the patient have Health Care Power of Correspondence Analyst? No Full Code 07/26/2017 7:36 PM 08/01/2017 4:46 PM This order reflects the patients wishes and were consensually agreed upon. Question Answer Comments Discussion of Advance Directives occurred with: Patient Does the patient have a Living Will? No Does the patient have Health Care Power of Correspondence Analyst? No Full Code 02/24/2015 10:33 AM 02/25/2015 6:10 PM . Question Answer Comments Discussion of Advance Directives occurred with: Not Discussed Full Code 01/07/2015 4:20 PM 01/08/2015 5:32 PM Question Answer Comments Discussion of Advance Directives occurred with: Not Discussed Does the patient have a Living Will? No Does the patient have Health Care Power of Correspondence Analyst? No Care Teams Range Conservationist Relationship Specialty Start Date End Date Juan Luis Hope DO [address] [place] [phone] PCP - General Internal Medicine 05/15/21 documented as of this encounter
--- OUTSIDE RECORDS SUMMARY | 2023-04-26 20:42 | External Medical Summary ---
Author Name Unknown Address Unknown Organization K01:[facility] [address] [place] [address] Laboratory Report Ordering Provider Test Date Status NOLVIA MENDIETA 01/09/2023 13:46:25 Final Observation Date Value Abnormality Reference (Units ) Status Neutrophil cytoplasmic Ab [Presence] in Serum by Immunofluorescence 01/09/2023 13:46:25 Negative Negative Final Neutrophil cytoplasmic Ab [Presence] in Serum by Immunofluorescence 01/09/2023 13:46:25 Negative Negative Final Negative for ANCA. Performing Location [facility] - [address] [place] [address]
--- OUTSIDE RECORDS SUMMARY | 2023-04-26 20:43 | External Medical Summary | Summary of Care ---
Author Name Unknown Organization [facility] Address [address] [place] [address] Phone [phone] Care Team Providers Care Insurance Appraiser Name Role Phone [place] Juan Luis Mejias Primary Care Provid er Reason for Visit * Reason Comments Outpatient Testing Encounter Details Date Type Department Care Team (Late st Contact Info) Description 12/18/2022 2:20 PM EST Laboratory Laboratory Scenery [facility] [address] [place] [phone] [place], Lab Scenery [address] [place] [address] Macrocytic anemia; Stage 3b chronic kidney disease (HCC); Personal history of alcoholism ([facility]) Allergies Active Allergy Reactions Criticality Noted Date Comments Adhesive Tape Rash 09/12/2000 Cefuroxime Axetil Flushing,Hives,Itching 2011 Ceftriaxone Sodium In Dextrose 01/08/2015 Hives Statins Muscle pain Low 09/01/2013 Zolpidem Neuro complications (Please comment) Low 05/18/2010 ambien documented as of this encounter (statuses as of 12/18/2022) Medications Medication Sig Dispensed Refills Start Date [...] by mouth in the morning. 0 Active Vitamin B-1 50 MG Oral Tablet (vitamin B-1) 1 Tablet. 0 07/07/2021 Active Fluticasone-Salmeter ol 250-50 MCG/ACT Inhalation Aerosol Powder Breath Activated (Advair Diskus)Indications:H yperlipidemia associated with type 2 diabetes mellitus,Hypertensio n associated with type 2 diabetes mellitus,Type 2 diabetes mellitus with diabetic neuropathy, without long-term current use of insulin ([facility]),Other specified hypothyroidism,Centr ilobular emphysema ([facility]),COPD, group B, by GOLD 2017 classification ([facility]) Inhale 1 Puff by mouth in the morning and 1 Puff before bedtime. 60 Each 5 05/02/2022 Active Metoprolol Succinate ER 25 MG Oral Tablet Extended Release 24 Hour (toPROL XL) Take 1 Tablet by mouth in the morning. 0 Active traMADol HCl 50 MG Oral Tablet (Ultram)Indications: Spondylosis of lumbosacral region without myelopathy or radiculopathy Take 1 Tablet by mouth every 6 hours as needed for Pain, Moderate. 30 Tablet 0 06/08/2022 Active Nitroglycerin 0.4 MG Sublingual Tablet Sublingual [...] AT BEDTIME 90 Tablet 2 09/12/2022 Active Furosemide 20 MG Oral Tablet (Lasix)Indications:L ower extremity edema Take 1 Tablet by mouth in the morning. 30 Tablet 11 10/23/2022 Active Potassium Chloride Kary ER 20 MEQ Oral Tablet Extended ReleaseIndications:L ower extremity edema Take 1 Tablet by mouth in the morning and 1 Tablet before bedtime. 60 Tablet 11 10/23/2022 Active Lansoprazole 15 MG Oral Capsule Delayed [...] Active Additional Information Patient not taking.Reported on 12/18/2022 LORazepam 0.5 MG Oral Tablet (Ativan)Indications: Anxiety state Take 1 Tablet by mouth 2 times a day as needed for Anxiety. 60 Tablet 0 12/04/2022 Active Losartan Potassium 50 MG Oral Tablet (Cozaar)Indications: Hypertension associated with type 2 diabetes mellitus TAKE 1 TABLET BY MOUTH ONCE DAILY IN THE MORNING 90 Tablet 3 12/14/2022 Active documented as of this encounter (statuses as of 12/18/2022) Active Problems Problem Noted Date Diagnosed Date [...] as of this encounter (statuses as of 12/18/2022) Resolved Problems Problem Noted Date Diagnosed Date [...] states received one on prior visit. 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 Acute appendicitis 8 documented as of this encounter (statuses as of 12/18/2022) Immunizations Name Administration Dates Next Due COVID-19, [...] or making decisions? (5 years old or older No 06/24/2018 documented as of this encounter Plan of Treatment Upcoming Encounters Date Type Department Care Team ([facility] st Contact Info) Description 12/19/2022 11:20 AM EST Office Visit [facility] [address] [place] [phone] Jaclyn Bucio PA-C [address] [place] [address] 12/24/2022 10:30 AM EST Imaging Radiology [address] [place] [address] [place] [address] 01/04/2023 4:30 PM EST Telemedicine Hematology/Oncology [facility] [address] [facility], [place] [address] Noemi Donaldson CRNP [address] [facility] [place] [address] 02/08/2023 10:30 AM EST Laboratory [facility], [address] [phone] [facility] [address] [place] [address] 02/13/2023 11:00 AM EST Office Visit [facility] [address] [place] [phone] Juan Luis Hope DO [address] [place] [address] Pending Results Name Type Priority Associated Diagnoses Date /Time CBC WITH WBC DIFFERENTIAL Lab Routine Macrocytic anemia Stage 3b chronic kidney disease (HCC) Personal history of alcoholism (HCC) 12/18/2022 2:14 PM EST COMPREHENSIVE METABOLIC PANEL Lab Routine Macrocytic anemia Stage 3b chronic kidney disease (HCC) Personal history of alcoholism (HCC) 12/18/2022 2:14 PM EST IRON SCREEN, INCLUDING TIBC Lab Routine Macrocytic anemia Stage 3b chronic kidney disease (HCC) Personal history of alcoholism (HCC) 12/18/2022 2:14 PM EST FERRITIN Lab Routine Macrocytic anemia Stage 3b chronic kidney disease (HCC) Personal history of alcoholism (HCC) 12/18/2022 2:14 PM EST SOLUBLE TRANSFERRIN RECEPTOR Lab Routine Macrocytic anemia Stage 3b chronic kidney disease (HCC) Personal history of alcoholism (HCC) 12/18/2022 2:14 PM EST RETICULOCYTE PANEL Lab Routine Macrocytic anemia Stage 3b chronic kidney disease (HCC) Personal history of alcoholism (HCC) 12/18/2022 2:14 PM EST LD Lab Routine Macrocytic anemia Stage 3b chronic kidney disease (HCC) Personal history of alcoholism (HCC) 12/18/2022 2:14 PM EST SERUM PROTEIN ELECTROPHORESIS REFLEX PROFILE Lab Routine Macrocytic anemia Stage 3b chronic kidney disease (HCC) Personal history of alcoholism (HCC) 12/18/2022 2:14 PM EST SERUM FREE LIGHT CHAINS Lab Routine Macrocytic anemia Stage 3b chronic kidney disease (HCC) Personal history of alcoholism (HCC) 12/18/2022 2:14 PM EST IMMUNOGLOBULIN QUANTITATIVE Lab Routine Macrocytic anemia Stage 3b chronic kidney disease (HCC) Personal history of alcoholism (HCC) 12/18/2022 2:14 PM EST VITAMIN B12 Lab Routine Macrocytic anemia Stage 3b chronic kidney disease (HCC) Personal history of alcoholism (HCC) 12/18/2022 2:14 PM EST FOLIC ACID Lab Routine Macrocytic anemia Stage 3b chronic kidney disease (HCC) Personal history of alcoholism (HCC) 12/18/2022 2:14 PM EST COPPER, SERUM OR PLASMA Lab Routine Macrocytic anemia Stage 3b chronic kidney disease (HCC) Personal history of alcoholism (HCC) 12/18/2022 2:14 PM EST ZINC Lab Routine Macrocytic anemia Stage 3b chronic kidney disease (HCC) Personal history of alcoholism (HCC) 12/18/2022 2:14 PM EST VITAMIN B1 (THIAMINE), BLOOD, LC/MS/MS Lab Routine Macrocytic anemia Stage 3b chronic kidney disease (HCC) Personal history of alcoholism (HCC) 12/18/2022 2:14 PM EST HAPTOGLOBIN Lab STAT Macrocytic anemia Stage 3b chronic kidney disease (HCC) Personal history of alcoholism (HCC) 12/18/2022 2:14 PM EST CBC Lab Routine Macrocytic anemia Stage 3b chronic kidney disease (HCC) Personal history of alcoholism (HCC) 12/18/2022 2:14 PM EST DIFFERENTIAL, AUTOMATED Lab Routine Macrocytic anemia Stage 3b chronic kidney disease (HCC) Personal history of alcoholism (HCC) 12/18/2022 2:14 PM EST Health Maintenance Due Date Last Done Comments Zoster Vaccines (1 of 2) 11/30/1991 Hepatitis B (1 of 3 - Risk 3-dose series) 2001 DTaP,Tdap,and Td Vaccines (1 - Tdap) 04/20/2011 04/19/2011, 06/07/1999 *COPD SEVERITY VERIFIED BY PFT 08/24/2017 COLONOSCOPY-EVERY 2 YRS AGES 18-100 02/13/2018 02/14/2016, 02/14/2016, 11/16/2005 Albumin/Creatinine Ratio 09/03/2019 09/02/2018, 11/11 CKD PHOS USE SMARTSET 58514 06/28/202206/11, 06/24/2021, 06/23/2021, Additional history exists Diabetic Foot Exam 07/14/2022 07/14/2021, 0 08/19/2019, 06/30/2018 COVID-19 Vaccine ( season) 2022 02/08/2021, 08/01/2020 HbA1c 01/29/2023 07/30/2022, 01/11, 07/31/2021, Additional history exists Diabetic Eye Exam 03/19/2023 03/19/2022, , 03/17/2020, Additional history exists GFR 05/10/2023 11/09/2022, 10/12, 07/30/2022, Additional history exists TSH 07/31/2023 07/30/2022, 01/11, 07/31/2021, Additional history exists Depression Screening 11/03/2023 11/02/2022 CKD HGB USE SMARTSET 79223 11/10/202311/09, 07/30/2022, 07/30/2022, Additional history exists O2 ASSESSMENT COMPLETED IN PAST YEAR FOR COPD 11/22/2023 11/21/2022 Pneumococcal Vaccine: 65+ Years Completed 02/10/2018, 01/30/2017 Alpha-1 Antitrypsin Completed 07/30/2022 Influenza Vaccine (FLU shot) Completed 01/2023, 04/26/2021, 03/04/2020, Additional history exists GARDASIL-HPV IMMUNIZATION SERIES Aged Out No longer eligible based on patient's age to complete this topic MENINGOCOCCAL (MENACTRA/MENVEO) Aged Out No longer eligible based on patient's age to complete this topic documented as of this encounter Medical Devices Implanted Type Area Permit Review Assistant Device Identifier Shelf Expiration Date Model / Serial / Lot Rsp Bone Screw-Locking Sz 5.0 Mm 26mm Long Implanted:Qty: 1 on 02/24/2015 by Aníbal Frankel MD at [facility] Right: Shoulder [employer] 01/22/2021 506-03-126 / / [id number] documented as of this encounter Visit Diagnoses Diagnosis Macrocytic anemia Unspecified deficiency anemia Stage 3b chronic kidney disease (HCC) Personal history of alcoholism (HCC) Personal history of alcoholism documented in this encounter Advance Directives Latest [...] the patient have Health Care Power of Stoker Erector And Servicer? Yes, not currently available Code Status History Code Status Date Activated Date Inactivated Comments Full Code 06/24/2018 1:38 PM 06/24/2018 3:07 PM This order reflects the patients wishes and were consensually agreed upon. Question Answer Comments Discussion of Advance Directives occurred with: Patient Does the patient have a Living Will? No Does the patient have Health Care Power of Stoker Erector And Servicer? No Full Code 07/26/2017 7:36 PM 08/01/2017 4:46 PM This order reflects the patients wishes and were consensually agreed upon. Question Answer Comments Discussion of Advance Directives occurred with: Patient Does the patient have a Living Will? No Does the patient have Health Care Power of Stoker Erector And Servicer? No Full Code 02/24/2015 10:33 AM 02/25/2015 6:10 PM . Question Answer Comments Discussion of Advance Directives occurred with: Not Discussed Full Code 01/07/2015 4:20 PM 01/08/2015 5:32 PM Question Answer Comments Discussion of Advance Directives occurred with: Not Discussed Does the patient have a Living Will? No Does the patient have Health Care Power of Stoker Erector And Servicer? No Care Teams Insurance Appraiser Relationship Specialty Start Date End Date Juan Luis Hope DO [address] [place] [address] PCP - General Internal Medicine 05/15/21 documented as of this encounter
--- OUTSIDE RECORDS SUMMARY | 2023-04-26 20:43 | External Medical Summary | Summary of Care ---
Author Name Unknown Organization [facility] Address [address] [place] [address] Phone [phone] Care Team Providers Care Information Director Name Role Phone StephanieJuan Luis kingsley Primary Care Provid er Reason for Visit * Reason Onset Date Comments Advice 01/02/2023 01/02/23 Encounter Details Date Type Department Care Team (Late st Contact Info) Description 01/02/2023 Telephone Radiology [facility] [address] [facility] [place] [address] Jaclyn Bucio PA-C [address] [place] [address] [place] [address] Advice (01/02/23) Allergies Active Allergy Reactions Criticality Noted Date Comments Adhesive Tape Rash 09/12/2000 Cefuroxime Axetil Flushing,Hives,Itching 2011 Ceftriaxone Sodium In Dextrose 01/08/2015 Hives Statins Muscle pain Low 09/01/2013 Zolpidem Neuro complications (Please comment) Low 05/18/2010 ambien documented as of this encounter (statuses as of 01/04/2023) Medications Medication Sig Dispensed Refills Start Date [...] neuropathy, without long-term current use of insulin ([facility]),Other specified hypothyroidism,Centr ilobular emphysema ([facility]),COPD, group B, by GOLD 2017 classification ([facility]) Inhale 1 Puff by mouth in the [...] CALL 911 25 Tablet 5 06/11/2022 Active Additional Information Patient not taking.Reported on 12/27/2022 Tadalafil 20 MG Oral TabletIndications:Er ectile dysfunction [...] Pain, Moderate. 30 Tablet 0 12/21/2022 Active Losartan Potassium 25 MG Oral Tablet (Cozaar)Indications: HTN, goal below 140/90 Take 1 Tablet by mouth in the morning. 90 Tablet 3 12/27/2022 Active documented as of this encounter (statuses as of 01/04/2023) Active Problems Problem Noted Date Diagnosed Date [...] as of this encounter (statuses as of 01/04/2023) Resolved Problems Problem Noted Date Diagnosed Date [...] as of this encounter (statuses as of 01/04/2023) Immunizations Name Administration Dates Next Due COVID-19, [...] encounter Miscellaneous Notes * Telephone Encounter - Janine Feliciano RDMS - 01/02/2023 10:56 AM EST Scheduling - can you please inform patient that renal ultrasound is no longer needed per provider and cancel 01/04 appointment? Thank you! * Telephone Encounter - Jaclyn Bucio PA-C - 01/02/2023 10:50 AM EST Thank you for pointing this out. Renal ultrasound may be canceled. Thank you, Jaclyn Bucio PA-C 01/02/2023 10:50 AM * Telephone Encounter - Danielle Juan CCMA - 01/02/2023 9:58 AM EST Please advise. * Telephone Encounter - Janine Feliciano RDMS - 01/02/2023 9:03 AM EST Patient is scheduled 01/04/23 for a renal ultrasound which evaluates the aorta, kidneys and bladder. Patient had an Abdomen Complete ultrasound on 12/24/22 which included evaluation of the aorta and kidneys (report in chart). Please advise if this renal ultrasound is still needed. Thank you! [facility] documented in this encounter Plan of Treatment Upcoming Encounters Date Type Department Care Team (Late st Contact Info) Description 01/04/2023 4:30 PM EST Telemedicine Hematology/Oncology [facility] [place] [address] [place] [address] Noemi [facility]onalds[facility] [address] [facility] [place] [address] 01/09/2023 1:00 PM EST Office Visit Nephrology [facility] [address] [facility] [address] [place] [address] Horacio Hernandez MD [address] [facility] [place] [address] 02/08/2023 10:30 AM EST Laboratory [facility], [facility] [address] [place] [address] [place], Lab Lock [address] [place] [address] 02/13/2023 11:00 AM EST Office Visit Family Practice [facility] [address] [place] [address] Juan Luis Hope DO [address] [place] [address] Health Maintenance Due Date Last Done Comments Zoster Vaccines (1 of 2) 11/30/1991 Hepatitis B (1 of 3 - Risk 3-dose series) 2001 DTaP,Tdap,and Td Vaccines (1 - Tdap) 04/20/2011 04/19/2011, 06/07/1999 *COPD SEVERITY VERIFIED BY PFT 08/24/2017 COLONOSCOPY-EVERY 2 YRS AGES 18-100 02/13/2018 02/14/2016, 02/14/2016, 11/16/2005 Albumin/Creatinine Ratio 09/03/2019 09/02/2018, 11/11 CKD PHOS USE SMARTSET 27599 06/28/202206/11, 06/24/2021, 06/23/2021, Additional history exists COVID-19 Vaccine (3 - 2022- season) 2022 02/08/2021, 08/01/2020 HbA1c 01/29/2023 07/30/2022, 01/11, 07/31/2021, Additional history exists Diabetic Eye Exam 03/19/2023 03/19/2022, , 03/19/2022, Additional history exists GFR 06/18/2023 12/18/2022, 10/13, 10/23/2022, Additional history exists TSH 07/31/2023 07/30/2022, 01/11, 07/31/2021, Additional history exists Depression Screening 11/03/2023 11/02/2022 CKD HGB USE SMARTSET 98155 12/19/202312/18, 12/18/2022, 11/09/2022, Additional history exists Diabetic [...] this encounter Medical Devices Implanted Type Area Business Transformation Manager Device Identifier Shelf Expiration Date Model / Serial / Lot Rsp Bone Screw-Locking Sz 5.0 Mm 26mm Long Implanted:Qty: 1 on 02/24/2015 by Aníbal Frankel MD at [facility] Right: Shoulder [employer] 01/22/2021 [id number] / / [id number] documented as of this encounter Advance Directives [...] the patient have Health Care Power of Transfer Station Operator? Yes, not currently available Code Status History Code Status Date Activated Date Inactivated Comments Full Code 06/24/2018 1:38 PM 06/24/2018 3:07 PM This order reflects the patients wishes and were consensually agreed upon. Question Answer Comments Discussion of Advance Directives occurred with: Patient Does the patient have a Living Will? No Does the patient have Health Care Power of Transfer Station Operator? No Full Code 07/26/2017 7:36 PM 08/01/2017 4:46 PM This order reflects the patients wishes and were consensually agreed upon. Question Answer Comments Discussion of Advance Directives occurred with: Patient Does the patient have a Living Will? No Does the patient have Health Care Power of Transfer Station Operator? No Full Code 02/24/2015 10:33 AM 02/25/2015 6:10 PM . Question Answer Comments Discussion of Advance Directives occurred with: Not Discussed Full Code 01/07/2015 4:20 PM 01/08/2015 5:32 PM Question Answer Comments Discussion of Advance Directives occurred with: Not Discussed Does the patient have a Living Will? No Does the patient have Health Care Power of Transfer Station Operator? No Care Teams Information Director Relationship Specialty Start Date End Date Juan Luis Hope DO [address] [place] [address] PCP - General Internal Medicine 05/15/21 documented as of this encounter
--- OUTSIDE RECORDS SUMMARY | 2023-04-26 20:43 | External Medical Summary ---
Author Name Unknown Address Unknown Organization [id number]:LABORATORY [facility] - [facility] [address] [place] [address] Laboratory Report Ordering Provider Test Date Status NOLVIA MENDIETA 01/09/2023 13:46:25 Final Observation Date Value Abnormality Reference (Units ) Status DNA double strand Ab [Presence] in Serum 01/09/2023 13:46:25 Negative Negative Final DNA double strand Ab [Titer] in Serum by Immunofluorescence (IF) Dee Dee lawler 01/09/2023 13:46:25 <1:10 <1:10 (Titer) Final Performing Location LABORATORY [facility] - [address] [place] [address]
--- OUTSIDE RECORDS SUMMARY | 2023-04-26 20:43 | External Medical Summary ---
Author Name Unknown Address Unknown Organization [id number]:LABORATORY [facility] - [address] [place] [address] Laboratory Report Ordering Provider Test Date Status FANNIEZHOU 12/18/2022 14:14:12 Final Observation Date Value Abnormality Reference (Units ) Status Haptoglobin 12/18/2022 14:14:12 136 30-200 ( mg/dL) Final Performing Location LAB[facility]ATORY [facility] - [address] [place] [address]
--- OUTSIDE RECORDS SUMMARY | 2023-04-26 20:43 | External Medical Summary ---
Author Name Unknown Address Unknown Organization : Laboratory Report Ordering Provider Test Date Status ZHOU GRECO 12/18/2022 14:14:12 Final Observation Date Value Abnormality Reference (Units ) Status Thiamine [Moles/volume] in Blood 12/18/2022 14:14:12 55 Below low normal 78-185 (nmol/L) Final Vitamin supplementation with in 24 hours prior to
blood draw may affect the accuracy of the results.
This test was developed and its analytical performance
characteristics have been determined by [facility] [place], [place]. It has
not been cleared or approved by the U.S. Food and Drug
Administration. This assay has been validated pursuant
to the CLIA regulations and is used for clinical
purposes.

Test Performed at:
[facility]
[address] [facility] [place] [address]
Evangelist Lee M.D., Ph.D.,Director of Laboratories Performing Location
--- OUTSIDE RECORDS SUMMARY | 2023-04-26 20:43 | External Medical Summary ---
Author Name Unknown Address Unknown Organization [id number]:LABORATORY [facility] - [address] [place] [address] Laboratory Report Ordering Provider Test Date Status FANNIEZHOU 12/18/2022 14:14:12 Final Observation Date Value Abnormality Reference (Units ) Status Ferritin 12/18/2022 14:14:12 585 Above high normal 30 -400 (ng/mL) Final Performing Location LAB[facility]ATORY [facility] - [address] [place] [address]
--- OUTSIDE RECORDS SUMMARY | 2023-04-26 20:43 | External Medical Summary ---
Author Name Unknown Address Unknown Organization [id number]:[facility] [place] [address] [place] [address] Laboratory Report Ordering Provider Test Date Status ZHOU GRECO 12/18/2022 14:14:12 Final Observation Date Value Abnormality Reference (Units ) Status Iron 12/18/2022 14:14:12 68 45-176 (ug/dL) Final Iron-binding capacity 12/18/2022 14:14:12 164 Below low normal 250-425 (ug/dL) Final Transferrin Sat % 12/18/2022 14:14:12 41 15-55 (%) Final Performing Location LAB[facility]ORY [facility] - [address] [place] [address]
--- OUTSIDE RECORDS SUMMARY | 2023-04-26 20:43 | External Medical Summary ---
Author Name Unknown Address Unknown Organization [id number]:[facility] - [address] [place] [address] Laboratory Report Ordering Provider Test Date Status FANNIEZHOU 12/18/2022 14:14:12 Final Observation Date Value Abnormality Reference (Units ) Status Vitamin B12 12/18/2022 14:14:12 1405 Above high normal 232-1245 (pg/mL) Final Performing Location LAB[facility] - [address] [place] [address]
--- OUTSIDE RECORDS SUMMARY | 2023-04-26 20:43 | External Medical Summary ---
Author Name Unknown Address Unknown Organization [id number]:LABORATORY [facility] - [facility] [place] [address] Laboratory Report Ordering Provider Test Date Status NOLVIA MENDIETA 01/09/2023 13:46:25 Final Exclude Heart Failure: <300 pg/mL
Diagnose Heart Failure:
Age <50 yr: >450 pg/mL
50-75 yr: >900 pg/mL
>75 yr: >1800 pg/mL
GFR is 30-59 mL/min: >1200 pg/mL or Age- adjusted values
GFR <30 mL/min: do not use, not reliable

Prognostic threshold: 1000 pg/mL Observation Date Value Abnormality Reference (Units ) Status BNP, Pro-hormone 01/09/2023 13:46:25 3043 Above high no rmal <300 (pg/mL) Final Performing Location LABORATORY [facility] - [facility] [address] [place] [address]
--- OUTSIDE RECORDS SUMMARY | 2023-04-26 20:43 | External Medical Summary ---
Author Name Unknown Address Unknown Organization [id number]:LABORATORY [facility] - [address] [place] [address] Laboratory Report Ordering Provider Test Date Status DEBBIE JOHNSON 01/09/2023 13:46:25 Final Observation Date Value Abnormality Reference (Units ) Status Phosphate 01/09/2023 13:46:25 2.1 Below low normal 2.5 -4.8 (mg/dL) Final Performing Location LAB[facility]ORY [facility] - [address] [place] [address]
--- OUTSIDE RECORDS SUMMARY | 2023-04-26 20:43 | External Medical Summary ---
Author Name Unknown Address Unknown Organization [id number]:LABORATORY [facility] - [address] [facility] [place] [address] Laboratory Report Ordering Provider Test Date Status ZHOU GRECO 12/18/2022 14:14:12 Final Observation Date Value Abnormality Reference (Units ) Status IgG 12/18/2022 14:14:12 5299 749-6052 ( mg/dL) Final IgA 12/18/2022 14:14:12 365 70-400 (mg /dL) Final IgM 12/18/2022 14:14:12 174 40-230 (mg /dL) Final Performing Location LABORATORY [facility] - [address] [place] [address]
--- OUTSIDE RECORDS SUMMARY | 2023-04-26 20:43 | External Medical Summary | Summary of Care ---
Author Name Unknown Organization [facility] Address [address] [place] [facility] [place] [address] Phone [phone] Care Team Providers Care Shucker Name Role Phone Juan Luis Lewis DO Primary Care Provid er Reason for Visit * Reason Onset Date Comments Medication Refill 12/19/2022 Encounter Details Date Type Department Care Team ([facility] st Contact Info) Description 12/19/2022 Refill [facility] [address] [place] [address] Juan Luis Lewis DO [address] [place] [id number] Spondylosis of lumbosacral region without myelopathy or radiculopathy Allergies Active Allergy Reactions Criticality Noted Date Comments Adhesive Tape Rash 09/12/2000 Cefuroxime Axetil Flushing,Hives,Itching 2011 Ceftriaxone Sodium In Dextrose 01/08/2015 Hives Statins Muscle pain Low 09/01/2013 Zolpidem Neuro complications (Please comment) Low 05/18/2010 ambien documented as of this encounter (statuses as of 12/21/2022) Medications Medication Sig Dispensed Refills Start Date [...] (vitamin B-1) 1 Tablet. 0 07/07/2021 Active Fluticasone-[place] rol 250-50 MCG/ACT Inhalation Aerosol Powder Breath Activated (Advair Diskus)Indications: Hyperlipidemia associated with type 2 diabetes mellitus,Hypertensi on associated with type 2 diabetes mellitus,Type 2 diabetes mellitus with diabetic neuropathy, without long-term current use of insulin ([facility]),Other specified hypothyroidism,Cent rilobular emphysema ([facility]),COPD, group B, [...] 09/12/2022 Active Furosemide 20 MG Oral Tablet (Lasix)Indications: [...] on 12/18/2022 LORazepam 0.5 MG Oral Tablet (Ativan)Indications :Anxiety state Take 1 Tablet by mouth 2 times a day as needed for Anxiety. 60 Tablet 0 12/04/2022 Active Losartan Potassium 50 MG Oral Tablet (Cozaar)Indications :Hypertension associated with type 2 diabetes mellitus TAKE 1 TABLET BY MOUTH ONCE DAILY IN THE MORNING 90 Tablet 3 12/14/2022 Active traMADol HCl 50 MG Oral Tablet (Ultram)Indications :Spondylosis of lumbosacral region without myelopathy or radiculopathy Take 1 Tablet by mouth every 6 hours as needed for Pain, Moderate. 30 Tablet 0 12/21/2022 Active traMADol HCl 50 MG Oral Tablet (Ultram)Indications :Spondylosis of lumbosacral region without myelopathy or radiculopathy Take 1 Tablet by mouth every 6 hours as needed for Pain, Moderate. 30 Tablet 0 06/08/2022 3 Discontinu ed(Refill) documented as of this encounter (statuses as of 12/21/2022) Active Problems Problem Noted Date Diagnosed Date [...] as of this encounter (statuses as of 12/21/2022) Resolved Problems Problem Noted Date Diagnosed Date [...] as of this encounter (statuses as of 12/21/2022) Immunizations Name Administration Dates Next Due COVID-19, [...] Encounter - Juan Luis Lewis DO - 12/21/2022 7:04 AM EST Signed Prescriptions: Disp Refills traMADol HCl 50 MG Oral Tablet (Ultram) 30 Tab*0 Sig: Take 1 Tablet by mouth every 6 hours as needed for Pain, Moderate. Authorizing Provider: JUAN LUIS LEWIS * Telephone Encounter - Jackie Her RP - 12/20/2022 10:12 AM ESTPending Prescriptions: Disp Refills traMADol HCl 50 MG Oral Tablet (Ultram) 30 Tab*0 Sig: Take 1 Tablet by mouth every 6 hours as needed for Pain, Moderate. * Telephone Encounter - Jackie Her RP - 12/20/2022 10:10 AM EST I have reviewed the patients controlled substance dispensing history in the Prescription Drug Monitoring Program in compliance with the [facility] regulations before prescribing a controlled substance. PDMP checked on 12/20/2022. Pending Prescriptions: Disp Refills traMADol HCl 50 MG Oral Tablet (Ultram) 30 Tab*0 Sig: Take 1 Tablet by mouth every 6 hours as needed for Pain, Moderate. Last Visit: 11/21/2022 (in office), Visit date not found (telemedicine) Next Visit: 12/21/2022 Date medication was last filled: 06/08 Date medication is due for refill: 06/15 Pharmacy: [facility] [address] [facility] Is this request for a controlled substance? Yes and Urine Drug Screen Not completed Toxicology results: No results found. However, due to the size of the patient record, not all encounters were searched.Please check Results Review for a complete set of results. Please approve if appropriate. Thank you, Jackie Her, PharmD Clinical Pharmacist [facility] ([facility]) (formerly Telepharmacy) [phone] 12/20/2022, 10:10 AM documented in this encounter Plan of Treatment Upcoming Encounters Date Type Department Care Team (Late st Contact Info) Description 12/21/2022 11:00 AM EST Office Visit [facility] [address] [place] [address] Jaclyn Bucio PA-C [address] [place] [address] 12/24/2022 10:30 AM EST Imaging Radiology [address] [place], [place] [id number] [address] [address] 01/04/2023 4:30 PM EST Telemedicine Hematology/Oncology [address] [facility] [address] Noemi Donaldson CRNP [address] [facility] [place] [address] 02/08/2023 10:30 AM EST Laboratory [facility] [address] [place] [address] [place], [facility] [address] [place] [address] 02/13/2023 11:00 AM EST Office Visit [facility] [address] [place] [address] Juan Luis Lewis, DO [address] [place] [address] Health Maintenance Due Date Last Done Comments Zoster Vaccines (1 of 2) 11/30/1991 Hepatitis B (1 of 3 - Risk 3-dose series) 2001 DTaP,Tdap,and Td Vaccines (1 - Tdap) 04/20/2011 04/19/2011, 06/07/1999 *COPD SEVERITY VERIFIED BY PFT 08/24/2017 COLONOSCOPY-EVERY 2 YRS AGES 18-100 02/13/2018 02/14/2016, 02/14/2016, 11/16/2005 Albumin/Creatinine Ratio 09/03/2019 09/02/2018, 11/11 CKD PHOS USE SMARTSET 58708 06/28/202206/11, 06/24/2021, 06/23/2021, Additional history exists Diabetic Foot Exam 07/14/2022 07/14/2021, 0 08/19/2019, 06/30/2018 COVID-19 Vaccine ( season) 2022 02/08/2021, 08/01/2020 HbA1c 01/29/2023 07/30/2022, 01/11, 07/31/2021, Additional history exists Diabetic Eye Exam 03/19/2023 03/19/2022, , 03/17/2020, Additional history exists GFR 06/18/2023 12/18/2022, 10/13, 10/23/2022, Additional history exists TSH 07/31/2023 07/30/2022, 01/11, 07/31/2021, Additional history exists Depression Screening 11/03/2023 11/02/2022 CKD HGB USE SMARTSET 15984 12/19/202312/18, 12/18/2022, 11/09/2022, Additional history exists O2 ASSESSMENT COMPLETED IN PAST YEAR FOR COPD 12/19/2023 12/18/2022 Pneumococcal Vaccine: 65+ Years Completed 02/10/2018, 01/30/2017 Alpha-1 Antitrypsin Completed 07/30/2022 Influenza Vaccine (FLU shot) Completed 01/2023, 04/26/2021, 03/04/2020, Additional history exists GARDASIL-HPV IMMUNIZATION SERIES Aged Out No longer eligible based on patient's age to complete this topic MENINGOCOCCAL (MENACTRA/MENVEO) Aged Out No longer eligible based on patient's age to complete this topic documented as of this encounter Medical Devices Implanted Type Area Supervisor Sleeping Bag Department Device Identifier Shelf Expiration Date Model / Serial / Lot Rsp Bone Screw-Locking Sz 5.0 Mm 26mm Long Implanted:Qty: 1 on 02/24/2015 by Aníbal Frankel MD at [facility] Right: Shoulder [employer] 01/22/2021 [id number] / / [id number] documented as of this encounter Visit Diagnoses [...] the patient have Health Care Power of Dining Room Attendant? Yes, not currently available Code Status History Code Status Date Activated Date Inactivated Comments Full Code 06/24/2018 1:38 PM 06/24/2018 3:07 PM This order reflects the patients wishes and were consensually agreed upon. Question Answer Comments Discussion of Advance Directives occurred with: Patient Does the patient have a Living Will? No Does the patient have Health Care Power of Dining Room Attendant? No Full Code 07/26/2017 7:36 PM 08/01/2017 4:46 PM This order reflects the patients wishes and were consensually agreed upon. Question Answer Comments Discussion of Advance Directives occurred with: Patient Does the patient have a Living Will? No Does the patient have Health Care Power of Dining Room Attendant? No Full Code 02/24/2015 10:33 AM 02/25/2015 6:10 PM . Question Answer Comments Discussion of Advance Directives occurred with: Not Discussed Full Code 01/07/2015 4:20 PM 01/08/2015 5:32 PM Question Answer Comments Discussion of Advance Directives occurred with: Not Discussed Does the patient have a Living Will? No Does the patient have Health Care Power of Dining Room Attendant? No Care Teams Shucker Relationship Specialty Start Date End Date Juan Luis Lewis DO [address] [place] [id number] PCP - General Internal Medicine 05/15/21 documented as of this encounter
--- OUTSIDE RECORDS SUMMARY | 2023-04-26 20:43 | External Medical Summary | Summary of Care ---
Author Name Unknown Organization [facility] Address [address] [facility] [place] [address] Phone [phone] Care Team Providers Care Rabbet Operator Name Role Phone Juan Luis Hope Randell Primary Care Provid er Reason for Visit * Reason Comments NEW PATIENT Anemia * Evaluate & Treat - Unlimited Visits (Within 30 days (routine)) - Authorized Specialty Diagnoses / Procedures Referred By Contanatoliy t Referred To Contact *Hem/Onc* Diagnoses Anemia Procedures Eval/Treat Curtis Orellana CRNP [address] [facility] [place] [address] Referral ID Status Reason Start Date Expiration Date Visits Requested Visits Authorized [id number] Authorized Specialty Services Required 12/07/[phone] Encounter Details Date Type Department Care Team (Late st Contact Info) Description 12/18/2022 1:00 PM EST Office Visit Hematology/Oncology [facility] [address] [place] [address] Noemi Donaldson CRNP [address] [place] [address] Macrocytic anemia*; Stage 3b chronic kidney disease (HCC); Thrombocytopenia (HCC); Personal history of alcoholism (HCC) Allergies Active Allergy Reactions Criticality Noted Date Comments Adhesive Tape Rash 09/12/2000 Cefuroxime Axetil Flushing,Hives,Itching 2011 Ceftriaxone Sodium In Dextrose 01/08/2015 Hives Statins Muscle pain Low 09/01/2013 Zolpidem Neuro complications (Please comment) Low 05/18/2010 mary joien documented as of this encounter (statuses as of 12/30/2022) Medications Medication Sig Dispensed Refills Start Date [...] Tablet (vitamin B-1) 1 Tablet. 0 2 Active Fluticasone-Salmet john 250-50 MCG/ACT Inhalation Aerosol Powder Breath Activated (Advair Diskus)Indications :Hyperlipidemia associated with type 2 diabetes mellitus,Hypertens ion associated with type 2 diabetes mellitus,Type 2 diabetes mellitus with diabetic neuropathy, without long-term current use of insulin ([facility]),Other specified hypothyroidism,Osman trilobular emphysema ([facility]),COPD, group B, by GOLD 2017 [...] CALL 911 25 Tablet 5 3 Active Additional Information Patient not taking.Reported on 12/27/2022 Tadalafil 20 MG Oral TabletIndications: Erectile dysfunction [...] AT BEDTIME 90 Tablet 2 3 Active Furosemide 20 MG Oral Tablet (Lasix)Indications :Lower extremity edema Take 1 Tablet by mouth in the morning. 30 Tablet 11 3 Active Potassium Chloride Kary ER 20 MEQ Oral Tablet Extended ReleaseIndications :Lower extremity edema Take 1 Tablet by mouth in the morning and 1 Tablet before bedtime. 60 Tablet 11 3 Active Lansoprazole 15 MG Oral Capsule Delayed Release (Prevacid)Indicati ons:Gastroesophage al reflux disease with esophagitis without hemorrhage Take 1 Capsule by mouth in the morning. 90 Capsule 3 3 Active Docusate Sodium 100 MG Oral Capsule (Colace)Indication s:Constipation, unspecified constipation type Take 1 Capsule by mouth in the morning and 1 Capsule before bedtime. 60 Capsule 5 3 Active Additional Information Patient not taking.Reported on 12/27/2022 LORazepam 0.5 MG Oral Tablet (Ativan)Indication s:Anxiety state Take 1 Tablet by mouth 2 times a day as needed for Anxiety. 60 Tablet 0 3 Active traMADol HCl 50 MG Oral Tablet (Ultram)Indication s:Spondylosis of lumbosacral region without myelopathy or radiculopathy Take 1 Tablet by mouth every 6 hours as needed for Pain, Moderate. 30 Tablet 0 3 023 Discontinued(Re fill) Losartan Potassium 50 MG Oral Tablet (Cozaar)Indication s:Hypertension associated with type 2 diabetes mellitus TAKE 1 TABLET BY MOUTH ONCE DAILY IN THE MORNING 90 Tablet 3 3 023 Discontinued documented as of this encounter (statuses as of 12/30/2022) Active Problems Problem Noted Date Diagnosed Date [...] as of this encounter (statuses as of 12/30/2022) Resolved Problems Problem Noted Date Diagnosed Date [...] transurethral res ection of prostate 08/05/2017 06/30/2018 [facility] resident 08/05/20172017 DNR (do not resuscitate) 08/05/201706/2017 [...] pt states received one on prior visit. 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 Acute appendicitis 8 documented as of this encounter (statuses as of 12/30/2022) Immunizations Name Administration Dates Next Due COVID-19, [...] Sign Reading Time Taken Comments Blood Pressure 107/67 12/18/2022 1:17 PM EST Pulse 71 12/18/2022 1:17 PM EST Temperature 36.6 C (97.9 F) 12/18/2022 1:17 PM ES T Respiratory Rate - - Oxygen Saturation 91% 12/18/2022 1:17 PM EST Inhaled Oxygen Concentration - - Weight 84.4 kg (186 lb 1.6 oz) 12/18/2022 1:17 P M EST Height - - Body Mass Index 30.97 08/22/2022 2:24 PM EDT documented in this encounter Functional Status Functional [...] Progress Notes * Noemi Donaldson CRNP - 12/18/2022 12:59 PM EST Hematology/Oncology Outpatient Clinic note [address] [facility] [place] [address] Name: Neil Elliott Ramos JrNadege Date: 12/18/2022 REFERRED BY: SUNITHA Hardy CHIEF COMPLAINT: Neil Ramos Jr. is a 82 year old male here today for new consultation for anemia and thrombocytopenia. HISTORY OF PRESENT ILLNESS: PMH COPD, CHF, [...] of Vodka. Former smoker, quit in 1989. Patient's past medical history, social history, and family history were reviewed and updated. 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 Positive D dimer 06/24/2018 RBBB Reflux esophagitis 1991 Sciatica 1999 >06/12:ED Block 09/08/01 Sinus bradycardia Tinnitus of both ears 06/24/2018 Varicose vein of leg Right leg Family History Problem Relation Age of Onset Other (lung cancer) Mother Stroke Father Osteoporosis Sister Cancer Brother cancer within colon polyp No Known Problems Brother No Known Problems Son No Known Problems Daughter Social History Socioeconomic History Marital status: Spouse name: Not on file Number of children: Not on file Years of education: Not on file Highest education level: Not on file Occupational History Not on file Tobacco Use Smoking status: Former Packs/day: 2.00 Years: 35.00 Additional pack years: 0.00 Total pack years: 70.00 Types: Cigarettes, Cigars Quit date: 02/11/1989 Years since quittin.8 Smokeless tobacco: Never Vaping Use Vaping Use: Never used Substance and Sexual Activity Alcohol use: Yes Comment: occ Drug use: No Sexual activity: Not on [...] on file Housing Stability: Not on file Review of patient's allergies indicates: Allergen Reactions Adhesive Tape Rash Cefuroxime Axetil Flushing, Hives and Itching Rocephin [Ceftriaxone Sodium In Dextrose] Hives Statins Muscle pain Zolpidem Neuro complications (Please comment) harish Current Outpatient Medications Medication Sig Dispense Refill [...] 1 Tablet by mouth in the morning. Vitamin B-1 50 MG Oral Tablet (vitamin B-1) 1 Tablet. Fluticasone-Salmeterol 250-50 MCG/ACT Inhalation Aerosol Powder Breath Activated (Advair Diskus) Inhale 1 Puff by mouth in the morning and 1 Puff before bedtime. 60 Each 5 Metoprolol Succinate ER 25 MG Oral Tablet Extended Release 24 Hour (toPROL XL) Take 1 Tablet by mouth in the morning. traMADol HCl 50 MG Oral Tablet (Ultram) Take 1 Tablet by mouth every 6 hours as needed for Pain, Moderate. 30 Tablet 0 Nitroglycerin 0.4 MG Sublingual Tablet Sublingual (Nitrostat) [...] 1 Capsule before bedtime. 60 Capsule 5 LORazepam 0.5 MG Oral Tablet (Ativan) Take 1 Tablet by mouth 2 times a day as needed for Anxiety. 60 Tablet 0 Losartan Potassium 50 MG Oral Tablet (Cozaar) TAKE 1 TABLET BY MOUTH ONCE DAILY IN THE MORNING 90 Tablet 3 No current facility-administered medications for this visit. REVIEW OF SYSTEMS: SEE HPI - otherwise negative OBJECTIVE: Filed Vitals: 12/18/22 1317 BP: 107/67 Pulse: 71 Temp: 36.6 C (97.9 F) SpO2: 91% Weight: 84.4 kg (186 lb 1.6 oz) Wt Readings from Last 5 Encounters: 11/02/22 87.5 kg (193 lb) 08/22/22 87.5 kg (193 lb) 05/02/22 89.7 kg (197 lb 12.8 oz) 04/26/22 88.4 kg (194 lb 12.8 oz) 02/21/22 85.3 kg (188 lb) PHYSICAL EXAM: Constitutional: no acute distress, +chronically ill Neuro: alert, oriented to person, place, and time, in wheelchair today HEENT: normal: normocephalic, atraumatic; neck with no masses or tenderness; no cervical/supraclavicular lymphadenopathy CV: normal rate, irregular rhythm Chest: normal respiratory effort, lungs clear to auscultation Abdomen: normal: soft, bowel sounds normal, no masses, tenderness or organomegaly Extremities: +1 BLE edema with venous stasis changes Skin: warm and dry LABS: Results for orders placed or performed in visit on 10/23/22 BASIC METABOLIC PANEL Result Value Ref Range BUN 18 6 - 20 mg/dL Creatinine 1.8 (H) 0.6 - 1.2 mg/dL Estimated Glomerular Filtration Rate 37 (L) >=60 mL/min Sodium 137 135 - 146 mmol/L Potassium 3.8 3.5 - 5.1 mmol/L Chloride 98 98 - 107 mmol/L CO2 24 22 - 32 mmol/L Anion Gap 15 7 - 15 mmol/L Glucose 106 70 - 120 mg/dL Calcium 8.5 8.4 - 10.2 mg/dL *Note: Due to a large number of results and/or encounters for the requested time period, some results have not been displayed. A complete set of results can be found in Results Review. IMPRESSION: Macrocytic anemia and Thrombocytopenia: 82 y/o male with PMH of COPD, CHF, DM type II, fatty liver [...] of Vodka. Former smoker, quit in 1989. PLAN: Cause of macrocytosis and cytopenias likely multifactorial with possible etiologies including alcohol causing bone marrow suppression, nutritional deficiencies, liver disease, and/or renal insufficiency. Cannot rule out underlying bone marrow pathology. Lab orders placed for further evaluation include cbc/diff, cmp, iron screen, ferritin, sTfR, retic panel, ldh, spep, serum flc, immunglobulin quant, vitamin b12, folic acid, copper, zinc, and thiamine. Further evaluation will also include complete abdominal ultrasound to evaluate liver and spleen. Continue supplementation with oral vitamin b12 and folic acid as currently taking. Recommending starting a nutritional supplement such as boost or ensure. Further recommendations based on results of above. RTC in 1-2 weeks by telephone to review lab results SUNITHA Zimmerman documented in this encounter Nursing Notes * Reece Trevino MED ASSIST - 12/18/2022 1:17 PM EST Patient identifed by name and birthdate Do you have any concerns about pain management for today's visit? No Living Will or Advance Directive for Health Care as noted on the problem list. [facility] is a way you can talk to your provider on line through e-mail. Would you like to sign up? I can activate it for you? ALREADY ACTIVE Triage Pain Assessment None Filed Vitals: 12/18/22 1317 BP: 107/67 Pulse: 71 Temp: 36.6 C (97.9 F) SpO2: 91% Weight: 84.4 kg (186 lb 1.6 oz) Patient was instructed to not get up on the exam table/exam chair until directed and assisted by their provider; patient is to remain seated in the chair/ wheelchair/ exam table/ exam chair for fall prevention and safety reasons. Patient is aware to have assistance to step down off exam table/exam chair with personnel. Patient voiced full comprehension of instructions. documented in this encounter Plan of Treatment Upcoming Encounters Date Type Department Care Team (Late st Contact Info) Description 01/04/2023 4:30 PM EST Telemedicine Hematology/Oncology [facility] [place] [address] [facility] [facility] [address] Noemi Donaldson CRNP [address] [place], [place] [address]ER[place] [address] 02/08/2023 10:30 AM EST Laboratory Laboratory Patient Service [place], [address] [id number] [place], [address] [address] 02/13/2023 11:00 AM EST Office Visit [facility] [address] [place] [address] Juan Luis Hope, [address] [place] [phone] Health Maintenance Due Date Last Done Comments Zoster Vaccines (1 of 2) 11/30/1991 Hepatitis B (1 of 3 - Risk 3-dose series) 2001 DTaP,Tdap,and Td Vaccines (1 - Tdap) 04/20/2011 04/19/2011, 06/07/1999 *COPD SEVERITY VERIFIED BY PFT 08/24/2017 COLONOSCOPY-EVERY 2 YRS AGES 18-100 02/13/2018 02/14/2016, 02/14/2016, 11/16/2005 Albumin/Creatinine Ratio 09/03/2019 09/02/2018, 11/11 CKD PHOS USE SMARTSET 29694 06/28/202206/11, 06/24/2021, 06/23/2021, Additional history exists COVID-19 Vaccine ( season) 2022 02/08/2021, 08/01/2020 HbA1c 01/29/2023 07/30/2022, 01/11, 07/31/2021, Additional history exists Diabetic Eye Exam 03/19/2023 03/19/2022, , 03/19/2022, Additional history exists GFR 06/18/2023 12/18/2022, 10/13, 10/23/2022, Additional history exists TSH 07/31/2023 07/30/2022, 01/11, 07/31/2021, Additional history exists Depression Screening 11/03/2023 11/02/2022 CKD HGB USE SMARTSET 33187 12/19/202312/18, 12/18/2022, 11/09/2022, Additional history exists Diabetic [...] this encounter Medical Devices Implanted Type Area Loader Magazine Grinder Device Identifier Shelf Expiration Date Model / Serial / Lot Rsp Bone Screw-Locking Sz 5.0 Mm 26mm Long Implanted:Qty: 1 on 02/24/2015 by Aníbal Frankel MD at [facility] Right: Shoulder [employer] 01/22/2021 [id number] / / [id number] documented as of this encounter Procedures Procedure Name Priority Date/Time Associated Diagnosis Comments US ABDOMEN COMPLETE Routine 12/24/2022 1 1:57 AM EST Macrocytic anemia Stage 3b chronic kidney disease (HCC) Personal history of alcoholism (HCC) Thrombocytopenia (HCC) documented in this encounter Results * US ABDOMEN COMPLETE (12/24/2022 11:57 AM EST) Anatomical Region Laterality Modality Abdomen, Body Ultrasound 12/24/2022 10:4 4 AM EST Impressions 12/24/2022 1:50 PM EST IMPRESSION: Shadowing gallstones are present. No ultrasound evidence of acute cholecystitis. Coarsened liver echotexture suggestive of fatty infiltration/parenchymal liver disease. THIS DOCUMENT HAS BEEN ELECTRONICALLY SIGNED BY JOSEPH ALLAN MD Narrative 12/24/2022 1:50 PM EST PROCEDURE INFORMATION: Exam: US Abdomen Complete Exam date and time: 12/24/2022 10:44 AM Age: 82 years old Clinical indication: Nutritional anemia, unspecified; Thrombocytopenia, unspecified; Alcohol dependence, in remission; Chronic kidney disease, stage 3b; Additional info: Anemia and thrombocytopenia, please eval liver and spleen TECHNIQUE: Imaging protocol: Real-time ultrasound of the abdomen with image documentation. Complete exam. COMPARISON: US ABDOMEN LIMITED 03/12/2019 4:59 PM FINDINGS: Liver: The liver measures 15.7 cm in sagittal dimensions. Normal directional flow of the portal vein. Coarsened liver echotexture suggestive of fatty infiltration/parenchymal liver disease. Gallbladder: Shadowing gallstones are present. No ultrasound evidence of acute cholecystitis. Biliary ducts: The common bile duct measures 7 mm. Pancreas: Visualized pancreas is unremarkable. Right kidney: The right kidney measures 9.7 x 4.9 x 5.3 cm. No evidence of hydronephrosis or stones. Left kidney: The left kidney measures 8.4 x 3.6 x 4.6 cm. No evidence of hydronephrosis or stones. Spleen: The spleen measures 11.4 x 10.2 x 5.2 cm. Aorta: Normal. No aneurysm. Inferior vena cava: Normal. Procedure Note Joseph Allan MD - 12/24/2022 PROCEDURE INFORMATION: Exam: US Abdomen Complete Exam date and time: 12/24/2022 10:44 AM Age: 82 years old Clinical indication: Nutritional anemia, unspecified; Thrombocytopenia, unspecified; Alcohol dependence, in remission; Chronic kidney disease,stage 3b; Additional info: Anemia and thrombocytopenia, please eval liver andspleen TECHNIQUE: Imaging protocol: Real-time ultrasound of the abdomen with imagedocumentation. Complete exam. COMPARISON: US ABDOMEN LIMITED 03/12/2019 4:59 PM FINDINGS: Liver: The liver measures 15.7 cm in sagittal dimensions. Normaldirectional flow of the portal vein. Coarsened liver echotexture suggestive of fatty infiltration/parenchymal liver disease. Gallbladder: Shadowing gallstones are present. No ultrasound evidence ofacute cholecystitis. Biliary ducts: The common bile duct measures 7 mm. Pancreas: Visualized pancreas is unremarkable. Right kidney: The right kidney measures 9.7 x 4.9 x 5.3 cm. No evidence of hydronephrosis or stones. Left kidney: The left kidney measures 8.4 x 3.6 x 4.6 cm. No evidence of hydronephrosis or stones. Spleen: The spleen measures 11.4 x 10.2 x 5.2 cm. Aorta: Normal. No aneurysm. Inferior vena cava: Normal. IMPRESSION IMPRESSION: Shadowing gallstones are present. No ultrasound evidence of acute cholecystitis. Coarsened liver echotexture suggestive of fatty infiltration/parenchymal liver disease. THIS DOCUMENT HAS BEEN ELECTRONICALLY SIGNED BY JOSEPH ALLAN MD Noemi HELTON RAD ULTRASOUND * HAPTOGLOBIN (12/18/2022 2:14 PM EST) Haptoglobin 136 30 - 200 mg/dL 12/19/2022 3:38 AM EST LABORATORY [facility] Blood Venous blood specimen / Unknown Venipuncture / Unknown 12/18/2022 2:14 PM EST 12/18/2022 2:14 PM EST Noemi HELTON LAB BLOOD ORDER VANDANA Performing Organization Address City/[facility]/ZIP Co de Phone Number LABORATORY [facility] [address] [place] [address] * (ABNORMAL) VITAMIN B1 (THIAMINE), BLOOD, LC/MS/MS (12/18/2022 2:14 PM EST) Vitamin B1 (Thiamine),B 55(L) 78 - 185 nmol/L 12/26/2022 12:26 PM EST [facility] Comment: Vitamin supplementation within 24 hours prior to blood draw may affect the accuracy of the results. This test was developed and its analytical performance characteristics have been determined by [place]. It has not been cleared or approved by the U.S. Food and Drug Administration. This assay has been validated pursuant to the CLIA regulations and is used for clinical purposes. Test Performed at: [facility] [address] [address] Evangelist Lee M.D., Ph.D.,Director of Laboratories Blood Venous blood specimen / Unknown Venipuncture / Unknown 12/18/2022 2:14 PM EST 12/18/2022 2:14 PM EST Noemi HELTON LAB BLOOD ORDER VANDANA Performing Organization Address City/[facility]/ZIP Co de Phone Number [facility] [address] [place] [address] * (ABNORMAL) ZINC (12/18/2022 2:14 PM EST) Zinc 47(L) 60 - 130 mcg/dL 12/21/2022 1:52 PM EST [facility] Comment: This test was developed and its analytical performance characteristics have been determined by [facility] [place], [place]. It has not been cleared or approved by the U.S. Food and Drug Administration. This assay has been validated pursuant to the CLIA regulations and is used for clinical purposes. Test Performed at: [facility] [address] Evangelist Lee M.D., Ph.D.,Director of Laboratories Blood Venous blood specimen / Unknown Venipuncture / Unknown 12/18/2022 2:14 PM EST 12/18/2022 2:14 PM EST Noemi Roseann HELTON LAB BLOOD ORDER VANDANA Performing Organization Address [facility] Co de Phone Number [address] [address] * COPPER, SERUM OR PLASMA (12/18/2022 2:14 PM EST) Copper 121 70 - 175 mcg/dL 12/21/2022 1:53 PM EST [facility] Comment: This test was developed and its analytical performance characteristics have been determined by [facility] [place], [place]. It has not been cleared or approved by the U.S. Food and Drug Administration. This assay has been validated pursuant to the CLIA regulations and is used for clinical purposes. Test Performed at: [facility] Evangelist Lee M.D., Ph.D.,Director of Laboratories Blood Venous blood specimen / Unknown Venipuncture / Unknown 12/18/2022 2:14 PM EST 12/18/2022 2:14 PM EST Noemi HELTON LAB BLOOD ORDER VANDANA Performing Organization Address [facility]/State/ZIP Co de Phone Number [facility] [address] [place] [address] * FOLIC ACID (12/18/2022 2:14 PM EST) Folic Acid 19.7 >4.5 ng/mL 12/19/2022 4:14 AM EST LAB[facility]ATORY [facility] Blood Venous blood specimen / Unknown Venipuncture / Unknown 12/18/2022 2:14 PM EST 12/18/2022 2:14 PM EST Noemi HELTON LAB BLOOD ORDER VANDANA LAB[facility]ATORY [facility] [address] [place] [address] * (ABNORMAL) VITAMIN B12 (12/18/2022 2:14 PM EST) Pathologist [facility] Vitamin B12 1,405(H) 232 - 1,245 pg/mL 12/19/2022 4:14 AM EST LAB[facility]ATORY [facility] Blood Venous blood specimen / Unknown Venipuncture / Unknown 12/18/2022 2:14 PM EST 12/18/2022 2:14 PM EST Noemi HELTON LAB BLOOD ORDER VANDANA LAB[facility]ATORY [facility] [address] [place] [address] * IMMUNOGLOBULIN QUANTITATIVE (12/18/2022 2:14 PM EST) Pathologist [facility] IgG 1,083 700 - 1,600 mg/dL 12/19/2022 3:38 AM EST [facility] IgA 365 70 - 400 mg/dL 12/19/2022 3:38 AM EST [facility] IgM 174 40 - 230 mg/dL 12/19/2022 3:38 AM EST [facility] Blood Venous blood specimen / Unknown Venipuncture / Unknown 12/18/2022 2:14 PM EST 12/18/2022 2:14 PM EST Noemi HELTON LAB BLOOD ORDER VANDANA Performing Organization Address [facility] de Phone Number LABORATORY [facility] [address] [place] [address] * (ABNORMAL) SERUM FREE LIGHT CHAINS (12/18/2022 2:14 PM EST) Pathologist [facility] [place] Free Light Chains, Serum 53.30(H) 3.30 - 19.40 mg/L 12/19/2022 8:43 AM EST LAB[facility]ATORY [facility] Lambda Free Light Chains, Serum 83.09(H) 5.71 - 26.30 mg/L 12/19/2022 8:43 AM EST LAB[facility] [place] Lambda Free Light Chains Ratio 0.64 0.26 - 1.65 12/19/2022 8:43 AM EST [facility] Blood Venous blood specimen / Unknown Venipuncture / Unknown 12/18/2022 2:14 PM EST 12/18/2022 2:14 PM EST Noemi HELTON LAB BLOOD ORDER VANDANA Performing Organization Address [facility] de Phone Number LABORATORY [facility] [address] [place] [address] * (ABNORMAL) SERUM PROTEIN ELECTROPHORESIS REFLEX PROFILE (12/18/2022 2:14 PM EST) [facility] Protein 6.0 6.0 - 8.3 g/dL 12/19/2022 1:05 PM EST [facility] Albumin 2.96(L) 3.30 - 4.40 g/dL 12/19/2022 1:05 PM EST [facility] Alpha-1 Globulin 0.26 0.10 - 0.30 g/dL 12/19/2022 1:05 PM EST [facility] Alpha-2 Globulin 0.82 0.60 - 1.00 g/dL 12/19/2022 1:05 PM EST [facility] Beta-Globulin 0.65(L) 0.80 - 1.30 g/dL 12/19/2022 1:05 PM EST [facility] Gamma-Globulin 1.31 0.70 - 1.70 g/dL 12/19/2022 1:05 PM EST [facility] Electrophoresis Interpretation No paraprotein detected. 12/19/2022 1:05 PM EST [facility] Blood Venous blood specimen / Unknown Venipuncture / Unknown 12/18/2022 2:14 PM EST 12/18/2022 2:14 PM EST Noemi HELTON LAB BLOOD ORDER VANDANA Performing Organization Address City/[facility]/ZIP Co de Phone Number LABORATORY [facility] [address] [place] [address] * LD (12/18/2022 2:14 PM EST) LD 152 <=250 U/L 12/19/2022 4:2 5 AM EST LAB[facility]ORY [facility] Blood Venous blood specimen / Unknown Venipuncture / Unknown 12/18/2022 2:14 PM EST 12/18/2022 2:14 PM EST Noemi HELTON LAB BLOOD ORDER VANDANA Performing Organization Address [facility] Co de Phone Number LAB[facility]ATORY [facility] [address] [place] [address] * (ABNORMAL) RETICULOCYTE PANEL (12/18/2022 2:14 PM EST) Pathologist [facility] Reticulocyte Percent 2.94(H) 0.80 - 1.90 % 12/18/2022 11:20 PM EST LAB[facility]ORY [facility] Absolute Reticulocyte 75.6 31.3 - 100.1 K/uL 12/18/2022 11:20 PM EST [facility] Immature Reticuloctye Fraction 24.9(H) 2.5 - 20.6 % 12/18/2022 11:20 PM EST [facility] Reticulocyte Hemoglobin 36.4 29.7 - 37.4 pg 12/18/2022 11:20 PM EST [facility] Blood Venous blood specimen / Unknown Venipuncture / Unknown 12/18/2022 2:14 PM EST 12/18/2022 2:14 PM EST Noemi HELTON LAB BLOOD ORDER VANDANA Performing Organization Address City/[facility]/ZIP Co de Phone Number LABORATORY [facility] [address] [place] [address] * (ABNORMAL) SOLUBLE TRANSFERRIN RECEPTOR (12/18/2022 2:14 PM EST) [facility] Soluble Tranferrin Receptor 0.54(L) 0.76 - 1.76 mg/L 12/22/2022 6:09 PM EST [employer] RHINE Comment: Test performed by [employer] [address] [place] [phone] Gas Station Supervisor: ZHOU REGAN M.D. Test Reported by [employer], [employer] [facility], [address] [place] [address] Evangelist Lee M.D., Ph.D., Director of Laboratories , [facility] [id number] Blood Venous blood specimen / Unknown Venipuncture / Unknown 12/18/2022 2:14 PM EST 12/18/2022 2:14 PM EST Noemi [facility] LAB BLOOD ORDER VANDANA [employer] [address] [address] * (ABNORMAL) FERRITIN (12/18/2022 2:14 PM EST) [facility] Ferritin 585(H) 30 - 400 ng/mL 12/19/2022 4:14 AM EST LAB[facility]ATORY [facility] [place] Blood Venous blood specimen / Unknown Venipuncture / Unknown 12/18/2022 2:14 PM EST 12/18/2022 2:14 PM EST Noemi [facility] LAB BLOOD ORDER VANDANA LAB[facility]ATORY [facility] [address] [place] [address] * (ABNORMAL) IRON SCREEN, INCLUDING TIBC (12/18/2022 2:14 PM EST) [facility] Iron 68 45 - 176 ug/dL 12/19/2022 4:25 AM EST LABORATORY [facility] Iron Binding Capacity 164(L) 250 - 425 ug/dL 12/19/2022 4:25 AM EST LAB[facility]ATORY [facility] Transferrin Saturation Percent 41 15 - 55 % 12/19/2022 4:25 AM EST LAB[facility]ATORY [facility] Blood Venous blood specimen / Unknown Venipuncture / Unknown 12/18/2022 2:14 PM EST 12/18/2022 2:14 PM EST Noemi [facility]TON LAB BLOOD ORDER VANDANA LAB[facility]ATORY [facility] [address] [place] [address] * (ABNORMAL) COMPREHENSIVE METABOLIC PANEL (12/18/2022 2:14 PM EST) BUN 39(H) 6 - 20 mg/dL 12/18/2022 3:29 PM [facility] 56 Creatinine 2.3(H) 0.6 - 1.2 mg/dL 12/18/2022 3:29 PM [facility] 56 Estimated Glomerular Filtration Rate 27(L) >=60 mL/min 12/18/2022 3:29 PM [facility] 56- Comment:eGFR is calculated b ased on the CKD-EPI 2020 equation Sodium 138 135 - 146 mmol/L 12/18/2022 3:29 PM [facility] 56- Potassium 4.3 3.5 - 5.1 mmol/L 12/18/2022 3:29 PM [facility] 56- Chloride 96(L) 98 - 107 mmol/L 12/18/2022 3:29 PM [facility] 56- CO2 29 22 - 32 mmol/L 12/18/2022 3:29 PM [facility] 56- Anion Gap 13 7 - 15 mmol/L 12/18/2022 3:29 PM [facility] 56- Glucose 95 70 - 120 mg/dL 12/18/2022 3:29 PM [facility] 56- Albumin 3.6(L) 3.8 - 5.0 g/dL 12/18/2022 3:29 PM [facility] 56- AST 18 10 - 50 U/L 12/18/2022 3:29 PM EST LAB[facility]ATORY [place] 56- Alkaline Phosphatase 116 35 - 130 U/L 12/18/2022 3:29 PM EST [facility] 56- Bilirubin, Total 1.0 <=1.2 mg/dL 12/18/2022 3:29 PM EST [facility] 56- Calcium 9.0 8.4 - 10.2 mg/dL 12/18/2022 3:29 PM EST [facility] 56- Protein 6.0 6.0 - 8.3 g/dL 12/18/2022 3:29 PM EST [facility] 56- ALT 7(L) 10 - 50 U/L 12/18/2022 3:29 PM EST [facility] 56- Blood Venous blood specimen / Unknown Venipuncture / Unknown 12/18/2022 2:14 PM EST 12/18/2022 2:14 PM EST Noemi [facility] LAB BLOOD ORDER VANDANA [place] [id number] [address] [place] [address] documented in this encounter Visit Diagnoses Diagnosis Macrocytic anemia- Primary Unspecified deficiency anemia Stage 3b chronic kidney disease (HCC) Thrombocytopenia (HCC) Thrombocytopenia, unspecified Personal history of [...] the patient have Health Care Power of Power Builder Developer? Yes, not currently available Code Status History Code Status Date Activated Date Inactivated Comments Full Code 06/24/2018 1:38 PM 06/24/2018 3:07 PM This order reflects the patients wishes and were consensually agreed upon. Question Answer Comments Discussion of Advance Directives occurred with: Patient Does the patient have a Living Will? No Does the patient have Health Care Power of Power Builder Developer? No Full Code 07/26/2017 7:36 PM 08/01/2017 4:46 PM This order reflects the patients wishes and were consensually agreed upon. Question Answer Comments Discussion of Advance Directives occurred with: Patient Does the patient have a Living Will? No Does the patient have Health Care Power of Power Builder Developer? No Full Code 02/24/2015 10:33 AM 02/25/2015 6:10 PM . Question Answer Comments Discussion of Advance Directives occurred with: Not Discussed Full Code 01/07/2015 4:20 PM 01/08/2015 5:32 PM Question Answer Comments Discussion of Advance Directives occurred with: Not Discussed Does the patient have a Living Will? No Does the patient have Health Care Power of Power Builder Developer? No Care Teams Rabbet Operator Relationship Specialty Start Date End Date Juan Luis Hope DO [address] [place] [address] [phone] PCP - General Internal Medicine 05/15/21 documented as of this encounter
--- OUTSIDE RECORDS SUMMARY | 2023-04-26 20:43 | External Medical Summary ---
Author Name Unknown Address Unknown Organization K01:[facility] [place] [facility] [address] [facility] [address] Laboratory Report Ordering Provider Test Date Status ZHOU GRECO 12/18/2022 14:14:12 Final Observation Date Value Abnormality Reference (Units) Status Protein 12/18/2022 14:14:12 6.0 6.0-8.3 (g/dL) Final Albumin/Protein.total [Pure mass fraction] in Serum or Plasma by Electrophoresis 12/18/2022 14:14:12 2.96 Below low normal 3.30-4.40 (g/dL) Final Alpha 1 globulin/Protein.tota l [Pure mass fraction] in Serum or Plasma by Electrophoresis 12/18/2022 14:14:12 0.26 0.10-0.30 (g/dL) Final Alpha 2 globulin/Protein.tota l [Pure mass fraction] in Serum or Plasma by Electrophoresis 12/18/2022 14:14:12 0.82 0.60-1.00 (g/dL) Final Beta globulin/Protein.tota l [Pure mass fraction] in Serum or Plasma by Electrophoresis 12/18/2022 14:14:12 0.65 Below low normal 0.80-1.30 (g/dL) Final Gamma globulin/Protein.tota l [Pure mass fraction] in Serum or Plasma by Electrophoresis 12/18/2022 14:14:12 1.31 0.70-1.70 (g/dL) Final Protein Fractions [Interpretation] in Serum or Plasma by Electrophoresis Narrative 12/18/2022 14:14:12 No paraprotein detected. Final Performing Location [facility] [place] [address] [facility] [address]
--- OUTSIDE RECORDS SUMMARY | 2023-04-26 20:43 | External Medical Summary ---
Author Name Unknown Address Unknown Organization K01:LABORATORY [facility] [place] - [address] [place] [address] Laboratory Report Ordering Provider Test Date Status JHONY JOHNSONSHANTI 01/09/2023 13:46:25 Final Observation Date Value Abnormality Reference (Units ) Status Vitamin B12 01/09/2023 13:46:25 1320 Above high normal 232-1245 (pg/mL) Final Performing Location LABORATORY [facility] [place] - [address] [place] [address]
--- OUTSIDE RECORDS SUMMARY | 2023-04-26 20:43 | External Medical Summary ---
Author Name Unknown Address Unknown Organization K01:LABORATORY [facility] [place] - [address] [place] [address] Laboratory Report Ordering Provider Test Date Status DEBBIE JOHNSON 01/09/2023 13:46:25 Final Observation Date Value Abnormality Reference (Units ) Status Ferritin 01/09/2023 13:46:25 586 Above high normal 30 -400 (ng/mL) Final Performing Location LABORATORY [facility] - [address] [place] [address]
--- OUTSIDE RECORDS SUMMARY | 2023-04-26 20:43 | External Medical Summary ---
Author Name Unknown Address Unknown Organization K01:LABORATORY [facility] [place] - [address] [place] [address] Laboratory Report Ordering Provider Test Date Status DEBBIE JOHNSON 01/09/2023 13:46:25 Final Observation Date Value Abnormality Reference (Units ) Status BUN 01/09/2023 13:46:25 18 6-20 (mg/dL) Final Creatinine 01/09/2023 13:46:25 1.3 Above high normal 0.6-1.2 (mg/dL) Final Glomerular filtration rate/1.73 sq M.predicted [Volume Rate/Area] in Serum, Plasma or Blood by Creatinine-based formula (CKD-EPI) 01/09/2023 13:46:25 56 Below low normal >=60 (mL/min) Final eGFR is calculated based on the CKD-EPI 2020 equation SODIUM 01/09/2023 13:46:25 141 135-146 (m mol/L) Final Potassium 01/09/2023 13:46:25 3.1 Below low normal 3.5 -5.1 (mmol/L) Final Cl 01/09/2023 13:46:25 103 98-107 (mm ol/L) Final CO2 01/09/2023 13:46:25 24 22-32 (mmo l/L) Final Anion gap 01/09/2023 13:46:25 14 7-15 (mmol /L) Final Glucose 01/09/2023 13:46:25 89 70-120 (mg /dL) Final Albumin 01/09/2023 13:46:25 3.4 Below low normal 3.8 -5.0 (g/dL) Final AST (Aspartate aminotransferase) 01/09/2023 13:46:25 21 10-50 (U/L) Fin al Alk Phos 01/09/2023 13:46:25 103 35-130 (U/ L) Final Bilirubin, Total 01/09/2023 13:46:25 1.6 Above high no rmal <=1.2 (mg/dL) Final Calcium 01/09/2023 13:46:25 8.4 8.4-10.2 ( mg/dL) Final Protein 01/09/2023 13:46:25 5.7 Below low normal 6.0 -8.3 (g/dL) Final ALT (Alanine aminotransferase) 01/09/2023 13:46:25 8 Below low normal 10-50 (U/L) Final Performing Location LABORATORY [facility] [place] - [address] [facility] [address]
--- OUTSIDE RECORDS SUMMARY | 2023-04-26 20:43 | External Medical Summary ---
Author Name Unknown Address Unknown Organization K01:[place] [place] [address] [place] [address] [address] [facility] [address] Laboratory Report Ordering Provider Test Date Status ZHOU GRECO 12/18/2022 14:14:12 Final Observation Date Value Abnormality Reference (Units ) Status WBC, Total 12/18/2022 14:14:12 4.38 4.00-10.80 (K/uL) Final RBC 12/18/2022 14:14:12 2.57 4.50-5.25 (M/uL) Final Hemoglobin 12/18/2022 14:14:12 8.8 Below low normal 14.0-16.8 (g/dL) Final HCT 12/18/2022 14:14:12 27.8 Below low normal 40.0-48.4 (%) Final MCV 12/18/2022 14:14:12 108.2 82.0-99.5 (fL) Final MCH 12/18/2022 14:14:12 34.2 27.0-34.0 (pg) Final MCHC 12/18/2022 14:14:12 31.7 32.0-36.0 (g/dL) Final RDW 12/18/2022 14:14:12 14.4 11.5-15.5 (%) Final Platelets 12/18/2022 14:14:12 119 Below low normal 140-400 (K/uL) Final MPV 12/18/2022 14:14:12 11.0 6.6-11.1 (fL) Final Nucleated erythrocytes/100 leukocytes [Ratio] in Blood by Automated count 12/18/2022 14:14:12 0 <=0 (/100 WBCs) Final Performing Location [facility] [place] [address] [facility] [address]
--- OUTSIDE RECORDS SUMMARY | 2023-04-26 20:43 | External Medical Summary | Summary of Care ---
Author Name Unknown Organization [facility] Address [address] [place] [address] Phone [phone] Care Team Providers Care Belt Splicer Name Role Phone Juan Luis Hope DO Primary Care Provid er Reason for Visit * Reason Comments Follow Up Encounter Details Date Type Department Care Team ([facility] Contact Info) Description 12/27/2022 11:20 AM EST Office Visit [facility] [address] [place] [address] Jaclyn Bucio PA-C [address] [place] [address] [phone] Risk and functional assessment*; Type 2 diabetes mellitus with diabetic neuropathy, without long-term current use of insulin ([facility]); HTN, goal below 140/90; Hypertension associated with type 2 diabetes mellitus ; Stage 3b chronic kidney disease ([facility]); Hyperlipidemia associated with type 2 diabetes mellitus ; PAF (paroxysmal atrial fibrillation) ([facility]); BPH without obstruction/lower urinary tract symptoms Allergies Active Allergy Reactions Criticality Noted Date Comments Adhesive Tape Rash 09/12/2000 Cefuroxime Axetil Flushing,Hives,Itching 2011 Ceftriaxone Sodium In Dextrose 01/08/2015 Hives Statins Muscle pain Low 09/01/2013 Zolpidem Neuro complications (Please comment) Low 05/18/2010 ambien documented as of this encounter (statuses as of 12/27/2022) Medications Medication Sig Dispensed Refills Start Date [...] (vitamin B-1) 1 Tablet. 0 2 Active Fluticasone-Salmete rol 250-50 MCG/ACT Inhalation Aerosol Powder Breath Activated (Advair Diskus)Indications: Hyperlipidemia associated with type 2 diabetes mellitus,Hypertensi on associated with type 2 diabetes mellitus,Type 2 diabetes mellitus with diabetic neuropathy, without long-term current use of insulin ([facility]),Other specified hypothyroidism,Cent rilobular emphysema ([facility]),COPD, group B, by GOLD 2017 classification ([facility]) Inhale 1 Puff by mouth in the [...] taking.Reported on 12/27/2022 Tadalafil 20 MG Oral TabletIndications:E rectile dysfunction [...] 3 Active Furosemide 20 MG Oral Tablet (Lasix)Indications: [...] for Pain, Moderate. 30 Tablet 0 3 Active Losartan Potassium 25 MG Oral Tablet (Cozaar)Indications :HTN, goal below 140/90 Take 1 Tablet by mouth in the morning. 90 Tablet 3 3 Active Losartan Potassium 50 MG Oral Tablet (Cozaar)Indications :Hypertension associated with type 2 diabetes mellitus TAKE 1 TABLET BY MOUTH ONCE DAILY IN THE MORNING 90 Tablet 3 3 12/28/19 23 Discontinued documented as of this encounter (statuses as of 12/27/2022) Active Problems Problem Noted Date Diagnosed Date [...] as of this encounter (statuses as of 12/27/2022) Resolved Problems Problem Noted Date Diagnosed Date [...] transurethral res ection of prostate 08/05/2017 06/30/2018 senior living resident 08/05/20172017 DNR (do not resuscitate) 08/05/201706/2017 [...] pt states received one on prior visit. [facility] current use of ant icoagulant therapy 05/17/2003 01/19/2019 Anticoagulation management encounter 05/11/2003 08/13/2017 HTN, goal below 140/90 06/30 Hypothyroidism 09/01/2014 Reflux esophagitis 0 Mixed dyslipidemia 9 Overview: Per Lipid Taxonomy. Acute appendicitis 8 documented as of this encounter (statuses as of 12/27/2022) Immunizations Name Administration Dates Next Due COVID-19, [...] Sign Reading Time Taken Comments Blood Pressure 108/56 12/27/2022 11:18 AM EST Pulse 86 12/27/2022 11:18 AM EST Temperature 36.4 C (97.5 F) 12/27/2022 11:[address] Respiratory Rate 17 12/27/2022 11:18 AM EST Oxygen Saturation 98% 12/27/2022 11:18 AM EST Inhaled Oxygen Concentration - - Weight [...] No 06/24/2018 documented as of this encounter Patient Instructions * Patient Instructions* Jaclyn Bucio PA-C - 12/27/2022 11:14 AM EST Decrease losartan from 50mg daily to 25mg daily Take colace BID Patient Instructions - Fall Prevention (This education is for all patients over 65 regardless of symptoms) Remember to take your current medications as prescribed. In order to prevent falls, you are encouraged to: Exercise Utilize assistive/adaptive devices Avoid multifocal lenses when walking Avoid hazards in home Maintain a regular toileting schedule Any questions please contact our office. Preventing Falls in the Home (This education is for all patients over 65 regardless of symptoms) As you get older, falls are more likely. Thats because your reaction time slows. Your muscles and joints may also get stiffer, making them less flexible. Illness, medications, and vision changes can also affect your balance. A fall could leave you unable to live on your own. To make your home safer, follow these tips: Floors Put nonskid pads under area rugs Remove throw rugs Replace worn floor coverings Tack carpets firmly to each step on carpeted stairs. Put nonskid strips on the edges of uncarpeted stairs Keep floors and stairs free of clutter and cords Arrange furniture so there are clear pathways Clean up any spills right away Bathrooms Install grab bars in the tub or shower Apply nonskid strips or put a nonskid rubber mat in the tub or shower Sit on a bath chair to bathe Use bathmats with nonskid backing Lighting Keep a flashlight in each room Put a nightlight along the pathway between the bedroom and the bathroom [employer] Patient Education Copyright 2008 - 2010 [employer] except where otherwise noted Preventing Falls: Exercises to Improve Balance, Flexibility, Strength, and Staying Power (This education is for all patients over 65 regardless of symptoms) Certain types of exercises may help make you less likely to fall. Try the ones below. Or do other exercises that your healthcare provider suggests. Depending on your health, you may need to start slowly. Dont let that stop you. Even small amounts of exercise can help you. Be sure to talk to yourhealthcare provider before starting any exercise program. Improve Balance Many types of exercise can help improve balance. Tim chi and yoga are good examples. Heres another one to try. You can do it anytime and almost anywhere. Stand next to a counter or solid support. Push yourself up onto your tiptoes. Hold for 5 seconds. If you start to lose your balance, hold on to the counter. Rest and repeat 5 times. Work up to holding for 20 to 30 seconds, if you can. Increase Flexibility Being more flexible makes it easier for you to move around safely. Try exercises like the seated hamstring stretch. Sit in a chair and put one foot on a stool. Straighten your leg and reach with both hands down either side of your leg. Reach as far down your leg as you can. Hold for about 20 seconds. Go back to the starting position. Then repeat 5 times. Switch legs. Build Strength Resistance exercises help build strength. You can do them without equipment. Or you can use weights, elastic bands, or special machines. One such exercise is called the biceps curl. You can hold a 1 pound weight or even a can of soup. Do this exercise at least 3 times a week. Strive for everyday. Sit up straight in a chair. Keep your elbow close to your body and your wrist straight. Bend your arm, moving your hand up to your shoulder. Then slowly lower your arm. Repeat 5 times. Switch to the other arm. Build Your Staying Power Aerobic exercises make your heart and lungs stronger so you can keep moving longer. Walking and swimming are two of the best types of exercises you can do. Using a stationary bike is great, too. Find an aerobic exercise that you enjoy. Start slowly and build up. Even 5 minutes is helpful. Aimfor a goal of 30 minutes, at least 3 times a week. You dont have to do 30 minutes in one session. Break it up and walk a little throughout the day. More Helpful Tips Start easy. Slowly work up to doing more. Talk with your healthcare provider about the best exercises for you. Call senior centers or health clubs about exercise programs. If needed, have a family member watch you walk every so often to check your stability. Exercise with a friend. Choose an activity you both enjoy. Try exercises that you can do anytime, anywhere. Here are two examples. Have someone with you when you first try these: Practice walking by placing one foot right in front of the other. Stand up and sit down 10 times. Repeat this throughout the day. [employer] Patient Education Copyright 2009 - 2010 [employer] except where otherwise noted. Preventing Falls: Moving Safely Using a Cane or Walker (This education is for all patients over 65 regardless of symptoms) Keep the cane away from your feet so you dont trip. A walking aid, such as a cane or walker, can help you stay more independent and avoid falls. Remember to keep your walking aid within easy reach when youre in a chair or in bed. And learn how to use it safely so you dont injure yourself. Using a Cane If you have a stronger side, hold the cane on that side. Get your balance. Move the cane and your weaker leg forward. Support your weight on both the cane and your weaker side. Step with your stronger leg. Start again from step 1. If youre using a folding walker, be sure you know how to lock it open. Check that its locked open before each use. Using a Walker Roll the walker (or lift it, if youre using one without wheels) forward about 12 inches. Step forward with your weaker leg first. Use the walker to help keep your balance. Bring your other foot forward to the center of the walker. Start again from step 1. Helpful Tips Check with your healthcare provider about the right walking aid to use. Ask about a walker with a seat attached. Check the tips of your cane or walker to make sure they have nonskid covers. Move slowly from room to room. Dont taylor. Sit down to get dressed. Use a giovani pack or backpack to keep your hands free. Get help for jobs that mean climbing, even on a stepstool. [employer] Patient Education Copyright 2008 - 2010 [employer] except where otherwise noted. Treating Urinary Incontinence in Men (This education is for all patients over 65 regardless of symptoms) You can't always control the release of urine. You may leak urine. Or you may not be able to hold your urine until you can get to a bathroom. This is called urinary incontinence. The problem can be managed. Talk to your doctor about your treatment options. Taking Medications Prescription medications may help you. They may: Help the sphincter to work better. (This is the muscle that closes to keep urine from leaking out of the bladder.) Help stop the bladder from shantanu too often to push urine out. Help the bladder muscles contract with more force. Help relax the sphincter muscle and allow urine to flow more freely. Making Changes to Your Routine Certain changes in your daily routine may help. These include: Avoiding caffeine and alcohol. Using timed voiding. This is following a schedule for drinking fluids and urinating. Doing Kegel exercises daily. These exercises involve tightening the muscles in your sphincter and around your bladder to help strengthen them. Your doctor can explain how to do them. Using a Catheter A catheter is a narrow tube that is inserted through the urethra into the bladder. It drains urine.A condom catheter covers the penis. It channels urine into a collection bag. It is worn most of thetime. Intermittent catheterization means inserting a catheter to drain the bladder, then removing it. This is done on a regular schedule. Having Surgery If other options don't work, surgery may be recommended. If surgery is an option, your healthcare provider can discuss it with you and explain its risks and benefits. Healing After Prostate Surgery Surgery on the prostate gland can cause incontinence. Most often, the incontinence is only for a short time. It clears up when healing is complete. Very rarely, prostate surgery can result in permanent incontinence. Diabetes: Keeping Feet Healthy Inspect your feet every day for signs of a problem. Diabetes can damage nerves in your feet and cause neuropathy. This condition makes it hard for you to feel injuries or sore spots. Diabetes can also change blood flow, making it harder for small problems, like a blister, to heal properly. In fact, minor injuries can quickly become serious infections that send you to the hospital. Practice self-care to protect your feet and keep them healthy. Take Special Care Inspect your feet daily for problems such as redness, blisters, cracks, dry skin, or numbness. Use a mirror to see the bottoms of your feet. Or, ask for help. Manage your diabetes. Monitor and control your blood sugar. Take all your medications as prescribed. Avoid walking barefoot, even indoors. Wash your feet with warm water and mild soap. Dry well, especially between toes. Dont treat corns or calluses yourself. Talk to your doctor or warp tier (a doctor who specializes in foot care) if you need assistance trimming your toenails. Use moisturizing cream or lotion if you have dry skin, but dont use it between toes. Dont use heating pads on your feet. If you have neuropathy, you could get a burn and not feel it. Stop smoking. Smoking restricts blood flow and can make it harder for wounds to heal. Have Regular Checkups Foot problems can develop quickly. So be sure to follow your healthcare teams schedule for regular checkups. During office visits, take off your shoes and socks as soon as you get in the exam room. Ask your healthcare provider to examine your feet for problems. This will make it easier to find and treat small skin irritations before they get worse. Regular checkups can also help keep track of the blood flow and feeling in your feet. If you have neuropathy, you may need to have checkups more often. Wear Proper Footwear Wearing proper footwear is very important. If areas of your feet have been damaged by too much pressure, your healthcare provider may recommend changing your footwear. In some cases, avoiding high heels or tight work boots may be all thats needed. Or, your healthcare provider may recommend special shoes or custom inserts. These help protect your feet and keep existing irritations from getting worse. If you need special footwear, ask your healthcare provider if you qualify for [employer] diabetic shoe program. Make Sure Shoes and Socks Fit Any pair of shoes--new or old--should feel comfortable as soon as you put them on. There shouldnt be any rubbing when you walk. Wear the right shoe for any activity. For instance, a running shoe is designed to keep your feet injury-free while jogging. Buy shoes at the end of the day, when your feet are larger. Make sure they provide support without feeling too loose. Make sure your socks fit, t oo. Wear soft, seamless, well-padded socks for activity. Cotton or microfiber socks are best to help to absorb sweat. To protect your feet, avoid shoes that are open-toed or open-heeled. If you have questions about what kinds of shoes and socks are best, talk to your healthcare team. Get Regular Exercise Regular exercise improves blood flow in your feet. It also increases foot strength and flexibility.Gentle exercises, like walking or riding a stationary bicycle, are best. You can also do special foot exercises. Just be sure to talk with your healthcare provider before starting any exercise program. Also mention if any exercise causes pain, redness, or other signs of foot problems. Note: If you have any kind of break in the skin of your foot or ankle, keep the area clean. Then call your doctor--especially if the area doesnt appear to be healing. [id number] [employer], [address] [place] [address], [place] [address]. All rights reserved. This information is not intended as a substitute for professional medical care. Always follow your healthcare professional's instructions. documented in this encounter Progress Notes * Jaclyn Bucio PA-C - 12/27/2022 11:24 AM EST Subjective: Neil Abdulwaldoyo Rubio is a 82 year old male. Chief Complaint Patient presents with Follow Up HPI: Patient presents today for follow up. Reports overall he feels well. Patient reports he continues to drink 2-3 shots of vodka a night. Patient reports two nights ago, he rolled out of bed in his sleep. Denies any pain since fall. Denies visual changes. Denies chest pain. Denies syncope. Denies any hip pain. Reports he did notice some blood from his ear. Patient reports his BP has been running low at appointments. [facility] Discussed decreasing dose of losartan. Discussed constipation. Patient reports his constipation is improved but he still sometimes feels constipated. I recommended patient continue to take colace BID indefinitely. Uses lasix only PRN. Takes potassium only when taking lasix. Patient recently increased gabapentin from 300mg daily to BID. 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 Hypertension associated with type 2 diabetes mellitus E11.59, I15.2 PVD (peripheral vascular disease) ([facility]) I73.9 MEDICATION USE AGREEMENT [id number] COPD, group B, by GOLD 2017 classification ([facility]) J44.9 Centrilobular emphysema ([facility]) J43.2 Normocytic anemia D64.9 Stage 3b chronic kidney disease ([facility]) N18.32 Current Outpatient Medications Medication Sig Dispense Refill gabapentin (NEURONTIN) 300 MG Capsule Take 1 Capsule by mouth in the morning and 1 Capsule before bedtime. levothyroxine sodium (LEVOXYL) 112 MCG Tablet Take 1 Tablet by mouth daily first thing in the morning. (at least 30 min prior to breakfast or other meds) 30 Tab 5 Vitamin D 50 MCG (1999 UT) Oral Tablet Take 2,000 Units by mouth daily. Vitamin B-1 50 MG Oral Tablet (vitamin B-1) 1 Tablet. Fluticasone-Salmeterol 250-50 MCG/ACT Inhalation Aerosol Powder Breath Activated (Advair Diskus) Inhale 1 Puff by mouth in the morning and 1 Puff before bedtime. 60 Each 5 Metoprolol Succinate ER 25 MG Oral Tablet Extended Release 24 Hour (toPROL XL) Take 1 Tablet by mouth in the morning. Tadalafil 20 MG Oral Tablet TAKE 1 [...] DAILY IN THE MORNING 90 Tablet 3 traMADol HCl 50 MG Oral Tablet (Ultram) Take 1 Tablet by mouth every 6 hours as needed for Pain, Moderate. 30 Tablet 0 Folic Acid 1 MG Oral Tablet Take 1 Tablet by mouth in the morning. (Patient not taking: Reported on12/18/2022) Nitroglycerin 0.4 MG Sublingual Tablet Sublingual (Nitrostat) DISSOLVE 1 TAB UNDER TONGUE EVERY 5 MINUTES NEEDED FOR CHEST PAIN. MAX 3 DOSES. NO RELIEF CALL 911 (Patient not taking: Reported on 12/27/2022) 25 Tablet 5 Docusate Sodium 100 MG Oral Capsule (Colace) Take 1 Capsule by mouth in the morning and 1 Capsule before bedtime. (Patient not taking: Reported on 12/27/2022) 60 Capsule 5 No current facility-administered medications for this visit. Review of patient's allergies indicates: Allergen Reactions Adhesive Tape Rash Cefuroxime Axetil Flushing, Hives and Itching Rocephin [Ceftriaxone Sodium In Dextrose] Hives Statins Muscle pain Zolpidem Neuro complications (Please comment) ambien Objective: BP 108/56 | Pulse 86 | Temp 36.4 C (97.5 F) | Resp 17 | SpO2 98% General: alert, healthy, and no distress Head: Normocephalic Eye Exam: extraocular movements intact, conjunctiva are pink and non-injected, sclera clear Ears: Small < 2mm laceration of helix of left ear with dried blood. No hematoma.. Canals clear, TM's Normal Nose: no mucosal erythema, no mucosal edema, no purulent discharge Heart: regular rate & rhythm, no murmur, and no gallops Lungs: lungs clear to auscultation Abdomen: abdomen soft, non-tender, normal bowel sounds, and no masses or organomegaly Extremities: mild b/l LE edema. Skin:areas of eccymosis over all extremities. ASSESSMENT: Risk and functional assessment (Primary) Type 2 diabetes mellitus with diabetic neuropathy, without long-term current use of insulin (HCC) - DIABETES FOOT EXAM HTN, goal below 140/90 - Losartan Potassium 25 MG Oral Tablet (Cozaar); Take 1 Tablet by mouth in the morning. Hypertension associated with type 2 diabetes mellitus Stage 3b chronic kidney disease (HCC) Hyperlipidemia associated with type 2 diabetes mellitus PAF (paroxysmal atrial fibrillation) ([facility]) BPH without obstruction/lower urinary tract symptoms Follow Up: Return if symptoms worsen or fail to improve, for patient has follow up with Dr. Moore scheduled . | For: patient has follow up with Dr. Moore scheduled Plan: Paroxysmal atrial fibrillation: Patient not on anticoagulation due to high fall risk. Risk outweighbenefit. Continue metoprolol Hypertension, type 2 diabetes with neuropathy: Patient has persistently low blood pressures at office visits. We will decrease losartan from 50 mgdaily to 25 mg daily. This was discussed with patient he verbalizes understanding it end of visit was able to verbalize the treatment plan of decreasing losartan to 25 mg daily (and taking colace BID). Continue gabapentin 300 mg twice daily, this was recently increased. Based on his creatinine clearance of 41, patient may increase to up to 300 three times daily. Patient not interested in increasingfurther at this time. Patient reports he rarely uses the Lasix as needed. He takes potassium only when he takes his lasix. COPD without exacerbation: Patient using Advair. Hypothyroidism: Continue Synthroid 112 mcg. TSH within normal limits in July. Patient reports he occasionally uses his tadalafil for ED. Patient reports good help at home and politely declines any additional resources at this time Patient politely declines colonoscopy. I spent a total of 40-54 minutes (exact time 40 mins) on the date of service in preparation, delivery, and documentation of the care provided to Neil Raoms excluding any time spent in the performance of separately billed services. Jaclyn Bucio PA-C * Rasta Stephenson LPN - 12/27/2022 11:14 AM EST Fall Risk Plan of Care Documentation: - Current medications reconciled Patient encouraged to: - Exercise - Provide education materials for Core strengthening - Utilize assistive/adaptive devices - Provide education materials - Avoid multifocal lenses when walking - Avoid hazards in home - Provide education materials - Maintain a regular toileting schedule Rasta Stephenson LPN 12/27/2022 Socks and Shoes Removed for Annual Diabetic Foot Screening RIGHT FOOT: No Reddened, Cracking, Or Open Areas Noted. RIGHT Dorsalis Pedis Pulse: Palpable RIGHT Posterior Tibial Pulse: Palpable RIGHT Monofilament:Patient reports feeling monofilament pressure on plantar surface of foot LEFT FOOT: No Reddened, Cracking or Open Areas Noted. LEFT Dorsalis Pedis Pulse: Palpable LEFT Posterior Tibial Pulse: Palpable LEFT Monofilament:Patient reports feeling monofilament pressure on plantar surface of foot Do you need diabetic shoes: N/A DM Foot Exam completed today. Provider aware. Rasta Stephenson LPN documented in this encounter Nursing Notes * Rasta Stephenson LPN - 12/27/2022 11:16 AM EST The patient has been properly identified by confirmation of name and date of . Chief Complaint Patient presents with Follow Up Fell out of bed saturday. No acute injuries noted. documented in this encounter Plan of Treatment Upcoming Encounters Date Type Department Care Team (Late st Contact Info) Description 01/04/2023 4:30 PM EST Telemedicine Hematology/Oncology [facility] [address] [place] [address] Noemi Donaldson CRNP [address] [place] [address] 02/08/2023 10:30 AM EST [facility] [address] [place] [address] [place], [facility] [address] [place] [address] 02/13/2023 11:00 AM EST Office Visit [facility] [address] [place] [address] Juan Luis Hope, [address] [place] [address] Health Maintenance Due Date Last Done Comments Zoster Vaccines (1 of 2) 11/30/1991 Hepatitis B (1 of 3 - Risk 3-dose series) 2001 DTaP,Tdap,and Td Vaccines (1 - Tdap) 04/20/2011 04/19/2011, 06/07/1999 *COPD SEVERITY VERIFIED BY PFT 08/24/2017 COLONOSCOPY-EVERY 2 YRS AGES 18-100 02/13/2018 02/14/2016, 02/14/2016, 11/16/2005 Albumin/Creatinine Ratio 09/03/2019 09/02/2018, 11/11 CKD PHOS USE SMARTSET 05795 06/28/202206/11, 06/24/2021, 06/23/2021, Additional history exists COVID-19 Vaccine ( season) 2022 02/08/2021, 08/01/2020 HbA1c 01/29/2023 07/30/2022, 01/11, 07/31/2021, Additional history exists Diabetic Eye Exam 03/19/2023 03/19/2022, , 03/19/2022, Additional history exists GFR 06/18/2023 12/18/2022, 10/13, 10/23/2022, Additional history exists TSH 07/31/2023 07/30/2022, 01/11, 07/31/2021, Additional history exists Depression Screening 11/03/2023 11/02/2022 CKD HGB USE SMARTSET 08488 12/19/202312/18, 12/18/2022, 11/09/2022, Additional history exists O2 ASSESSMENT COMPLETED IN PAST YEAR FOR COPD 12/19/2023 12/18/2022 Diabetic Foot Exam 12/28/2023 12/27/2022, 0 07/14/2021, 08/19/2019, Additional history exists Pneumococcal Vaccine: 65+ Years [...] this encounter Medical Devices Implanted Type Area Dump Worker Device Identifier Shelf Expiration Date Model / Serial / Lot Rsp Bone Screw-Locking Sz 5.0 Mm 26mm Long Implanted:Qty: 1 on 02/24/2015 by Aníbal Frankel MD at [facility] Right: Shoulder [employer] 01/22/2021 [id number] / / [id number] documented as of this encounter Visit Diagnoses Diagnosis Risk and functional assessment- Primary Screening for unspecified condition Type 2 diabetes mellitus with diabetic neuropathy, without long-term current use of insulin (HCC) HTN, goal below 140/90 Unspecified essential hypertension Hypertension associated with type 2 diabetes mellitus Stage 3b chronic kidney disease (HCC) Hyperlipidemia associated with type 2 diabetes mellitus PAF (paroxysmal atrial fibrillation) (HCC) Atrial fibrillation BPH without obstruction/lower urinary tract symptoms Hypertrophy of prostate without urinary obstruction and other lower urinary tract symptoms (LUTS) documented in this encounter Advance Directives Latest [...] the patient have Health Care Power of Stainless Steel Finisher? Yes, not currently available Code Status History Code Status Date Activated Date Inactivated Comments Full Code 06/24/2018 1:38 PM 06/24/2018 3:07 PM This order reflects the patients wishes and were consensually agreed upon. Question Answer Comments Discussion of Advance Directives occurred with: Patient Does the patient have a Living Will? No Does the patient have Health Care Power of Stainless Steel Finisher? No Full Code 07/26/2017 7:36 PM 08/01/2017 4:46 PM This order reflects the patients wishes and were consensually agreed upon. Question Answer Comments Discussion of Advance Directives occurred with: Patient Does the patient have a Living Will? No Does the patient have Health Care Power of Stainless Steel Finisher? No Full Code 02/24/2015 10:33 AM 02/25/2015 6:10 PM . Question Answer Comments Discussion of Advance Directives occurred with: Not Discussed Full Code 01/07/2015 4:20 PM 01/08/2015 5:32 PM Question Answer Comments Discussion of Advance Directives occurred with: Not Discussed Does the patient have a Living Will? No Does the patient have Health Care Power of Stainless Steel Finisher? No Care Teams Belt Splicer Relationship Specialty Start Date End Date Juan Luis oHpe DO [address] [place] [address] PCP - General Internal Medicine 05/15/21 documented as of this encounter"
--- OUTSIDE RECORDS SUMMARY | 2023-04-26 20:43 | External Medical Summary ---
Author Name Unknown Address Unknown Organization [id number]:[place] [facility] [place] [address] [place] [address] Laboratory Report Ordering Provider Test Date Status NOLVIA MENDIETA 01/09/2023 13:46:25 Final Deficient: <20 ng/mL
Ins ufficient: 20-29 ng/mL
Recommended/Optimum:30-50 ng/mL

Vitamin D intoxication is rare. If suspicious of Vitamin D toxicity, evaluation of serum Calcium and PTH is recommended. Observation Date Value Abnormality Reference (Units ) Status 25-OH Vitamin D total 01/09/2023 13:46:25 69 >19 (ng/mL) Final Performing Location [place] [facility] [place] [address] [place] [address]
--- OUTSIDE RECORDS SUMMARY | 2023-04-26 20:43 | External Medical Summary ---
Author Name Unknown Address Unknown Organization [id number]:LABORATORY C - [address] [place] [address] Laboratory Report Ordering Provider Test Date Status ZHOU GRECO 12/18/2022 14:14:12 Final Observation Date Value Abnormality Reference (Units ) Status LDH 12/18/2022 14:14:12 152 <=250 (U/L ) Final Performing Location LABORATORY [facility] - [address] [place] [id number]
--- OUTSIDE RECORDS SUMMARY | 2023-04-26 20:43 | External Medical Summary ---
Author Name Unknown Address Unknown Organization [id number]:LABORATORY [facility] [place] - [facility] [place][note 2] [address] [place] [address] Laboratory Report Ordering Provider Test Date Status NOLVIA MENDIETA 01/09/2023 13:46:25 Final Observation Date Value Abnormality Reference (Units ) Status Cryoglobulin [Presence] in Serum by 3 day cold incubation 01/09/2023 13:46:25 Not Detected Not Detected Final Performing Location LABORATORY [facility] [place] - [address] [place] [address]
--- OUTSIDE RECORDS SUMMARY | 2023-04-26 20:43 | External Medical Summary ---
Author Name Unknown Address Unknown Organization [id number]:LABORATORY [facility] [place] - [address] [place] [address] Laboratory Report Ordering Provider Test Date Status NOLVIA MENDIETA 01/09/2023 13:46:25 Final Observation Date Value Abnormality Reference (Units ) Status Complement C3c [Mass/volume] in Serum or Plasma 01/09/2023 13:46:25 82 Below low normal 90-180 (mg/dL) Final Performing Location LABORATORY [facility] [place] - [address] [place] [address]
--- OUTSIDE RECORDS SUMMARY | 2023-04-26 20:43 | External Medical Summary ---
Author Name Unknown Address Unknown Organization [id number]:LABORATORY [address] [facility] [address] Laboratory Report Ordering Provider Test Date Status NOLVIA MENDIETA 01/09/2023 13:46:25 Final Observation Date Value Abnormality Reference (Units ) Status Nuclear IgG Ab [Ratio] in Serum by Immunoassay 01/09/2023 13:46:25 Negative Negative Final DNA double strand Ab [Presence] in Serum 01/09/2023 13:46:25 Negative Negative Final DOUBLE STRANDED DNA VALUE - [facility] 01/09/2023 13:46:25 0.7 <20 (IU/mL) Final Extractable nuclear Ab [Presence] in Serum 01/09/2023 13:46:25 Negative Negative Final Nuclear IgG Ab [Ratio] in Serum by Immunoassay 01/09/2023 13:46:25 0.2 <0.7 (Ratio) Final Screening is based on detect ion of the following antibodies: dsDNA, U1-STUDY COORDINATOR (RNP70, A, C), SS-A/Ro, SS-B / La, Colleen-1, Scl-70, Centromere B proteins and Sm proteins. In conjunction with clinical findings, this can aid in the diagnosis of systemic lupus erythematosous (SLE), mixed connective tissue disease (MCTD), Sjogren's syndrome, scleroderma and polymyositis/dermatomyositis.
However, a negative result does not rule out systemic rheumatic or other autoimmune disease. If clinically suspected, further evaluation and testing may be necessary. Please consult with Rheumatology Department.
Methodology: Fluorescent Enzyme Immunoassay. Performing Location LABORATORY [address] [facility] [address]
--- OUTSIDE RECORDS SUMMARY | 2023-04-26 20:43 | External Medical Summary | Summary of Care ---
Author Name Unknown Organization [facility] Address [address] [place] [address] Phone [phone] Care Team Providers Care Reducing Salon Attendant Name Role Phone [place] Juan Luis Mejias Primary Care Provid er Reason for Referral * Evaluate & Treat - Unlimited Visits (Within 10 days (routine)) - Authorized Specialty Diagnoses / Procedures Referred By Justino purcell Referred To Contact Nephrology Diagnoses Stage 3b chronic kidney disease (HCC) BANG (acute kidney injury) (HCC) Jaclyn Bucio PA-C [address] [place] [address] Referral ID Status Reason Start Date Expiration Date Visits Requested Visits Authorized [id number] Authorized Specialty Services Required 3 [phone] Question Answer Referral Priority Within 10 days (routine) Where should this appointment be scheduled? Wendy What condition is this patient being seen for? Chronic kidney disease Reason for Visit * Reason Onset Date Comments Test Results 12/31/2022 Encounter Details Date Type Department Care Team ([facility] Contact Info) Description 12/31/2022 Telephone Family Practice [facility] [address] [place] [phone] Jaclyn Bucio PA-C [address] [place] [address] [phone] Test Results Allergies Active Allergy Reactions Criticality Noted Date Comments Adhesive Tape Rash 09/12/2000 Cefuroxime Axetil Flushing,Hives,Itching 2011 Ceftriaxone Sodium In Dextrose 01/08/2015 Hives Statins Muscle pain Low 09/01/2013 Zolpidem Neuro complications (Please comment) Low 05/18/2010 ambien documented as of this encounter (statuses as of 12/31/2022) Medications Medication Sig Dispensed Refills Start Date [...] of insulin (HCC),Other specified hypothyroidism,Centr ilobular emphysema ([facility]),COPD, group B, by GOLD 2017 classification ([facility]) Inhale 1 Puff by mouth in the [...] as of this encounter (statuses as of 12/31/2022) Active Problems Problem Noted Date Diagnosed Date [...] as of this encounter (statuses as of 12/31/2022) Resolved Problems Problem Noted Date Diagnosed Date [...] blood loss 08/05/2017 04/25/2021 Supratherapeutic INR 08/05/2017 07 018 Generalized weakness 08/05/2017 018 Gait abnormality [...] pt states received one on prior visit. 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 Acute appendicitis 8 documented as of this encounter (statuses as of 12/31/2022) Immunizations Name Administration Dates Next Due COVID-19, [...] encounter Miscellaneous Notes * Telephone Encounter - Estrada Cho - 12/31/2022 1:59 PM EST Spoke to patient, appointment for US scheduled. * Telephone Encounter - Peyton Teixeira LPN - 12/31/2022 11:42 AM EST Pt has been called and informed of results. Pt is agreeable to labs and ultrasound, would like to have this done at [facility]. * Telephone Encounter - Jaclyn Bucio PA-C - 12/31/2022 11:26 AM EST Patient will need informed of orders. Thank you, Jaclyn Bucio PA-C 12/31/2022 11:26 AM * Telephone Encounter - Estrada Cho - 12/31/2022 9:44 AM EST Has patient been informed of need for these orders? Thank you. * Telephone Encounter - Jaclyn Bucio PA-C - 12/31/2022 8:59 AM EST Increasing Creatinine noted. Recommend nephrology evaluation. Referral including labs and US placed. (Decreased antihypertensives at last as patient was frequently hypotensive) Jaclyn Bucio PA-C 12/31/2022 9:00 AM documented in this encounter Plan of Treatment Upcoming Encounters Date Type Department Care Team (Late st Contact Info) Description 01/04/2023 1:30 PM EST Imaging Radiology, [place] [address] [place] [phone] 01/04/2023 4:30 PM EST Telemedicine Hematology/Oncology [facility] [address] [place] [address] Noemi Donaldson CRNP [address] [place] [address] [place] [address] 02/08/2023 10:30 AM EST Laboratory Laboratory Patient Service [address] [phone] [address] 02/13/2023 11:00 AM EST Office Visit [facility] [address] [place] [phone] Juan Luis Hope, [address] [place] [address] Scheduled Orders Name Type Priority Associated Diagnoses Orde r Schedule RENAL FUNCTION PANEL Lab Routine BANG (acute kidney injury) (HCC) Expected: 12/31/2022, Expires: 01/01/2024 URINALYSIS, REFLEX TO MICROSCOPIC Lab Routine BANG (acute kidney injury) (HCC) Expected: 12/31/2022, Expires: 01/01/2024 ALBUMIN / CREATININE RATIO, URINE Lab Routine BANG (acute kidney injury) (HCC) Expected: 12/31/2022, Expires: 01/01/2024 US RENAL Medical Imaging Routine BANG (acute kidney injury) (HCC) Expected: 12/31/2022, Expires: 01/31/2024 Scheduled Referrals Name Type Priority Associated Diagnoses Orde r Schedule NEPHROLOGY REFERRAL OP Referral Within 10 days (routine) Stage 3b chronic kidney disease (HCC) BANG (acute kidney injury) (HCC) Ordered: 12/31/2022 Health Maintenance Due Date Last Done Comments Zoster Vaccines (1 of 2) 11/30/1991 Hepatitis B (1 of 3 - Risk 3-dose series) 2001 DTaP,Tdap,and Td Vaccines (1 - Tdap) 04/20/2011 04/19/2011, 06/07/1999 *COPD SEVERITY VERIFIED BY PFT 08/24/2017 COLONOSCOPY-EVERY 2 YRS AGES 18-100 02/13/2018 02/14/2016, 02/14/2016, 11/16/2005 Albumin/Creatinine Ratio 09/03/2019 09/02/2018, 11/11 CKD PHOS USE SMARTSET 74656 06/28/202206/11, 06/24/2021, 06/23/2021, Additional history exists COVID-19 Vaccine ( season) 2022 02/08/2021, 08/01/2020 HbA1c 01/29/2023 07/30/2022, 01/11, 07/31/2021, Additional history exists Diabetic Eye Exam 03/19/2023 03/19/2022, , 03/19/2022, Additional history exists GFR 06/18/2023 12/18/2022, 10/13, 10/23/2022, Additional history exists TSH 07/31/2023 07/30/2022, 01/11, 07/31/2021, Additional history exists Depression Screening 11/03/2023 11/02/2022 CKD HGB USE SMARTSET 70341 12/19/202312/18, 12/18/2022, 11/09/2022, Additional history exists Diabetic [...] this encounter Medical Devices Implanted Type Area Scouring Pads Supervisor Device Identifier Shelf Expiration Date Model / Serial / Lot Rsp Bone Screw-Locking Sz 5.0 Mm 26mm Long Implanted:Qty: 1 on 02/24/2015 by Aníbal Frankel MD at [facility] Right: Shoulder [employer] 01/22/2021 [id number] / / [id number] documented as of this encounter Visit Diagnoses Diagnosis Stage 3b chronic kidney disease (HCC)- Primary BANG (acute kidney injury) (HCC) Acute kidney failure, unspecified documented in this encounter Advance [...] the patient have Health Care Power of Real Property Evaluator? Yes, not currently available Code Status History Code Status Date Activated Date Inactivated Comments Full Code 06/24/2018 1:38 PM 06/24/2018 3:07 PM This order reflects the patients wishes and were consensually agreed upon. Question Answer Comments Discussion of Advance Directives occurred with: Patient Does the patient have a Living Will? No Does the patient have Health Care Power of Real Property Evaluator? No Full Code 07/26/2017 7:36 PM 08/01/2017 4:46 PM This order reflects the patients wishes and were consensually agreed upon. Question Answer Comments Discussion of Advance Directives occurred with: Patient Does the patient have a Living Will? No Does the patient have Health Care Power of Real Property Evaluator? No Full Code 02/24/2015 10:33 AM 02/25/2015 6:10 PM . Question Answer Comments Discussion of Advance Directives occurred with: Not Discussed Full Code 01/07/2015 4:20 PM 01/08/2015 5:32 PM Question Answer Comments Discussion of Advance Directives occurred with: Not Discussed Does the patient have a Living Will? No Does the patient have Health Care Power of Real Property Evaluator? No Care Teams Reducing Salon Attendant Relationship Specialty Start Date End Date Juan Luis Hope DO [address] [place] [phone] PCP - General Internal Medicine 05/15/21 documented as of this encounter
--- OUTSIDE RECORDS SUMMARY | 2023-04-26 20:43 | External Medical Summary ---
Author Name Unknown Address Unknown Organization [id number]:LABORATORY [facility] [place] [address] [place] [address] Laboratory Report Ordering Provider Test Date Status DEBBIE JOHNSON 01/09/2023 13:46:25 Final Observation Date Value Abnormality Reference (Units ) Status SYNC LEUKOCYTES IN BLOOD BY AUTOMATED COUNT 01/09/2023 13:46:25 3.72 Below low normal 4.00-10.80 (K/uL) Final Segs 01/09/2023 13:46:25 53.9 40.0-75.0 (%) Final Lymphs % 01/09/2023 13:46:25 28.8 18.0-42.0 (%) Final Monos 01/09/2023 13:46:25 9.7 1.0-11.0 (%) Final Eosinophils 01/09/2023 13:46:25 6.5 Above high normal 0.0-6.0 (%) Final Basos 01/09/2023 13:46:25 0.8 0.0-2.0 (%) Final Immature Granulocyte, Percent 01/09/2023 13:46:25 0.3 0.0-2.0 (%) Final Absolute Segs 01/09/2023 13:46:25 2.01 1.80-7.70 (K/uL) Final Lymphs, absolute 01/09/2023 13:46:25 1.07 1.00-4.80 (K/ul) Final Monos, Abs 01/09/2023 13:46:25 0.36 0.00-1.10 (K/uL) Final Eos, Abs 01/09/2023 13:46:25 0.24 0.00-0.70 (K/uL) Final Basos, Abs 01/09/2023 13:46:25 0.03 0.00-0.20 (K/uL) Final Immature Granulocytes, Number 01/09/2023 13:46:25 0.01 0.00-0.20 (K/uL) Final Performing Location LABORATORY [facility] [place] - [facility] [place][note 2] [place] [address]
--- OUTSIDE RECORDS SUMMARY | 2023-04-26 20:43 | External Medical Summary ---
Author Name Unknown Address Unknown Organization K01:LABORATORY [facility] - [address] [place] [address] Laboratory Report Ordering Provider Test Date Status ZHOU GRECO 12/18/2022 14:14:12 Final Observation Date Value Abnormality Reference (Units ) Status SYNC LEUKOCYTES IN BLOOD BY AUTOMATED COUNT 12/18/2022 14:14:12 4.38 4.00-10.80 (K/uL) Final Segs 12/18/2022 14:14:12 58.9 40.0-75.0 (%) Final Lymphs % 12/18/2022 14:14:12 26.9 18.0-42.0 (%) Final Monos 12/18/2022 14:14:12 8.7 1.0-11.0 (%) Final Eosinophils 12/18/2022 14:14:12 4.8 0.0-6.0 (%) Final Basos 12/18/2022 14:14:12 0.5 0.0-2.0 (%) Final Immature Granulocyte, Percent 12/18/2022 14:14:12 0.2 0.0-2.0 (%) Final Absolute Segs 12/18/2022 14:14:12 2.58 1.80-7.70 (K/uL) Final Lymphs, absolute 12/18/2022 14:14:12 1.18 1.00-4.80 (K/ul) Final Monos, Abs 12/18/2022 14:14:12 0.38 0.00-1.10 (K/uL) Final Eos, Abs 12/18/2022 14:14:12 0.21 0.00-0.70 (K/uL) Final Basos, Abs 12/18/2022 14:14:12 0.02 0.00-0.20 (K/uL) Final Immature Granulocytes, Number 12/18/2022 14:14:12 0.01 0.00-0.20 (K/uL) Final Performing Location LABORATORY [facility] - [address] [facility] [address]
--- OUTSIDE RECORDS SUMMARY | 2023-04-26 20:43 | External Medical Summary ---
Author Name Unknown Address Unknown Organization K01:LABORATORY [facility] [place] - [address] [place] [address] Laboratory Report Ordering Provider Test Date Status NOLVIA MENDIETA 01/09/2023 13:46:25 Final Observation Date Value Abnormality Reference (Units) Status Immunofixation for Serum or Plasma 01/09/2023 13:46:25 No monoclonal gammopathy detected. Final Performing Location LABORATORY [facility] [place] - [address] [place] [address]
--- OUTSIDE RECORDS SUMMARY | 2023-04-26 20:44 | External Medical Summary | Summary of Care ---
Author Name Unknown Organization [facility] Address [address] [place] [address] Phone [phone] Care Team Providers Care Associate Professor Of Biology Name Role Phone Juan Luis Hope Randell Primary Care Provid er Reason for Referral * Evaluate & Treat - Unlimited Visits (Within 10 days (routine)) - Authorized Specialty Diagnoses / Procedures Referred By Justino purcell Referred To Contact Hematology/Oncology / Hematology Oncology Diagnoses Anemia Thrombocytopenia (HCC) Curtis Orellana CRNP [address] [place] [address] Referral ID Status Reason Start Date Expiration Date Visits Requested Visits Authorized [id number] Authorized Specialty Services Required 12/07/[phone] Question Answer Referral Priority Within 10 days (routine) Where should this appointment be scheduled? Wendy Reason for Referral Anemia Comments Anemia and thrombocyopenia Encounter Details Date Type Department Care Team (Late st Contact Info) Description 12/07/2022 Orders Only Access Center, [address] *DO NOT REMOVE THIS DEPARTMENT* [place] [address] Request, External Referral Anemia*; Thrombocytopenia (HCC) Allergies Active Allergy Reactions Criticality Noted Date Comments Adhesive Tape Rash 09/12/2000 Cefuroxime Axetil Flushing,Hives,Itching 2011 Ceftriaxone Sodium In Dextrose 01/08/2015 Hives Statins Muscle pain Low 09/01/2013 Zolpidem Neuro complications (Please comment) Low 05/18/2010 mary joien documented as of this encounter (statuses as of 12/07/2022) Medications Medication Sig Dispensed Refills Start Date [...] of insulin (HCC),Other specified hypothyroidism,Centr ilobular emphysema ([facility]),COPD, group B, by GOLD 2017 classification ([facility]) Inhale 1 Puff by mouth in the morning and 1 Puff before bedtime. 60 Each 5 05/02/2022 Active Losartan Potassium 50 MG Oral Tablet (Cozaar)Indications: Hypertension associated with type 2 diabetes mellitus Take 1 Tablet by mouth in the morning. 90 Tablet 1 05/02/2022 Active Metoprolol Succinate ER 25 MG [...] before bedtime. 60 Capsule 5 11/21/2022 Active LORazepam 0.5 MG Oral Tablet (Ativan)Indications: Anxiety state Take 1 Tablet by mouth 2 times a day as needed for Anxiety. 60 Tablet 0 12/04/2022 Active documented as of this encounter (statuses as of 12/07/2022) Active Problems Problem Noted Date Diagnosed Date [...] Hyperlipidemia associated with type 2 diabetes m jenifferkaren 01/26/2009 Overview: Per Lipid Taxonomy. PAF (paroxysmal atrial fibrillation) 05/11/2003 Irritable bowel syndrome documented as of this encounter (statuses as of 12/07/2022) Resolved Problems Problem Noted Date Diagnosed Date [...] as of this encounter (statuses as of 12/07/2022) Immunizations Name Administration Dates Next Due COVID-19, [...] Upcoming Encounters Date Type Department Care Team ([facility] Contact Info) Description 12/19/2022 11:20 AM EST Office Visit [address] [phone] Jaclyn Bucio PA-C [address] [place] [address] 02/08/2023 10:30 AM EST Laboratory [facility], [address] [phone] [place], Lab Lock [address] [place] [address] 02/13/2023 11:00 AM EST Office Visit [address] [phone] Juan Luis Hope DO [address] [place] [address] Scheduled Referrals Name Type Priority Associated Diagnoses Orde r Schedule HEMATOLOGY/ONCOLOGY REFERRAL OP Referral Within 10 days (routine) Anemia Thrombocytopenia (HCC) Ordered: 12/07/2022 Health Maintenance Due Date Last Done Comments Zoster Vaccines (1 of 2) 11/30/1991 Hepatitis B (1 of 3 - Risk 3-dose series) 2001 DTaP,Tdap,and Td Vaccines (1 - Tdap) 04/20/2011 04/19/2011, 06/07/1999 *COPD SEVERITY VERIFIED BY PFT 08/24/2017 COLONOSCOPY-EVERY 2 YRS AGES 18-100 02/13/2018 02/14/2016, 02/14/2016, 11/16/2005 Albumin/Creatinine Ratio 09/03/2019 09/02/2018, 11/11 CKD PHOS USE SMARTSET 97464 06/28/202206/11, 06/24/2021, 06/23/2021, Additional history exists Diabetic Foot Exam 07/14/2022 07/14/2021, 0 08/19/2019, 06/30/2018 COVID-19 Vaccine ( - 2022- season) 2022 02/08/2021, 08/01/2020 HbA1c 01/29/2023 07/30/2022, 01/11, 07/31/2021, Additional history exists DIABETES-EYE EXAM 03/19/2023 03/19/2022, , 03/17/2020, Additional history exists GFR 05/10/2023 11/09/2022, 10/12, 07/30/2022, Additional history exists TSH 07/31/2023 07/30/2022, 01/11, 07/31/2021, Additional history exists Depression Screening 11/03/2023 11/02/2022 CKD HGB USE SMARTSET 82341 11/10/202311/09, 07/30/2022, 07/30/2022, Additional history exists O2 [...] this encounter Medical Devices Implanted Type Area Biofuels Production Technician Device Identifier Shelf Expiration Date Model / Serial / Lot Rsp Bone Screw-Locking Sz 5.0 Mm 26mm Long Implanted:Qty: 1 on 02/24/2015 by Aníbal Frankel MD at [place] [facility] [place] Right: Shoulder [employer] 01/22/2021 [id number] / / [id number] documented as of this encounter Visit Diagnoses Diagnosis Anemia- Primary Anemia, unspecified Thrombocytopenia (HCC) Thrombocytopenia, unspecified documented in this [...] the patient have Health Care Power of Railroad Dining Car Stewardess? Yes, not currently available Code Status History Code Status Date Activated Date Inactivated Comments Full Code 06/24/2018 1:38 PM 06/24/2018 3:07 PM This order reflects the patients wishes and were consensually agreed upon. Question Answer Comments Discussion of Advance Directives occurred with: Patient Does the patient have a Living Will? No Does the patient have Health Care Power of Railroad Dining Car Stewardess? No Full Code 07/26/2017 7:36 PM 08/01/2017 4:46 PM This order reflects the patients wishes and were consensually agreed upon. Question Answer Comments Discussion of Advance Directives occurred with: Patient Does the patient have a Living Will? No Does the patient have Health Care Power of Railroad Dining Car Stewardess? No Full Code 02/24/2015 10:33 AM 02/25/2015 6:10 PM . Question Answer Comments Discussion of Advance Directives occurred with: Not Discussed Full Code 01/07/2015 4:20 PM 01/08/2015 5:32 PM Question Answer Comments Discussion of Advance Directives occurred with: Not Discussed Does the patient have a Living Will? No Does the patient have Health Care Power of Railroad Dining Car Stewardess? No Care Teams Associate Professor Of Biology Relationship Specialty Start Date End Date Juan Luis Hope DO [address] [place] [phone] PCP - General Internal Medicine 05/15/21 documented as of this encounter
--- OUTSIDE RECORDS SUMMARY | 2023-04-26 20:44 | External Medical Summary | Summary of Care ---
Author Name Unknown Organization [facility] Address [address] [place] [address] Phone [phone] Care Team Providers Care Operations Liaison Name Role Phone Juan Luis Lewis DO Primary Care Provid er Reason for Visit * Reason Onset Date Comments Medication Refill 12/03/2022 Encounter Details Date Type Department Care Team ([facility] st Contact Info) Description 12/03/2022 Refill Family [facility] [address] [place] [phone] Juan Luis Lewis DO [address] [place] [address] Anxiety state Allergies Active Allergy Reactions Criticality Noted Date Comments Adhesive Tape Rash 09/12/2000 Cefuroxime Axetil Flushing,Hives,Itching 2011 Ceftriaxone Sodium In Dextrose 01/08/2015 Hives Statins Muscle pain Low 09/01/2013 Zolpidem Neuro complications (Please comment) Low 05/18/2010 ambien documented as of this encounter (statuses as of 12/04/2022) Medications Medication Sig Dispensed Refills Start Date [...] long-term current use of insulin ([facility]),Other specified hypothyroidism,Cent rilobular emphysema ([facility]),COPD, group B, by GOLD 2017 classification ([facility]) Inhale 1 Puff by mouth in the morning and 1 Puff before bedtime. 60 Each 5 05/02/2022 Active Losartan Potassium 50 MG Oral Tablet (Cozaar)Indications :Hypertension associated with type 2 diabetes mellitus Take [...] 11/21/2022 Active LORazepam 0.5 MG Oral Tablet (Ativan)Indications :Anxiety state Take 1 Tablet by mouth 2 times a day as needed for Anxiety. 60 Tablet 0 12/04/2022 Active LORazepam 0.5 MG Oral Tablet (Ativan)Indications :Anxiety state Take 1 Tablet by mouth 2 times a day as needed for Anxiety. 60 Tablet 0 09/25/2022 3 Discontinu ed(Refill) documented as of this encounter (statuses as of 12/04/2022) Active Problems Problem Noted Date Diagnosed Date [...] as of this encounter (statuses as of 12/04/2022) Resolved Problems Problem Noted Date Diagnosed Date [...] transurethral res ection of prostate 08/05/2017 06/30/2018 long term resident 08/05/20172017 DNR (do not resuscitate) 08/05/201706/2017 [...] pt states received one on prior visit. [facility] current use of ant icoagulant therapy 05/17/2003 01/19/2019 Anticoagulation management encounter 05/11/2003 08/13/2017 HTN, goal below 140/90 06/30 Hypothyroidism 09/01/2014 Reflux esophagitis 0 Mixed dyslipidemia 9 Overview: Per Lipid Taxonomy. Acute appendicitis 8 documented as of this encounter (statuses as of 12/04/2022) Immunizations Name Administration Dates Next Due COVID-19, [...] Encounter - Juan Luis Lewis DO - 12/04/2022 9:43 AM EDT Signed Prescriptions: Disp Refills LORazepam 0.5 MG Oral Tablet (Ativan) 60 Tab*0 Sig: Take 1 Tablet by mouth 2 times a day as needed for Anxiety. Authorizing Provider: JUAN LUIS LEWIS * Telephone Encounter - Chani Mayers [facility] - 12/04/2022 8:20 AM EDTPending Prescriptions: Disp Refills LORazepam 0.5 MG Oral Tablet (Ativan) 60 Tab*0 Sig: Take 1 Tablet by mouth 2 times a day as needed for Anxiety. * Telephone Encounter - Chani Mayers RP - 12/04/2022 8:19 AM EDT I have reviewed the patients controlled substance dispensing history in the Prescription Drug Monitoring Program in compliance with the [facility] regulations before prescribing a controlled substance. PDMP checked on 12/04/2022. Pending Prescriptions: Disp Refills LORazepam 0.5 MG Oral Tablet (Ativan) 60 Tab*0 Sig: Take 1 Tablet by mouth 2 times a day as needed for Anxiety. Last Visit: 11/21/2022 (in office), Visit date not found (telemedicine) Next Visit: 12/19/2022 Date medication was last filled: 09/25 Date medication is due for refill: 10/25 Pharmacy: [facility] [address] [facility] Is this request for a controlled substance? Yes and Urine Drug Screen Not completed Toxicology results: No results found. However, due to the size of the patient record, not all encounters were searched.Please check Results Review for a complete set of results. Please approve if appropriate. Thank you, Chani Mayers, PharmD. Clinical Pharmacist [facility] Services ([facility]PS) (formerly Telepharmacy) 12/04/2022, 8:20 AM documented in this encounter Plan of Treatment Upcoming Encounters Date Type Department Care Team ([facility] st Contact Info) Description 12/19/2022 11:20 AM EST Office Visit [address] [phone] Jaclyn Bucio PA-C [address] [place] [address] 02/08/2023 10:30 AM EST Laboratory [facility], [address] [phone] [place], Lab Lock [address] [place] [address] 02/13/2023 11:00 AM EST Office Visit [address] [phone] Juan Luis Lewis DO [address] [place] [address] Health Maintenance Due Date Last Done Comments Zoster Vaccines (1 of 2) 11/30/1991 Hepatitis B (1 of 3 - Risk 3-dose series) 2001 DTaP,Tdap,and Td Vaccines (1 - Tdap) 04/20/2011 04/19/2011, 06/07/1999 *COPD SEVERITY VERIFIED BY PFT 08/24/2017 COLONOSCOPY-EVERY 2 YRS AGES 18-100 02/13/2018 02/14/2016, 02/14/2016, 11/16/2005 Albumin/Creatinine Ratio 09/03/2019 09/02/2018, 11/11 CKD PHOS USE SMARTSET 94343 06/28/202206/11, 06/24/2021, 06/23/2021, Additional history exists Diabetic Foot Exam 07/14/2022 07/14/2021, 0 08/19/2019, 06/30/2018 COVID-19 Vaccine ( - season) 2022 02/08/2021, 08/01/2020 HbA1c 01/29/2023 07/30/2022, 01/11, 07/31/2021, Additional history exists DIABETES-EYE EXAM 03/19/2023 03/19/2022, , 03/17/2020, Additional history exists GFR 05/10/2023 11/09/2022, 10/12, 07/30/2022, Additional history exists TSH 07/31/2023 07/30/2022, 01/11, 07/31/2021, Additional history exists Depression Screening 11/03/2023 11/02/2022 CKD HGB USE SMARTSET 68327 11/10/202311/09, 07/30/2022, 07/30/2022, Additional history exists O2 [...] this encounter Medical Devices Implanted Type Area Bronze Plater Device Identifier Shelf Expiration Date Model / Serial / Lot Rsp Bone Screw-Locking Sz 5.0 Mm 26mm Long Implanted:Qty: 1 on 02/24/2015 by Aníbal Frankel MD at [facility] Right: Shoulder [employer] 01/22/2021 506-03-126 / / [id number] documented as of this encounter Visit Diagnoses [...] the patient have Health Care Power of Certified Performance Technologist? Yes, not currently available Code Status History Code Status Date Activated Date Inactivated Comments Full Code 06/24/2018 1:38 PM 06/24/2018 3:07 PM This order reflects the patients wishes and were consensually agreed upon. Question Answer Comments Discussion of Advance Directives occurred with: Patient Does the patient have a Living Will? No Does the patient have Health Care Power of Certified Performance Technologist? No Full Code 07/26/2017 7:36 PM 08/01/2017 4:46 PM This order reflects the patients wishes and were consensually agreed upon. Question Answer Comments Discussion of Advance Directives occurred with: Patient Does the patient have a Living Will? No Does the patient have Health Care Power of Certified Performance Technologist? No Full Code 02/24/2015 10:33 AM 02/25/2015 6:10 PM . Question Answer Comments Discussion of Advance Directives occurred with: Not Discussed Full Code 01/07/2015 4:20 PM 01/08/2015 5:32 PM Question Answer Comments Discussion of Advance Directives occurred with: Not Discussed Does the patient have a Living Will? No Does the patient have Health Care Power of Certified Performance Technologist? No Care Teams Operations Liaison Relationship Specialty Start Date End Date Juan Luis Lewis DO [address] [place] [address] PCP - General Internal Medicine 05/15/21 documented as of this encounter
--- OUTSIDE RECORDS SUMMARY | 2023-04-26 20:44 | External Medical Summary | Summary of Care ---
Author Name Unknown Organization [facility] Address [address] [facility] [place] [address] Phone [phone] Care Team Providers Care Flagsetter Name Role Phone StephanieJuan Luis kingsley Primary Care Provid er Reason for Visit * Reason Onset Date Comments Appointment 12/07/2022 NANDO SOARES APPT Encounter Details Date Type Department Care Team (Late st Contact Info) Description 12/07/2022 Telephone Hematology/Oncology [facility] [address] [place] [address] Noemi Donaldson CRNP [address] [facility] [place] [address] Appointment (NANDO SOARES APPT) Allergies Active Allergy Reactions Criticality Noted Date [...] pt states received one on prior visit. 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 patient and he is scheduled to see Noemi HELTON on 12/18/22 @ 1pm. Records/referral scanned into chart. documented in this encounter Plan of Treatment Upcoming Encounters Date Type Department Care Team (Late st Contact Info) Description 12/18/2022 1:00 PM EST Office Visit Hematology/Oncology [facility] [address] [place] [address] Noemi Donaldson CRNP [address] [facility] [place] [address] 12/19/2022 11:20 AM EST Office Visit [address] [phone] Jaclyn Bucio PA-C [address] [place] [address] 02/08/2023 10:30 AM EST Laboratory Laboratory [facility], [address] [phone] [facility] Lab Lock [address] [place] [address] 02/13/2023 11:00 AM EST Office Visit [address] [phone] Juan Luis Hope DO [address] [place] [address] Health Maintenance Due Date Last Done Comments Zoster Vaccines (1 of 2) 11/30/1991 Hepatitis B (1 of 3 - Risk 3-dose series) 2001 DTaP,Tdap,and Td Vaccines (1 - Tdap) 04/20/2011 04/19/2011, 06/07/1999 *COPD SEVERITY VERIFIED BY PFT 08/24/2017 COLONOSCOPY-EVERY 2 YRS AGES 18-100 02/13/2018 02/14/2016, 02/14/2016, 11/16/2005 Albumin/Creatinine Ratio 09/03/2019 09/02/2018, 11/11 CKD PHOS USE SMARTSET 86803 06/28/202206/11, 06/24/2021, 06/23/2021, Additional history exists Diabetic Foot Exam 07/14/2022 07/14/2021, 0 08/19/2019, 06/30/2018 COVID-19 Vaccine (3 - 2022- season) 2022 02/08/2021, 08/01/2020 HbA1c 01/29/2023 07/30/2022, 01/11, 07/31/2021, Additional history exists DIABETES-EYE EXAM 03/19/2023 03/19/2022, , 03/17/2020, Additional history exists GFR 05/10/2023 11/09/2022, 10/12, 07/30/2022, Additional history exists TSH 07/31/2023 07/30/2022, 01/11, 07/31/2021, Additional history exists Depression Screening 11/03/2023 11/02/2022 CKD HGB USE SMARTSET 21853 11/10/202311/09, 07/30/2022, 07/30/2022, Additional history exists O2 [...] this encounter Medical Devices Implanted Type Area Salesperson Floor Coverings Device Identifier Shelf Expiration Date Model / Serial / Lot Rsp Bone Screw-Locking Sz 5.0 Mm 26mm Long Implanted:Qty: 1 on 02/24/2015 by Aníbal Frankel MD at [facility] Right: Shoulder [employer] 01/22/2021 [id number] / / [id number] documented as of this encounter Advance Directives [...] the patient have Health Care Power of Signal Tester? Yes, not currently available Code Status History Code Status Date Activated Date Inactivated Comments Full Code 06/24/2018 1:38 PM 06/24/2018 3:07 PM This order reflects the patients wishes and were consensually agreed upon. Question Answer Comments Discussion of Advance Directives occurred with: Patient Does the patient have a Living Will? No Does the patient have Health Care Power of Signal Tester? No Full Code 07/26/2017 7:36 PM 08/01/2017 4:46 PM This order reflects the patients wishes and were consensually agreed upon. Question Answer Comments Discussion of Advance Directives occurred with: Patient Does the patient have a Living Will? No Does the patient have Health Care Power of Signal Tester? No Full Code 02/24/2015 10:33 AM 02/25/2015 6:10 PM . Question Answer Comments Discussion of Advance Directives occurred with: Not Discussed Full Code 01/07/2015 4:20 PM 01/08/2015 5:32 PM Question Answer Comments Discussion of Advance Directives occurred with: Not Discussed Does the patient have a Living Will? No Does the patient have Health Care Power of Signal Tester? No Care Teams Flagsetter Relationship Specialty Start Date End Date Juan Luis Hope DO [address] [place] [phone] PCP - General Internal Medicine 05/15/21 documented as of this encounter
--- OUTSIDE RECORDS SUMMARY | 2023-04-26 20:44 | External Medical Summary | Summary of Care ---
Author Name Unknown Organization [facility] Address [address] [facility] [place] [address] Phone [phone] Care Team Providers Care Batting Machine Operator Name Role Phone Juan Luis Lewis DO Primary Care Provid er Reason for Visit * Reason Comments eRx-Medication Refill Encounter Details Date Type Department Care Team ([facility] st Contact Info) Description 12/14/2022 Refill Family [facility] [address] [place] [address] Juan Luis Lewis DO [address] [place] [address] Hypertension associated with type 2 diabetes mellitus Allergies Active Allergy Reactions Criticality Noted Date Comments Adhesive Tape Rash 09/12/2000 Cefuroxime Axetil Flushing,Hives,Itching 2011 Ceftriaxone Sodium In Dextrose 01/08/2015 Hives Statins Muscle pain Low 09/01/2013 Zolpidem Neuro complications (Please comment) Low 05/18/2010 ambien documented as of this encounter (statuses as of 12/14/2022) Medications Medication Sig Dispensed Refills Start Date [...] of insulin ([facility]),Other specified hypothyroidism,Cent rilobular emphysema ([facility]),COPD, group B, by GOLD 2017 classification ([facility]) Inhale 1 Puff by mouth in [...] Pain, Moderate. 30 Tablet 0 3 Active Nitroglycerin 0.4 MG Sublingual Tablet Sublingual [...] before bedtime. 60 Capsule 5 3 Active LORazepam 0.5 MG Oral Tablet (Ativan)Indications :Anxiety state Take 1 Tablet by mouth 2 times a day as needed for Anxiety. 60 Tablet 0 3 Active Losartan Potassium 50 MG Oral Tablet (Cozaar)Indications :Hypertension associated with type 2 diabetes mellitus TAKE 1 TABLET BY MOUTH ONCE DAILY IN THE MORNING 90 Tablet 3 3 Active Losartan Potassium 50 MG Oral Tablet (Cozaar)Indications :Hypertension associated with type 2 diabetes mellitus Take 1 Tablet by mouth in the morning. 90 Tablet 1 3 12/15/19 23 Discontinued documented as of this encounter (statuses as of 12/14/2022) Active Problems Problem Noted Date Diagnosed Date [...] as of this encounter (statuses as of 12/14/2022) Resolved Problems Problem Noted Date Diagnosed Date [...] as of this encounter (statuses as of 12/14/2022) Immunizations Name Administration Dates Next Due COVID-19, [...] encounter Miscellaneous Notes * Telephone Encounter - Terri Chamberlain RP - 12/14/2022 2:53 PM EDT Signed Prescriptions: Disp Refills Losartan Potassium 50 MG Oral Tablet (Coza*90 Tab*3 Sig: TAKE 1 TABLET BY MOUTH ONCE DAILY IN THE MORNINGAuthorizing Provider: JUAN LUIS LEWIS User: TERRI CHAMBERLAIN Electronically signed by Terri Chamberlain [facility] at 12/14/2022 2:53 PM EDT documented in this encounter Plan of Treatment Upcoming Encounters Date Type Department Care Team (Late st Contact Info) Description 12/18/2022 1:00 PM EST Office Visit Hematology/Oncology [facility] [address] [place] [address] No[facility]onaldson CR[facility] [address] [facility] [address] 12/19/2022 11:20 AM EST Office Visit [facility] [address] [place] [address] Jaclyn Bucio PA-C [address] [place] [address] 02/08/2023 10:30 AM EST Laboratory Laboratory [facility] [place] [address] [place] [id number] Sugar [facility] [address] [place] [address] 02/13/2023 11:00 AM EST Office Visit [facility] [address] [facility] [place] [phone] Herminia Juan Luis Mejias, DO [address] [facility] [place] [address] Health Maintenance Due Date Last Done Comments Zoster Vaccines (1 of 2) 11/30/1991 Hepatitis B (1 of 3 - Risk 3-dose series) 2001 DTaP,Tdap,and Td Vaccines (1 - Tdap) 04/20/2011 04/19/2011, 06/07/1999 *COPD SEVERITY VERIFIED BY PFT 08/24/2017 COLONOSCOPY-EVERY 2 YRS AGES 18-100 02/13/2018 02/14/2016, 02/14/2016, 11/16/2005 Albumin/Creatinine Ratio 09/03/2019 09/02/2018, 11/11 CKD PHOS USE SMARTSET 66915 06/28/202206/11, 06/24/2021, 06/23/2021, Additional history exists Diabetic Foot Exam 07/14/2022 07/14/2021, 0 08/19/2019, 06/30/2018 COVID-19 Vaccine ( season) 2022 02/08/2021, 08/01/2020 HbA1c 01/29/2023 07/30/2022, 01/11, 07/31/2021, Additional history exists Diabetic Eye Exam 03/19/2023 03/19/2022, , 03/17/2020, Additional history exists GFR 05/10/2023 11/09/2022, 10/12, 07/30/2022, Additional history exists TSH 07/31/2023 07/30/2022, 01/11, 07/31/2021, Additional history exists Depression Screening 11/03/2023 11/02/2022 CKD HGB USE SMARTSET 69754 11/10/202311/09, 07/30/2022, 07/30/2022, Additional history exists O2 [...] this encounter Medical Devices Implanted Type Area Woodworker Helper Device Identifier Shelf Expiration Date Model / Serial / Lot Rsp Bone Screw-Locking Sz 5.0 Mm 26mm Long Implanted:Qty: 1 on 02/24/2015 by Aníbal Frankel MD at [facility] Right: Shoulder [employer] 01/22/2021 [id number] / / [id number] documented as of this encounter Visit Diagnoses Diagnosis Hypertension associated with type 2 diabetes mellitus documented in this encounter Advance Directives Latest [...] the patient have Health Care Power of Tipple Boss? Yes, not currently available Code Status History Code Status Date Activated Date Inactivated Comments Full Code 06/24/2018 1:38 PM 06/24/2018 3:07 PM This order reflects the patients wishes and were consensually agreed upon. Question Answer Comments Discussion of Advance Directives occurred with: Patient Does the patient have a Living Will? No Does the patient have Health Care Power of Tipple Boss? No Full Code 07/26/2017 7:36 PM 08/01/2017 4:46 PM This order reflects the patients wishes and were consensually agreed upon. Question Answer Comments Discussion of Advance Directives occurred with: Patient Does the patient have a Living Will? No Does the patient have Health Care Power of Tipple Boss? No Full Code 02/24/2015 10:33 AM 02/25/2015 6:10 PM . Question Answer Comments Discussion of Advance Directives occurred with: Not Discussed Full Code 01/07/2015 4:20 PM 01/08/2015 5:32 PM Question Answer Comments Discussion of Advance Directives occurred with: Not Discussed Does the patient have a Living Will? No Does the patient have Health Care Power of Tipple Boss? No Care Teams Batting Machine Operator Relationship Specialty Start Date End Date JuanL uis Lewis DO [address] [place] [address] PCP - General Internal Medicine 05/15/21 documented as of this encounter
--- OUTSIDE RECORDS SUMMARY | 2023-04-26 20:44 | External Medical Summary ---
Author Name Unknown Address Unknown Organization K01:[facility] [place] [address] [place] [address] Laboratory Report Ordering Provider Test Date Status FANNIEZHOU 12/18/2022 14:14:12 Final Observation Date Value Abnormality Reference (Units ) Status Folic Acid 12/18/2022 14:14:12 19.7 >4.5 (ng/ mL) Final Performing Location LAB[facility]ATORY [facility] - [address] [place] [address]
--- OUTSIDE RECORDS SUMMARY | 2023-04-26 20:44 | External Medical Summary ---
Author Name Unknown Address Unknown Organization : Laboratory Report Ordering Provider Test Date Status ZHOU GRECO 12/18/2022 14:14:12 Final Observation Date Value Abnormality Reference (Units ) Status Copper 12/18/2022 14:14:12 121 70-175 (mc g/dL) Final This test was developed and its analytical performance
characteristics have been determined by [employer]
[place], [place]. It has
not been cleared or approved by the U.S. Food and Drug
Administration. This assay has been validated pursuant
to the CLIA regulations and is used for clinical
purposes.

Test Performed at:
[facility]
[address] [address]
[place] [address]
Evangelist Lee M.D., Ph.D.,Director of Laboratories Performing Location
--- OUTSIDE RECORDS SUMMARY | 2023-04-26 20:44 | External Medical Summary ---
Author Name Unknown Address Unknown Organization : Laboratory Report Ordering Provider Test Date Status ZHOU GRECO 12/18/2022 14:14:12 Final Observation Date Value Abnormality Reference (Units ) Status Transferrin receptor.soluble [Mass/volume] in Serum or Plasma 12/18/2022 14:14:12 0.54 Below low normal 0.76-1.76 (mg/L) Final Test performed by [facility]
[address] [facility]
[place] [address]

Unit Director: ZHOU REGAN M.D.
Test Reported by [facility] [place],
[facility],
[address] [place], [place]
Evangelist Lee M.D., Ph.D., Director of Laboratories
, [facility] [id number] Performing Location
--- OUTSIDE RECORDS SUMMARY | 2023-04-26 20:44 | External Medical Summary ---
Author Name Unknown Address Unknown Organization : Laboratory Report Ordering Provider Test Date Status ZHOU GRECO 12/18/2022 14:14:12 Final Observation Date Value Abnormality Reference (Units ) Status Zinc, level 12/18/2022 14:14:12 47 Below low normal 6 0-130 (mcg/dL) Final This test was developed and its analytical performance
characteristics have been determined by [facility]
[employer] [place], [place]. It has
not been cleared or approved by the U.S. Food and Drug
Administration. This assay has been validated pursuant
to the CLIA regulations and is used for clinical
purposes.

Test Performed at:
[facility] [place]
[address] [facility]
[place] [address]
Evangelist Lee M.D., Ph.D.,Director of Laboratories Performing Location
--- OUTSIDE RECORDS SUMMARY | 2023-04-26 20:44 | External Medical Summary ---
Author Name Unknown Address Unknown Organization K09:[facility]ATORY [facility] [address] [place] [address] Laboratory Report Ordering Provider Test Date Status ZHOU GRECO 12/18/2022 14:14:12 Final Observation Date Value Abnormality Reference (Units ) Status BUN 12/18/2022 14:14:12 39 Above high normal 6-20 (mg/dL) Final Creatinine 12/18/2022 14:14:12 2.3 Above high normal 0.6-1.2 (mg/dL) Final Glomerular filtration rate/1.73 sq M.predicted [Volume Rate/Area] in Serum, Plasma or Blood by Creatinine-based formula (CKD-EPI) 12/18/2022 14:14:12 27 Below low normal >=60 (mL/min) Final eGFR is calculated based on the CKD-EPI 2020 equation SODIUM 12/18/2022 14:14:12 138 135-146 (m mol/L) Final Potassium 12/18/2022 14:14:12 4.3 3.5-5.1 (m mol/L) Final Cl 12/18/2022 14:14:12 96 Below low normal 98- 107 (mmol/L) Final CO2 12/18/2022 14:14:12 29 22-32 (mmo l/L) Final Anion gap 12/18/2022 14:14:12 13 7-15 (mmol /L) Final Glucose 12/18/2022 14:14:12 95 70-120 (mg /dL) Final Albumin 12/18/2022 14:14:12 3.6 Below low normal 3.8 -5.0 (g/dL) Final AST (Aspartate aminotransferase) 12/18/2022 14:14:12 18 10-50 (U/L) Fin al Alk Phos 12/18/2022 14:14:12 116 35-130 (U/ L) Final Bilirubin, Total 12/18/2022 14:14:12 1.0 <=1 .2 (mg/dL) Final Calcium 12/18/2022 14:14:12 9.0 8.4-10.2 ( mg/dL) Final Protein 12/18/2022 14:14:12 6.0 6.0-8.3 (g /dL) Final ALT (Alanine aminotransferase) 12/18/2022 14:14:12 7 Below low normal 10-50 (U/L) Final Performing Location LAB[facility] [address] [place] [address]
--- OUTSIDE RECORDS SUMMARY | 2023-04-26 20:44 | External Medical Summary ---
Author Name Unknown Address Unknown Organization K01:LABORATORY [place] [address] [facility] [address] Laboratory Report Ordering Provider Test Date Status ZHOU GRECO 12/18/2022 14:14:12 Final Observation Date Value Abnormality Reference (Units ) Status [place] light chains, Free, Serum 12/18/2022 14:14:12 53.30 Above high normal 3.30-19.40 (mg/L) Final L[place] light chains, free, Serum 12/18/2022 14:14:12 83.09 Above high normal 5.71-26.30 (mg/L) Final KAPPA LAMBDA [facility] RATIO 12/18/2022 14:14:12 0.64 0.26-1.65 Final Performing Location [facility] [address] [facility] [address]
--- OUTSIDE RECORDS SUMMARY | 2023-04-26 20:45 | External Medical Summary | Summary of Care ---
Author Name Unknown Organization [facility] Address [address] [place] [facility] [place] [address] Phone [phone] Care Team Providers Care Western Felt Hat Blocker Name Role Phone Juan Luis Hope DO Primary Care Provid er Reason for Visit * Reason Comments Re-Check Pt was here to get u nna boot on. Dr. Hope looked at legs. Swelling has gone down greatly. No unna boots needed. Dressed wound with Vaseline gauze, silver dine, and wrapped with gauze. Encounter Details Date Type Department Care Team Description 10/31/2022 Nurse Only Ancillary [address] [phone] [place], Nurse [address] [phone] Re-Check (Pt was here to get unna boot on.... Allergies Active Allergy Reactions Severity Noted Date Comments Adhesive Tape Rash 09/12/2000 Cefuroxime Axetil Flushing,Hives,Itching 2011 Ceftriaxone Sodium In Dextrose 01/08/2015 Hives Statins Muscle pain Low 09/01/2013 Zolpidem Neuro complications (Please comment) Low 05/18/2010 ambien documented as of this encounter (statuses as of 10/31/2022) Medications Medication Sig Dispensed Refills Start Date [...] (vitamin B-1) 1 Tablet. 0 07/07/2021 Active Benzonatate 200 MG Oral CapsuleIndications:A cute cough Take 1 Capsule by mouth 3 times a day as needed for Cough. 30 Capsule 1 02/14/2022 Active Additional Information Patient not taking.Reported on 04/26/2022 Fluticasone-Salmeter ol 250-50 MCG/ACT Inhalation Aerosol Powder Breath Activated (Advair Diskus)Indications:H yperlipidemia associated with type 2 diabetes mellitus ([facility]),Hypertension associated with type 2 diabetes mellitus ([facility]),Type 2 diabetes mellitus with diabetic neuropathy, [...] associated with type 2 diabetes mellitus (HCC) Take 1 Tablet by mouth in [...] AT BEDTIME 90 Tablet 2 09/12/2022 Active LORazepam 0.5 MG Oral Tablet (Ativan)Indications: Anxiety state Take 1 Tablet by mouth 2 times a day as needed for Anxiety. 60 Tablet 0 09/25/2022 Active Lansoprazole 15 MG Oral Capsule Delayed Release (Prevacid)Indication s:Reflux esophagitis TAKE ONE CAPSULE BY MOUTH ONCE DAILY 90 Capsule 1 10/03/2022 Active Furosemide 20 MG Oral Tablet (Lasix) Take 1 Tablet by mouth in the morning. 30 Tablet 11 10/23/2022 Active Potassium Chloride Kary ER 20 MEQ Oral Tablet Extended Release Take 1 Tablet by mouth in the morning and 1 Tablet before bedtime. 60 Tablet 11 10/23/2022 Active Doxycycline Hyclate 100 MG Oral Capsule Take 1 Capsule by mouth in the morning and 1 Capsule before bedtime. Do all this for 10 days. Until gone.. 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 PAF (paroxysmal atrial fibrillation) Irritable bowel syndrome documented as of this encounter (statuses as of 10/31/2022) Resolved Problems Problem Noted Date Resolved Date Benign paroxysmal positional vertigo 06/30/2018 04/25/2021 Positive D dimer 06/24/2018 06/30/2018 Syncope and collapse 06/24/2018 06/29/2018 Fall at home 06/24/2018 06/30/2018 Vertigo 06/24/2018 06/30/2018 Cellulitis of left lower extremity 06/24/2018 04/25/2021 Tinnitus of both ears 06/24/2018 04/25/2021 Diabetes mellitus without complication 8 06/29/2018 Edema of right lower extremity 08/06/2017 0 04/25/2021 Achilles tendon sprain, right, subsequent encoun ter 08/06/2017 04/25/2021 Venous stasis dermatitis of right lower extremit y 08/06/2017 04/25/2021 Hematoma of right thigh 08/05/2017 07/01/19 19 Iron deficiency anemia due to chronic blood loss 08/05/2017 04/25/2021 Supratherapeutic INR 08/05/2017 08/15/2017 Generalized weakness 08/05/2017 08/15/2017 Gait abnormality 08/05/2017 09/17/2019 Impaired mobility and ADLs 08/05/201708/15 RBBB (right bundle branch block) 08/05/2017 04/25/2021 Gastroesophageal reflux disease 08/05/2017 06/29/2018 Sciatica 08/05/2017 08/13/2017 Diverticulosis of large intestine without hemorr edu 08/05/2017 08/13/2017 Internal hemorrhoids 08/05/2017 08/13/2017 Anxiety state 08/05/2017 09/17/2019 Mild emphysema 08/05/2017 05/02/2022 Chronic multifocal demyelinating neuropathy 07/1304/25/2021 Varicose vein of leg 08/05/2017 08/13/2017 History of vertebral compression fracture 201704/25/2021 Ankle joint replacement status, left 08/05/2017 04/25/2021 History of appendectomy 08/05/2017 08/14/19 History of bilateral cataract extraction 018 08/13/2017 Personal history of tobacco use 08/05/2017 08/13/2017 History of transurethral resection of prostate 0 08/05/2017 06/30/2018 senior living resident 08/05/2017 08/13/2017 DNR (do not resuscitate) 08/05/2017 018 Thigh hematoma, right, initial encounter 018 08/05/2017 Impaired fasting blood sugar 05/30/201604/2017 S/p reverse total shoulder arthroplasty 04/06/19 16 04/25/2021 Sinus bradycardia 08/05/2014 04/25/2021 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 nursing home current use of anticoagulant therapy 0 05/17/2003 01/19/2019 Anticoagulation management encounter 05/11/2003 08/13/2017 HTN, goal below 140/90 9 Hypothyroidism 09/01/2014 Reflux esophagitis 09/17/2019 Mixed dyslipidemia 01/26/2009 Overview: Per Lipid Taxonomy. Acute appendicitis 08/05/2017 documented as of this encounter (statuses as of 10/31/2022) Immunizations Name Administration Dates Next Due COVID-19, mRNA, LNP-s, PF, B ooster, 100mcg/0.5mg (Moderna) 02/08/2021 Covid-19 Ad26, Single Dose (Kelton/J&J) 08/01/2020 HEP A - Hepatitis A (Adult > 18 yrs) 10/18/2016 Pneumococcal Conjugate Vacc, 13 Valent (Prevnar) 01/30/2017 Pneumococcal Polysaccharide PPV23 (Pneumovax) 02/10/2018 Season Influenza, Quad, PF, Adjuvanted, 65+ Yrs, IM (FLUAD) 03/04/2020 Seasonal Influenza, PF, 6 mo ns & Above, IM , (Flulaval) 10/17/2017 Seasonal Influenza, Quadriva lent Hd (Fluzone [...] = 0.6 oz pur e alcohol) occ Food Insecurity Answer Date Recorded Within the past 12 months, y ou worried that your food would run out before you got money to buy more. Never true 10/03/2022 Within the past 12 months, t he food you bought just didn't last and you didn't have money to get more. Never true 10/03/2022 Sex Assigned at Date Recorded Male 07/21/2018 5:02 PM E DT Job Start Date Occupation Industry Not on [...] No 06/24/2018 documented as of this encounter Nursing Notes * Selena Austin LPN - 10/31/2022 12:32 PM EDT The patient has been properly identified by confirmation of name and date of . Chief Complaint Patient presents with Re-Check Pt was here to get unna boot on. Dr. Hope looked at legs. Swelling has gone down greatly. No unna boots needed. Dressed wound with Vaseline gauze, silver dine, and wrapped with gauze. documented in this encounter Plan of Treatment Upcoming Encounters Date Type Specialty Care Team Description 11/02/2022 Office Visit Family Medicine Juan Luis Hope, [address] [place] [address] Health Maintenance Due Date Last Done Comments Zoster Vaccines (1 of 2) 11/30/1991 DTaP,Tdap,and Td Vaccines (1 - Tdap) 04/20/2011 04/19/2011, 06/07/1999 *COPD SEVERITY VERIFIED BY PFT 08/24/2017 COLONOSCOPY-EVERY 2 YRS AGES 18-100 02/13/2018 02/14/2016, 02/14/2016, 11/16/2005 Albumin/Creatinine Ratio 09/03/2019 09/02/2018, 11/11 COVID-19 Vaccine (3 - Booster for Kelton series) 04/05/2021 02/08/2021, 08/01/2020 Diabetic Foot Exam 07/14/2022 07/14/2021, 0 08/19/2019, 06/30/2018 Depression Screening 08/01/2022 08/01/2021 HbA1c 01/29/2023 07/30/2022, 01/11, 07/31/2021, Additional history exists DIABETES-EYE EXAM 03/19/2023 03/19/2022, , 03/17/2020, Additional history exists TSH 07/31/2023 07/30/2022, 01/11, 07/31/2021, Additional history exists GFR 10/24/2023 10/23/2022, 07/12, 04/23/2022, Additional history exists O2 ASSESSMENT COMPLETED IN PAST YEAR FOR COPD 10/24/2023 10/23/2022 Pneumococcal Vaccine: 65+ Years Completed 02/10/2018, 01/30/2017 [...] this encounter Medical Devices Implanted Type Area Early Morning Babysitter Device Identifier Shelf Expiration Date Model / Serial / Lot Rsp Bone Screw-Locking Sz 5.0 Mm 26mm Long Implanted:Qty: 1 on 02/24/2015 by Aníbal Frankel MD at [facility] Right: Shoulder [employer] 01/22/2021 [id number] / / [id number] documented as of this encounter Visit Diagnoses Diagnosis Wound of left lower extremity, initial encounter- Primary Lower extremity edema Edema documented in this encounter Advance Directives Latest [...] the patient have Health Care Power of Collection Systems Worker? Yes, not currently available Code Status History Code Status Date Activated Date Inactivated Comments Full Code 06/24/2018 1:38 PM 06/24/2018 3:07 PM This order reflects the patients wishes and were consensually agreed upon. Question Answer Comments Discussion of Advance Directives occurred with: Patient Does the patient have a Living Will? No Does the patient have Health Care Power of Collection Systems Worker? No Full Code 07/26/2017 7:36 PM 08/01/2017 4:46 PM This order reflects the patients wishes and were consensually agreed upon. Question Answer Comments Discussion of Advance Directives occurred with: Patient Does the patient have a Living Will? No Does the patient have Health Care Power of Collection Systems Worker? No Full Code 02/24/2015 10:33 AM 02/25/2015 6:10 PM . Question Answer Comments Discussion of Advance Directives occurred with: Not Discussed Full Code 01/07/2015 4:20 PM 01/08/2015 5:32 PM Question Answer Comments Discussion of Advance Directives occurred with: Not Discussed Does the patient have a Living Will? No Does the patient have Health Care Power of Collection Systems Worker? No Care Teams Western Felt Hat Blocker Relationship Specialty Start Date End Date Juan Luis Hope, [place] [address] PCP - General Internal Medicine 05/15/21 documented as of this encounter
--- OUTSIDE RECORDS SUMMARY | 2023-04-26 20:45 | External Medical Summary | Summary of Care ---
Author Name Unknown Organization [facility] Address [address] [place] [address] Phone [phone] Care Team Providers Care Field Sales Specialist Name Role Phone Juan Luis Hope DO Primary Care Provid er Reason for Visit * Reason Comments Follow Up Encounter Details Date Type Department Care Team Description 11/02/2022 Office Visit [facility] [address] [place] [address] Juan Luis Hope DO [address] [place] [id number] Wound of left lower extremity, initial encounter*; Gastroesophageal reflux disease with esophagitis without hemorrhage; Spondylosis of lumbosacral region without myelopathy or radiculopathy; Hyperlipidemia associated with type 2 diabetes mellitus ([facility]); Type 2 diabetes mellitus with diabetic neuropathy, without long-term current use of insulin ([facility]); PVD (peripheral vascular disease) ([facility]); Centrilobular emphysema ([facility]); Hypertension associated with type 2 diabetes mellitus ([facility]); Normocytic anemia; Stage 3b chronic kidney disease ([facility]); Personal history of alcoholism ([facility]); Mixed anxiety and depressive disorder; Hereditary and idiopathic neuropathy, unspecified; Osteoarthritis of cervical spine, unspecified spinal osteoarthritis complication status Allergies Active Allergy Reactions Severity Noted Date Comments Adhesive Tape Rash 09/12/2000 Cefuroxime Axetil Flushing,Hives,Itching 2011 Ceftriaxone Sodium In Dextrose 01/08/2015 Hives Statins Muscle pain Low 09/01/2013 Zolpidem Neuro complications (Please comment) Low 05/18/2010 harish documented as of this encounter (statuses as of 11/02/2022) Medications Medication Sig Dispensed Refills Start Date [...] group B, by GOLD 2017 classification (HCC) Inhale 1 Puff by mouth in the morning and 1 Puff before bedtime. 60 Each 5 05/02/2022 Active Losartan Potassium 50 MG Oral Tablet (Cozaar)Indications :Hypertension associated with type 2 diabetes mellitus (HCC) [...] 09/12/2022 Active LORazepam 0.5 MG Oral Tablet (Ativan)Indications :Anxiety state Take 1 Tablet by mouth 2 times a day as needed for Anxiety. 60 Tablet 0 09/25/2022 Active Furosemide 20 MG Oral Tablet (Lasix) [...] the morning. 90 Capsule 3 11/02/2022 Active Benzonatate 200 MG Oral CapsuleIndications: Acute cough Take 1 Capsule by mouth 3 times a day as needed for Cough. 30 Capsule 1 02/14/2022 3 Discontinu ed(Patient preference /discontin uation) Lansoprazole 15 MG Oral Capsule Delayed Release (Prevacid)Indicatio ns:Reflux esophagitis TAKE ONE CAPSULE BY MOUTH ONCE DAILY 90 Capsule 1 10/03/2022 3 Discontinu ed(Refill) Doxycycline Hyclate 100 MG Oral Capsule Take 1 Capsule by mouth in the morning and 1 Capsule before bedtime. Do all this for 10 days. Until gone.. 20 Capsule 0 10/23/2022 3 Discontinu ed(Patient preference /discontin uation) documented as of this encounter (statuses as of 11/02/2022) Active Problems Problem Noted Date Normocytic anemia 11/02/2022 Stage 3b chronic kidney disease 11/03/19 23 Centrilobular emphysema 05/02/2022 COPD, group B, by [...] as of this encounter (statuses as of 11/02/2022) Resolved Problems Problem Noted Date Resolved Date [...] 04/25/2021 Hematoma of right thigh 08/05/2017 07/01/19 Iron deficiency anemia due to chronic blood [...] 08/05/2017 04/25/2021 History of appendectomy 08/05/2017 08/14/19 18 History of bilateral cataract extraction 018 08/13/2017 Personal history of tobacco use 08/05/2017 08/13/2017 History of transurethral resection of prostate 0 08/05/2017 06/30/2018 jail resident 08/05/2017 08/13/2017 DNR (do not resuscitate) [...] on prior visit. half-way current use of anticoagulant therapy 0 05/17/2003 01/19/2019 Anticoagulation management encounter 05/11/2003 08/13/2017 HTN, goal below 140/90 9 Hypothyroidism 09/01/2014 Reflux esophagitis 09/17/2019 Mixed dyslipidemia 01/26/2009 Overview: Per Lipid Taxonomy. Acute appendicitis 08/05/2017 documented as of this encounter (statuses as of 11/02/2022) Immunizations Name Administration Dates Next Due COVID-19, [...] Sign Reading Time Taken Comments Blood Pressure 112/60 11/02/2022 8:27 AM EDT Pulse 77 11/02/2022 8:27 AM EDT Temperature 36.5 C (97.7 F) 11/02/2022 8:27 AM ED T Respiratory Rate 20 11/02/2022 8:27 AM EDT Oxygen Saturation 91% 11/02/2022 8:27 AM EDT Inhaled Oxygen Concentration - - Weight 87.5 kg (193 lb) 11/02/2022 8:27 AM EDT Height - - Body Mass Index 32.12 08/22/2022 2:24 PM EDT documented in this [...] this encounter Patient Instructions * Patient Instructions* Juan Luis Hope, DO - 11/02/2022 8:48 AM EDT BMI (Body Mass Index) is the number obtained by dividing a person's weight in kilograms by his or her height in meters squared. BMI is used in determining obesity. BMI is not used to determine a person's actual percentage of body fat, but it is a good tool to shrimp peeler weight in terms of what is healthy and unhealthy. It is used to identify adults at increased risk for developing weight related medical problems. Estimated body mass index is 32.12 kg/m as calculated from the following: Height as of 08/22/22: 1.651 m (5' 5"). Weight as of this encounter: 87.5 kg (193 lb). Obesity - BMI 30 kg/m2 to 34.9 kg/mg - Obese individuals are at risk for developing: * Heart disease * Stroke * Diabetes * High Blood Pressure * High Cholesterol * GERD (acid reflux) * Sleep Apnea * Osteoarthritis * Fatty Liver Disease * Certain Types of Cancers * Gout * Gall Bladder Disease - Weight loss has been shown to decrease weight related medical problems. - Each additional 5 unit increase in BMI at/above 25 kg/m2 is linked to a 40% increase in from heart and coronary artery disease. - The lifespan of those with a BMI of 30-35 kg/m2 is reduced by two to four years compared to thosewith a normal BMI. - A 12-week weight management text message program is also available. Go to [employer] and seethe message under '[employer] News' for more information and enrollment. Patient is Instructed to: Diet: * Limit total fat intake to no more than 40 grams per day (low fat diet). * Increase fruits and vegetables to 5 servings per day, combined. * Limited starches (breads, pasta, rice, potatoes, corn, cereals) to 4 servings per day. Avoid Calorie Containing Drinks: * No fruit juices, regular sodas or sweetened drinks. * Water is preferred - 64 ounces per day unless advised of a fluid restriction. * Diet sodas and drinks permitted. Keep Honest, Accurate Food logs: * www.Qpyn.Salesconx * www.Xsigo.Salesconx * If you bite it - write it! Weigh Yourself Weekly: * Morning is best. * Try to do this outside your home. * Have a friend/spouse remind you to weigh yourself, accountability to others helps. Perform 30 minutes of physical activity daily: * Can do all at once or 5 minutes 6 times per day * 8, 000-10,000 steps per day using a pedometer * Make it fun! documented in this encounter Progress Notes * Juan Luis Hope DO - 11/02/2022 8:40 AM EDT Subjective Neil Elliott Ramos Jr. is a 81 year old male. Chief Complaint Patient presents with Follow Up HPI: Patient presents office for routine follow-up. Lab work done, results reviewed with patient. Medication list reviewed. Patient had recent mechanical fall at home. Had been evaluated at [facility] and had CT head, CT cervicalspine which did not show any acute fractures. CT cervical spine did show possible widening of the predental space. Possible ligament injury. Patient also suffered a skin tear/wound to his left lower leg. Previously had Unna boots placed for healing. Has not had any evidence of infection such as increased drainage or redness. Here to have checked Patient does note some low back pain that radiates into his thighs. No saddle anesthesia, incontinence or cord compressive symptoms. Does have known spondylosis, DDD of the lumbar spine. Also noted in the cervical spine on previous report. Do not have any images accessible at this time. Notes pain w orse with ambulation. Sometimes will note clicking when moves his neck or low back. No numbness or tingling noted in his arms or legs. 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 Historically has used tramadol 50 mg every 6 hours as needed for low back pain related to arthritis. PDMP checked without issues. Has not noted any acute side effects on medication Has history hypertension, CKD 3B. Creatinine on most recent labs 1.8, 1.7 previously. Denies any urinary symptoms at this time. Tolerating current medication regimen. Electrolytes stable on last labs. No symptoms noted be consistent with elevation of baseline blood pressure History of COPD on Advair 1 puff twice daily, albuterol HFA as needed. Does not note any worsening respiratory status or decompensation. No recent respiratory illnesses. Type 2 diabetes maintained with diet control, no current diabetic medications required. A1c well controlled around 5.9. Does not check sugar regularly. Up-to-date on eye exam. Seems to be due for foot exam. 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 60 Each 5 Losartan Potassium 50 MG Oral Tablet (Cozaar) Take 1 Tablet by mouth in the morning. 90 Tablet 1 Metoprolol Succinate ER 25 MG Oral Tablet Extended Release 24 Hour (toPROL XL) Take 1 Tablet by mouth in the morning. traMADol HCl 50 MG Oral Tablet (Ultram) Take 1 Tablet by mouth every 6 hours as needed for Pain, Moderate. 30 Tablet 0 Meclizine HCl 25 MG Oral Tablet (Antivert) Take 1 Tablet by mouth 3 times a day as needed for Dizziness. 30 Tablet 1 traZODone HCl 50 MG Oral Tablet (Desyrel) TAKE 1 TABLET BY MOUTH ONCE DAILY AT BEDTIME 90 Tablet 2 LORazepam 0.5 MG Oral Tablet (Ativan) Take 1 Tablet by mouth 2 times a day as needed for Anxiety. 60 Tablet 0 Lansoprazole 15 MG Oral Capsule Delayed Release (Prevacid) TAKE ONE CAPSULE BY MOUTH ONCE DAILY 90 Capsule 1 Furosemide 20 MG Oral Tablet (Lasix) Take 1 Tablet by mouth in the morning. 30 Tablet 11 Potassium Chloride Kary ER 20 MEQ Oral Tablet Extended Release Take 1 Tablet by mouth in the morning and 1 Tablet before bedtime. 60 Tablet 11 Nitroglycerin 0.4 MG Sublingual Tablet Sublingual (Nitrostat) DISSOLVE 1 TAB UNDER TONGUE EVERY 5 MINUTES NEEDED FOR CHEST PAIN. MAX 3 DOSES. NO RELIEF CALL 911 25 Tablet 5 Tadalafil 20 MG Oral Tablet TAKE 1 TABLET BY MOUTH ONCE DAILY NEEDED FOR ERECTILE DYSFUNCTION 10Tablet 3 No current facility-administered medications for this [...] left basal ganglia/internal capsule Irritable bowel syndrome half-way (current) use of anticoagulants 05/17/2003 Mixed dyslipidemia Personal history of tobacco use 08/05/2017 Polyp of vocal cord 06/24/2018 Positive D dimer 06/24/2018 RBBB Reflux esophagitis 1992 Sciatica 2000 >5/02:ED Block 09/08/01 Sinus bradycardia Tinnitus of both ears 06/24/2018 Varicose vein of leg Right leg Past Surgical History: Procedure Laterality Date COLONOSCOPY 11/16/05 DR. CRESPO - INTERNAL HEMORRHOIDS , DIVERTICULOSIS, COLONOSCOPY, DIAGNOSTIC (RECTUM) 02/14/2016 adenomatous polyps, diverticulosis, fair prep, repeat 2 yrs/COLONOSCOPY FLEXIBLE PROXIMAL DIAGNOSTIC performed by Luis Khanna MD at [facility] HEMORRHOIDECTOMY,EXTERNAL, 2 + COLUMNS 1996 Hemorrhoidectomy,External LAPAROSCOPY;APPENDECTOMY N/A 01/07/2015 LAPAROSCOPIC APPENDECTOMY [place] Luis [place] [facility] [place] CATARACT, INSERT LENS PROSTH 09/11/05 10/09/05 Cataract Removal, Blateral REVERSE TOTAL SHOULDER ARTHROPLASTY Right 02/24/2015 REVERSE TOTAL SHOULDER ARTHROPLASTY performed [place] Aníbal Frankel [place] [facility] [place] OF ANKLE JOINT 1982 Left Ankle [...] Problems Son No Known Problems Daughter Family Status Relation Status Mo Fa Sis Alive Bro Alive Bro Alive Son Alive Bryson Alive Social History Socioeconomic History Marital status: Spouse name: Not on file Number of children: Not on file Years of education: Not on file Highest education level: Not on file Occupational History Not on file Tobacco Use Smoking status: Former Packs/day: 2.00 Years: 35.00 Pack years: 70.00 Types: Cigarettes, Cigars Quit date: 02/11/1989 Years since quittin.7 Smokeless tobacco: Never Vaping Use Vaping Use: Never used Substance and Sexual Activity Alcohol use: Yes Comment: occ Drug use: No Sexual activity: Not on file Other Topics Concern Not on file Social History Narrative Not on file Social Determinants of Health Financial Resource Strain: Not on file Food Insecurity: No Food Insecurity Worried About Running Out of Food in the Last Year: Never true Ran Out of Food in the Last Year: Never true Transportation Needs: Not on file Physical Activity: Not on file Stress: Not on file Social Connections: Not on file Intimate Partner Violence: Not on file Housing Stability: Not on file Mmrc Cat Question 10/03/2022 9:06 AM EDT - Filed by Patient When do you become breathless? (2) On level ground, I walk slower than people of the same age because of breathlessness or have to stop for breath when walking at my own pace How frequently do you cough? (3) Do you have phlegm in your chest? (3) Is your chest tight? (0) - My chest does not feel tight at all How breathless do you become when walking up a hill or steps? (3) How limited are you doing activities at home? (3) How confident are you leaving home with your lung condition? (0) - I am confident leaving my home despite my condition How soundly do you sleep? (0) - I sleep soundly How much energy do you have? (3) Total MMRC Score (range: 0 - 4) 2 Total CAT Score (range: 0 - 40) 15 Social Needs Screening Question 10/03/2022 9:08 AM EDT - Filed by Patient We want to ensure that you can live your healthiest life, part of that is ensuring you have can find resources when you need them. We know that if you have trouble accessing things like food, housing, or transportation, it can impact your health. We encourage you to take a couple minutes to fill out this social needs questionnaire. Your care team will go over the screening with you at your upcoming visit and can connect you to local resources. Within the past 12 months, you worried that your food would run out before you got the money to buymore. Never true Within the past 12 months, the food you bought just didnt last and you didnt have money to get more. Never true Do you need food for this week? No Do you currently live in a care home or have no steady place to sleep at night? No Do you think you are at risk of becoming homeless? No Do you have trouble getting a ride to medical visits or work? Never True Do you have any trouble paying for your medications, or do you think you might in the future? No How often do you feel lonely or isolated from those around you? Sometimes Do you feel unsafe or have concerns for your safety? No Do you feel overwhelmed with taking care of a child, family member or friend? No Have you been unable to get clothing when it was really needed? No Do you have trouble paying your heating, water, or electric bill? No Are you unemployed or without regular income? 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 Cold War [place] War [place] War [place] War Peace Time Vietnam War Yes War in [place] WWII Are you interested in a "We [place] [employer]" ceremony? Is there anything about your service history that you would like your healthcare provider to know? Are you a disabled ? Yes Does the VA recognize your disability? Yes Flu Vaccine Questionnaire Question 10/03/2022 9:12 AM EDT - Filed by Patient Get your flu shot at your upcoming appointment. Please select one of the options below. Yes, I would like my flu shot [employer] Question 10/03/2022 9:13 AM EDT - Filed by Patient Have you used an antibiotic (e.g., azithromycin, doxycycline, augmentin) in the last 12 months because of your breathing or lung problem? Yes, once Have you added or increased the dose of a steroid (e.g., prednisone, solumedrol) in the last 12 months because of your breathing or lung problem? No Did you go to the ED, or were you hospitalized in the last 12 months because of your breathing or lung problem? No Myc Visit Accident Related Question Question 10/19/2022 2:32 PM EDT - Filed by Patient Is this visit related to an accident? (i.e work, motor vehicle) No Phq2 Adult-Depression Question 11/02/2022 9:21 AM EDT - Filed by Juan Luis Hope, DO Over the last two weeks, how often have you been bothered by any of the following problems? Little interest or pleasure in doing things Not at all Feeling down, depressed or hopeless Not at all Sum of the PHQ1 and PHQ2 questions (range: 0 - 6) 0 (Further screening not recommended) Review of Systems Constitutional: Negative for chills, fatigue and fever. HENT: Negative for congestion, sore throat and trouble swallowing. Eyes: Negative for photophobia and pain. Respiratory: Negative for cough, shortness of breath and wheezing. Cardiovascular: Negative for chest pain and palpitations. Gastrointestinal: Negative for abdominal distention, abdominal pain, nausea and vomiting. Genitourinary: Negative for dysuria and frequency. Musculoskeletal: Positive for arthralgias, back pain and neck pain. Negative for neck stiffness. Skin: Positive for wound. Negative for pallor. Neurological: Negative for dizziness, light-headedness and headaches. Psychiatric/Behavioral: Negative for sleep disturbance. The patient is not nervous/anxious. Objective BP 112/60 (BP Site: Left Arm, BP Position: Sitting, BP Cuff Size: Regular) | Pulse 77 | Temp 36.5 C (97.7 F) (Tympanic) | Resp 20 | Wt 87.5 kg (193 lb) | SpO2 91% | BMI 32.12 kg/m | BSA 2 m Physical Exam Constitutional: General: He is not in acute distress. Appearance: He is not ill-appearing. HENT: Head: Normocephalic and atraumatic. Right Ear: Tympanic membrane, ear canal and external ear normal. Left Ear: Tympanic membrane, ear canal and external ear normal. Nose: Nose normal. No congestion or rhinorrhea. Mouth/Throat: Mouth: Mucous membranes are moist. Pharynx: Oropharynx is clear. Eyes: General: No scleral icterus. Extraocular Movements: Extraocular movements intact. Conjunctiva/sclera: Conjunctivae normal. Pupils: Pupils are equal, round, and reactive to light. Neck: Vascular: No carotid bruit. Cardiovascular: Rate and Rhythm: Normal rate and regular rhythm. Pulses: Normal pulses. Heart sounds: Normal heart sounds. No murmur heard. No friction rub. No gallop. Pulmonary: Effort: Pulmonary effort is normal. Breath sounds: Normal breath sounds. No wheezing, rhonchi or rales. Abdominal: General: Bowel sounds are normal. There is no distension. Palpations: Abdomen is soft. There is no mass. Tenderness: There is no abdominal tenderness. Musculoskeletal: General: No swelling or tenderness. Normal range of motion. Cervical back: Normal range of motion and neck supple. Right lower leg: No edema. Left lower leg: No edema. Skin: General: Skin is warm and dry. Coloration: Skin is not jaundiced. Findings: No rash. Comments: Shallow wound noted on left holland area. About 2 cm in biggest diameter. Subcutaneous tissues visible. No surrounding erythema or induration. No discharge noted. Neurological: General: No focal deficit present. Mental Status: He is oriented to person, place, and time. Cranial Nerves: No cranial nerve deficit. Sensory: No sensory deficit. Motor: No weakness. Psychiatric: Mood and Affect: Mood normal. Behavior: Behavior normal. Latest Reference Range & Units 07/30/22 10:10 10/23/22 11:46 Triglycerides <=174 mg/dL 55 Cholesterol <200 mg/dL 171 Non-HDL Cholesterol <=159 mg/dL 67 HDL Cholesterol >39 mg/dL 104 LDL Cholesterol <=129 mg/dL 56 Sodium 135 - 146 mmol/L 133 (L) 137 Potassium 3.5 - 5.1 mmol/L 4.3 3.8 Chloride 98 - 107 mmol/L 96 (L) 98 CO2 22 - 32 mmol/L 22 24 BUN 6 - 20 mg/dL 23 (H) 18 Creatinine 0.6 - 1.2 mg/dL 1.7 (H) 1.8 (H) Estimated Glomerular Filtration Rate >=60 mL/min 42 (L) 37 (L) Anion Gap 7 - 15 mmol/L 15 15 Glucose 70 - 120 mg/dL 116 106 Calcium 8.4 - 10.2 mg/dL 9.0 8.5 Protein 6.0 - 8.3 g/dL 6.3 Estimated Average Glucose <126 mg/dL 97 Hemoglobin A1C 4.0 - 5.6 % 5.0 TSH 0.27 - 4.20 uIU/mL 0.39 TSH WITH FREE T4 IF INDICATED Rpt CBC Rpt ! CBC WITH WBC DIFFERENTIAL Rpt ! WBC 4.00 - 10.80 K/uL 4.39 HGB 14.0 - 16.8 g/dL 10.8 (L) HCT 40.0 - 48.4 % 31.3 (L) MCV 82.0 - 99.5 fL 103.3 PLT 140 - 400 K/uL 127 (L) Absolute Neutrophils 1.80 - 7.70 K/uL 3.05 Absolute Lymphocytes 1.00 - 4.80 K/ul 0.81 (L) Absolute Monocytes 0.00 - 1.10 K/uL 0.37 Absolute Eosinophils 0.00 - 0.70 K/uL 0.13 Absolute Basophils 0.00 - 0.20 K/uL 0.02 Albumin 3.8 - 5.0 g/dL 4.1 AST 10 - 50 U/L 21 ALT 10 - 50 U/L 13 Alkaline Phosphatase 35 - 130 U/L 102 Bilirubin, Total <=1.2 mg/dL 0.9 (L): Data is abnormally low (H): Data is abnormally high !: Data is abnormal Rpt: View report in Results Review for more information ASSESSMENT/PLAN: Wound of left lower extremity, initial encounter (Primary) Reflux esophagitis - Lansoprazole 15 MG Oral Capsule Delayed Release (Prevacid); Take 1 Capsule by mouth in the morning. Spondylosis of lumbosacral region without myelopathy or radiculopathy - PAIN MANAGEMENT DRUG PANEL, URINE; Future; Expected date: 11/02/2022 - XR L SPINE AP AND LATERAL Hyperlipidemia associated with type 2 diabetes mellitus (HCC) Type 2 diabetes mellitus with diabetic neuropathy, without long-term current use of insulin (HCC) - ALBUMIN / CREATININE RATIO, URINE; Future; Expected date: 02/01/2023 - PHOSPHORUS; Future; Expected date: 02/01/2023 PVD (peripheral vascular disease) ([facility]) Centrilobular emphysema (HCC) Hypertension associated with type 2 diabetes mellitus ([facility]) Normocytic anemia Stage 3b chronic kidney disease ([facility]) - COMPREHENSIVE METABOLIC PANEL; Future; Expected date: 11/02/2022 - CBC WITH WBC DIFFERENTIAL; Future; Expected date: 11/02/2022 - IRON SCREEN, INCLUDING TIBC; Future; Expected date: 11/02/2022 - VITAMIN B12; Future; Expected date: 11/02/2022 - FERRITIN; Future; Expected date: 11/02/2022 Personal history of alcoholism ([facility]) Mixed anxiety and depressive disorder - PAIN MANAGEMENT DRUG PANEL, URINE; Future; Expected date: 11/02/2022 Hereditary and idiopathic neuropathy, unspecified - VITAMIN B12; Future; Expected date: 11/02/2022 Osteoarthritis of cervical spine, unspecified spinal osteoarthritis complication status - XR C SPINE 4-5 VIEWS Plan: Patient presents to office for routine follow-up. Evaluated wound on his left lower extremity. Seems to be healing well. No signs of secondary infection. Dressing was placed over this. Will have follow-up for nurse visit in 1 week for recheck Has history of chronic neck and back pain related to spondylosis, DDD. Has continued to notice this. Possible radicular findings in his low back. No cord compressive symptoms noted. Would like to recheck x-rays of his cervical spine, lumbar spine to evaluate. May eventually need to consider MRI. There was possible finding on recent CT cervical spine at [facility] of widening of the predental space. Do not have any images available so would like to evaluate this Continue current medications. 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 Counseled patient to continue current hypertensive meds with losartan 50 mg daily. Encouraged him that would only be taking Lasix at this 20 mg daily as needed. There is not much swelling present in his legs currently Continue tramadol 50 mg every 6 hours as needed for pain related to arthritis, is also on lorazepam0.5 mg twice daily as needed for anxiety. Will continue to monitor both of these medications closely. PDMP checked without issues. Unable to void for UDS today. Will order with next labs. Med use agreement on file Repeat labs prior to next follow-up to re-evaluate renal function, electrolytes, hemoglobin/hematocrit. Does have stable but continued normocytic anemia on current labs. Will also check iron and B12 levels Defers vaccine recommendations at this time. Will revisit at later encounter Denies any symptoms of feeling down or depressed. PHQ 2 score of 0 today Follow Up: Return in about 3 months (around 02/01/2023), or if symptoms worsen or fail to improve, for Return with Physician. | For: Return with Physician | Check-out note: 3 month follow up Fasting labs 1 week prior Xray cervical spine and Lumbar spine today 1 week nurse visit for wound check left leg Juan Luis Hope DO Patient counseling on weight management given. documented in this encounter Nursing Notes * Paulina Levy LPN - 11/02/2022 8:26 AM EDT Follow up. Leg injury. Improved documented in this encounter Plan of Treatment Upcoming Encounters Date Type Specialty Care Team Description 11/09/2022 Nurse Only [facility] Nurse [facility] [address] [place] [address] 02/08/2023 Laboratory Laboratory [facility], [facility] [address] [place] [address] 02/13/2023 Office Visit Family Medicine Juan Luis Hope DO [address] [place] [address] Pending Results Name Type Priority Associated Diagnoses Date /Time XR L SPINE AP AND LATERAL Medical Imaging Routine Spondylosis of lumbosacral region without myelopathy or radiculopathy 11/02/2022 9:34 AM EDT XR C SPINE 4-5 VIEWS Medical Imaging Routine Osteoarthritis of cervical spine, unspecified spinal osteoarthritis complication status 11/02/2022 9:35 AM EDT Scheduled Orders Name Type Priority Associated Diagnoses Orde r Schedule PAIN MANAGEMENT DRUG PANEL, URINE Lab Routine Spondylosis of lumbosacral region without myelopathy or radiculopathy Mixed anxiety and depressive disorder Expected: 11/02/2022 (Approximate), Expires: 11/02/2023 COMPREHENSIVE METABOLIC PANEL Lab Routine Stage 3b chronic kidney disease (HCC) Expected: 11/02/2022 (Approximate), Expires: 11/02/2023 CBC WITH WBC DIFFERENTIAL Lab Routine Stage 3b chronic kidney disease (HCC) Expected: 11/02/2022 (Approximate), Expires: 11/03/2023 IRON SCREEN, INCLUDING TIBC Lab Routine Stage 3b chronic kidney disease (HCC) Expected: 11/02/2022 (Approximate), Expires: 11/02/2023 VITAMIN B12 Lab Routine Stage 3b chronic kidney disease (HCC) Hereditary and idiopathic neuropathy, unspecified Expected: 11/02/2022 (Approximate), Expires: 11/02/2023 FERRITIN Lab Routine Stage 3b chronic kidney disease (HCC) Expected: 11/02/2022 (Approximate), Expires: 11/02/2023 ALBUMIN / CREATININE RATIO, URINE Lab Routine Type 2 diabetes mellitus with diabetic neuropathy, without long-term current use of insulin (HCC) Expected: 02/01/2023 (Approximate), Expires: 11/02/2023 PHOSPHORUS Lab Routine Type 2 diabetes mellitus with diabetic neuropathy, without long-term current use of insulin (HCC) Expected: 02/01/2023 (Approximate), Expires: 11/02/2023 Health Maintenance Due Date Last Done Comments Zoster Vaccines (1 of 2) 11/30/1991 DTaP,Tdap,and Td Vaccines (1 - Tdap) 04/20/2011 04/19/2011, 06/07/1999 *COPD SEVERITY VERIFIED BY PFT 08/24/2017 COLONOSCOPY-EVERY 2 YRS AGES 18-100 02/13/2018 02/14/2016, 02/14/2016, 11/16/2005 Albumin/Creatinine Ratio 09/03/2019 09/02/2018, 11/11 COVID-19 Vaccine (3 - Booster for [place] series) 04/05/2021 02/08/2021, 08/01/2020 CKD PHOS USE SMARTSET 71769 06/28/202206/11, 06/24/2021, 06/23/2021, Additional history exists Diabetic Foot Exam 07/14/2022 07/14/2021, 0 08/19/2019, 06/30/2018 Depression Screening 08/01/2022 08/01/2021 HbA1c 01/29/2023 07/30/2022, 01/11, 07/31/2021, Additional history exists DIABETES-EYE EXAM 03/19/2023 03/19/2022, , 03/17/2020, Additional history exists GFR 04/23/2023 10/23/2022, 07/12, 04/23/2022, Additional history exists CKD HGB USE SMARTSET 36476 07/31/202307/30, 07/30/2022, 04/23/2022, Additional history exists TSH 07/31/2023 07/30/2022, 01/11, 07/31/2021, Additional history exists O2 ASSESSMENT COMPLETED IN [...] this encounter Medical Devices Implanted Type Area Fence Setter Device Identifier Shelf Expiration Date Model / Serial / Lot Rsp Bone Screw-Locking Sz 5.0 Mm 26mm Long Implanted:Qty: 1 on 02/24/2015 by Aníbal Frankel MD at [facility] Right: Shoulder [employer] 01/22/2021 [id number] / / [id number] documented as of this encounter Visit Diagnoses Diagnosis Wound of left lower extremity, initial encounter- Primary Gastroesophageal reflux disease with esophagitis without hemorrhage Spondylosis of lumbosacral region without myelopathy or radiculopathy Lumbosacral spondylosis without myelopathy Hyperlipidemia associated with type 2 diabetes mellitus (HCC) Type 2 diabetes mellitus with diabetic neuropathy, without long-term current use of insulin (HCC) PVD (peripheral vascular disease) (HCC) Peripheral vascular disease, unspecified Centrilobular emphysema (HCC) Other emphysema Hypertension associated with type 2 diabetes mellitus (HCC) Normocytic anemia Anemia, unspecified Stage 3b chronic kidney disease (HCC) Personal history of alcoholism (HCC) Personal history of alcoholism Mixed anxiety and depressive disorder Dysthymic disorder Hereditary and idiopathic neuropathy, unspecified Osteoarthritis of cervical spine, unspecified spinal osteoarthritis complication status documented in this encounter Advance Directives Latest [...] the patient have Health Care Power of Spraying Machine Operator? Yes, not currently available Code Status History Code Status Date Activated Date Inactivated Comments Full Code 06/24/2018 1:38 PM 06/24/2018 3:07 PM This order reflects the patients wishes and were consensually agreed upon. Question Answer Comments Discussion of Advance Directives occurred with: Patient Does the patient have a Living Will? No Does the patient have Health Care Power of Spraying Machine Operator? No Full Code 07/26/2017 7:36 PM 08/01/2017 4:46 PM This order reflects the patients wishes and were consensually agreed upon. Question Answer Comments Discussion of Advance Directives occurred with: Patient Does the patient have a Living Will? No Does the patient have Health Care Power of Spraying Machine Operator? No Full Code 02/24/2015 10:33 AM 02/25/2015 6:10 PM . Question Answer Comments Discussion of Advance Directives occurred with: Not Discussed Full Code 01/07/2015 4:20 PM 01/08/2015 5:32 PM Question Answer Comments Discussion of Advance Directives occurred with: Not Discussed Does the patient have a Living Will? No Does the patient have Health Care Power of Spraying Machine Operator? No Care Teams Field Sales Specialist Relationship Specialty Start Date End Date Juan Luis Hope, [place] [address] PCP - General Internal Medicine 05/15/21 documented as of this encounter
--- OUTSIDE RECORDS SUMMARY | 2023-04-26 20:45 | External Medical Summary | Summary of Care ---
Author Name Unknown Organization [facility] Address [address] [place] [address] Phone [phone] Care Team Providers Care Documentation Improvement Specialist Name Role Phone LuhJuan Luis castro Primary Care Provid er Reason for Visit * Reason Comments Hospital Follow-Up Patient is here for a ER follow up and states he is getting neftali removed today. Patient has no other concerns today. Encounter Details Date Type Department Care Team Description 11/21/2022 Office Visit [facility] [address] [place] [address] Jaclyn Bucio PA-C [address] [place] [phone] Laceration of head without foreign body, unspecified part of head, subsequent encounter*; Type 2 diabetes mellitus with diabetic neuropathy, without long-term current use of insulin (HCC); Constipation, unspecified constipation type Allergies Active Allergy Reactions Severity Noted Date Comments Adhesive Tape Rash 09/12/2000 Cefuroxime Axetil Flushing,Hives,Itching 2011 Ceftriaxone Sodium In Dextrose 01/08/2015 Hives Statins Muscle pain Low 09/01/2013 Zolpidem Neuro complications (Please comment) Low 05/18/2010 ambien documented as of this encounter (statuses as of 11/21/2022) Medications Medication Sig Dispensed Refills Start Date [...] (HCC),COPD, group B, by GOLD 2017 classification ([facility]) Inhale 1 Puff by mouth in [...] 09/25/2022 Active Furosemide 20 MG Oral Tablet (Lasix)Indications: [...] before bedtime. 60 Capsule 5 11/21/2022 Active Docusate Sodium 100 MG Oral Capsule (Colace)Indications :Constipation, unspecified constipation type Take 1 Capsule by mouth in the morning and 1 Capsule before bedtime. 60 Capsule 5 11/21/2022 3 Discontinu ed(Refill) documented as of this encounter (statuses as of 11/21/2022) Active Problems Problem Noted Date Normocytic anemia [...] as of this encounter (statuses as of 11/21/2022) Resolved Problems Problem Noted Date Resolved Date [...] transurethral resection of prostate 0 08/05/2017 06/30/2018 custodial resident 08/05/2017 08/13/2017 DNR (do not resuscitate) [...] on prior visit. detention current use of anticoagulant therapy 0 05/17/2003 01/19/2019 Anticoagulation management encounter 05/11/2003 08/13/2017 HTN, goal below 140/90 9 Hypothyroidism 09/01/2014 Reflux esophagitis 09/17/2019 Mixed dyslipidemia 01/26/2009 Overview: Per Lipid Taxonomy. Acute appendicitis 08/05/2017 documented as of this encounter (statuses as of 11/21/2022) Immunizations Name Administration Dates Next Due COVID-19, [...] Sign Reading Time Taken Comments Blood Pressure 104/60 11/21/2022 12:02 PM EDT Pulse 77 11/21/2022 12:02 PM EDT Temperature 36.6 C (97.9 F) 11/21/2022 12:02 PM E DT Respiratory Rate 18 11/21/2022 12:02 PM EDT Oxygen Saturation 98% 11/21/2022 12:02 PM EDT Inhaled Oxygen Concentration - - Weight - [...] as of this encounter Progress Notes * Jaclyn Bucio PA-C - 11/21/2022 12:24 PM EDT Subjective: Neil Abdulwaldoyo Rubio is a 81 year old male. Chief Complaint Patient presents with Hospital Follow-Up Patient is here for a ER follow up and states he is getting neftali removed today. Patient has no other concerns today. HPI: Patient here today for ER follow up. Patient reports he fell and hit his head about 4 weeks ago. He was evaluated in ED on 10/30. Patient had 6 neftali placed in the back of his head. They were to be removed 11/09, but patient had to cancel as he was in the ED for a fall. Patient reports the cause of the falls is he "trip over my own feet" Patient has neuropathy and states those symptoms have been worse. Lives alone but has help from friends at neighboring apartment. He comes over when patient wakes upin morning and when he gets ready for bed. His son is in [place]. Denies headaches,dizziness, cp, or shortness of breath. Hemoglobin A1c in July was 5.0 Patient reports occassional lightheadedness when standing up too quickly. Does not regularly check BP. Patient reports he is only taking gabapentin 300mg once daily (not BID as written). Given CrCl of 41, patient may be on up to 900mg/day. Will increase as needed. 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 60 Tablet 0 Furosemide 20 MG Oral Tablet (Lasix) Take 1 Tablet by mouth in the morning. 30 Tablet 11 Potassium Chloride Kary ER 20 MEQ Oral Tablet Extended Release Take 1 Tablet by mouth in the morning and 1 Tablet before bedtime. 60 Tablet 11 Lansoprazole 15 MG Oral Capsule Delayed Release (Prevacid) Take 1 Capsule by mouth in the morning. 90 Capsule 3 No current facility-administered medications for this visit. Review of patient's allergies indicates: Allergen Reactions Adhesive Tape Rash Cefuroxime Axetil Flushing, Hives and Itching Rocephin [Ceftriaxone Sodium In Dextrose] Hives Statins Muscle pain Zolpidem Neuro complications (Please comment) ambien Objective: BP 104/60 | Pulse 77 | Temp 36.6 C (97.9 F) (Tympanic) | Resp 18 | SpO2 98% Head: Normocephalic, Well healing 5cm laceration on back of head. No purulent discharge or surrounding erythema. No other masses, lesions, tenderness or abnormalities Eye Exam: PERRLA, extraocular movements intact, conjunctiva are pink and non- injected, sclera clear Heart: regular rate & rhythm, no murmur, and no gallops Lungs: chest symmetric with normal AP diameter, no chest deformities noted, no chest wall tenderness, lungs clear to auscultation ASSESSMENT: Laceration of head without foreign body, unspecified part of head, subsequent encounter (Primary) Type 2 diabetes mellitus with diabetic neuropathy, without long-term current use of insulin (HCC) Constipation, unspecified constipation type - Docusate Sodium 100 MG Oral Capsule (Colace); Take 1 Capsule by mouth in the morning and 1 Capsule before bedtime. Plan: 6 neftali removed without difficulty despite prolonged time. No evidence of infection. Discussed frequent falls with patient. He firmly denies any red flag symptoms. He would like additional relief from his neuropathy. Patient is only taking gapapening in morning not BID as written. Patient will begin taking gabapentin BID, we can increase to TID if needed for a max dose of 900 (given CrCl of 41). Patient reports good help at home and politely declines any additional resources at this time Patient reports some lightheadedness with standing up quickly. BP today 104/60. Patient encouraged to check BP at home and notify us if persistently low. Encouraged to wait a few seconds after standing up to begin moving. Will consider decreasing losartan. Patient reports occasional constipation. Recommended patient take colace daily. Patient politely declines colonoscopy. Follow Up: Return in about 4 weeks (around 12/19/2022), or if symptoms worsen or fail to improve. Declines zoster vaccine. Patient believes he had Tdap in ER. I spent a total of 40-54 minutes (exact time 45 mins) on the date of service in preparation, delivery, and documentation of the care provided to Neil Ramos Jr. excluding any time spent in the performance of separately billed services. Jaclyn Bucio PA-C documented in this encounter Nursing Notes * Janine Cobos LPN - 11/21/2022 12:01 PM EDT The patient has been properly identified by confirmation of name and date of . Chief Complaint Patient presents with Hospital Follow-Up Patient is here for a ER follow up and states he is getting neftali removed today. Patient has no other concerns today. documented in this encounter Plan of Treatment Upcoming Encounters Date Type Specialty Care Team Description 12/19/2022 Office Visit Family Medicine Jaclyn Bucio PA-C [address] [facility] [place] [id number] 02/08/2023 Laboratory [facility], Lab [address] [place] [address] 02/13/2023 Office Visit Family Medicine Juan Luis Hope, DO [address] [place] [id number] Health Maintenance Due Date Last Done Comments Zoster Vaccines (1 of 2) 11/30/1991 DTaP,Tdap,and Td Vaccines (1 - Tdap) 04/20/2011 04/19/2011, 06/07/1999 *COPD SEVERITY VERIFIED BY PFT 08/24/2017 COLONOSCOPY-EVERY 2 YRS AGES 18-100 02/13/2018 02/14/2016, 02/14/2016, 11/16/2005 Albumin/Creatinine Ratio 09/03/2019 09/02/2018, 11/11 CKD PHOS USE SMARTSET 34447 06/28/202206/11, 06/24/2021, 06/23/2021, Additional history exists Diabetic Foot Exam 07/14/2022 07/14/2021, 0 08/19/2019, 06/30/2018 COVID-19 Vaccine ( season) 2022 02/08/2021, 08/01/2020 HbA1c 01/29/2023 07/30/2022, 01/11, 07/31/2021, Additional history exists DIABETES-EYE EXAM 03/19/2023 03/19/2022, , 03/17/2020, Additional history exists GFR 05/10/2023 11/09/2022, 10/12, 07/30/2022, Additional history exists TSH 07/31/2023 07/30/2022, 01/11, 07/31/2021, Additional history exists Depression Screening 11/03/2023 11/02/2022 O2 ASSESSMENT COMPLETED IN PAST YEAR FOR COPD 11/03/2023 11/02/2022 CKD HGB USE SMARTSET 59499 11/10/202311/09, 07/30/2022, 07/30/2022, Additional history exists Pneumococcal Vaccine: 65+ Years [...] this encounter Medical Devices Implanted Type Area Conference Director Device Identifier Shelf Expiration Date Model / Serial / Lot Rsp Bone Screw-Locking Sz 5.0 Mm 26mm Long Implanted:Qty: 1 on 02/24/2015 by Aníbal Frankel MD at [facility] Right: Shoulder [employer] 01/22/2021 [id number] / / [id number] documented as of this encounter Visit Diagnoses Diagnosis Laceration of head without foreign body, unspecified part of head, subsequent encounter- Primary Type 2 diabetes mellitus with diabetic neuropathy, without long-term current use of insulin (HCC) Constipation, unspecified constipation type documented in this [...] the patient have Health Care Power of Substance Abuse Rn? Yes, not currently available Code Status History Code Status Date Activated Date Inactivated Comments Full Code 06/24/2018 1:38 PM 06/24/2018 3:07 PM This order reflects the patients wishes and were consensually agreed upon. Question Answer Comments Discussion of Advance Directives occurred with: Patient Does the patient have a Living Will? No Does the patient have Health Care Power of Substance Abuse Rn? No Full Code 07/26/2017 7:36 PM 08/01/2017 4:46 PM This order reflects the patients wishes and were consensually agreed upon. Question Answer Comments Discussion of Advance Directives occurred with: Patient Does the patient have a Living Will? No Does the patient have Health Care Power of Substance Abuse Rn? No Full Code 02/24/2015 10:33 AM 02/25/2015 6:10 PM . Question Answer Comments Discussion of Advance Directives occurred with: Not Discussed Full Code 01/07/2015 4:20 PM 01/08/2015 5:32 PM Question Answer Comments Discussion of Advance Directives occurred with: Not Discussed Does the patient have a Living Will? No Does the patient have Health Care Power of Substance Abuse Rn? No Care Teams Documentation Improvement Specialist Relationship Specialty Start Date End Date Juan Luis Hope, DO [address] [place] [id number] PCP - General Internal Medicine 05/15/21 documented as of this encounter
--- OUTSIDE RECORDS SUMMARY | 2023-04-26 20:45 | External Medical Summary | Summary of Care ---
Author Name Unknown Organization [facility] Address [address] [facility] [place] [address] Phone [phone] Care Team Providers Care Network Lead Name Role Phone Juan Luis Hope DO Primary Care Provid er Reason for Visit * Reason Onset Date Comments Test Results 11/05/2022 Sent MyG 11/05 Encounter Details Date Type Department Care Team Description 11/05/[address] [phone] Juan Luis Hope DO [address] [place] [id number] Test Results (Sent [facility] 11/05) Allergies Active Allergy Reactions Severity Noted Date Comments Adhesive Tape Rash 09/12/2000 Cefuroxime Axetil Flushing,Hives,Itching 2011 Ceftriaxone Sodium In Dextrose 01/08/2015 Hives Statins Muscle pain Low 09/01/2013 Zolpidem Neuro complications (Please comment) Low 05/18/2010 ambien documented as of this encounter (statuses as of 11/16/2022) Medications Medication Sig Dispensed Refills Start Date [...] without long-term current use of insulin ([facility]),Other specified hypothyroidism,Centr ilobular emphysema ([facility]),COPD, group B, by GOLD 2017 classification ([facility]) Inhale 1 Puff by mouth [...] 09/25/2022 Active Furosemide 20 MG Oral Tablet (Lasix)Indications:L [...] the morning. 90 Capsule 3 11/02/2022 Active documented as of this encounter (statuses as of 11/16/2022) Active Problems Problem Noted Date Normocytic anemia [...] as of this encounter (statuses as of 11/16/2022) Resolved Problems Problem Noted Date Resolved Date [...] transurethral resection of prostate 0 08/05/2017 06/30/2018 care home resident 08/05/2017 08/13/2017 DNR (do not resuscitate) [...] pt states received one on prior visit. 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 Acute appendicitis 08/05/2017 documented as of this encounter (statuses as of 11/16/2022) Immunizations Name Administration Dates Next Due COVID-19, [...] encounter Miscellaneous Notes * Telephone Encounter - Xochitl Cortes LPN - 11/05/2022 12:18 PM EDT Provider to address: n/a Reason for Call: Test Results (Sent MyG 9/25) Contact: Telephone Call Contact Type: Test Results Outcome: Called and spoke with patient and made patient aware of test results from Dr. Hope Total Time including non face to face (minutes): 5 * Telephone Encounter - Peyton Teixeira LPN - 11/05/2022 12:00 PM EDT Provider to address: Test Results Reason for Call: Test Results Contact: Muna Nguyen Contact Type: Test Results Outcome: Sent patient portal message with Dr. Hope's results message Total Time including non face to face (minutes): 5 * Telephone Encounter - Carlene Ayala LPN - 11/05/2022 11:48 AM EDT ----- Message from Juan Luis Hope DO sent at 11/04/2022 6:48 PM EDT ----- Reviewed patient's x-ray results for cervical and lumbar spines. 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 This is likely the cause of pain in his back radiating to his hips. Has had MRI in the past but none recent. If his pain continues we could consider repeating MRI of these areas to see if he might be amendable to an epidural injection documented in this encounter Plan of Treatment Upcoming Encounters Date Type Specialty Care Team Description 02/08/2023 Laboratory [facility] [address] [place] [address] 02/13/2023 Office Visit [facility] [address] [facility] [address] Health Maintenance Due Date Last Done Comments Zoster Vaccines (1 of 2) 11/30/1991 DTaP,Tdap,and Td Vaccines (1 - Tdap) 04/20/2011 04/19/2011, 06/07/1999 *COPD SEVERITY VERIFIED BY PFT 08/24/2017 COLONOSCOPY-EVERY 2 YRS AGES 18-100 02/13/2018 02/14/2016, 02/14/2016, 11/16/2005 Albumin/Creatinine Ratio 09/03/2019 09/02/2018, 11/11 CKD PHOS USE SMARTSET 34854 06/28/202206/11, 06/24/2021, 06/23/2021, Additional history exists Diabetic Foot Exam 07/14/2022 07/14/2021, 0 08/19/2019, 06/30/2018 COVID-19 Vaccine ( season) 2022 02/08/2021, 08/01/2020 HbA1c 01/29/2023 07/30/2022, 01/11, 07/31/2021, Additional history exists DIABETES-EYE EXAM 03/19/2023 03/19/2022, , 03/17/2020, Additional history exists GFR 04/23/2023 10/23/2022, 07/12, 04/23/2022, Additional history exists CKD HGB USE SMARTSET 75623 07/31/202307/30, 07/30/2022, 04/23/2022, Additional history exists TSH 07/31/2023 07/30/2022, 01/11, 07/31/2021, Additional history exists Depression Screening 11/03/2023 11/02/2022 O2 ASSESSMENT COMPLETED IN PAST YEAR FOR COPD 11/03/2023 11/02/2022 Pneumococcal Vaccine: 65+ Years Completed 02/10/2018, 01/30/2017 [...] encounter Medical Devices Implanted Type Area Business Practices Supervisor Device Identifier Shelf Expiration Date Model / Serial / Lot Rsp Bone Screw-Locking Sz 5.0 Mm 26mm Long Implanted:Qty: 1 on 02/24/2015 by Aníbal Frankel MD at [facility] Right: Shoulder [employer] 01/22/2021 [id number] / / [id number] documented as of this encounter Advance Directives [...] the patient have Health Care Power of Publicity Director? Yes, not currently available Code Status History Code Status Date Activated Date Inactivated Comments Full Code 06/24/2018 1:38 PM 06/24/2018 3:07 PM This order reflects the patients wishes and were consensually agreed upon. Question Answer Comments Discussion of Advance Directives occurred with: Patient Does the patient have a Living Will? No Does the patient have Health Care Power of Publicity Director? No Full Code 07/26/2017 7:36 PM 08/01/2017 4:46 PM This order reflects the patients wishes and were consensually agreed upon. Question Answer Comments Discussion of Advance Directives occurred with: Patient Does the patient have a Living Will? No Does the patient have Health Care Power of Publicity Director? No Full Code 02/24/2015 10:33 AM 02/25/2015 6:10 PM . Question Answer Comments Discussion of Advance Directives occurred with: Not Discussed Full Code 01/07/2015 4:20 PM 01/08/2015 5:32 PM Question Answer Comments Discussion of Advance Directives occurred with: Not Discussed Does the patient have a Living Will? No Does the patient have Health Care Power of Publicity Director? No Care Teams Network Lead Relationship Specialty Start Date End Date Juan Luis Hope, [place] [address] PCP - General Internal Medicine 05/15/21 documented as of this encounter
--- OUTSIDE RECORDS SUMMARY | 2023-04-26 20:45 | External Medical Summary | Summary of Care ---
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 Name Role Phone Juan Luis Hope DO Primary Care Provid er Reason for Visit * Reason Onset Date Comments Acute Medication Administration 10/23/2022 Flu an d/or Pneumo Inj Encounter Details Date Type Department Care Team Description 10/23/2022 Office Visit [facility] [address] [place] [address] Randell Cooley PA-C [address] [place] [phone] Wound of left lower extremity, initial encounter*; Need for prophylactic vaccination and inoculation against influenza; Lower extremity edema Allergies Active Allergy Reactions Severity Noted Date Comments Adhesive Tape Rash 09/12/2000 Cefuroxime Axetil Flushing,Hives,Itching 2011 Ceftriaxone Sodium In Dextrose 01/08/2015 Hives Statins Muscle pain Low 09/01/2013 Zolpidem Neuro complications (Please comment) Low 05/18/2010 ambien documented as of this encounter (statuses as of 11/12/2022) Medications Medication Sig Dispensed Refills Start Date [...] neuropathy, without long-term current use of insulin ([facility]),Other specified hypothyroidism,Cent rilobular emphysema ([facility]),COPD, group B, by GOLD 2017 classification ([facility]) Inhale 1 Puff by mouth [...] before bedtime. 60 Tablet 11 10/23/2022 Active Benzonatate 200 MG Oral CapsuleIndications: Acute [...] as of this encounter (statuses as of 11/12/2022) Active Problems Problem Noted Date Normocytic anemia [...] as of this encounter (statuses as of 11/12/2022) Resolved Problems Problem Noted Date Resolved Date [...] left 08/05/2017 04/25/2021 History of appendectomy 08/05/2017 07/03/20 18 History of bilateral cataract extraction 018 08/13/2017 Personal history of tobacco use 08/05/2017 08/13/2017 History of transurethral resection of prostate 0 08/05/2017 06/30/2018 half-way resident 08/05/2017 08/13/2017 DNR (do not resuscitate) [...] pt states received one on prior visit. [facility] current use of anticoagulant therapy 0 05/17/2003 01/19/2019 Anticoagulation management encounter 05/11/2003 08/13/2017 HTN, goal below 140/90 9 Hypothyroidism 09/01/2014 Reflux esophagitis 09/17/2019 Mixed dyslipidemia 01/26/2009 Overview: Per Lipid Taxonomy. Acute appendicitis 08/05/2017 documented as of this encounter (statuses as of 11/12/2022) Immunizations Name Administration Dates Next Due COVID-19, [...] Sign Reading Time Taken Comments Blood Pressure 118/60 10/23/2022 11:01 AM EDT Pulse 89 10/23/2022 11:01 AM EDT Temperature 37 C (98.6 F) 10/23/2022 11:01 AM EDT Respiratory Rate 16 10/23/2022 11:01 AM EDT Oxygen Saturation 93% 10/23/2022 11:01 AM EDT Inhaled Oxygen Concentration - - [...] as of this encounter Progress Notes * Randell Cooley PA-C - 11/12/2022 9:06 PM EDT Images from the original note were not included. History of Present Illness Neil Abdulwaldoyo Rubio is a 81 year old male that presents for Acute and Medication Administration (Fluand/or Pneumo Inj) He presents today for bilateral lower extremity edema. He has a wound on the left leg that has beenthere for a few months and is not healing. Physical Exam Vitals: 10/23/22 1101 Temp: 37 C (98.6 F) Pulse: 89 Resp: 16 SpO2: 93% BP: 118/60 General: alert, healthy, and no distress Extremities: Bilateral lower extremity edema, Left lower extremity- open wound of the lateral leg Assessment and Plan Wound of left lower extremity, initial encounter Doxycycline prescribed. Kadeema Boot applied. - BASIC METABOLIC PANEL; Standing - UNNA BOOT (NURSE APPLY); Standing Need for prophylactic vaccination and inoculation against influenza - INFLUENZA VACC, QUAD, HIGH DOSE (FLUZONE HD) Lower extremity edema - Furosemide 20 MG Oral Tablet (Lasix); Take 1 Tablet by mouth in the morning. - Potassium Chloride Kary ER 20 MEQ Oral Tablet Extended Release; Take 1 Tablet by mouth in the morning and 1 Tablet before bedtime. - BASIC METABOLIC PANEL; Standing - KADEEMA BOOT (NURSE APPLY); Standing Wrap-Up Follow Up: Return for Labs today, weekly blood work and Unna Boot. | For: Labs today, weekly blood work and Unna Boot Randell Cooley PA-C * Angie Pandey LPN - 10/23/2022 11:01 AM EDT PRE - ADMINISTRATION DOCUMENTATION Are you experiencing any cold symptoms or fever? No Have you had Guillain-Grover Syndrome (an illness that causes paralysis) within the last 6 weeks? No Have you had the flu shot in the past? YES Have you ever had a reaction to the flu shot? No Angie Pandey LPN, 10/23/2022 11:01 AM Immunization Administration Documentation Time Out Procedure Performed: Yes Patient Identified (Ask Name/Date of ): Yes Does the patient have a fever greater than 101 degrees today? No Patient allergic to latex? No VFC Stock: No Immunization(s) verified: Yes, Immunization Name: Flu, VIS Sheet(s) given: Yes Verified Side and Site: Yes Verified Shot(s) with Parent(s)/Patient: Yes documented in this encounter Nursing Notes * Angie Pandey LPN - 10/23/2022 11:00 AM EDT The patient has been properly identified by confirmation of name and date of . Chief Complaint Patient presents with Acute Pt here with son, for issues with leg swelling bilaterally. Also has a wound on left lower leg he'd like looked at, not healing x a few months. Agreeable to flu shot today. documented in this encounter Plan of Treatment Upcoming Encounters Date Type Specialty Care Team Description 02/08/2023 Laboratory [facility] [address] [place] [address] 02/13/2023 Office Visit [facility] [address] [facility] [place] [address] Scheduled Orders Name Type Priority Associated Diagnoses Orde r Schedule BASIC METABOLIC PANEL Lab Routine Wound of left lower extremity, initial encounter Lower extremity edema 52 Occurrences starting 10/23/2022 until 10/24/2023, 1 completed ALDAIR PRESSLEYOT (NURSE APPLY) Procedures Routine Wound of left lower extremity, initial encounter Lower extremity edema 52 Occurrences starting 10/23/2022 until 10/24/2023 Health Maintenance Due Date Last Done Comments Zoster Vaccines (1 of 2) 11/30/1991 DTaP,Tdap,and Td Vaccines (1 - Tdap) 04/20/2011 04/19/2011, 06/07/1999 *COPD SEVERITY VERIFIED BY PFT 08/24/2017 COLONOSCOPY-EVERY 2 YRS AGES 18-100 02/13/2018 02/14/2016, 02/14/2016, 11/16/2005 Albumin/Creatinine Ratio 09/03/2019 09/02/2018, 11/11 COVID-19 Vaccine (3 - Booster for [place] series) 04/05/2021 02/08/2021, 08/01/2020 CKD PHOS USE SMARTSET 09889 06/28/202206/11, 06/24/2021, 06/23/2021, Additional history exists Diabetic Foot Exam 07/14/2022 07/14/2021, 0 08/19/2019, 06/30/2018 HbA1c 01/29/2023 07/30/2022, 01/11, 07/31/2021, Additional history exists DIABETES-EYE EXAM 03/19/2023 03/19/2022, , 03/17/2020, Additional history exists GFR 04/23/2023 10/23/2022, 07/12, 04/23/2022, Additional history exists CKD HGB USE SMARTSET 35346 07/31/202307/30, 07/30/2022, 04/23/2022, Additional history exists TSH [...] this encounter Medical Devices Implanted Type Area Sugar Trucker Device Identifier Shelf Expiration Date Model / Serial / Lot Rsp Bone Screw-Locking Sz 5.0 Mm 26mm Long Implanted:Qty: 1 on 02/24/2015 by Aníbal Frankel MD at [facility] Right: Shoulder [employer] 01/22/2021 [id number] / / [id number] documented as of this encounter Results * (ABNORMAL) BASIC METABOLIC PANEL (10/23/2022 11:46 AM EDT) BUN 18 6 - 20 mg/dL 10/24/2022 7:35 AM EDT [facility] Creatinine 1.8(H) 0.6 - 1.2 mg/dL 10/24/2022 7:35 AM EDT [facility] Estimated Glomerular Filtration Rate 37(L) >=60 mL/min 10/24/2022 7:35 AM EDT [facility] Comment:eGFR is calculated b ased on the CKD-EPI 2020 equation Sodium 137 135 - 146 mmol/L 10/24/2022 7:35 AM EDT [facility] Potassium 3.8 3.5 - 5.1 mmol/L 10/24/2022 7:35 AM EDT [facility] Chloride 98 98 - 107 mmol/L 10/24/2022 7:35 AM EDT [facility] CO2 24 22 - 32 mmol/L 10/24/2022 7:35 AM EDT [facility] Anion Gap 15 7 - 15 mmol/L 10/24/2022 7:35 AM EDT [facility] Glucose 106 70 - 120 mg/dL 10/24/2022 7:35 AM EDT [facility] Calcium 8.5 8.4 - 10.2 mg/dL 10/24/2022 7:35 AM EDT [facility] Blood Venous blood specimen / Unknown Venipuncture / Unknown 10/23/2022 11:46 AM EDT 10/23/2022 11:46 AM EDT Randell Cooley PA-C LAB BLOOD ORDERABLE S [facility] [address] [place] [address] documented in this encounter Visit Diagnoses Diagnosis Wound of left lower extremity, initial encounter- Primary Need for prophylactic vaccination and inoculation against influenza Lower extremity edema Edema documented in this [...] the patient have Health Care Power of Web Ui Developer? Yes, not currently available Code Status History Code Status Date Activated Date Inactivated Comments Full Code 06/24/2018 1:38 PM 06/24/2018 3:07 PM This order reflects the patients wishes and were consensually agreed upon. Question Answer Comments Discussion of Advance Directives occurred with: Patient Does the patient have a Living Will? No Does the patient have Health Care Power of Web Ui Developer? No Full Code 07/26/2017 7:36 PM 08/01/2017 4:46 PM This order reflects the patients wishes and were consensually agreed upon. Question Answer Comments Discussion of Advance Directives occurred with: Patient Does the patient have a Living Will? No Does the patient have Health Care Power of Web Ui Developer? No Full Code 02/24/2015 10:33 AM 02/25/2015 6:10 PM . Question Answer Comments Discussion of Advance Directives occurred with: Not Discussed Full Code 01/07/2015 4:20 PM 01/08/2015 5:32 PM Question Answer Comments Discussion of Advance Directives occurred with: Not Discussed Does the patient have a Living Will? No Does the patient have Health Care Power of Web Ui Developer? 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
[2023-04-26] MEDS: traZODone HCL 50 MG TAB PO SCH (21:59)
[2023-04-26] MEDS: GABAPENTIN 600 MG TAB PO ONE (21:59)
[2023-04-27] MEDS: GABAPENTIN 600 MG TAB PO SCH ×2 (01:14→17:32)
[2023-04-27 06:05] LABS: Hematocrit (blood only) 23.3 % (42.0-52.0); Hemoglobin 7.6 g/dl (14.0-18.0); Mean Corpuscular Hemoglobin 33.6 pg (25.0-34.0); Mean Corpuscular Hgb Conc 32.6 g/dL (32.0-36.0); Mean Corpuscular Volume 103.1 fL (80.0-100.0); Mean Platelet Volume 9.7 fL (9.4-12.4); Platelet Count 106 K/uL (130-400); RDW Coefficient of Variation 14.6 % (11.5-14.5); Red Blood Count 2.26 M/uL (4.70-6.10); White Blood Count 4.95 K/ul (4.8-10.8)
[2023-04-27 06:24] LABS: ANTI-Xa, UFH(UnfractionatedHep 0.53 IU/ml (0.3-0.7)
[2023-04-27 06:32] LABS: BUN Creatinine Ratio 17.6 (10-20); Calcium 7.6 mg/dl (8.6-10.3); Creatinine Clr Calc Pharmacy 39.7 ml/min; Est GFR (African American) 53.3 ml/min; Magnesium 1.6 mg/dl (1.7-2.4); Phosphorus 2.8 mg/dl (2.5-4.9); Potassium 4.3 mmol/L (3.5-5.1)
--- NOTE | 2023-04-27 07:01 | Electrocardiogram Report ---
Test Reason : Blood Pressure : / mmHG Vent. Rate : 099 BPM Atrial Rate : 099 BPM P-R Int : 178 ms QRS Dur : 118 ms QT Int : 366 ms P-R-T Axes : -13 -81 031 degrees QTc Int : 469 ms Poor data quality, interpretation may be adversely affected Sinus rhythm with Premature ventricular complexes Left axis deviation Right bundle branch block Abnormal ECG No previous ECGs available Confirmed by Ronny Tapia ([id number]) on 04/27/2023 7:00:39 AM Referred By: Confirmed By:Ronny Tapia
[2023-04-27] MEDS: FOLIC ACID 1 MG TAB PO SCH (08:29)
--- NOTE | 2023-04-27 10:03 | Hospitalist Progress Note ---
Date of Service April 27, 2023 Assessment & Plan (1) Right hip pain: Plan: 82-yo M with type 2 diabetes currently not on medications, hyperlipidemia, hypertension, hypothyroidism, COPD, history of CVA, Polyp of vocal cord, paroxysmal atrial fibrillation not on anticoagulation secondary to fall risk, peripheral vascular disease, irritable bowel syndrome, stage III chronic kidney disease, BPH ,normocytic anemia, history of alcoholism, comes because of fall a nd ambulatory dysfunction and also found to be hypoxic. Patient states he fell from his bed in the morning on the right side. Able to get up. But since then having difficulty ambulation. A lot of pain in the right hip region. [facility] because of pain in the hip and also his oxygen saturations in the 80s he was sent in here. Patient states usually short of breath in the nighttime and use oxygen 2 L nightly. Currently on 2 L. Currently denies any shortness of breath. Denies any chest pain. Right hip pain S/p fall Ambulatory dysfunction CT scan showing possible contusion of the right hip Pain control Orthopedics consulted - 82-year-old male with right hip contusion/osteoarthritis -Weightbearing tolerated right lower extremity -PT/OT -Pain control -Medical management -Imaging demonstrates a severe osteoarthritis involving the right hip there is no evidence of fracture on plain paragraphs or CT scan. I suspect that he is most likely suffering from a osteoarthritis that was consistent with. He may follow-up as an outpatient upon discharge for as needed Hypoxia, ? PE , ? CHF , ? pna Chest x-ray possible congestion Received IV Lasix 20 mg Biofire - negative Echo -mild concentric LVH. No regional wall motion abnormalities noted. LV systolic function is normal. LVEF 60 to 65%. RV is normal in size and function. LA is mildly dilated. Grade 1 diastolic dysfunction. Possible CHF Consulted cardiology - appreciate their input Obtain CT PE if Cr stable Lower EXTR edema, LE DVT b/l Dopplers positive for DVT - IV heparin started Checking echo given dose of Lasix Will monitor History of COPD No obvious wheezing Continue home inhalers DuoNebs as needed Nocturnal hypoxia Uses 2 L oxygen at nighttime Alcoholism States drinks 2 mixed drinks daily Does not think will go through withdrawal Continue thiamine, folic acic gabapentin Close monitor for withdrawal Hypokalemia Replacing potassium Continue home potassium supplements Close follow the labs History of A-fib Continue metoprolol succinate Not on anticoagulation secondary to fall risk, now on iv heprin Chronic anemia Hemoglobin 10 -> 8 We will follow Hemoccults monitor H&H CKD stage 3 baseline cr around 1.3 cr 1.4 on admission close to baseline follow labs Hypothyroidism On Synthyroid History of CVA Diabetes Not on meds Sliding scale Current HbA1c 4.7% DVT prophylaxis heparin Disposition - Med/tele Full code Admission and Anticipated Discharge Date Admission Date: April 25, 2023 Subjective Pt seen in follow up of fall, hypoxia, b/l LE dvt, hip contusion - poss. PE? IV heparin started Pt is sitting up in bed in NAD No chest pain , shortness of breath, no abd. pain, n/v On suppl. O2 -> says he is using O2 only at night at home Review of Systems Review of Systems: All systems reviewed & are unremarkable except as noted in Subjective Physical Exam Physical Exam: General- WD/WN elderly M in NAD Head- atraumatic Eyes- PERRL. ENT- oropharynx clear Neck- supple, no JVD. Lungs- mild rhonchi, no wheezing Heart- regular rhythm; no murmur, no gallop. Abdomen- normal bowel sounds, soft, nontender, no distension. Extremities- b/l lower extremity edema. chronic skin changes seen. Neuro- alert, oriented PERRL, no facial palsy; no dysarthria Skin- warm & dry Results & Data Results & Data Vital Signs (Past 12 Hours) Vital Signs Temp Pulse Pulse Resp BP Pulse Ox O2 Del Method 04/27/23 07:39 Nasal Cannula 04/27/23 06:00 62 04/27/23 04:41 36.8 C 62 20 101/56 L 92 Nasal Cannula 04/27/23 04:33 72 04/27/23 01:20 36.5 C 73 20 95/55 L 92 Nasal Cannula O2 Flow Rate 04/27/23 07:39 04/27/23 06:00 04/27/23 04:41 04/27/23 04:33 04/27/23 01:20 2 Laboratory Results 04/27/23 04/26/23 04/26/23 Range/Units 05:45 20:50 17:02 WBC 4.95 (4.8-10.8) K/ul RBC 2.26 L (4.70-6.10) M/uL Hgb 7.6 L 8.5 L (14.0-18.0) g/dl Hct 23.3 L 25.5 L (42.0-52.0) % MCV 103.1 H (80.0-100.0) fL MCH 33.6 (25.0-34.0) pg MCHC 32.6 (32.0-36.0) g/dL RDW Std Deviation 55.0 H (36.4-46.3) fL RDW Coeff of Jennifer 14.6 H (11.5-14.5) % Plt Count 106 L (130-400) K/uL MPV 9.7 (9.4-12.4) fL PT 13.2 H (9.0-12.0) Seconds INR 1.2 H (0.9-1.1) Heparin Anti-Xa, Unfract 0.53 (0.3-0.7) IU/ml Sodium 139 (136-145) mmol/L Potassium 4.3 D (3.5-5.1) mmol/L Chloride 101 (98-107) mmol/L Carbon Dioxide 36 H (21-32) mmol/L Anion Gap 2 L (3-11) BUN 25 H (6-23) mg/dl Creatinine 1.42 H (0.6-1.4) mg/dl Est Cr Clr Drug Dosing 39.7 ml/min Est GFR ( Amer) 53.3 ml/min Est GFR (Non-Af Amer) 46.0 ml/min BUN/Creatinine Ratio 17.6 (10-20) Glucose 99 (70-99(Fasting)) mg/dl POC Glucose 141 H (70-99) mg/dl Calcium 7.6 L (8.6-10.3) mg/dl Phosphorus 2.8 (2.5-4.9) mg/dl Magnesium 1.6 L (1.7-2.4) mg/dl Vitamin B12 884 (180-914) pg/ml 04/26/23 04/26/23 04/26/23 Range/Units 16:27 14:04 11:05 WBC (4.8-10.8) K/ul RBC (4.70-6.10) M/uL Hgb (14.0-18.0) g/dl Hct (42.0-52.0) % MCV (80.0-100.0) fL MCH (25.0-34.0) pg MCHC (32.0-36.0) g/dL RDW Std Deviation (36.4-46.3) fL RDW Coeff of Jennifer (11.5-14.5) % Plt Count (130-400) K/uL MPV (9.4-12.4) fL PT (9.0-12.0) Seconds INR (0.9-1.1) Heparin Anti-Xa, Unfract 0.37 (0.3-0.7) IU/ml Sodium (136-145) mmol/L Potassium (3.5-5.1) mmol/L Chloride (98-107) mmol/L Carbon Dioxide (21-32) mmol/L Anion Gap (3-11) BUN (6-23) mg/dl Creatinine (0.6-1.4) mg/dl Est Cr Clr Drug Dosing ml/min Est GFR ( Amer) ml/min Est GFR (Non-Af Amer) ml/min BUN/Creatinine Ratio (10-20) Glucose (70-99(Fasting)) mg/dl POC Glucose 136 H 92 (70-99) mg/dl Calcium (8.6-10.3) mg/dl Phosphorus (2.5-4.9) mg/dl Magnesium (1.7-2.4) mg/dl Vitamin B12 (180-914) pg/ml Medications Administered Current Inpatient Medications Acetaminophen (Acetaminophen 325 Mg Tab) 650 mg PO Q4H PRN PRN Reason: Pain or Fever Stop: 05/25/23 23:44 Albuterol (Albut/Ipratrop 3mg/0.5mg Neb 3 Ml Vial) 3 ml NEB Q4R PRN; Protocol PRN Reason: Shortness Of Breath Or Wheezing Stop: 05/25/23 23:44 Last Admin: 04/26/23 09:34 Dose: 3 ml Dextrose (Dextrose 50% 50 Ml Syringe) 25 - 50 ml IV UD PRN; Protocol PRN Reason: Hypoglycemia Protocol Stop: 05/25/23 23:44 Docusate Sodium (Docusate Sodium 100 Mg Cap) 100 mg PO BID [facility] Stop: 05/26/23 08:59 Last Admin: 04/27/23 08:44 Dose: 100 mg Fluticasone/Vilanterol (Fluticasone/Vilanterol 200/25mcg 14 Puffs/Inhaler) 1 puffs INH DAILY [facility] Stop: 05/26/23 08:59 Last Admin: 04/27/23 08:27 Dose: 1 puffs Folic Acid (Folic Acid 1 Mg Tab) 1 mg PO QAM [facility] Stop: 05/27/23 08:59 Last Admin: 04/27/23 08:29 Dose: 1 mg Gabapentin (Gabapentin 600 Mg Tab) 600 mg PO Q24H [facility] Stop: 04/30/23 07:31 Gabapentin (Gabapentin 600 Mg Tab) 600 mg PO Q12H [facility] Stop: 04/29/23 07:31 Gabapentin (Gabapentin 600 Mg Tab) 600 mg PO Q8H [facility] Stop: 04/28/23 07:31 Glucagon (Glucagon For Inj 1 Mg Vial) 1 mg SQ UD PRN; Protocol PRN Reason: Hypoglycemia Protocol Stop: 05/25/23 23:44 Glucose (Glucose 40% Gel 15 Gm Tube) 15 - 30 gm PO UD PRN; Protocol PRN Reason: Hypoglycemia Protocol Stop: 05/25/23 23:44 Glucose (Glucose 10 Tab/Tube) 4 - 8 tab PO UD PRN; Protocol PRN Reason: Hypoglycemia Treatment Stop: 05/25/23 23:44 Heparin Sodium/Dextrose (Heparin Sodium/Dextrose) 25,000 units in 500 mls @ 25 mls/hr IV .Q20H [facility]; Protocol Stop: 05/26/23 07:44 Last Titration: 04/27/23 07:09 Dose: 1,250 units/hr, 25 mls/hr Lorazepam 1 mg/ Syringe 1 mls @ 2 mls/min IV UD PRN; Protocol PRN Reason: EtOH Withdrawal AWSS Score 6,7 Stop: 05/26/23 19:21 Lorazepam 2 mg/ Syringe 2 mls @ 2 mls/min IV UD PRN; Protocol PRN Reason: EtOH Withdrawal AWSS Score 8,9 Stop: 05/26/23 19:21 Lorazepam 3 mg/ Syringe 3 mls @ 2 mls/min IV ONCE PRN; Protocol PRN Reason: EtOH Withdrawal AWSS Score 10+ Insulin Aspart (Insulin Aspart Per Unit Charge) 0 units SC ACHS [facility] Stop: 05/26/23 07:29 Last Admin: 04/27/23 09:37 Dose: Not Given Levothyroxine Sodium (Levothyroxine Sodium 112 Mcg Tablet) 112 mcg PO DAILYBB [facility] Stop: 05/26/23 06:29 Last Admin: 04/27/23 05:46 Dose: 112 mcg Lorazepam (Lorazepam 0.5 Mg Tab) 0.5 mg PO DAILY PRN PRN Reason: Anxiety Stop: 05/25/23 23:44 Last Admin: 04/26/23 00:29 Dose: 0.5 mg Magnesium Oxide (Magnesium Oxide 400 Mg Tab) 400 mg PO BID [facility] Stop: 05/26/23 08:59 Last Admin: 04/27/23 08:32 Dose: 400 mg Meclizine HCl (Meclizine Hcl 25 Mg Tab) 25 mg PO TID PRN PRN Reason: .dizzyness Stop: 05/25/23 23:44 Metoprolol Succinate (Metoprolol Succ 25mg Ext Rel Tab) 25 mg PO [facility] Stop: 05/26/23 08:59 Last Admin: 04/27/23 08:44 Dose: Not Given Miscellaneous (Carbohydrates For Hypoglycemia ) 15 - 30 gm PO UD PRN PRN Reason: Hypoglycemia Protocol Stop: 05/25/23 23:44 Morphine Sulfate (Morphine Sulfate 4 Mg/Ml 1 Ml Carp\Vial) 3 mg IV Q4H PRN PRN Reason: Severe Pain (Scale 7, 8, 9,10) Stop: 05/09/23 23:44 Last Admin: 04/26/23 03:04 Dose: 3 mg Nitroglycerin (Nitroglycerin Sl 0.4 Mg/Tab Tab) 0.4 mg SL Q5M PRN PRN Reason: Chest Pain Stop: 05/25/23 23:44 Pantoprazole Sodium (Pantoprazole 40 Mg Tab) 40 mg PO QAM [facility] Stop: 05/26/23 08:59 Last Admin: 04/27/23 08:29 Dose: 40 mg Polyethylene Glycol (Polyethylene (Miralax) 17 Gm Pack) 17 gm PO DAILY PRN PRN Reason: Constipation Stop: 05/25/23 23:44 Potassium Chloride (Potassium Chloride Crtab 20 Meq Tabcr) 20 meq PO TID@0900,1200,2100 [facility] Stop: 05/26/23 08:59 Last Admin: 04/27/23 09:45 Dose: 20 meq Thiamine HCl (Thiamine Hcl 100 Mg Tab) 100 mg PO QAM [facility] Stop: 05/26/23 08:59 Last Admin: 04/27/23 08:29 Dose: 100 mg Tramadol HCl (Tramadol Hcl 50 Mg Tablet) 50 mg PO TID [facility] Stop: 05/26/23 08:59 Last Admin: 04/27/23 09:45 Dose: 50 mg Trazodone HCl (Trazodone Hcl 50 Mg Tab) 50 mg PO HS [facility] Stop: 05/26/23 20:59 Last Admin: 04/26/23 21:59 Dose: 50 mg Vitamin D (Cholecalciferol 25 Mcg (1000 Units) Tab) 50 mcg PO DAILY [facility] Stop: 05/26/23 08:59 Last Admin: 04/27/23 08:28 Dose: 50 mcg Zinc Sulfate (Zinc Sulfate 220 Mg Capsule) 220 mg PO QAM [facility] Stop: 05/26/23 08:59 Last Admin: 04/27/23 08:28 Dose: 220 mg
[2023-04-27 12:32] LABS: ANTI-Xa, UFH(UnfractionatedHep 0.54 IU/ml (0.3-0.7)
[2023-04-28 06:11] LABS: Hematocrit (blood only) 24.4 % (42.0-52.0); Hemoglobin 7.9 g/dl (14.0-18.0); Mean Corpuscular Hemoglobin 33.5 pg (25.0-34.0); Mean Corpuscular Hgb Conc 32.4 g/dL (32.0-36.0); Mean Corpuscular Volume 103.4 fL (80.0-100.0); Mean Platelet Volume 9.5 fL (9.4-12.4); Platelet Count 110 K/uL (130-400); RDW Coefficient of Variation 14.6 % (11.5-14.5); RDW Standard Deviation 54.6 fL (36.4-46.3); Red Blood Count 2.36 M/uL (4.70-6.10)
[2023-04-28 06:32] LABS: BUN Creatinine Ratio 18.7 (10-20); Calcium 7.7 mg/dl (8.6-10.3); Creatinine Clr Calc Pharmacy 42.1 ml/min; Est GFR (African American) 57.2 ml/min; Est GFR (Non-African American) 49.3 ml/min; Magnesium 1.6 mg/dl (1.7-2.4); Phosphorus 2.8 mg/dl (2.5-4.9); Potassium 4.8 mmol/L (3.5-5.1)
[2023-04-28 06:36] LABS: ANTI-Xa, UFH(UnfractionatedHep 0.55 IU/ml (0.3-0.7)
--- NOTE | 2023-04-28 07:59 | Hospitalist Progress Note ---
Date of Service April 28, 2023 Assessment & Plan (1) Right hip pain: Plan: 82-yo M with type 2 diabetes currently not on medications, hyperlipidemia, hypertension, hypothyroidism, COPD, history of CVA, Polyp of vocal cord, paroxysmal atrial fibrillation not on anticoagulation secondary to fall risk, peripheral vascular disease, irritable bowel syndrome, stage III chronic kidney disease, BPH ,normocytic anemia, history of alcoholism, comes because of fall a nd ambulatory dysfunction and also found to be hypoxic. Patient states he fell from his bed in the morning on the right side. Able to get up. But since then having difficulty ambulation. A lot of pain in the right hip region. [facility] When he [facility] because of pain in the hip and also his oxygen saturations in the 80s he was sent in here. Patient states usually short of breath in the nighttime and use oxygen 2 L nightly. Currently on 2 L. Currently denies any shortness of breath. Denies any chest pain. Right hip pain S/p fall Ambulatory dysfunction CT scan showing possible contusion of the right hip Pain control Orthopedics consulted - 82-year-old male with right hip contusion/osteoarthritis -Weightbearing tolerated right lower extremity -PT/OT -Pain control -Medical management -Imaging demonstrates a severe osteoarthritis involving the right hip there is no evidence of fracture on plain paragraphs or CT scan. I suspect that he is most likely suffering from a osteoarthritis that was consistent with. He may follow-up as an outpatient upon discharge for as needed Hypoxia, ? PE , ? CHF , ? pna Chest x-ray possible congestion Received IV Lasix 20 mg Biofire - negative Echo -mild concentric LVH. No regional wall motion abnormalities noted. LV systolic function is normal. LVEF 60 to 65%. RV is normal in size and function. LA is mildly dilated. Grade 1 diastolic dysfunction. Possible CHF Consulted cardiology - appreciate their input Obtained CT PE - no PE. However - 1. A linear nonocclusive filling defect seen within the right middle lobe pulmonary artery. This favors motion artifact. A nonocclusive chronic embolus could also have a similar appearance. 2. Otherwise, the remaining pulmonary arteries show no filling defects to suggest a pulmonary embolus. 3. Trace pleural effusions. 4. Emphysema. 5. Bilateral low densities favor atelectasis. A pneumonia would be difficult to exclude by imaging. 6. Possible 13 mm nodule within the base of the right lower lobe. [address] follow-up recommended. 7. A linear/irregular density within the right upper lobe measuring 3.4 x 1.4 cm. This could represent scarring, atelectasis, pneumonia, or less likely a pulmonary lesion. Attention at follow-up recommended. 8. A moderate superior endplate compression deformity at T12 which is likely chronic. Pulmonary medicine consulted and discussed with - Centrilobular emphysema appr eciated bilaterally Right upper lobe 1.4 cm x 3.4 cm opacity, right lower lobe 1.3 cm nodularity subpleural Elevated left hemidiaphragm with dependent atelectasis No significant mediastinal lymphadenopathy Possibly developing pneumonia is also there. -> start azithromycin 500 for 5 days Emphysema - currently on Adviar - add Incruse - DC on Trelegy 100 2 puffs twice a day Repeat a CT chest in 6-8 weeks. If patient still has persistent opacity in the right upper lobe then bronchoscopy could be thought of after the repeat CAT scan Incentive spirometer will be beneficial O2 supplementation to keep oxygen saturation between 90-92% Patient will benefit from diuresis if his blood pressure is able to tolerate it. Lower EXTR edema, LE DVT b/l Dopplers positive for DVT - IV heparin started -> transition to eliquis Checking echo given dose of Lasix Will monitor History of COPD No obvious wheezing Continue home inhalers, added Incruse as above DuoNebs as needed Nocturnal hypoxia Uses 2 L oxygen at nighttime Alcoholism States drinks 2 mixed drinks daily Does not think will go through withdrawal Continue thiamine, folic acic gabapentin Close monitor for withdrawal Hypokalemia Replacing potassium Continue home potassium supplements Close follow the labs History of A-fib Continue metoprolol succinate Not on anticoagulation secondary to fall risk, now on iv heprin Chronic anemia Hemoglobin 10 -> 8 We will follow Hemoccults monitor H&H CKD stage 3 baseline cr around 1.3 cr 1.4 on admission close to baseline follow labs Hypothyroidism On Synthyroid History of CVA Diabetes Not on meds Sliding scale Current HbA1c 4.7% DVT prophylaxis heparin -> eliquis Disposition - Med/tele Full code Admission and Anticipated Discharge Date Admission Date: April 25, 2023 Subjective Pt seen in follow up of fall, hypoxia, b/l LE dvt, hip contusion - poss. PE? IV heparin started Pt is sitting up in bed in NAD No chest pain , shortness of breath, no abd. pain, n/v On suppl. O2 -> says he is using O2 only at night at home CT PE obtained today - no PE but CT chest abnormal - consulted pulmonary and discussed with -> started azithromycin for pna, also recommend to add Incruse. If BP allows would also recommend diuresis. Plan to switch from iv heparin to eliquis Review of Systems Review of Systems: All systems reviewed & are unremarkable except as noted in Subjective Physical Exam Physical Exam: General- WD/WN elderly M in NAD Head- atraumatic Eyes- PERRL. ENT- oropharynx clear Neck- supple, no JVD. Lungs- mild rhonchi, no wheezing Heart- regular rhythm; no murmur, no gallop. Abdomen- normal bowel sounds, soft, nontender, no distension. Extremities- b/l lower extremity edema. chronic skin changes seen. Neuro- alert, oriented PERRL, no facial palsy; no dysarthria Skin- warm & dry Results & Data Results & Data Vital Signs (Past 12 Hours) Vital Signs Temp Pulse Pulse Resp BP Pulse Ox O2 Del Method 04/28/23 07:35 Nasal Cannula 04/28/23 07:29 36.4 C L 68 18 101/67 98 Nasal Cannula 04/28/23 06:14 58 L 04/28/23 03:50 36.6 C 68 20 94/59 L 92 Nasal Cannula 04/28/23 00:25 36.8 C 72 20 118/71 92 Nasal Cannula 04/28/23 00:20 66 04/27/23 21:00 Nasal Cannula O2 Flow Rate 04/28/23 07:35 2 04/28/23 07:29 2 04/28/23 06:14 04/28/23 03:50 2 04/28/23 00:25 2 04/28/23 00:20 04/27/23 21:00 2 Laboratory Results 04/28/23 04/27/23 04/27/23 Range/Units 05:54 20:13 17:12 WBC 4.30 L (4.8-10.8) K/ul RBC 2.36 L (4.70-6.10) M/uL Hgb 7.9 L (14.0-18.0) g/dl Hct 24.4 L (42.0-52.0) % MCV 103.4 H (80.0-100.0) fL MCH 33.5 (25.0-34.0) pg MCHC 32.4 (32.0-36.0) g/dL RDW Std Deviation 54.6 H (36.4-46.3) fL RDW Coeff of Jennifer 14.6 H (11.5-14.5) % Plt Count 110 L (130-400) K/uL MPV 9.5 (9.4-12.4) fL Heparin Anti-Xa, Unfract 0.55 (0.3-0.7) IU/ml Sodium 137 (136-145) mmol/L Potassium 4.8 (3.5-5.1) mmol/L Chloride 100 (98-107) mmol/L Carbon Dioxide 35 H (21-32) mmol/L Anion Gap 2 L (3-11) BUN 25 H (6-23) mg/dl Creatinine 1.34 (0.6-1.4) mg/dl Est Cr Clr Drug Dosing 42.1 ml/min Est GFR ( Amer) 57.2 ml/min Est GFR (Non-Af Amer) 49.3 ml/min BUN/Creatinine Ratio 18.7 (10-20) Glucose 108 H (70-99(Fasting)) mg/dl POC Glucose 142 H 124 H (70-99) mg/dl Calcium 7.7 L (8.6-10.3) mg/dl Phosphorus 2.8 (2.5-4.9) mg/dl Magnesium 1.6 L (1.7-2.4) mg/dl 04/27/23 04/27/23 Range/Units 13:11 11:38 WBC (4.8-10.8) K/ul RBC (4.70-6.10) M/uL Hgb (14.0-18.0) g/dl Hct (42.0-52.0) % MCV (80.0-100.0) fL MCH (25.0-34.0) pg MCHC (32.0-36.0) g/dL RDW Std Deviation (36.4-46.3) fL RDW Coeff of Jennifer (11.5-14.5) % Plt Count (130-400) K/uL MPV (9.4-12.4) fL Heparin Anti-Xa, Unfract 0.54 (0.3-0.7) IU/ml Sodium (136-145) mmol/L Potassium (3.5-5.1) mmol/L Chloride (98-107) mmol/L Carbon Dioxide (21-32) mmol/L Anion Gap (3-11) BUN (6-23) mg/dl Creatinine (0.6-1.4) mg/dl Est Cr Clr Drug Dosing ml/min Est GFR ( Amer) ml/min Est GFR (Non-Af Amer) ml/min BUN/Creatinine Ratio (10-20) Glucose (70-99(Fasting)) mg/dl POC Glucose 103 H (70-99) mg/dl Calcium (8.6-10.3) mg/dl Phosphorus (2.5-4.9) mg/dl Magnesium (1.7-2.4) mg/dl Medications Administered Current Inpatient Medications Acetaminophen (Acetaminophen 325 Mg Tab) 650 mg PO Q4H PRN PRN Reason: Pain or Fever Stop: 05/25/23 23:44 Albuterol (Albut/Ipratrop 3mg/0.5mg Neb 3 Ml Vial) 3 ml NEB Q4R PRN; Protocol PRN Reason: Shortness Of Breath Or Wheezing Stop: 05/25/23 23:44 Last Admin: 04/26/23 09:34 Dose: 3 ml Dextrose (Dextrose 50% 50 Ml Syringe) 25 - 50 ml IV UD PRN; Protocol PRN Reason: Hypoglycemia Protocol Stop: 05/25/23 23:44 Docusate Sodium (Docusate Sodium 100 Mg Cap) 100 mg PO BID [facility] Stop: 05/26/23 08:59 Last Admin: 04/27/23 20:28 Dose: Not Given Fluticasone/Vilanterol (Fluticasone/Vilanterol 200/25mcg 14 Puffs/Inhaler) 1 puffs INH DAILY [facility] Stop: 05/26/23 08:59 Last Admin: 04/27/23 08:27 Dose: 1 puffs Folic Acid (Folic Acid 1 Mg Tab) 1 mg PO QAM [facility] Stop: 05/27/23 08:59 Last Admin: 04/27/23 08:29 Dose: 1 mg Gabapentin (Gabapentin 600 Mg Tab) 600 mg PO Q24H [facility] Stop: 04/30/23 07:31 Gabapentin (Gabapentin 600 Mg Tab) 600 mg PO Q12H [facility] Stop: 04/29/23 07:31 Glucagon (Glucagon For Inj 1 Mg Vial) 1 mg SQ UD PRN; Protocol PRN Reason: Hypoglycemia Protocol Stop: 05/25/23 23:44 Glucose (Glucose 40% Gel 15 Gm Tube) 15 - 30 gm PO UD PRN; Protocol PRN Reason: Hypoglycemia Protocol Stop: 05/25/23 23:44 Glucose (Glucose 10 Tab/Tube) 4 - 8 tab PO UD PRN; Protocol PRN Reason: Hypoglycemia Treatment Stop: 05/25/23 23:44 Heparin Sodium/Dextrose (Heparin Sodium/Dextrose) 25,000 units in 500 mls @ 25 mls/hr IV .Q20H [facility]; Protocol Stop: 05/26/23 07:44 Last Titration: 04/28/23 06:46 Dose: 1,250 units/hr, 25 mls/hr Lorazepam 1 mg/ Syringe 1 mls @ 2 mls/min IV UD PRN; Protocol PRN Reason: EtOH Withdrawal AWSS Score 6,7 Stop: 05/26/23 19:21 Lorazepam 2 mg/ Syringe 2 mls @ 2 mls/min IV UD PRN; Protocol PRN Reason: EtOH Withdrawal AWSS Score 8,9 Stop: 05/26/23 19:21 Lorazepam 3 mg/ Syringe 3 mls @ 2 mls/min IV ONCE PRN; Protocol PRN Reason: EtOH Withdrawal AWSS Score 10+ Insulin Aspart (Insulin Aspart Per Unit Charge) 0 units SC ACHS [facility] Stop: 05/26/23 07:29 Last Admin: 04/27/23 20:28 Dose: Not Given Levothyroxine Sodium (Levothyroxine Sodium 112 Mcg Tablet) 112 mcg PO DAILYBB [facility] Stop: 05/26/23 06:29 Last Admin: 04/28/23 05:04 Dose: 112 mcg Lorazepam (Lorazepam 0.5 Mg Tab) 0.5 mg PO DAILY PRN PRN Reason: Anxiety Stop: 05/25/23 23:44 Last Admin: 04/26/23 00:29 Dose: 0.5 mg Magnesium Oxide (Magnesium Oxide 400 Mg Tab) 400 mg PO BID [facility] Stop: 05/26/23 08:59 Last Admin: 04/27/23 20:28 Dose: 400 mg Meclizine HCl (Meclizine Hcl 25 Mg Tab) 25 mg PO TID PRN PRN Reason: .dizzyness Stop: 05/25/23 23:44 Metoprolol Succinate (Metoprolol Succ 25mg Ext Rel Tab) 25 mg PO QAM [facility] Stop: 05/26/23 08:59 Last Admin: 04/27/23 08:44 Dose: Not Given Miscellaneous (Carbohydrates For Hypoglycemia ) 15 - 30 gm PO UD PRN PRN Reason: Hypoglycemia Protocol Stop: 05/25/23 23:44 Morphine Sulfate (Morphine Sulfate 4 Mg/Ml 1 Ml Carp\Vial) 3 mg IV Q4H PRN PRN Reason: Severe Pain (Scale 7, 8, 9,10) Stop: 05/09/23 23:44 Last Admin: 04/26/23 03:04 Dose: 3 mg Nitroglycerin (Nitroglycerin Sl 0.4 Mg/Tab Tab) 0.4 mg SL Q5M PRN PRN Reason: Chest Pain Stop: 05/25/23 23:44 Pantoprazole Sodium (Pantoprazole 40 Mg Tab) 40 mg PO QAM [facility] Stop: 05/26/23 08:59 Last Admin: 04/27/23 08:29 Dose: 40 mg Polyethylene Glycol (Polyethylene (Miralax) 17 Gm Pack) 17 gm PO DAILY PRN PRN Reason: Constipation Stop: 05/25/23 23:44 Potassium Chloride (Potassium Chloride Crtab 20 Meq Tabcr) 20 meq PO TID@0900,1200,2100 [facility] Stop: 05/26/23 08:59 Last Admin: 04/27/23 20:28 Dose: 20 meq Thiamine HCl (Thiamine Hcl 100 Mg Tab) 100 mg PO QAM [facility] Stop: 05/26/23 08:59 Last Admin: 04/27/23 08:29 Dose: 100 mg Tramadol HCl (Tramadol Hcl 50 Mg Tablet) 50 mg PO TID [facility] Stop: 05/26/23 08:59 Last Admin: 04/27/23 20:28 Dose: 50 mg Trazodone HCl (Trazodone Hcl 50 Mg Tab) 50 mg PO HS [facility] Stop: 05/26/23 20:59 Last Admin: 04/27/23 20:28 Dose: 50 mg Vitamin D (Cholecalciferol 25 Mcg (1000 Units) Tab) 50 mcg PO DAILY [facility] Stop: 05/26/23 08:59 Last Admin: 04/27/23 08:28 Dose: 50 mcg Zinc Sulfate (Zinc Sulfate 220 Mg Capsule) 220 mg PO [facility] Stop: 05/26/23 08:59 Last Admin: 04/27/23 08:28 Dose: 220 mg
[2023-04-28] MEDS: OPTIRAY 320 125ml IV ONE (09:22)
--- NOTE | 2023-04-28 09:40 | CT Scan Report ---
CHEST CTA for PULMONARY ARTERIES CT DOSE: 837.8 mGy.cm HISTORY: Shortness of breath. Hypoxia. History of DVT. TECHNIQUE: Multiaxial CT images of the chest were performed following the intravenous administration of contrast to evaluate the pulmonary arteries. 3D/Maximal intensity projection images were also obta ined. Sagittal and coronal reformations were also reviewed. A dose lowering technique was utilized a dhering to the principles of ALARA. COMPARISON STUDY: None. FINDINGS: Calcified plaque within the normal caliber thoracic aorta with no evidence for a dissection . The heart is normal in size. Trace bilateral pleural effusions. No pericardial effusion. Difficult evaluation of the bilateral lower lobe and right middle lobe segmental/subsegmental pulmonary arterie s due to the motion artifact. Possible linear nonocclusive filling defect versus artifact within the right middle lobe pulmonary artery on image 102. The remaining pulmonary arteries show no filling def ects to suggest a pulmonary embolus. No evidence for right-sided heart strain. There is mild elevatio n of the left hemidiaphragm. Mild to moderate body wall edema is noted. Limited views of the upper ab domen demonstrate a nodular contour to the liver consistent with cirrhosis and a normal spleen. The v isualized adrenal glands are unremarkable. Normal caliber esophagus. Hyperdense foci within the mid t o distal esophagus may represent prior medication injection. No mediastinal or hilar lymphadenopathy. Moderate superior endplate compression deformity at T12 with 4 mm of retropulsion and mild central c anal narrowing. This is technically age indeterminate but likely chronic. No definite acute fractures within the visualized osseous structures. There is a right shoulder prosthesis. No pneumothorax. Emp hysema. The central airways are patent. Consolidation within the lower lobes posteriorly represent at electasis. Superimposed pneumonia would be difficult to exclude. Possible 6 mm nodule within the base the right lower lobe on image 58. This is suboptimally assessed due to motion artifact. There is an irregular/linear density within the right upper lobe on image 126 measuring 3.4 x 1.4 cm. This could represent a linear focus of atelectasis, pneumonia, or a pulmonary lesion. Follow-up recommended to e nsure stability/resolution. IMPRESSION: 1. A linear nonocclusive filling defect seen within the right middle lobe pulmonary artery. This favo rs motion artifact. A nonocclusive chronic embolus could also have a similar appearance. 2. Otherwise, the remaining pulmonary arteries show no filling defects to suggest a pulmonary embolus . 3. Trace pleural effusions. 4. Emphysema. 5. Bilateral low densities favor atelectasis. A pneumonia would be difficult to exclude by imaging. 6. Possible 13 mm nodule within the base of the right lower lobe. [address] follow-up recommen ded. 7. A linear/irregular density within the right upper lobe measuring 3.4 x 1.4 cm. This could represen t scarring, atelectasis, pneumonia, or less likely a pulmonary lesion. Attention at follow-up recomme nded. 8. A moderate superior endplate compression deformity at T12 which is likely chronic. ACT 112: Negative or not required by law. Electronically signed by: Evangelist Rivas M.D. 04/28/2023 9:38 AM
--- NOTE | 2023-04-28 12:25 | Pulmonary Consultation ---
Date of Consultation April 28, 2023 Assessment & Plan (1) A-fib: (2) Acute on chronic respiratory failure with hypoxemia: (3) COPD with emphysema: (4) Elevated diaphragm: (5) Abnormal chest CT: (6) Pulmonary nodule: Plan 82-year-old male with Past medical history: Hypothyroidism, COPD, CVA, paroxysmal A-fib, IBS, CKD, BP. was admitted to the hospital for hip pain s/p fall. Pulmonary consulted for abnormal chest CT CT chest 04/28/2023 personally reviewed: Centrilobular emphysema appreciated bilaterally Right upper lobe 1.4 cm x 3.4 cm opacity, right lower lobe 1.3 cm nodularity subpleural Elevated left hemidiaphragm with dependent atelectasis No significant mediastinal lymphadenopathy 2D echo 04/26/2023: EF 60-65%, grade 1 diastolic dysfunction, RV normal in size and function -- Abnormal chest CT Right upper lobe 1.4 cm x 3.4 cm opacity. No previous CAT scan or chest x-ray to compare Possibly developing pneumonia is also there. BNP 413 Procalcitonin --COPD with emphysema On Advair 250-50 at home Would recommend Trelegy 100 instead will discharge --Acute DVT bilateral lower extremity Likely provoked from fall and immobility Continue with anticoagulation --Elevated left hemidiaphragm Incentive spirometer be beneficial -- History of nocturnal hypoxia -- History of lung cancer in mother who was a smoker Plan: Add Incruse to patient's regimen, on discharge would recommend Trelegy 100 or BrezTri 2 puffs twice a day in place of Advair. Start the patient on antibiotic azithromycin 500 mg for 5 days Would recommend repeating a CT chest in 6-8 weeks. If patient still has persistent opacity in the right upper lobe then bronchoscopy could be thought of after the repeat CAT scan Incentive spirometer will be beneficial Follow-up procalcitonin O2 supplementation to keep oxygen saturation between 90-92% Case was discussed with Dr. Camarena. Patient will benefit from diuresis if his blood pressure is able to tolerate it. No further recommendation from pulmonary perspective, will sign off Please call directly with any questions Please note the above document was generated using voice recognition software. It may contain grammatical, syntax or spelling errors.Any formal questions or concerns about the content, text or information contained within the body of this dictation should be directly addressed to the provider for clarification. History of Present Illness Attending Physician: Martinez Camarena MD History of Present Illness 82-year-old male was admitted to the hospital for hip pain s/p fall Past medical history: Hypothyroidism, COPD, CVA, paroxysmal A-fib, IBS, CKD, BPH Pulmonary consulted for abnormal chest CT At the time of examination patient was not in any respiratory distress His breathing was in the mid to high teens. Saturation was 93% on 2 L nasal cannula. Denied any chest pain. No fever or chills at home. Stated that he does cough usually and brings up clear phlegm. No hemoptysis Denies any headache, no dizziness Denies any unintentional weight loss Social history: Approximately 37-xebe-csto smoking history, quit in 1989. 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 History of lung cancer in mother who was a smoker Allergies Allergy/AdvReac Type Severity Reaction Status Date / Time adhesive Allergy Unknown RASH Verified 04/25/23 21:04 ceftriaxone Allergy Unknown . Verified 04/25/23 21:04 cefuroxime Allergy Unknown FLUSHING, Verified 04/25/23 21:04 HIVES, ITCHING Joreqfp-UVH-NrR Reductase Allergy Unknown MUSCLE Verified 04/25/23 21:04 Inhibitor [Zkzprhu-Wan-Xuy Reductase Inhibitor] zolpidem Allergy Unknown "MADE ME A Verified 04/25/23 21:04 DIFFERENT PERSON" Home Medications Medication Instructions Recorded Confirmed Type cholecalciferol (vitamin D3) 50 50 mcg PO DAILY 04/25/23 04/25/23 History mcg (2,000 unit) tablet (Vitamin D3) docusate sodium 100 mg capsule 100 mg PO BID 04/25/23 04/25/23 History fluticasone 250 mcg-salmeterol 50 1 inh inhalation Q12 04/25/23 04/25/23 History mcg/dose blistr powdr for inhalation lansoprazole 15 mg capsule,delayed 15 mg PO QAM 04/25/23 04/25/23 History release levothyroxine 112 mcg tablet 112 mcg PO DAILY 04/25/23 04/25/23 History lorazepam 0.5 mg tablet 0.5 mg PO DAILY PRN Anxiety 04/25/23 04/25/23 History meclizine 25 mg tablet 25 mg PO TID PRN .dizzyness 04/25/23 04/25/23 History metoprolol succinate 25 mg 25 mg PO QAM 04/25/23 04/25/23 History tablet,extended release 24 hr nitroglycerin 0.4 mg sublingual 0.4 mg sublingual DIRECTED PRN 04/25/23 04/25/23 History tablet ..chest pain potassium chloride 20 mEq 20 meq PO TID 04/25/23 04/25/23 History tablet,extended release tadalafil 20 mg tablet 20 mg PO DAILY PRN .erectile 04/25/23 04/25/23 History dysfunction thiamine HCl (vitamin B1) 100 mg 100 mg PO QAM 04/25/23 04/25/23 History tablet (Vitamin B-1) tramadol 50 mg tablet 50 mg PO TID 04/25/23 04/25/23 History trazodone 50 mg tablet 50 mg PO HS 04/25/23 04/25/23 History zinc sulfate 50 mg zinc (220 mg) 50 mg PO QAM 04/25/23 04/25/23 History tablet Patient History Medical History Hx of fall A-fib GERD (gastroesophageal reflux disease) Hypertension Hypothyroidism Hyperlipidemia Diabetes CVA (cerebral vascular accident) Surgical History S/P shoulder surgery S/P appendectomy Social History Smoking Status: Never smoker Hx Alcohol Use: Yes Alcohol type: hard liquor Hx Substance Use: No Preferred Language: Nigerian Communication Ability: Effective Visual Impairment: Limited Hearing Ability: Normal Director Of Institutional Giving Required: No Beliefs That Will Affect Care: None marital status: seperated Current Living Situation: Alone current occupational status: employed current occupation: home Feels Safe at Home: Yes Safety Concerns: Feels Safe At This Time Assistive Devices: Walker Review of Systems 2 Review of Systems: All systems reviewed & are unremarkable except as noted in HPI & below Physical Exam 2 Physical Exam: Constitutional: No acute distress HEENT: EOMI, PERRLA Respiratory system: Decreased air entry bilaterally, no wheeze, no rhonchi, positive crackles bilaterally CVS: S1-S2 positive, no murmurs or gallops, distant heart sounds Abdomen: Soft, nontender, nondistended, positive bowel sounds x4 Extremities: +2 pulses bilaterally radialis/ dorsalis pedis, no cyanosis, +2 edema bilateral lower extremity Neuro: Awake alert oriented x3 Psych: Normal mood and affect G/U: Positive Vicente Skin: no rashes, warm and dry Lymphatic: no cervical or axillary lymphadenopathy Results & Data Results & Data Vital Signs (Past 12 Hours) Vital Signs Temp Pulse Pulse Resp BP Pulse Ox O2 Del Method 04/28/23 11:46 36.4 C L 71 20 101/58 L 93 Nasal Cannula 04/28/23 07:35 Nasal Cannula 04/28/23 07:29 36.4 C L 68 18 101/67 98 Nasal Cannula 04/28/23 06:14 58 L 04/28/23 03:50 36.6 C 68 20 94/59 L 92 Nasal Cannula 04/28/23 00:25 36.8 C 72 20 118/71 92 Nasal Cannula O2 Flow Rate 04/28/23 11:46 2 04/28/23 07:35 2 04/28/23 07:29 2 04/28/23 06:14 04/28/23 03:50 2 04/28/23 00:25 2 Laboratory Results 04/28/23 05:54 04/28/23 05:54 PG Care Time/CCT Total # of Minutes Spent Total Time Spent with Patient: Total time spent is greater than 50% in coordination of care (as documented) at patient's floor/unit and/or counseling patient: Coding Level of Care Code 88990 INT INP/OBS CARE 3/75MIN Diagnoses A-fib I48.91 Acute on chronic respiratory failure with hypoxemia J96.21 COPD with emphysema J43.9 Elevated diaphragm J98.[address] R93.89 Pulmonary nodule R91.1
[2023-04-28] MEDS: UMECLIDINIUM BROMIDE 62.5MCG/BLISTER 7 PUFFS/INHALER INH SCH (13:04)
[2023-04-28] MEDS: AZITHROMYCIN 500 MG in DEXTROSE 5% 250 ML IV SCH (13:04)
[2023-04-28] MEDS: GABAPENTIN 600 MG TAB PO SCH (21:06)
[2023-04-28] MEDS: APIXABAN 5 MG TABLET PO SCH (21:06)
[2023-04-28] MEDS: STOP HEPARIN ORDER ONE (21:08)
[2023-04-29 06:19] LABS: Hematocrit (blood only) 24.5 % (42.0-52.0); Hemoglobin 7.7 g/dl (14.0-18.0); Mean Corpuscular Hemoglobin 33.2 pg (25.0-34.0); Mean Corpuscular Hgb Conc 31.4 g/dL (32.0-36.0); Mean Corpuscular Volume 105.6 fL (80.0-100.0); Mean Platelet Volume 9.9 fL (9.4-12.4); Platelet Count 112 K/uL (130-400); RDW Coefficient of Variation 14.7 % (11.5-14.5); RDW Standard Deviation 56.9 fL (36.4-46.3); Red Blood Count 2.32 M/uL (4.70-6.10); White Blood Count 3.97 K/ul (4.8-10.8)
[2023-04-29 06:28] LABS: BUN Creatinine Ratio 17.6 (10-20); Calcium 7.9 mg/dl (8.6-10.3); Creatinine Clr Calc Pharmacy 43.6 ml/min; Est GFR (African American) 58.8 ml/min; Est GFR (Non-African American) 50.7 ml/min; Magnesium 1.6 mg/dl (1.7-2.4); Phosphorus 3.1 mg/dl (2.5-4.9); Potassium 4.9 mmol/L (3.5-5.1)
[2023-04-29 07:13] LABS: ANTI-Xa, UFH(UnfractionatedHep 0.37 IU/ml (0.3-0.7)
--- NOTE | 2023-04-29 08:25 | Hospitalist Progress Note ---
Date of Service April 29, 2023 Assessment & Plan (1) Right hip pain: Plan: 82-yo M with type 2 diabetes currently not on medications, hyperlipidemia, hypertension, hypothyroidism, COPD, history of CVA, Polyp of vocal cord, paroxysmal atrial fibrillation not on anticoagulation secondary to fall risk, peripheral vascular disease, irritable bowel syndrome, stage III chronic kidney disease, BPH ,normocytic anemia, history of alcoholism, comes because of fall a nd ambulatory dysfunction and also found to be hypoxic. Patient states he fell from his bed in the morning on the right side. Able to get up. But since then having difficulty ambulation. A lot of pain in the right hip region. [facility] he [facility] because of pain in the hip and also his oxygen saturations in the 80s he was sent in here. Patient states usually short of breath in the nighttime and use oxygen 2 L nightly. Currently on 2 L. Currently denies any shortness of breath. Denies any chest pain. Right hip pain S/p fall Ambulatory dysfunction CT scan showing possible contusion of the right hip Pain control Orthopedics consulted - 82-year-old male with right hip contusion/osteoarthritis -Weightbearing tolerated right lower extremity -PT/OT -Pain control -Medical management -Imaging demonstrates a severe osteoarthritis involving the right hip there is no evidence of fracture on plain paragraphs or CT scan. I suspect that he is most likely suffering from a osteoarthritis that was consistent with. He may follow-up as an outpatient upon discharge for as needed Hypoxia, ? PE , ? CHF , ? pna Chest x-ray possible congestion Received IV Lasix 20 mg Biofire - negative Echo -mild concentric LVH. No regional wall motion abnormalities noted. LV systolic function is normal. LVEF 60 to 65%. RV is normal in size and function. LA is mildly dilated. Grade 1 diastolic dysfunction. Possible CHF Consulted cardiology - appreciate their input Obtained CT PE - no PE. However - 1. A linear nonocclusive filling defect seen within the right middle lobe pulmonary artery. This favors motion artifact. A nonocclusive chronic embolus could also have a similar appearance. 2. Otherwise, the remaining pulmonary arteries show no filling defects to suggest a pulmonary embolus. 3. Trace pleural effusions. 4. Emphysema. 5. Bilateral low densities favor atelectasis. A pneumonia would be difficult to exclude by imaging. 6. Possible 13 mm nodule within the base of the right lower lobe. [address] follow-up recommended. 7. A linear/irregular density within the right upper lobe measuring 3.4 x 1.4 cm. This could represent scarring, atelectasis, pneumonia, or less likely a pulmonary lesion. Attention at follow-up recommended. 8. A moderate superior endplate compression deformity at T12 which is likely chronic. Pulmonary medicine consulted and discussed with - Centrilobular emphysema appr eciated bilaterally Right upper lobe 1.4 cm x 3.4 cm opacity, right lower lobe 1.3 cm nodularity subpleural Elevated left hemidiaphragm with dependent atelectasis No significant mediastinal lymphadenopathy Possibly developing pneumonia is also there. -> start azithromycin 500 for 5 days Emphysema - currently on Adviar - add Incruse - DC on Trelegy 100 2 puffs twice a day Repeat a CT chest in 6-8 weeks. If patient still has persistent opacity in the right upper lobe then bronchoscopy could be thought of after the repeat CAT scan Incentive spirometer will be beneficial O2 supplementation to keep oxygen saturation between 90-92% Patient will benefit from diuresis if his blood pressure is able to tolerate it. Lower EXTR edema, LE DVT b/l Dopplers positive for DVT - IV heparin started -> transitioned to eliquis Checking echo given dose of Lasix Will monitor History of COPD No obvious wheezing Continue home inhalers, added Incruse as above DuoNebs as needed Nocturnal hypoxia Uses 2 L oxygen at nighttime Alcoholism States drinks 2 mixed drinks daily Does not think will go through withdrawal Continue thiamine, folic acic gabapentin Close monitor for withdrawal Hypokalemia Replacing potassium Continue home potassium supplements Close follow the labs History of A-fib Continue metoprolol succinate Not on anticoagulation secondary to fall risk, now on iv heprin Chronic anemia Hemoglobin 10 -> 8 We will follow Hemoccults monitor H&H CKD stage 3 baseline cr around 1.3 cr 1.4 on admission close to baseline follow labs Hypothyroidism On Synthyroid History of CVA Diabetes Not on meds Sliding scale Current HbA1c 4.7% DVT prophylaxis heparin -> eliquis Disposition - Med/tele Full code Admission and Anticipated Discharge Date Admission Date: April 25, 2023 Subjective Pt seen in follow up of fall, hypoxia, b/l LE dvt, hip contusion IV heparin started -> switched to eliquis Pt is sitting up in bed in NAD No chest pain , shortness of breath, no abd. pain, n/v On suppl. O2 -> says he is using O2 only at night at home CT PE obtained yesterday - no PE but CT chest abnormal - consulted pulmonary and discussed with -> started azithromycin for pna, also recommend to add Incruse. If BP allows would also recommend diuresis. Review of Systems Review of Systems: All systems reviewed & are unremarkable except as noted in Subjective Physical Exam Physical Exam: General- WD/WN elderly M in NAD Head- atraumatic Eyes- PERRL. ENT- oropharynx clear Neck- supple, no JVD. Lungs- mild rhonchi, no wheezing Heart- regular rhythm; no murmur, no gallop. Abdomen- normal bowel sounds, soft, nontender, no distension. Extremities- b/l lower extremity edema. chronic skin changes seen. Neuro- alert, oriented PERRL, no facial palsy; no dysarthria Skin- warm & dry Results & Data Results & Data Vital Signs (Past 12 Hours) Vital Signs Temp Pulse Pulse Resp BP Pulse Ox O2 Del Method 04/29/23 07:45 36.6 C 61 20 123/71 97 Room Air 04/29/23 07:18 Nasal Cannula 04/29/23 05:59 59 L 04/29/23 02:57 36.4 C L 71 18 92/53 L 95 Nasal Cannula 04/28/23 23:00 69 04/28/23 22:55 36.5 C 70 18 98/57 L 96 Nasal Cannula O2 Flow Rate 04/29/23 07:45 04/29/23 07:18 2 04/29/23 05:59 04/29/23 02:57 2 04/28/23 23:00 04/28/23 22:55 2 Laboratory Results 04/29/23 04/28/23 04/28/23 Range/Units 05:45 20:03 17:27 WBC 3.97 L (4.8-10.8) K/ul RBC 2.32 L (4.70-6.10) M/uL Hgb 7.7 L (14.0-18.0) g/dl Hct 24.5 L (42.0-52.0) % MCV 105.6 H (80.0-100.0) fL MCH 33.2 (25.0-34.0) pg MCHC 31.4 L (32.0-36.0) g/dL RDW Std Deviation 56.9 H (36.4-46.3) fL RDW Coeff of Jennifer 14.7 H (11.5-14.5) % Plt Count 112 L (130-400) K/uL MPV 9.9 (9.4-12.4) fL Heparin Anti-Xa, Unfract 0.37 (0.3-0.7) IU/ml Sodium 135 L (136-145) mmol/L Potassium 4.9 (3.5-5.1) mmol/L Chloride 99 (98-107) mmol/L Carbon Dioxide 34 H (21-32) mmol/L Anion Gap 2 L (3-11) BUN 23 (6-23) mg/dl Creatinine 1.31 (0.6-1.4) mg/dl Est Cr Clr Drug Dosing 43.6 ml/min Est GFR ( Amer) 58.8 ml/min Est GFR (Non-Af Amer) 50.7 ml/min BUN/Creatinine Ratio 17.6 (10-20) Glucose 90 (70-99(Fasting)) mg/dl POC Glucose 116 H 138 H (70-99) mg/dl Calcium 7.9 L (8.6-10.3) mg/dl Phosphorus 3.1 (2.5-4.9) mg/dl Magnesium 1.6 L (1.7-2.4) mg/dl B-Natriuretic Peptide (0-100) pg/ml Procalcitonin (0-0.5) ng/ml 04/28/23 04/28/23 Range/Units 12:45 12:08 WBC (4.8-10.8) K/ul RBC (4.70-6.10) M/uL Hgb (14.0-18.0) g/dl Hct (42.0-52.0) % MCV (80.0-100.0) fL MCH (25.0-34.0) pg MCHC (32.0-36.0) g/dL RDW Std Deviation (36.4-46.3) fL RDW Coeff of Jennifer (11.5-14.5) % Plt Count (130-400) K/uL MPV (9.4-12.4) fL Heparin Anti-Xa, Unfract (0.3-0.7) IU/ml Sodium (136-145) mmol/L Potassium (3.5-5.1) mmol/L Chloride (98-107) mmol/L Carbon Dioxide (21-32) mmol/L Anion Gap (3-11) BUN (6-23) mg/dl Creatinine (0.6-1.4) mg/dl Est Cr Clr Drug Dosing ml/min Est GFR ( Amer) ml/min Est GFR (Non-Af Amer) ml/min BUN/Creatinine Ratio (10-20) Glucose (70-99(Fasting)) mg/dl POC Glucose 143 H (70-99) mg/dl Calcium (8.6-10.3) mg/dl Phosphorus (2.5-4.9) mg/dl Magnesium (1.7-2.4) mg/dl B-Natriuretic Peptide 413 H (0-100) pg/ml Procalcitonin 0.26 (0-0.5) ng/ml Medications Administered Current Inpatient Medications Acetaminophen (Acetaminophen 325 Mg Tab) 650 mg PO Q4H PRN PRN Reason: Pain or Fever Stop: 05/25/23 23:44 Albuterol (Albut/Ipratrop 3mg/0.5mg Neb 3 Ml Vial) 3 ml NEB Q4R PRN; Protocol PRN Reason: Shortness Of Breath Or Wheezing Stop: 05/25/23 23:44 Last Admin: 04/26/23 09:34 Dose: 3 ml Apixaban (Apixaban 5 Mg Tablet) 10 mg PO BID [facility] Stop: 05/05/23 09:01 Last Admin: 04/29/23 08:07 Dose: 10 mg Dextrose (Dextrose 50% 50 Ml Syringe) 25 - 50 ml IV UD PRN; Protocol PRN Reason: Hypoglycemia Protocol Stop: 05/25/23 23:44 Docusate Sodium (Docusate Sodium 100 Mg Cap) 100 mg PO BID [facility] Stop: 05/26/23 08:59 Last Admin: 04/28/23 21:13 Dose: 100 mg Fluticasone/Vilanterol (Fluticasone/Vilanterol 200/25mcg 14 Puffs/Inhaler) 1 puffs INH DAILY [facility] Stop: 05/26/23 08:59 Last Admin: 04/29/23 08:09 Dose: 1 puffs Folic Acid (Folic Acid 1 Mg Tab) 1 mg PO QAM [facility] Stop: 05/27/23 08:59 Last Admin: 04/29/23 08:08 Dose: 1 mg Furosemide (Furosemide Inj 20 Mg/2 Ml Vial) 10 mg IV ONE ONE Stop: 04/29/23 08:24 Gabapentin (Gabapentin 600 Mg Tab) 600 mg PO Q24H [facility] Stop: 04/30/23 07:31 Glucagon (Glucagon For Inj 1 Mg Vial) 1 mg SQ UD PRN; Protocol PRN Reason: Hypoglycemia Protocol Stop: 05/25/23 23:44 Glucose (Glucose 40% Gel 15 Gm Tube) 15 - 30 gm PO UD PRN; Protocol PRN Reason: Hypoglycemia Protocol Stop: 05/25/23 23:44 Glucose (Glucose 10 Tab/Tube) 4 - 8 tab PO UD PRN; Protocol PRN Reason: Hypoglycemia Treatment Stop: 05/25/23 23:44 Lorazepam 1 mg/ Syringe 1 mls @ 2 mls/min IV UD PRN; Protocol PRN Reason: EtOH Withdrawal AWSS Score 6,7 Stop: 05/26/23 19:21 Lorazepam 2 mg/ Syringe 2 mls @ 2 mls/min IV UD PRN; Protocol PRN Reason: EtOH Withdrawal AWSS Score 8,9 Stop: 05/26/23 19:21 Lorazepam 3 mg/ Syringe 3 mls @ 2 mls/min IV ONCE PRN; Protocol PRN Reason: EtOH Withdrawal AWSS Score 10+ Azithromycin 500 mg/ Dextrose 255 mls @ 125 mls/hr IV Q24H [facility] Stop: 05/03/23 12:44 Last Infusion: 04/28/23 15:29 Dose: Infused Insulin Aspart (Insulin Aspart Per Unit Charge) 0 units SC ACHS [facility] Stop: 05/26/23 07:29 Last Admin: 04/28/23 21:21 Dose: Not Given Levothyroxine Sodium (Levothyroxine Sodium 112 Mcg Tablet) 112 mcg PO DAILYBB [facility] Stop: 05/26/23 06:29 Last Admin: 04/29/23 05:44 Dose: 112 mcg Lorazepam (Lorazepam 0.5 Mg Tab) 0.5 mg PO DAILY PRN PRN Reason: Anxiety Stop: 05/25/23 23:44 Last Admin: 04/26/23 00:29 Dose: 0.5 mg Magnesium Oxide (Magnesium Oxide 400 Mg Tab) 400 mg PO BID [facility] Stop: 05/26/23 08:59 Last Admin: 04/29/23 08:08 Dose: 400 mg Meclizine HCl (Meclizine Hcl 25 Mg Tab) 25 mg PO TID PRN PRN Reason: .dizzyness Stop: 05/25/23 23:44 Metoprolol Succinate (Metoprolol Succ 25mg Ext Rel Tab) 25 mg PO QAM [facility] Stop: 05/26/23 08:59 Last Admin: 04/29/23 08:11 Dose: 25 mg Miscellaneous (Carbohydrates For Hypoglycemia ) 15 - 30 gm PO UD PRN PRN Reason: Hypoglycemia Protocol Stop: 05/25/23 23:44 Morphine Sulfate (Morphine Sulfate 4 Mg/Ml 1 Ml Carp\Vial) 3 mg IV Q4H PRN PRN Reason: Severe Pain (Scale 7, 8, 9,10) Stop: 05/09/23 23:44 Last Admin: 04/26/23 03:04 Dose: 3 mg Nitroglycerin (Nitroglycerin Sl 0.4 Mg/Tab Tab) 0.4 mg SL Q5M PRN PRN Reason: Chest Pain Stop: 05/25/23 23:44 Pantoprazole Sodium (Pantoprazole 40 Mg Tab) 40 mg PO QAM [facility] Stop: 05/26/23 08:59 Last Admin: 04/29/23 08:09 Dose: 40 mg Polyethylene Glycol (Polyethylene (Miralax) 17 Gm Pack) 17 gm PO DAILY PRN PRN Reason: Constipation Stop: 05/25/23 23:44 Potassium Chloride (Potassium Chloride Crtab 20 Meq Tabcr) 20 meq PO TID@0900,1200,2100 [facility] Stop: 05/26/23 08:59 Last Admin: 04/28/23 21:13 Dose: Not Given Thiamine HCl (Thiamine Hcl 100 Mg Tab) 100 mg PO QAM [facility] Stop: 05/26/23 08:59 Last Admin: 04/29/23 08:08 Dose: 100 mg Tramadol HCl (Tramadol Hcl 50 Mg Tablet) 50 mg PO TID [facility] Stop: 05/26/23 08:59 Last Admin: 04/28/23 21:13 Dose: 50 mg Trazodone HCl (Trazodone Hcl 50 Mg Tab) 50 mg PO HS [facility] Stop: 05/26/23 20:59 Last Admin: 04/28/23 21:08 Dose: 50 mg Umeclidinium [place] (Umeclidinium [place] 62.5mcg/Blister 7 Puffs/Inhaler) 1 puffs INH DAILY [facility] Stop: 05/28/23 12:44 Last Admin: 04/29/23 08:09 Dose: 1 puffs Vitamin D (Cholecalciferol 25 Mcg (1000 Units) Tab) 50 mcg PO DAILY [facility] Stop: 05/26/23 08:59 Last Admin: 04/29/23 08:08 Dose: 50 mcg Zinc Sulfate (Zinc Sulfate 220 Mg Capsule) 220 mg PO QAM [facility] Stop: 05/26/23 08:59 Last Admin: 04/29/23 08:10 Dose: 220 mg
[2023-04-29] MEDS: FOLIC ACID 1 MG in SYRINGE 9.8 ML IV SCH (08:45)
[2023-04-29] MEDS: FUROSEMIDE INJ 20 MG/2 ML VIAL IV ONE (08:45)
[2023-04-29] MEDS: THIAMINE HCL 200 MG in SODIUM CHLORIDE 0.9% 50 ML IV SCH (08:46)
[2023-04-29] MEDS: POLYETHYLENE (MIRALAX) 17 GM PACK PO SCH (09:37)
[2023-04-29] MEDS: SENNA 8.6 MG TAB PO SCH (10:05)
[2023-04-30 06:30] LABS: Hematocrit (blood only) 22.7 % (42.0-52.0); Hemoglobin 7.2 g/dl (14.0-18.0); Mean Corpuscular Hemoglobin 33.2 pg (25.0-34.0); Mean Corpuscular Hgb Conc 31.7 g/dL (32.0-36.0); Mean Corpuscular Volume 104.6 fL (80.0-100.0); Platelet Count 110 K/uL (130-400); RDW Coefficient of Variation 14.7 % (11.5-14.5); RDW Standard Deviation 55.6 fL (36.4-46.3); Red Blood Count 2.17 M/uL (4.70-6.10); White Blood Count 4.43 K/ul (4.8-10.8)
[2023-04-30 06:42] LABS: Creatinine Clr Calc Pharmacy 42.9 ml/min; Est GFR (African American) 57.7 ml/min; Est GFR (Non-African American) 49.8 ml/min; Magnesium 1.6 mg/dl (1.7-2.4); Phosphorus 3.3 mg/dl (2.5-4.9); Potassium 4.7 mmol/L (3.5-5.1)
[2023-04-30] MEDS ORDERED: SODIUM CHLORIDE 0.9% 250 ML IV PRN (07:52)
--- NOTE | 2023-04-30 07:57 | Hospitalist Progress Note ---
Date of Service April 30, 2023 Assessment & Plan (1) Right hip pain: Plan: 82-yo M with type 2 diabetes currently not on medications, hyperlipidemia, hypertension, hypothyroidism, COPD, history of CVA, Polyp of vocal cord, paroxysmal atrial fibrillation not on anticoagulation secondary to fall risk, peripheral vascular disease, irritable bowel syndrome, stage III chronic kidney disease, BPH ,normocytic anemia, history of alcoholism, comes because of fall a nd ambulatory dysfunction and also found to be hypoxic. Patient states he fell from his bed in the morning on the right side. Able to get up. But since then having difficulty ambulation. A lot of pain in the right hip region. [facility] because of pain in the hip and also his oxygen saturations in the 80s he was sent in here. Patient states usually short of breath in the nighttime and use oxygen 2 L nightly. Currently on 2 L. Currently denies any shortness of breath. Denies any chest pain. Right hip pain S/p fall Ambulatory dysfunction CT scan showing possible contusion of the right hip Pain control Orthopedics consulted - 82-year-old male with right hip contusion/osteoarthritis -Weightbearing tolerated right lower extremity -PT/OT -Pain control -Medical management -Imaging demonstrates a severe osteoarthritis involving the right hip there is no evidence of fracture on plain paragraphs or CT scan. I suspect that he is most likely suffering from a osteoarthritis that was consistent with. He may follow-up as an outpatient upon discharge for as needed Hypoxia, ? PE , ? CHF , ? pna Chest x-ray possible congestion Received IV Lasix 20 mg Biofire - negative Echo -mild concentric LVH. No regional wall motion abnormalities noted. LV systolic function is normal. LVEF 60 to 65%. RV is normal in size and function. LA is mildly dilated. Grade 1 diastolic dysfunction. Possible CHF Consulted cardiology - appreciate their input Obtained CT PE - no PE. However - 1. A linear nonocclusive filling defect seen within the right middle lobe pulmonary artery. This favors motion artifact. A nonocclusive chronic embolus could also have a similar appearance. 2. Otherwise, the remaining pulmonary arteries show no filling defects to suggest a pulmonary embolus. 3. Trace pleural effusions. 4. Emphysema. 5. Bilateral low densities favor atelectasis. A pneumonia would be difficult to exclude by imaging. 6. Possible 13 mm nodule within the base of the right lower lobe. [address] follow-up recommended. 7. A linear/irregular density within the right upper lobe measuring 3.4 x 1.4 cm. This could represent scarring, atelectasis, pneumonia, or less likely a pulmonary lesion. Attention at follow-up recommended. 8. A moderate superior endplate compression deformity at T12 which is likely chronic. Pulmonary medicine consulted and discussed with - Centrilobular emphysema appr eciated bilaterally Right upper lobe 1.4 cm x 3.4 cm opacity, right lower lobe 1.3 cm nodularity subpleural Elevated left hemidiaphragm with dependent atelectasis No significant mediastinal lymphadenopathy Possibly developing pneumonia is also there. -> start azithromycin 500 for 5 days Emphysema - currently on Adviar - add Incruse - DC on Trelegy 100 2 puffs twice a day Repeat a CT chest in 6-8 weeks. If patient still has persistent opacity in the right upper lobe then bronchoscopy could be thought of after the repeat CAT scan Incentive spirometer will be beneficial O2 supplementation to keep oxygen saturation between 90-92% Patient will benefit from diuresis if his blood pressure is able to tolerate it. Lower EXTR edema, LE DVT b/l Dopplers positive for DVT - IV heparin started -> transitioned to eliquis Checking echo given dose of Lasix Will monitor History of COPD No obvious wheezing Continue home inhalers, added Incruse as above DuoNebs as needed Nocturnal hypoxia Uses 2 L oxygen at nighttime Alcoholism States drinks 2 mixed drinks daily Does not think will go through withdrawal Continue thiamine, folic acic gabapentin Close monitor for withdrawal Hypokalemia Replacing potassium Continue home potassium supplements Close follow the labs History of A-fib Continue metoprolol succinate Not on anticoagulation secondary to fall risk, now on iv heprin Chronic anemia Hemoglobin 10 -> 8 We will follow Hemoccults monitor H&H Current Hgb 7.2 -> transfuse 1 unit of pRBC CKD stage 3 baseline cr around 1.3 cr 1.4 on admission close to baseline follow labs Hypothyroidism On Synthyroid History of CVA Diabetes Not on meds Sliding scale Current HbA1c 4.7% DVT prophylaxis heparin -> eliquis Disposition - Med/tele Full code Admission and Anticipated Discharge Date Admission Date: April 25, 2023 Subjective Pt seen in follow up of fall, hypoxia, b/l LE dvt, hip contusion IV heparin started -> switched to eliquis Pt is sitting up in bed in NAD No chest pain , shortness of breath, no abd. pain, n/v On suppl. O2 -> says he is using O2 only at night at home CT PE obtained - no PE but CT chest abnormal - consulted pulmonary and discussed with -> started azithromycin for pna, also recommend to add Incruse. If BP allows would also recommend diuresis. Hgb 7.2 today - been trending down, will transfuse 1 unit of pRBC Review of Systems Review of Systems: All systems reviewed & are unremarkable except as noted in Subjective Physical Exam Physical Exam: General- WD/WN elderly M in NAD Head- atraumatic Eyes- PERRL. ENT- oropharynx clear Neck- supple, no JVD. Lungs- mild rhonchi, no wheezing Heart- regular rhythm; no murmur, no gallop. Abdomen- normal bowel sounds, soft, nontender, no distension. Extremities- b/l lower extremity edema. chronic skin changes seen. Neuro- alert, oriented PERRL, no facial palsy; no dysarthria Skin- warm & dry Results & Data Results & Data Vital Signs (Past 12 Hours) Vital Signs Temp Pulse Pulse Resp BP BP Pulse Ox 04/30/23 07:46 113/57 L 04/30/23 07:33 36.8 C 68 12 94/49 L 93 04/30/23 05:55 63 04/30/23 03:20 36.7 C 64 18 102/53 L 92 04/29/23 23:55 36.9 C 67 18 109/58 L 92 04/29/23 23:00 66 O2 Del Method O2 Flow Rate 04/30/23 07:46 04/30/23 07:33 Nasal Cannula 2 04/30/23 05:55 04/30/23 03:20 Nasal Cannula 2 04/29/23 23:55 Nasal Cannula 2 04/29/23 23:00 Laboratory Results 04/30/23 04/29/23 04/29/23 Range/Units 05:31 20:29 17:19 WBC 4.43 L (4.8-10.8) K/ul RBC 2.17 L (4.70-6.10) M/uL Hgb 7.2 L (14.0-18.0) g/dl Hct 22.7 L (42.0-52.0) % MCV 104.6 H (80.0-100.0) fL MCH 33.2 (25.0-34.0) pg MCHC 31.7 L (32.0-36.0) g/dL RDW Std Deviation 55.6 H (36.4-46.3) fL RDW Coeff of Jennifer 14.7 H (11.5-14.5) % Plt Count 110 L (130-400) K/uL MPV 10.0 (9.4-12.4) fL Sodium 132 L (136-145) mmol/L Potassium 4.7 (3.5-5.1) mmol/L Chloride 99 (98-107) mmol/L Carbon Dioxide 31 (21-32) mmol/L Anion Gap 2 L (3-11) BUN 24 H (6-23) mg/dl Creatinine 1.33 (0.6-1.4) mg/dl Est Cr Clr Drug Dosing 42.9 ml/min Est GFR ( Amer) 57.7 ml/min Est GFR (Non-Af Amer) 49.8 ml/min BUN/Creatinine Ratio 18.0 (10-20) Glucose 91 (70-99(Fasting)) mg/dl POC Glucose 140 H 110 H (70-99) mg/dl Calcium 8.0 L (8.6-10.3) mg/dl Phosphorus 3.3 (2.5-4.9) mg/dl Magnesium 1.6 L (1.7-2.4) mg/dl 04/29/23 04/29/23 Range/Units 12:11 08:21 WBC (4.8-10.8) K/ul RBC (4.70-6.10) M/uL Hgb (14.0-18.0) g/dl Hct (42.0-52.0) % MCV (80.0-100.0) fL MCH (25.0-34.0) pg MCHC (32.0-36.0) g/dL RDW Std Deviation (36.4-46.3) fL RDW Coeff of Jennifer (11.5-14.5) % Plt Count (130-400) K/uL MPV (9.4-12.4) fL Sodium (136-145) mmol/L Potassium (3.5-5.1) mmol/L Chloride (98-107) mmol/L Carbon Dioxide (21-32) mmol/L Anion Gap (3-11) BUN (6-23) mg/dl Creatinine (0.6-1.4) mg/dl Est Cr Clr Drug Dosing ml/min Est GFR ( Amer) ml/min Est GFR (Non-Af Amer) ml/min BUN/Creatinine Ratio (10-20) Glucose (70-99(Fasting)) mg/dl POC Glucose 107 H 84 (70-99) mg/dl Calcium (8.6-10.3) mg/dl Phosphorus (2.5-4.9) mg/dl Magnesium (1.7-2.4) mg/dl Medications Administered Current Inpatient Medications Acetaminophen (Acetaminophen 325 Mg Tab) 650 mg PO Q4H PRN PRN Reason: Pain or Fever Stop: 05/25/23 23:44 Albuterol (Albut/Ipratrop 3mg/0.5mg Neb 3 Ml Vial) 3 ml NEB Q4R PRN; Protocol PRN Reason: Shortness Of Breath Or Wheezing Stop: 05/25/23 23:44 Last Admin: 04/26/23 09:34 Dose: 3 ml Apixaban (Apixaban 5 Mg Tablet) 10 mg PO BID [place] Stop: 05/05/23 09:01 Last Admin: 04/29/23 20:41 Dose: 10 mg Azithromycin (Azithromycin 250 Mg Tab) 500 mg PO DAILY [place] Stop: 05/04/23 09:01 Dextrose (Dextrose 50% 50 Ml Syringe) 25 - 50 ml IV UD PRN; Protocol PRN Reason: Hypoglycemia Protocol Stop: 05/25/23 23:44 Docusate Sodium (Docusate Sodium 100 Mg Cap) 100 mg PO BID [place] Stop: 05/26/23 08:59 Last Admin: 04/29/23 20:44 Dose: 100 mg Fluticasone/Vilanterol (Fluticasone/Vilanterol 200/25mcg 14 Puffs/Inhaler) 1 puffs INH DAILY [place] Stop: 05/26/23 08:59 Last Admin: 04/29/23 08:09 Dose: 1 puffs Folic Acid (Folic Acid 1 Mg Tab) 1 mg PO QAM [place] Stop: 05/27/23 08:59 Last Admin: 04/29/23 08:08 Dose: 1 mg Glucagon (Glucagon For Inj 1 Mg Vial) 1 mg SQ UD PRN; Protocol PRN Reason: Hypoglycemia Protocol Stop: 05/25/23 23:44 Glucose (Glucose 40% Gel 15 Gm Tube) 15 - 30 gm PO UD PRN; Protocol PRN Reason: Hypoglycemia Protocol Stop: 05/25/23 23:44 Glucose (Glucose 10 Tab/Tube) 4 - 8 tab PO UD PRN; Protocol PRN Reason: Hypoglycemia Treatment Stop: 05/25/23 23:44 Lorazepam 1 mg/ Syringe 1 mls @ 2 mls/min IV UD PRN; Protocol PRN Reason: EtOH Withdrawal AWSS Score 6,7 Stop: 05/26/23 19:21 Lorazepam 2 mg/ Syringe 2 mls @ 2 mls/min IV UD PRN; Protocol PRN Reason: EtOH Withdrawal AWSS Score 8,9 Stop: 05/26/23 19:21 Lorazepam 3 mg/ Syringe 3 mls @ 2 mls/min IV ONCE PRN; Protocol PRN Reason: EtOH Withdrawal AWSS Score 10+ Thiamine HCl 200 mg/ Sodium (Chloride) 52 mls @ 210 mls[facility]hr [facility] [place]: 05/29/23 08:59 Last Infusion: 04/29/23 09:05 Dose: Infused Folic Acid 1 mg/ Syringe 10 mls @ 5 mls/[facility] [place] Stop: 05/29/23 08:59 Last Admin: 04/29/23 08:45 Dose: 5 mls/min Sodium Chloride (Nss) 250 mls @ 15 mls/hr IV .[id number] PRN PRN Reason: For Transfusion Duration Stop: 04/30/23 17:52 Insulin Aspart (Insulin Aspart Per Unit Charge) 0 units [facility] Stop: 05/26/23 07:29 Last Admin: 04/29/23 20:34 Dose: Not Given Levothyroxine Sodium (Levothyroxine Sodium 112 Mcg Tablet) 112 mcg PO DAILYBB [facility] Stop: 05/26/23 06:29 Last Admin: 04/30/23 05:11 Dose: 112 mcg Lorazepam (Lorazepam 0.5 Mg Tab) 0.5 mg PO DAILY PRN PRN Reason: Anxiety Stop: 05/25/23 23:44 Last Admin: 04/26/23 00:29 Dose: 0.5 mg Magnesium Oxide (Magnesium Oxide 400 Mg Tab) 400 mg PO BID [facility] Stop: 05/26/23 08:59 Last Admin: 04/29/23 20:41 Dose: 400 mg Meclizine HCl (Meclizine Hcl 25 Mg Tab) 25 mg PO TID PRN PRN Reason: .dizzyness Stop: 05/25/23 23:44 Metoprolol Succinate (Metoprolol Succ 25mg Ext Rel Tab) 25 mg PO QAM [facility] Stop: 05/26/23 08:59 Last Admin: 04/29/23 08:11 Dose: 25 mg Miscellaneous (Carbohydrates For Hypoglycemia ) 15 - 30 gm PO UD PRN PRN Reason: Hypoglycemia Protocol Stop: 05/25/23 23:44 Morphine Sulfate (Morphine Sulfate 4 Mg/Ml 1 Ml Carp\Vial) 3 mg IV Q4H PRN PRN Reason: Severe Pain (Scale 7, 8, 9,10) Stop: 05/09/23 23:44 Last Admin: 04/26/23 03:04 Dose: 3 mg Nitroglycerin (Nitroglycerin Sl 0.4 Mg/Tab Tab) 0.4 mg SL Q5M PRN PRN Reason: Chest Pain Stop: 05/25/23 23:44 Pantoprazole Sodium (Pantoprazole 40 Mg Tab) 40 mg PO QAM [facility] Stop: 05/26/23 08:59 Last Admin: 04/29/23 08:09 Dose: 40 mg Polyethylene Glycol (Polyethylene (Miralax) 17 Gm Pack) 17 gm PO DAILY [facility] Stop: 05/29/23 09:29 Last Admin: 04/29/23 09:37 Dose: 17 gm Potassium Chloride (Potassium Chloride Crtab 20 Meq Tabcr) 20 meq PO TID@0900,1200,2100 [facility] Stop: 05/26/23 08:59 Last Admin: 04/28/23 21:13 Dose: Not Given Sennosides (Senna 8.6 Mg Tab) 8.6 mg PO QAM [facility] Stop: 05/29/23 09:29 Last Admin: 04/29/23 10:05 Dose: 8.6 mg Thiamine HCl (Thiamine Hcl 100 Mg Tab) 100 mg PO QAM [facility] Stop: 05/26/23 08:59 Last Admin: 04/29/23 08:08 Dose: 100 mg Tramadol HCl (Tramadol Hcl 50 Mg Tablet) 50 mg PO TID [facility] Stop: 05/26/23 08:59 Last Admin: 04/29/23 20:39 Dose: 50 mg Trazodone HCl (Trazodone Hcl 50 Mg Tab) 50 mg PO HS [facility] Stop: 05/26/23 20:59 Last Admin: 04/29/23 20:41 Dose: 50 mg Umeclidinium [place] (Umeclidinium [place] 62.5mcg/Blister 7 Puffs/Inhaler) 1 puffs INH DAILY [place] Stop: 05/28/23 12:44 Last Admin: 04/29/23 08:09 Dose: 1 puffs Vitamin D (Cholecalciferol 25 Mcg (1000 Units) Tab) 50 mcg PO DAILY [place] Stop: 05/26/23 08:59 Last Admin: 04/29/23 08:08 Dose: 50 mcg Zinc Sulfate (Zinc Sulfate 220 Mg Capsule) 220 mg PO QAM [place] Stop: 05/26/23 08:59 Last Admin: 04/29/23 08:10 Dose: 220 mg
[2023-04-30] MEDS: AZITHROMYCIN 250 MG TAB PO SCH (08:31)
[2023-04-30] MEDS: GABAPENTIN 600 MG TAB PO SCH (08:44)
[2023-04-30 21:07] LABS: Hematocrit (blood only) 27.6 % (42.0-52.0); Hemoglobin 9.5 g/dl (14.0-18.0); Mean Corpuscular Hemoglobin 33.3 pg (25.0-34.0); Mean Corpuscular Hgb Conc 34.4 g/dL (32.0-36.0); Mean Corpuscular Volume 96.8 fL (80.0-100.0); Mean Platelet Volume 9.6 fL (9.4-12.4); Platelet Count 123 K/uL (130-400); RDW Coefficient of Variation 17.2 % (11.5-14.5); RDW Standard Deviation 60.8 fL (36.4-46.3); Red Blood Count 2.85 M/uL (4.70-6.10); White Blood Count 4.82 K/ul (4.8-10.8)
[2023-05-01 06:40] LABS: Hematocrit (blood only) 25.6 % (42.0-52.0); Hemoglobin 8.5 g/dl (14.0-18.0); Mean Corpuscular Hemoglobin 32.9 pg (25.0-34.0); Mean Corpuscular Hgb Conc 33.2 g/dL (32.0-36.0); Mean Corpuscular Volume 99.2 fL (80.0-100.0); Mean Platelet Volume 10.3 fL (9.4-12.4); Platelet Count 126 K/uL (130-400); RDW Coefficient of Variation 17.9 % (11.5-14.5); RDW Standard Deviation 65.1 fL (36.4-46.3); Red Blood Count 2.58 M/uL (4.70-6.10); White Blood Count 5.08 K/ul (4.8-10.8)
[2023-05-01 06:42] LABS: BUN Creatinine Ratio 21.5 (10-20); Calcium 8.4 mg/dl (8.6-10.3); Est GFR (African American) 64.7 ml/min; Est GFR (Non-African American) 55.8 ml/min; Magnesium 1.7 mg/dl (1.7-2.4); Phosphorus 3.4 mg/dl (2.5-4.9); Potassium 4.4 mmol/L (3.5-5.1)
--- NOTE | 2023-05-01 16:14 | Hospitalist Progress Note ---
Date of Service May 01, 2023 Assessment & Plan (1) Right hip pain: Plan: Patient is an 82 yr male with type 2 diabetes currently not on medications, hyperlipidemia, hypertension, hypothyroidism, COPD, history of CVA, Polyp of vocal cord, paroxysmal atrial fibrillation not on anticoagulation secondary to fall risk, peripheral vascular disease, irritable bowel syndrome, stage III chronic kidney disease, BPH ,normocytic anemia, history of alcoholism, comes because of fall and ambulatory dysfunction and also found to be hypoxic. Patient states he fell from his bed in the morning on the right side. Able to get up. But since then having difficulty ambulation. A lot of pain in the right hip region. [facility] because of pain in the hip and also his oxygen saturations in the 80s he was sent in here. Patient states usually short of breath in the nighttime and use oxygen 2 L nightly. Currently on 2 L. Currently denies any shortness of breath. Denies any chest pain. Right hip pain S/p fall Ambulatory dysfunction Osteoarthritis of right hip --R HIP CT:No acute osseous findings. Subcutaneous edema lateral to the right hip, possibly soft tissue contusion. --CT head: No acute intracranial process. -Weightbearing as tolerated right lower extremity per Ortho Continue PT OT Fall precautions Needs follow-up with orthopedics on discharge Acute bilateral lower extremity DVT --Venous Doppler: Deep venous thrombosis in the right and left lower extremity --CTA:A linear nonocclusive filling defect seen within the right middle lobe pulmonary artery. This favors motion artifact. A nonocclusive chronic embolus could also have a similar appearance. Otherwise, the remaining pulmonary arteries show no filling defects to suggest a pulmonary embolus. --ECHO: Mild concentric LVH but no regional wall motion abnormality. Left ventricle systolic function is normal. EF 60 to 64%. Right ventricle is normal in size and function. Left atrium is mildly dilated. Grade 1 diastolic dysfunction Was on IV heparin--transition to Eliquis Acute on chronic respiratory failure with hypoxia Likely multifactorial secondary to suspected pneumonia, COPD Pulmonary nodule Right upper lobe opacity likely developing pneumonia H/O nocturnal hypoxia, elevated left hemidiaphragm --CTA: A linear nonocclusive filling defect seen within the right middle lobe pulmonary artery. This favors motion artifact. A nonocclusive chronic embolus could also have a similar appearance. Otherwise, the remaining pulmonary arteries show no filling defects to suggest a pulmonary embolus. Trace pleural effusions. Emphysema. Bilateral low densities favor atelectasis. A pneumonia would be difficult to exclude by imaging. Possible 13 mm nodule within the base of the right lower lobe. [address] follow-up recommended. A linear/irregular density within the right upper lobe measuring 3.4 x 1.4 cm. This could represent scarring, atelectasis, pneumonia, or less likely a pulmonary lesion. Attention at follow-up recommended. -- Normal procalcitonin Complete azithromycin course as recommended by pulmonology Continue home inhalers Weaned off of supplemental oxygen Saturating well on room air Appreciate pulmonology input Plan to discharge on Trelegy per pulmonology Will need repeat CT chest in 6 to 8 weeks Continue incentive spirometer Will consider additional diuresis if blood pressure tolerates Nocturnal hypoxia Continue 2 L oxygen at nighttime Alcoholism States drinks 2 mixed drinks daily Currently no signs of withdrawal Continue thiamine, folic acid Monitor for withdrawal Hypokalemia Replete and monitor History of A-fib Continue metoprolol succinate Not on anticoagulation secondary to fall risk Was started on Eliquis due to DVT as above Chronic anemia No obvious bleeding issues S/P 1 unit PRBC Monitor CBC Check FOBT CKD stage 3 Cr at baseline Monitor renal function Hypothyroidism continue Levothyroxine DM II Diet-controlled HbA1c 4.7 Monitor BGs DVT Px: Eliquis Code Status Full code Admission and Anticipated Discharge Date Admission Date: April 25, 2023 Subjective Patient is seen and examined at bedside States having right leg weakness which is chronic Denies any chest pain, dyspnea, dizzy nausea vomiting, abdominal pain No obvious bleeding issues No other complaints Review of Systems Review of Systems: All systems reviewed & are unremarkable except as noted in Subjective Physical Exam Physical Exam: Physical Exam: Vitals signs as noted above General Appearance:Moderately built and nourished, no apparent distress, Elderly Head: normocephalic, Atraumatic Eyes: normal inspection, EOMI Neck: supple, Trachea midline Respiratory/Chest: Normal breath sounds, CTA, No accessory muscle use Cardiovascular: S1, S2, No murmur Abdomen/GI:Soft, Non tender, Bowel sounds present Extremities/Musculoskeletal:normal inspection, 2+ pedal edema, +Venous stasis Neurologic/Psych:AAOX3, grossly no focal neurological deficits Skin: normal color, warm Results & Data Results & Data Vital Signs (Past 12 Hours) Vital Signs Temp Pulse Pulse Resp BP Pulse Ox O2 Del Method 05/01/23 15:14 65 05/01/23 12:01 36.7 C 64 15 104/66 96 Nasal Cannula 05/01/23 08:30 Nasal Cannula 05/01/23 08:16 36.6 C 68 13 94/46 L 92 Nasal Cannula 05/01/23 07:12 71 O2 Flow Rate 05/01/23 15:14 05/01/23 12:01 3 05/01/23 08:30 2 05/01/23 08:16 3 05/01/23 07:12 Laboratory Results Short CBC 04/30/23 05/01/23 Range/Units 20:26 05:31 WBC 4.82 5.08 (4.8-10.8) K/ul Hgb 9.5 L 8.5 L (14.0-18.0) g/dl Hct 27.6 L 25.6 L (42.0-52.0) % Plt Count 123 L 126 L (130-400) K/uL BMP 05/01/23 05:31 Sodium 132 L Potassium 4.4 Chloride 98 Carbon Dioxide 31 BUN 26 H Creatinine 1.21 Glucose 97 Calcium 8.4 L
[2023-05-02 06:35] LABS: Hematocrit (blood only) 26.3 % (42.0-52.0); Hemoglobin 8.7 g/dl (14.0-18.0); Mean Corpuscular Hemoglobin 32.8 pg (25.0-34.0); Mean Corpuscular Hgb Conc 33.1 g/dL (32.0-36.0); Mean Corpuscular Volume 99.2 fL (80.0-100.0); Mean Platelet Volume 10.1 fL (9.4-12.4); Platelet Count 121 K/uL (130-400); RDW Coefficient of Variation 17.3 % (11.5-14.5); RDW Standard Deviation 63.5 fL (36.4-46.3); Red Blood Count 2.65 M/uL (4.70-6.10); White Blood Count 4.45 K/ul (4.8-10.8)
[2023-05-02 06:41] LABS: BUN Creatinine Ratio 22.6 (10-20); Calcium 8.5 mg/dl (8.6-10.3); Creatinine Clr Calc Pharmacy 50.2 ml/min; Est GFR (African American) 68.8 ml/min; Est GFR (Non-African American) 59.4 ml/min; Magnesium 1.8 mg/dl (1.7-2.4); Potassium 4.3 mmol/L (3.5-5.1)
[2023-05-02] MEDS: MAGNESIUM OXIDE 400 MG TAB PO SCH (09:05)
--- NOTE | 2023-05-02 15:22 | Hospitalist Progress Note ---
Date of Service May 02, 2023 Assessment & Plan (1) Right hip pain: Plan: Patient is an 82 yr male with type 2 diabetes currently not on medications, hyperlipidemia, hypertension, hypothyroidism, COPD, history of CVA, Polyp of vocal cord, paroxysmal atrial fibrillation not on anticoagulation secondary to fall risk, peripheral vascular disease, irritable bowel syndrome, stage III chronic kidney disease, BPH ,normocytic anemia, history of alcoholism, comes because of fall and ambulatory dysfunction and also found to be hypoxic. Patient states he fell from his bed in the morning on the right side. Able to get up. But since then having difficulty ambulation. A lot of pain in the right hip region. [facility] When [facility] because of pain in the hip and also his oxygen saturations in the 80s he was sent in here. Patient states usually short of breath in the nighttime and use oxygen 2 L nightly. Currently on 2 L. Currently denies any shortness of breath. Denies any chest pain. Right hip pain S/p fall Ambulatory dysfunction Osteoarthritis of right hip --R HIP CT:No acute osseous findings. Subcutaneous edema lateral to the right hip, possibly soft tissue contusion. --CT head: No acute intracranial process. -Weightbearing as tolerated right lower extremity per Ortho Continue PT OT Fall precautions Needs follow-up with orthopedics on discharge Fall precautions Acute bilateral lower extremity DVT --Venous Doppler: Deep venous thrombosis in the right and left lower extremity --CTA:A linear nonocclusive filling defect seen within the right middle lobe pulmonary artery. This favors motion artifact. A nonocclusive chronic embolus could also have a similar appearance. Otherwise, the remaining pulmonary arteries show no filling defects to suggest a pulmonary embolus. --ECHO: Mild concentric LVH but no regional wall motion abnormality. Left ventricle systolic function is normal. EF 60 to 64%. Right ventricle is normal in size and function. Left atrium is mildly dilated. Grade 1 diastolic dysfunction Was on IV heparin--transitioned to Eliquis Acute on chronic respiratory failure with hypoxia Likely multifactorial secondary to suspected pneumonia, COPD Pulmonary nodule Right upper lobe opacity likely developing pneumonia H/O nocturnal hypoxia, elevated left hemidiaphragm --CTA: A linear nonocclusive filling defect seen within the right middle lobe pulmonary artery. This favors motion artifact. A nonocclusive chronic embolus could also have a similar appearance. Otherwise, the remaining pulmonary arteries show no filling defects to suggest a pulmonary embolus. Trace pleural effusions. Emphysema. Bilateral low densities favor atelectasis. A pneumonia would be difficult to exclude by imaging. Possible 13 mm nodule within the base of the right lower lobe. [address] follow-up recommended. A linear/irregular density within the right upper lobe measuring 3.4 x 1.4 cm. This could represent scarring, atelectasis, pneumonia, or less likely a pulmonary lesion. Attention at follow-up recommended. -- Normal procalcitonin Complete azithromycin course as recommended by pulmonology Continue home inhalers Weaned off of supplemental oxygen Saturating well on room air Appreciate pulmonology input Plan to discharge on Trelegy per pulmonology Will need repeat CT chest in 6 to 8 weeks Continue incentive spirometer consider additional diuresis PRN if blood pressure tolerates Dysuria Check UA to rule out UTI Nocturnal hypoxia Continue 2 L oxygen at nighttime Alcoholism States drinks 2 mixed drinks daily Currently no signs of withdrawal Continue thiamine, folic acid Monitor for withdrawal Hypokalemia Replete and monitor History of A-fib Continue metoprolol succinate Not on anticoagulation secondary to fall risk Was started on Eliquis due to DVT as above Chronic anemia No obvious bleeding issues S/P 1 unit PRBC Monitor CBC Check FOBT CKD stage 3 Cr at baseline Monitor renal function Hypothyroidism continue Levothyroxine DM II Diet-controlled HbA1c 4.7 Monitor BGs DVT Px: Eliquis Code Status Full code Disposition Rehab as able Admission and Anticipated Discharge Date Admission Date: April 25, 2023 Subjective Patient is seen and examined at bedside Reported right leg pain this morning Also reported dysuria to RN No other complaints Denies any chest pain, dyspnea, dizzy nausea vomiting, abdominal pain Review of Systems Review of Systems: All systems reviewed & are unremarkable except as noted in Subjective Physical Exam Physical Exam: Physical Exam: Vitals signs as noted above General Appearance:Moderately built and nourished, no apparent distress, Elderly Head: normocephalic, Atraumatic Eyes: normal inspection, EOMI Neck: supple, Trachea midline Respiratory/Chest: Normal breath sounds, CTA, No accessory muscle use Cardiovascular: S1, S2, No murmur Abdomen/GI:Soft, Non tender, Bowel sounds present Extremities/Musculoskeletal:normal inspection, 2+ pedal edema, +Venous stasis Neurologic/Psych:AAOX3, grossly no focal neurological deficits Skin: normal color, warm Results & Data Results & Data Vital Signs (Past 12 Hours) Vital Signs Temp Pulse Pulse Resp BP Pulse Ox O2 Del Method 05/02/23 11:32 36.4 C L 79 16 134/69 95 Nasal Cannula 05/02/23 09:00 Nasal Cannula 05/02/23 08:54 92 Nasal Cannula 05/02/23 07:53 36.8 C 70 16 120/63 90 Nasal Cannula 05/02/23 07:04 69 05/02/23 04:24 36.9 C 68 20 108/61 93 Nasal Cannula O2 Flow Rate 05/02/23 11:32 4 05/02/23 09:00 4 05/02/23 08:54 4 05/02/23 07:53 4 05/02/23 07:04 05/02/23 04:24 3 Laboratory Results Short CBC 05/02/23 Range/Units 05:37 WBC 4.45 L (4.8-10.8) K/ul Hgb 8.7 L (14.0-18.0) g/dl Hct 26.3 L (42.0-52.0) % Plt Count 121 L (130-400) K/uL BMP 05/02/23 05:37 Sodium 133 L Potassium 4.3 Chloride 99 Carbon Dioxide 29 BUN 26 H Creatinine 1.15 Glucose 88 Calcium 8.5 L
[2023-05-02] MEDS: FUROSEMIDE 20 MG TAB PO ONE (16:59)
[2023-05-02 17:30] LABS: Appearance Urine Cloudy (Clear); Bacteria Urine Automated Negative (Negative); Bilirubin Urine Negative (Negative); Blood Urine 3+ (Negative); Color Urine Orange; Epithelial Cell Urine Auto 20-30 /lpf (0-5); Glucose Urine UA Negative (Negative); Ketones Urine Negative (Negative); Leukocyte Esterase Urine 1+ (Negative); Nitrite Urine Negative (Negative); RBC Urine Automated >30 /hpf (0-4); Specific Gravity Urine 1.015 (1.000-1.030); Urobilinogen Urine Negative (Negative)
[2023-05-02 17:39] LABS: Protein Urine 1+ (Negative)
[2023-05-03 06:08] LABS: Hematocrit (blood only) 25.8 % (42.0-52.0); Hemoglobin 8.6 g/dl (14.0-18.0); Mean Corpuscular Hemoglobin 32.5 pg (25.0-34.0); Mean Corpuscular Hgb Conc 33.3 g/dL (32.0-36.0); Mean Corpuscular Volume 97.4 fL (80.0-100.0); Mean Platelet Volume 9.9 fL (9.4-12.4); Platelet Count 154 K/uL (130-400); RDW Coefficient of Variation 16.5 % (11.5-14.5); RDW Standard Deviation 58.8 fL (36.4-46.3); Red Blood Count 2.65 M/uL (4.70-6.10); White Blood Count 4.27 K/ul (4.8-10.8)
[2023-05-03 06:21] LABS: BUN Creatinine Ratio 22.2 (10-20); Calcium 8.7 mg/dl (8.6-10.3); Creatinine Clr Calc Pharmacy 53.4 ml/min; Est GFR (African American) 74.2 ml/min; Magnesium 1.8 mg/dl (1.7-2.4)
--- NOTE | 2023-05-03 12:13 | Hospitalist Progress Note ---
Date of Service May 03, 2023 Assessment & Plan (1) Right hip pain: Plan: Patient is an 82 yr male with type 2 diabetes currently not on medications, hyperlipidemia, hypertension, hypothyroidism, COPD, history of CVA, Polyp of vocal cord, paroxysmal atrial fibrillation not on anticoagulation secondary to fall risk, peripheral vascular disease, irritable bowel syndrome, stage III chronic kidney disease, BPH ,normocytic anemia, history of alcoholism, comes because of fall and ambulatory dysfunction and also found to be hypoxic. Patient states he fell from his bed in the morning on the right side. Able to get up. But since then having difficulty ambulation. A lot of pain in the right hip region. [facility] When he went there because of pain in the hip and also his oxygen saturations in the 80s he was sent in here. Patient states usually short of breath in the nighttime and use oxygen 2 L nightly. Currently on 2 L. Currently denies any shortness of breath. Denies any chest pain. Right hip pain S/p fall Ambulatory dysfunction Osteoarthritis of right hip --R HIP CT:No acute osseous findings. Subcutaneous edema lateral to the right hip, possibly soft tissue contusion. --CT head: No acute intracranial process. -Weightbearing as tolerated right lower extremity per Ortho Continue PT OT Fall precautions Needs follow-up with orthopedics on discharge Fall precautions Acute bilateral lower extremity DVT --Venous Doppler: Deep venous thrombosis in the right and left lower extremity --CTA:A linear nonocclusive filling defect seen within the right middle lobe pulmonary artery. This favors motion artifact. A nonocclusive chronic embolus could also have a similar appearance. Otherwise, the remaining pulmonary arteries show no filling defects to suggest a pulmonary embolus. --ECHO: Mild concentric LVH but no regional wall motion abnormality. Left ventricle systolic function is normal. EF 60 to 64%. Right ventricle is normal in size and function. Left atrium is mildly dilated. Grade 1 diastolic dysfunction Was on IV heparin--transitioned to Eliquis Acute on chronic respiratory failure with hypoxia Likely multifactorial secondary to suspected pneumonia, COPD Pulmonary nodule Right upper lobe opacity likely developing pneumonia H/O nocturnal hypoxia, elevated left hemidiaphragm --CTA: A linear nonocclusive filling defect seen within the right middle lobe pulmonary artery. This favors motion artifact. A nonocclusive chronic embolus could also have a similar appearance. Otherwise, the remaining pulmonary arteries show no filling defects to suggest a pulmonary embolus. Trace pleural effusions. Emphysema. Bilateral low densities favor atelectasis. A pneumonia would be difficult to exclude by imaging. Possible 13 mm nodule within the base of the right lower lobe. [address] follow-up recommended. A linear/irregular density within the right upper lobe measuring 3.4 x 1.4 cm. This could represent scarring, atelectasis, pneumonia, or less likely a pulmonary lesion. Attention at follow-up recommended. -- Normal procalcitonin Complete azithromycin course as recommended by pulmonology---/ Continue home inhalers Weaned off of supplemental oxygen Saturating well on room air Appreciate pulmonology input Plan to discharge on Trelegy per pulmonology Will need repeat CT chest in 6 to 8 weeks Continue incentive spirometer consider additional diuresis PRN if blood pressure tolerates Dysuria Microscopic hematuria Unclear UA empirically started on Cefdinir--day #1 Advised to get repeat UA after completion of antibiotic course and if microscopic hematuria persists, advised to follow-up with urology as outpatient Patient understands and agrees with the plan Nocturnal hypoxia Continue 2 L oxygen at nighttime Alcoholism States drinks 2 mixed drinks daily Currently no signs of withdrawal Continue thiamine, folic acid Monitor for withdrawal Hypokalemia Replete and monitor History of A-fib Continue metoprolol succinate Not on anticoagulation secondary to fall risk Was started on Eliquis due to DVT as above Chronic anemia No obvious bleeding issues S/P 1 unit PRBC Monitor CBC FOBT--pending Hb stable CKD stage 3 Cr at baseline Monitor renal function Hypothyroidism continue Levothyroxine DM II Diet-controlled HbA1c 4.7 Monitor BGs DVT Px: Eliquis Code Status Full code Disposition SNF Admission and Anticipated Discharge Date Admission Date: April 25, 2023 Subjective Patient is seen and examined at bedside Admits to have dysuria leg pain is controlled Denies any chest pain, dyspnea, dizzy nausea vomiting, abdominal pain, hematuria Review of Systems Review of Systems: All systems reviewed & are unremarkable except as noted in Subjective Physical Exam Physical Exam: Physical Exam: Vitals signs as noted above General Appearance:Moderately built and nourished, no apparent distress, Elderly Head: normocephalic, Atraumatic Eyes: normal inspection, EOMI Neck: supple, Trachea midline Respiratory/Chest: Normal breath sounds, CTA, No accessory muscle use Cardiovascular: S1, S2, No murmur Abdomen/GI:Soft, Non tender, Bowel sounds present Extremities/Musculoskeletal:normal inspection, 2+ pedal edema, +Venous stasis Neurologic/Psych:AAOX3, grossly no focal neurological deficits Skin: normal color, warm Results & Data Results & Data Vital Signs (Past 12 Hours) Vital Signs Temp Pulse Pulse Resp BP BP Pulse Ox 05/03/23 09:09 05/03/23 07:49 36.4 C L 59 L 16 104/53 L 95 05/03/23 07:31 63 05/03/23 04:10 36.5 C 57 L 20 119/65 95 05/03/23 00:13 36.3 C L 63 20 90/49 L 93 O2 Del Method O2 Flow Rate 05/03/23 09:09 Nasal Cannula 3 05/03/23 07:49 Nasal Cannula 3 05/03/23 07:31 05/03/23 04:10 Nasal Cannula 3 05/03/23 00:13 Room Air Laboratory Results Short CBC 05/03/23 Range/Units 05:33 WBC 4.27 L (4.8-10.8) K/ul Hgb 8.6 L (14.0-18.0) g/dl Hct 25.8 L (42.0-52.0) % Plt Count 154 (130-400) K/uL BMP 05/03/23 05:33 Sodium 131 L Potassium 4.0 Chloride 97 L Carbon Dioxide 29 BUN 24 H Creatinine 1.08 Glucose 89 Calcium 8.7 Urine 05/02/23 Range/Units 16:34 Urine Color [place] Urine Appearance Cloudy A (Clear) Urine pH 8.0 H (4.5-7.5) Ur Specific [place] 1.015 (1.000-1.030) Urine Protein 1+ H (Negative) Urine Glucose (UA) Negative (Negative)
--- NOTE | 2023-05-03 12:39 | Discharge Summary ---
Date of Service May 03, 2023 Admission HPI Per Admitting Provider 82-year-old male with past medical history significant for type 2 diabetes currently not on medications, hyperlipidemia, hypertension, hypothyroidism, COPD, history of CVA, Polyp of vocal cord, paroxysmal atrial fibrillation not on anticoagulation secondary to fall risk, peripheral vascular disease, irritable bowel syndrome, stage III chronic kidney disease, BPH ,normocytic anemia, history of alcoholism, comes because of fall and ambulatory dysfunction and also found to be hypoxic. Patient states he fell from his bed in the morning on the right side. Able to get up. But since then having difficulty ambulation. A lot of pain in the right hip region. [facility] because of pain in the hip and also his oxygen saturations in the 80s he was sent in here. Patient states usually short of breath in the nighttime and use oxygen 2 L nightly. Currently on 2 L saturating fine. Currently denies any shortness of breath. Denies any chest pain. No headache. Vision is okay. No runny nose or sore throat. No cough. No fevers. No nausea. No abdominal pain. Usually constipated. Denies any blood in the stools. Normal micturition. Has chronic swelling in the legs. Ambulates with rollator walker. Hemodynamically stable. Past medical history. As mentioned above Past surgical history. Colonoscopy. Hemorrhoidectomy. Laparoscopic appendectomy. Cataracts. Revision of left ankle joint in 1982. Social history. Smoked 2 packs a day for 35 years quit smoking 1989. Alcohol 2 drinks daily. No drug use. Family history. Brother had cancer. Father had stroke. Mother had lung cancer. Sister has osteoporosis Admission Exam Per Admitting Provider General- Not in distress Head- atraumatic Eyes- PERRL. ENT- oropharynx clear Neck- supple, no JVD. Lungs- clear to auscultation no wheezing or crackles. Heart- regular rhythm; no murmur, no gallop. Abdomen- normal bowel sounds, soft, nontender, no distension. Extremities- b/l lower extremity edema. chronic skin changes seen.Painful right lower extremity movements. Neuro- alert, oriented PERRL, no facial palsy; no dysarthria Skin- warm & dry Principal Diagnosis Acute bilateral lower extremity deep vein thrombosis Suspected pneumonia Pulmonary nodule Suspected UTI Alcohol use disorder Right hip osteoarthritis, ambulatory dysfunction COPD Nocturnal hypoxia--on 2 L at baseline Discharge Data Allergies Allergy/AdvReac Type Severity Reaction Status Date / Time adhesive Allergy Unknown RASH Verified 04/25/23 21:04 ceftriaxone Allergy Unknown . Verified 04/25/23 21:04 cefuroxime Allergy Unknown FLUSHING, Verified 04/25/23 21:04 HIVES, ITCHING Stggbmm-LAR-MzJ Reductase Allergy Unknown MUSCLE Verified 04/25/23 21:04 Inhibitor [Gklljat-Sga-Hqq Reductase Inhibitor] zolpidem Allergy Unknown "MADE ME A Verified 04/25/23 21:04 DIFFERENT PERSON" Consultations 04/25/23 19:49 ED Decision to Admit Stat 04/26/23 08:00 Consult Orthopedic Surgery Routine 04/26/23 09:00 Consult Cardiology Routine 04/28/23 11:02 Consult Pulmonology Routine Ordered Studies 04/25/23 18:22 CT head/brain wo con Stat CT hip RT wo con Stat 04/26/23 US venous doppler LE BI Urgent 04/28/23 07:59 CT angio chest PE protocol Routine Hospital Course (1) Right hip pain: Patient is an 82 yr male with type 2 diabetes currently not on medications, hyperlipidemia, hypertension, hypothyroidism, COPD, history of CVA, Polyp of vocal cord, paroxysmal atrial fibrillation not on anticoagulation secondary to fall risk, peripheral vascular disease, irritable bowel syndrome, stage III chronic kidney disease, BPH ,normocytic anemia, history of alcoholism, comes because of fall and ambulatory dysfunction and also found to be hypoxic. Patient states he fell from his bed in the morning on the right side. Able to get up. But since then having difficulty ambulation. A lot of pain in the right hip region. [facility] When he went [facility] because of pain in the hip and also his oxygen saturations in the 80s he was sent in here. Patient states usually short of breath in the nighttime and use oxygen 2 L nightly. Currently on 2 L. Currently denies any shortness of breath. Denies any chest pain. Right hip pain S/p fall Ambulatory dysfunction Osteoarthritis of right hip --R HIP CT:No acute osseous findings. Subcutaneous edema lateral to the right hip, possibly soft tissue contusion. --CT head: No acute intracranial process. -Weightbearing as tolerated right lower extremity per Ortho Continue PT OT Fall precautions Needs follow-up with orthopedics on discharge Fall precautions Acute bilateral lower extremity DVT --Venous Doppler: Deep venous thrombosis in the right and left lower extremity --CTA:A linear nonocclusive filling defect seen within the right middle lobe pulmonary artery. This favors motion artifact. A nonocclusive chronic embolus could also have a similar appearance. Otherwise, the remaining pulmonary arteries show no filling defects to suggest a pulmonary embolus. --ECHO: Mild concentric LVH but no regional wall motion abnormality. Left ventricle systolic function is normal. EF 60 to 64%. Right ventricle is normal in size and function. Left atrium is mildly dilated. Grade 1 diastolic dysfunction Was on IV heparin--transitioned to Eliquis Acute on chronic respiratory failure with hypoxia Likely multifactorial secondary to suspected pneumonia, COPD Pulmonary nodule Right upper lobe opacity likely developing pneumonia H/O nocturnal hypoxia, elevated left hemidiaphragm --CTA: A linear nonocclusive filling defect seen within the right middle lobe pulmonary artery. This favors motion artifact. A nonocclusive chronic embolus could also have a similar appearance. Otherwise, the remaining pulmonary arteries show no filling defects to suggest a pulmonary embolus. Trace pleural effusions. Emphysema. Bilateral low densities favor atelectasis. A pneumonia would be difficult to exclude by imaging. Possible 13 mm nodule within the base of the right lower lobe. [address] follow-up recommended. A linear/irregular density within the right upper lobe measuring 3.4 x 1.4 cm. This could represent scarring, atelectasis, pneumonia, or less likely a pulmonary lesion. Attention at follow-up recommended. -- Normal procalcitonin Complete azithromycin course as recommended by pulmonology---4/5 Continue home inhalers Weaned off of supplemental oxygen Saturating well on room air Appreciate pulmonology input Plan to discharge on Trelegy per pulmonology Will need repeat CT chest in 6 to 8 weeks Continue incentive spirometer consider additional diuresis PRN if blood pressure tolerates Dysuria Microscopic hematuria Unclear UA empirically started on Macrobid Advised to get repeat UA after completion of antibiotic course and if microscopic hematuria persists, advised to follow-up with urology as outpatient Patient understands and agrees with the plan Nocturnal hypoxia Continue 2 L oxygen at nighttime Alcoholism States drinks 2 mixed drinks daily Currently no signs of withdrawal Continue thiamine, folic acid Monitor for withdrawal Hypokalemia Replete and monitor History of A-fib Continue metoprolol succinate Not on anticoagulation secondary to fall risk Was started on Eliquis due to DVT as above Chronic anemia No obvious bleeding issues S/P 1 unit PRBC Monitor CBC FOBT--pending Hb stable CKD stage 3 Cr at baseline Monitor renal function Hypothyroidism continue Levothyroxine DM II Diet-controlled HbA1c 4.7 Monitor BGs DVT Px: Eliquis Code Status Full code Disposition SNF Total Time Total Time Spent Total Time Spent (In Minutes): 56 minutes Discharge Plan Discharge Items Patient Disposition: Transfer Long-Term Fac Reason For Visit: FALL, AMBULATORY DYSFUNCTION, HYPOXIA Discharge Diagnosis: Acute bilateral lower extremity deep vein thrombosis Suspected pneumonia Pulmonary nodule Suspected UTI Alcohol use disorder Right hip osteoarthritis, ambulatory dysfunction COPD Nocturnal hypoxia--on 2 L at baseline Activity: Per Instructions section Exercise/Sports: Gradually increase as tolerated Non-emergency contact: Primary Care Provider, Surgeon and Electric Switch Tester Call non-emergency contact if: you have any medication questions, your symptoms worsen, your pain is concerning for you and you have a fever Follow-up/Referrals: Juan Luis Hope MD [Primary Care Provider] - Diet: Carb Consistent or DM2 and Heart Healthy Diet Texture: Easy to Chew Addtl Attending Provider Instructions: Follow-up with your primary care physician in 1 week upon discharge from rehab facility Follow-up with your button buttonhole marker with repeat CT chest in 6 to 8 weeks for further evaluation of right upper lobe opacity and possible need for bronchoscopy Follow-up with your orthopedic surgeon for further management of right hip osteoarthritis --Take Eliquis 10mg BID till 3/24/24 morning dose then take 5mg BID from 3/24/24 evening dose. -- Complete antibiotic course Macrobid and azithromycin as prescribed -- Continue alcohol as advised Seek immediate medical attention if your symptoms reoccur or worsen Please take all medications as instructed on discharge list below. Please call if you have any questions or problems. You can reach a [facility] hospitalist on duty at [facility] 24 hours a day by calling [phone] Pending Studies at Discharge: No Stand-Alone Forms: My [facility] Skilled Items Patient informed of condition?: Yes DNR: No Discharge Level of Care: Skilled Communicable Disease: No Discharge Prognosis: Stable Lines: None Urinary Catheter: No Medications and DC Order Prescriptions: New azithromycin 250 mg Tablet 500 mg PO DAILY Qty: 2 0RF Eliquis 5 mg Tablet 5 mg PO UD Qty: 90 0RF Rx Instructions: Take Eliquis 10mg BID till 05/05/23 morning dose then take 5mg BID from 05/05/23 evening dose. folic acid 1 mg Tablet 1 mg PO QAM Qty: 30 0RF Trelegy Ellipta 100-62.5-25 mcg blister with device 1 inh inhalation DAILY Qty: 60 0RF magnesium oxide 400 mg (241.3 mg magnesium) Tablet 400 mg PO DAILY Qty: 30 0RF nitrofurantoin monohyd/m-cryst [Macrobid] 100 mg capsule 100 mg PO BID 7 Days Qty: 14 0RF Rx Instructions: must administer with a meal/food Continued trazodone 50 mg tablet 50 mg PO HS thiamine HCl (vitamin B1) [Vitamin B-1] 100 mg tablet 100 mg PO QAM tramadol 50 mg Tablet 50 mg PO TID Rx Instructions: Take with 650mg tylenol zinc sulfate 50 mg zinc (220 mg) tablet 50 mg PO QAM lorazepam 0.5 mg tablet 0.5 mg PO DAILY PRN (Reason: Anxiety) meclizine 25 mg Tablet 25 mg PO TID PRN (Reason: .dizzyness) lansoprazole 15 mg capsule,delayed release(DR/EC) 15 mg PO QAM nitroglycerin 0.4 mg tablet, sublingual 0.4 mg sublingual DIRECTED PRN (Reason: ..chest pain) docusate sodium 100 mg capsule 100 mg PO BID metoprolol succinate 25 mg Tablet Extended Release 24 Hr 25 mg PO QAM levothyroxine 112 mcg Tablet 112 mcg PO DAILY Rx Instructions: this was not seen on pharmacy list tadalafil 20 mg tablet 20 mg PO DAILY PRN (Reason: .erectile dysfunction) cholecalciferol (vitamin D3) [Vitamin D3] 50 mcg (2,000 unit) Tablet 50 mcg PO DAILY Held potassium chloride 20 mEq Tablet Extended Release 20 meq PO TID Hold Instructions: until further recommendation from your physician Rx Instructions: Take am,noon & hs Discontinued fluticasone propion-salmeterol 250-50 mcg/dose blister with device 1 inh INHALATION Q12 Discharge Orders: Discharge Order (Routine); Ordered 05/03/23 Ordered By: Skip Dahl/Other Patient Handouts: Managing Type 2 Diabetes Admission Data Admit Date/Time: 04/25/23 21:54 Attending Provider: Skip Roman Admit Provider: Asim Delgado Primary Care Provider: Juan Luis Hope Other Providers: Asim Delgado; Momo Hayes; Ra Martell; Mike Licona; Jackie Arrington; Mendoza Muro; Katerina Shepard; Lorenzo Sevilla; Gagan Palomino; Dillon Farrell; Jimbo Poole; Gagan Cheng; Jakob Melchor; Stewart Manzanares; Eddie Jarrett; Sarath Steel; Katerina Sarah; Fantasma Balbuena; Yonny Pritchard; Luis Cary; Roseann Sepulveda; Jeffry Cantu; Sacha Yan; Kathryn Ramsay; Earl Bhatt; Cuca Strong; [facility]; Olegario Lee; Nannette Wooten,[facility]
== END 2023-05-03 14:02 | DRG 299 ==
LOC: ED 14:21 → EDINP 21:54 → SUATTDRO 21:54 → 2S 04-26 05:08 → 2N 04-26 20:33
DX: E03.9 Hypothyroidism, unspecified; D64.9 Anemia, unspecified; I48.0 Paroxysmal atrial fibrillation; E87.6 Hypokalemia; R91.1 Solitary pulmonary nodule; J44.9 Chronic obstructive pulmonary disease, unspecified; Z79.890 Hormone replacement therapy; F10.20 Alcohol dependence, uncomplicated; R09.02 Hypoxemia; J96.21 Acute and chronic respiratory failure with hypoxia; N39.0 Urinary tract infection, site not specified; Y92.039 Unspecified place in apartment as the place of occurrence of the external cause; E87.5 Hyperkalemia; Z88.1 Allergy status to other antibiotic agents; E11.51 Type 2 diabetes mellitus with diabetic peripheral angiopathy without gangrene; W18.30XA Fall on same level, unspecified, initial encounter; I13.0 Hypertensive heart and chronic kidney disease with heart failure and stage 1 through stage 4 chronic kidney disease, or unspecified chronic kidney disease; J18.9 Pneumonia, unspecified organism; N18.30 Chronic kidney disease, stage 3 unspecified; Z99.81 Dependence on supplemental oxygen; Z87.891 Personal history of nicotine dependence; M16.11 Unilateral primary osteoarthritis, right hip; Z86.73 Personal history of transient ischemic attack (TIA), and cerebral infarction without residual deficits; S70.01XA Contusion of right hip, initial encounter; E11.22 Type 2 diabetes mellitus with diabetic chronic kidney disease; I82.403 Acute embolism and thrombosis of unspecified deep veins of lower extremity, bilateral; K58.9 Irritable bowel syndrome, unspecified